=== PATIENT | male | born 1980 | race Caucasian/White ===

== ENCOUNTER → 2019-05-21 09:44 | Outpatient (BNVA) | payer SELFPAY | PROVIDERS: Family Provider Nurse Practitioner Family; PCP Nurse Practitioner Family; Visit Provider Nurse Practitioner Family | DX: I50.9 Heart failure, unspecified (principal); R06.02 Shortness of breath | CPT/HCPCS: 71046; 80053; 80061; 83036; 83721; 84439; 84443 ==

== ENCOUNTER 2019-05-29 17:40 | Inpatient (IN) | payer SELFPAY ==
[2019-05-29] VITALS (7 sets, daily range): BP systolic 102–130; BP diastolic 73–91; PULSE 93–112; RESP 15–18; TEMP 37.1; O2SAT 95–96; BMI 29.6; BMI 30.9
--- NOTE | 2019-05-29 18:06 | XRR_ITS ---
PROCEDURE INFORMATION: Exam: XR Chest, 1 View Exam date and time: 05/29/2019 6:07 PM Age: 38 years old Clinical indication: Patient HX: Sharp intermittent chest pains, smoker, hx- chf; Additional info: Dyspnea/cough TECHNIQUE: Imaging protocol: XR of the chest Views: 1 view. COMPARISON: CR XR chest 2V* [id number] 05/21/2019 9:56 AM FINDINGS: Lungs: Unremarkable. No consolidation. Pleural space: Unremarkable. No pleural effusion. No pneumothorax. Heart/Mediastinum: Unremarkable. No cardiomegaly. Bones/joints: Unremarkable. XR/XR chest 1V portable [id number] IMPRESSION: No acute findings.
--- NOTE | 2019-05-29 18:06 | ECG_ITS ---
Measurements Intervals [place] Rate: 90 P: 42 [place]: 119 QRS: 4 QRSD: 105 T: 195 QT: 375 QTc: 461 SINUS RHYTHM WITH SHORT [place] INTERVAL POSSIBLE LEFT ATRIAL ENLARGEMENT [-0.1mV P WAVE IN V1/V2] MODERATE T-WAVE ABNORMALITY, CONSIDER LATERAL ISCHEMIA [-0.1+ mV T WAVE IN I/aVL/V5/V6] Compared to ECG 01/23/2019 11:14:05 Sinus tachycardia no longer present T-wave abnormality still present Possible ischemia still present Electronically Signed On 05-30-2019 8:29:27 CDT by Kelly Georges M.D. [email or web address]
--- NOTE | 2019-05-29 18:12 | W.ED.CHESTPA ---
Documented by User: James Holliday DO 05/31/19 11:53 HPI - Chest Pain General: Chief Complaint: Chest Pain Stated Complaint: CHEST PAIN Time Seen by Provider: 05/29/19 17:41 History of Present Illness: HPI narrative: 38-year-old female admitted to the emergency room with a complaint of chest pain while at home. He states he has had some congestive heart failure in the past he said some difficulty breathing and some chest tightness and discomfort has not had any radiation of pain no vomiting or diarrhea denies fever sweats or chills Associated symptoms: Deny abdominal pain, dyspnea, fever(s), nausea or vomiting Review of Systems Const: Denies: fever, chills, body aches, change in appetite, fatigue or malaise ENMT: Denies: throat pain, ear pain, nasal discharge or nasal congestion Card: Reports: chest pain and shortness of breath on exertion; Denies: edema or shortness of breath when lying down Resp: Denies: shortness of breath, productive cough or non-productive cough GI: Denies: abdominal pain, nausea, vomiting, vomiting blood, coffee grounds in vomit, diarrhea, constipation, bloating, blood in stool or black tarry stool : Denies: flank pain, painful urination, urinary frequency or urinary urgency Skin/Breast: Denies: rash or itching PFSH ED PFSH: Medical History Cannabis dependence, uncomplicated 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% no valvular abnormality Depression Essential hypertension GERD (gastroesophageal reflux disease) Major depressive disorder, recurrent severe without psychotic features Moderate pulmonary arterial systolic hypertension Nicotine dependence, cigarettes, with other nicotine-induced disorders Post-traumatic stress disorder, chronic Type 1 diabetes mellitus with hyperglycemia Surgical History (Updated 05/29/19 @ 21:14 by Delfin Russo MD) History of hip surgery Family History Grandmother Diabetes Cancer Mother Diabetes Father Hypertension Grandmother Hypertension Father Cancer Social History Smoking and tobacco status: current every day smoker cigarettes [ Other cigarette details: 03/06 ppd ] Smoking risk assessment/counseling performed?: Yes Tobacco counseling given: counseling >3 minutes Alcohol intake: current Alcohol intake frequency: holidays/special occasions only Physical Exam Const: COMMON NORMALS: no apparent distress GENERAL APPEARANCE: cooperative and comfortable ORIENTATION/CONSCIOUSNESS: Yes awake, Yes oriented to person, Yes oriented to place and Yes oriented to time HENMT: COMMON NORMALS: normocephalic, head/scalp atraumatic, hearing grossly normal bilaterally, external ears normal, EAC's normal, TM's normal bilaterally, nasal mucous membranes and turbinates normal, moist oral mucous membranes and oropharynx normal HEAD & SCALP: normocephalic and atraumatic NOSE: nasal mucous membranes and turbinates normal EXTERNAL EAR: Yes external ears normal EXTERNAL AUDITORY CANAL: EAC's normal TYMPANIC MEMBRANE: TM's normal bilaterally Eye: COMMON NORMALS: PERRL, EOMs intact bilaterally, conjunctivae normal and no scleral icterus CONJUNCTIVA: Yes conjunctivae normal PUPIL: Yes PERRL Neck/C-Spine: COMMON NORMALS: full ROM, no lymphadenopathy, supple and no JVD Lymph: LYMPHATIC: no lymphadenopathy noted and no lymphedema noted Resp: COMMON NORMALS: normal respiratory effort, no retractions, no use of accessory muscles and clear to auscultation bilaterally AUSCULTATION: clear to auscultation bilaterally Cardio: COMMON NORMALS: no JVD, regular rate, regular rhythm and no murmurs RATE: regular rate RHYTHM: regular rhythm GI: COMMON NORMALS: soft to palpation and no hepatosplenomegaly AUSCULTATION: Yes normoactive bowel sounds PALPATION: Yes soft, No tender, No guarding and Yes no hepatosplenomegaly Extremity: COMMON NORMALS: normal to inspection, normal capillary refill, no clubbing, cyanosis or edema, no calf tenderness and no pedal edema Neuro: SENSORIUM/ORIENTATION: Yes oriented to person, Yes oriented to place and Yes oriented to time Skin: COMMON NORMALS: no rashes or lesions noted GENERAL SKIN EXAM: no rashes or lesions noted Course Vital Signs: Vital signs: Vital Signs Temperature 98.3 F 05/31/19 08:00 Pulse Rate 100 05/31/19 08:00 Respiratory Rate 20 H 05/31/19 08:00 Blood Pressure 111/83 05/31/19 08:00 Pulse Oximetry 93 05/31/19 08:00 MDM - Chest Pain MDM Narrative: Medical decision making narrative: Patient seen initially and was evaluated laboratory tests ordered. Care handed over to Dr. Zafar at change of shift Lab Data: Labs: Lab Results 05/29/19 05/29/19 05/29/19 Range/Units 18:21 18:21 18:21 WBC 10.1 H (4.0-10.0) 10^3/ uL RBC 5.03 (4.1-5.3) 10^6/u L Hgb 15.7 (11.7-16.6) g/dL Hct 47.2 (42.0-52.0) % MCV 93.8 (80-94) fL MCH 31.2 (28.0-34.0) pg MCHC 33.3 (30.0-36.0) g/dL RDW 13.6 (12.1-15.1) % Plt Count 229 (130-400) 10^3/c mm MPV 11.9 H (7.4-10.4) fL Neut % (Auto) 55.5 % Lymph % (Auto) 35.1 % [place] % (Auto) 5.3 % Eos % (Auto) 2.5 % Baso % (Auto) 0.6 % Neut # (Auto) 5.6 (1.8-7.7) 10^3/u L Lymph # (Auto) 3.6 (0.8-4.8) 10^3/u L [place] # (Auto) 0.5 (0.2-0.9) 10^3/u L Eos # (Auto) 0.3 (0.0-0.8) 10^3/u L Baso # (Auto) 0.1 (0.0-0.1) 10^3/u L Nucleated RBC % (a uto) 0 % Nucleated RBCs # 0.0 /100WBC D-Dimer 0.32 (0-0.59) ug/mIFE U Sodium 141 (136-145) mmol/L Potassium 4.1 (3.5-5.1) mmol/L Chloride 106 (98-107) mmol/L Carbon Dioxide 22 (22-29) mmol/L Anion Gap 17.1 (5-19) BUN 21 H (6-20) mg/dL Creatinine 1.1 (0.7-1.2) mg/dL GFR Calculation 74.5 L (90-130) mL/min Glucose 111 (65-115) mg/dL POC Glucose (70-110) mg/dL Calculated Osmolal ity 289 (285-295) mOsm/k g Calcium 9.6 (8.5-10.5) mg/dL Total Bilirubin 0.2 (0.15-1.2) mg/dL AST 15 (0-40) U/L ALT 18 (0-41) U/L Alkaline Phosphata se 63 (40-130) IU/L Troponin T Baselin e (0-15) ng/mL Troponin T 120 Min [place] (0-15) ng/mL Delta Troponin T (0-10) ABS# NT-Pro-B Natriuret Pep (0-125) pg/mL Total Protein 6.5 L (6.6-8.7) g/dL Albumin 4.0 (3.5-5.2) g/dL Globulin 2.5 (1.3-4.6) g/dL 05/29/19 05/29/19 05/29/19 Range/Units 18:21 20:03 22:38 WBC (4.0-10.0) 10^3/ uL RBC (4.1-5.3) 10^6/u L Hgb (11.7-16.6) g/dL Hct (42.0-52.0) % MCV (80-94) fL MCH (28.0-34.0) pg MCHC (30.0-36.0) g/dL RDW (12.1-15.1) % Plt Count (130-400) 10^3/c mm MPV (7.4-10.4) fL Neut % (Auto) % Lymph % (Auto) % [place] % (Auto) % Eos % (Auto) % Baso % (Auto) % Neut # (Auto) (1.8-7.7) 10^3/u L Lymph # (Auto) (0.8-4.8) 10^3/u L [place] # (Auto) (0.2-0.9) 10^3/u L Eos # (Auto) (0.0-0.8) 10^3/u L Baso # (Auto) (0.0-0.1) 10^3/u L Nucleated RBC % (a uto) % Nucleated RBCs # /100WBC D-Dimer (0-0.59) ug/mIFE U Sodium (136-145) mmol/L Potassium (3.5-5.1) mmol/L Chloride (98-107) mmol/L Carbon Dioxide (22-29) mmol/L Anion Gap (5-19) BUN (6-20) mg/dL Creatinine (0.7-1.2) mg/dL GFR Calculation (90-130) mL/min Glucose (65-115) mg/dL POC Glucose 183 (70-110) mg/dL Calculated Osmolal ity (285-295) mOsm/k g Calcium (8.5-10.5) mg/dL Total Bilirubin (0.15-1.2) mg/dL AST (0-40) U/L ALT (0-41) U/L Alkaline Phosphata se (40-130) IU/L Troponin T Baselin e 48 H (0-15) ng/mL Troponin T [address] [place] 49.49 H (0-15) ng/mL Delta Troponin T 1.49 (0-10) ABS# NT-Pro-B Natriuret Pep (0-125) pg/mL Total Protein (6.6-8.7) g/dL Albumin (3.5-5.2) g/dL Globulin (1.3-4.6) g/dL 05/30/19 05/30/19 05/30/19 Range/Units 04:24 04:24 04:24 WBC 8.0 (4.0-10.0) 10^3/ uL RBC 4.71 (4.1-5.3) 10^6/u L Hgb 14.8 (11.7-16.6) g/dL Hct 45.6 (42.0-52.0) % MCV 96.8 H (80-94) fL MCH 31.4 (28.0-34.0) pg MCHC 32.5 (30.0-36.0) g/dL RDW 13.8 (12.1-15.1) % Plt Count 212 (130-400) 10^3/c mm MPV 12.3 H (7.4-10.4) fL Neut % (Auto) 48.5 % Lymph % (Auto) 40.0 % [place] % (Auto) 6.0 % Eos % (Auto) 3.6 % Baso % (Auto) 0.5 % Neut # (Auto) 3.9 (1.8-7.7) 10^3/u L Lymph # (Auto) 3.2 (0.8-4.8) 10^3/u L [place] # (Auto) 0.5 (0.2-0.9) 10^3/u L Eos # (Auto) 0.3 (0.0-0.8) 10^3/u L Baso # (Auto) 0.0 (0.0-0.1) 10^3/u L Nucleated RBC % (a uto) 0 % Nucleated RBCs # 0.0 /100WBC D-Dimer (0-0.59) ug/mIFE U Sodium 141 (136-145) mmol/L Potassium 3.9 (3.5-5.1) mmol/L Chloride 105 (98-107) mmol/L Carbon Dioxide 25 (22-29) mmol/L Anion Gap 14.9 (5-19) BUN 20 (6-20) mg/dL Creatinine 1.1 (0.7-1.2) mg/dL GFR Calculation 74.5 L (90-130) mL/min Glucose 140 H (65-115) mg/dL POC Glucose (70-110) mg/dL Calculated Osmolal ity 291 (285-295) mOsm/k g Calcium 9.5 (8.5-10.5) mg/dL Total Bilirubin 0.2 (0.15-1.2) mg/dL AST 16 (0-40) U/L ALT 17 (0-41) U/L Alkaline Phosphata se 61 (40-130) IU/L Troponin T Baselin e (0-15) ng/mL Troponin T 120 Min [place] (0-15) ng/mL Delta Troponin T (0-10) ABS# NT-Pro-B Natriuret Pep 1464 H (0-125) pg/mL Total Protein 5.8 L (6.6-8.7) g/dL Albumin 3.8 (3.5-5.2) g/dL Globulin 2.0 (1.3-4.6) g/dL 05/30/19 05/30/19 05/30/19 Range/Units 05:58 11:32 15:57 WBC (4.0-10.0) 10^3/ uL RBC (4.1-5.3) 10^6/u L Hgb (11.7-16.6) g/dL Hct (42.0-52.0) % MCV (80-94) fL MCH (28.0-34.0) pg MCHC (30.0-36.0) g/dL RDW (12.1-15.1) % Plt Count (130-400) 10^3/c mm MPV (7.4-10.4) fL Neut % (Auto) % Lymph % (Auto) % [place] % (Auto) % Eos % (Auto) % Baso % (Auto) % Neut # (Auto) (1.8-7.7) 10^3/u L Lymph # (Auto) (0.8-4.8) 10^3/u L [place] # (Auto) (0.2-0.9) 10^3/u L Eos # (Auto) (0.0-0.8) 10^3/u L Baso # (Auto) (0.0-0.1) 10^3/u L Nucleated RBC % (a uto) % Nucleated RBCs # /100WBC D-Dimer (0-0.59) ug/mIFE U Sodium (136-145) mmol/L Potassium (3.5-5.1) mmol/L Chloride (98-107) mmol/L Carbon Dioxide (22-29) mmol/L Anion Gap (5-19) BUN (6-20) mg/dL Creatinine (0.7-1.2) mg/dL GFR Calculation (90-130) mL/min Glucose (65-115) mg/dL POC Glucose 142 184 110 (70-110) mg/dL Calculated Osmolal ity (285-295) mOsm/k g Calcium (8.5-10.5) mg/dL Total Bilirubin (0.15-1.2) mg/dL AST (0-40) U/L ALT (0-41) U/L Alkaline Phosphata se (40-130) IU/L Troponin T Baselin e (0-15) ng/mL Troponin T 120 Min [place] (0-15) ng/mL Delta Troponin T (0-10) ABS# NT-Pro-B Natriuret Pep (0-125) pg/mL Total Protein (6.6-8.7) g/dL Albumin (3.5-5.2) g/dL Globulin (1.3-4.6) g/dL Discharge Plan Discharge Admit Provider: Delfin Russo Condition: Stable Discharge Diet: Cardiac and Diabetic Discharge Activity: Resume usual activity Discharge Date/Time: 05/29/19 22:29 Coding Level of Care Code ED Enroute Controller for Chg Fwd Exam Comprehensive Documented by User: Sp Zafar DO 05/29/19 21:01 HPI - Chest Pain General: Chief Complaint: Chest Pain Stated Complaint: CHEST PAIN Time Seen by Provider: 05/29/19 17:41 PFSH ED PFSH: Medical History Cannabis dependence, uncomplicated 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% no valvular abnormality Depression Essential hypertension GERD (gastroesophageal reflux disease) Major depressive disorder, recurrent severe without psychotic features Moderate pulmonary arterial systolic hypertension Nicotine dependence, cigarettes, with other nicotine-induced disorders Post-traumatic stress disorder, chronic Type 1 diabetes mellitus with hyperglycemia Surgical History (Updated 05/29/19 @ 21:14 by Delfin Russo MD) History of hip surgery Family History Grandmother Diabetes Cancer Mother Diabetes Father Hypertension Grandmother Hypertension Father Cancer Social History Smoking and tobacco status: current every day smoker cigarettes [ Other cigarette details: 03/06 ppd ] Smoking risk assessment/counseling performed?: Yes Tobacco counseling given: counseling >3 minutes Alcohol intake: current Alcohol intake frequency: holidays/special occasions only Course Vital Signs: Vital signs: Vital Signs Temperature 98.3 F 05/31/19 08:00 Pulse Rate 100 05/31/19 08:00 Respiratory Rate 20 H 05/31/19 08:00 Blood Pressure 111/83 05/31/19 08:00 Pulse Oximetry 93 05/31/19 08:00 MDM - Chest Pain MDM Narrative: Medical decision making narrative: 38-year-old male diabetic. He was told at one point he had congestive heart failure. He was checked out to me by Dr. Weaver. He presents with left-sided chest pain that is sharp. He is not really coughing. No sputum production or fever. His initial EKG showed a sinus tachycardia with a rate of 100, and some T wave inversion in V6. His 2-hour EKG shows T wave inversion in V6, V5, and a biphasic T wave in V4. He also has a biphasic T wave in lead II that is new. With progressive T wave changes, as well as persistent pain, he will be observed. His troponin did not change at 2 hours but was elevated initially. His chest x-ray is clear and other labs are benign. Lab Data: Labs: Lab Results 05/29/19 05/29/19 05/29/19 Range/Units 18:21 18:21 18:21 WBC 10.1 H (4.0-10.0) 10^3/ uL RBC 5.03 (4.1-5.3) 10^6/u L Hgb 15.7 (11.7-16.6) g/dL Hct 47.2 (42.0-52.0) % MCV 93.8 (80-94) fL MCH 31.2 (28.0-34.0) pg MCHC 33.3 (30.0-36.0) g/dL RDW 13.6 (12.1-15.1) % Plt Count 229 (130-400) 10^3/c mm MPV 11.9 H (7.4-10.4) fL Neut % (Auto) 55.5 % Lymph % (Auto) 35.1 % [place] % (Auto) 5.3 % Eos % (Auto) 2.5 % Baso % (Auto) 0.6 % Neut # (Auto) 5.6 (1.8-7.7) 10^3/u L Lymph # (Auto) 3.6 (0.8-4.8) 10^3/u L [place] # (Auto) 0.5 (0.2-0.9) 10^3/u L Eos # (Auto) 0.3 (0.0-0.8) 10^3/u L Baso # (Auto) 0.1 (0.0-0.1) 10^3/u L Nucleated RBC % (a uto) 0 % Nucleated RBCs # 0.0 /100WBC D-Dimer 0.32 (0-0.59) ug/mIFE U Sodium 141 (136-145) mmol/L Potassium 4.1 (3.5-5.1) mmol/L Chloride 106 (98-107) mmol/L Carbon Dioxide 22 (22-29) mmol/L Anion Gap 17.1 (5-19) BUN 21 H (6-20) mg/dL Creatinine 1.1 (0.7-1.2) mg/dL GFR Calculation 74.5 L (90-130) mL/min Glucose 111 (65-115) mg/dL POC Glucose (70-110) mg/dL Calculated Osmolal ity 289 (285-295) mOsm/k g Calcium 9.6 (8.5-10.5) mg/dL Total Bilirubin 0.2 (0.15-1.2) mg/dL AST 15 (0-40) U/L ALT 18 (0-41) U/L Alkaline Phosphata se 63 (40-130) IU/L Troponin T Baselin e (0-15) ng/mL Troponin T 120 Min [place] (0-15) ng/mL Delta Troponin T (0-10) ABS# NT-Pro-B Natriuret Pep (0-125) pg/mL Total Protein 6.5 L (6.6-8.7) g/dL Albumin 4.0 (3.5-5.2) g/dL Globulin 2.5 (1.3-4.6) g/dL 05/29/19 05/29/19 05/29/19 Range/Units 18:21 20:03 22:38 WBC (4.0-10.0) 10^3/ uL RBC (4.1-5.3) 10^6/u L Hgb (11.7-16.6) g/dL Hct (42.0-52.0) % MCV (80-94) fL MCH (28.0-34.0) pg MCHC (30.0-36.0) g/dL RDW (12.1-15.1) % Plt Count (130-400) 10^3/c mm MPV (7.4-10.4) fL Neut % (Auto) % Lymph % (Auto) % [place] % (Auto) % Eos % (Auto) % Baso % (Auto) % Neut # (Auto) (1.8-7.7) 10^3/u L Lymph # (Auto) (0.8-4.8) 10^3/u L [place] # (Auto) (0.2-0.9) 10^3/u L Eos # (Auto) (0.0-0.8) 10^3/u L Baso # (Auto) (0.0-0.1) 10^3/u L Nucleated RBC % (a uto) % Nucleated RBCs # /100WBC D-Dimer (0-0.59) ug/mIFE U Sodium (136-145) mmol/L Potassium (3.5-5.1) mmol/L Chloride (98-107) mmol/L Carbon Dioxide (22-29) mmol/L Anion Gap (5-19) BUN (6-20) mg/dL Creatinine (0.7-1.2) mg/dL GFR Calculation (90-130) mL/min Glucose (65-115) mg/dL POC Glucose 183 (70-110) mg/dL Calculated Osmolal ity (285-295) mOsm/k g Calcium (8.5-10.5) mg/dL Total Bilirubin (0.15-1.2) mg/dL AST (0-40) U/L ALT (0-41) U/L Alkaline Phosphata se (40-130) IU/L Troponin T Baselin e 48 H (0-15) ng/mL Troponin T [address] [place] 49.49 H (0-15) ng/mL Delta Troponin T 1.49 (0-10) ABS# NT-Pro-B Natriuret Pep (0-125) pg/mL Total Protein (6.6-8.7) g/dL Albumin (3.5-5.2) g/dL Globulin (1.3-4.6) g/dL 05/30/19 05/30/19 05/30/19 Range/Units 04:24 04:24 04:24 WBC 8.0 (4.0-10.0) 10^3/ uL RBC 4.71 (4.1-5.3) 10^6/u L Hgb 14.8 (11.7-16.6) g/dL Hct 45.6 (42.0-52.0) % MCV 96.8 H (80-94) fL MCH 31.4 (28.0-34.0) pg MCHC 32.5 (30.0-36.0) g/dL RDW 13.8 (12.1-15.1) % Plt Count 212 (130-400) 10^3/c mm MPV 12.3 H (7.4-10.4) fL Neut % (Auto) 48.5 % Lymph % (Auto) 40.0 % [place] % (Auto) 6.0 % Eos % (Auto) 3.6 % Baso % (Auto) 0.5 % Neut # (Auto) 3.9 (1.8-7.7) 10^3/u L Lymph # (Auto) 3.2 (0.8-4.8) 10^3/u L [place] # (Auto) 0.5 (0.2-0.9) 10^3/u L Eos # (Auto) 0.3 (0.0-0.8) 10^3/u L Baso # (Auto) 0.0 (0.0-0.1) 10^3/u L Nucleated RBC % (a uto) 0 % Nucleated RBCs # 0.0 /100WBC D-Dimer (0-0.59) ug/mIFE U Sodium 141 (136-145) mmol/L Potassium 3.9 (3.5-5.1) mmol/L Chloride 105 (98-107) mmol/L Carbon Dioxide 25 (22-29) mmol/L Anion Gap 14.9 (5-19) BUN 20 (6-20) mg/dL Creatinine 1.1 (0.7-1.2) mg/dL GFR Calculation 74.5 L (90-130) mL/min Glucose 140 H (65-115) mg/dL POC Glucose (70-110) mg/dL Calculated Osmolal ity 291 (285-295) mOsm/k g Calcium 9.5 (8.5-10.5) mg/dL Total Bilirubin 0.2 (0.15-1.2) mg/dL AST 16 (0-40) U/L ALT 17 (0-41) U/L Alkaline Phosphata se 61 (40-130) IU/L Troponin T Baselin e (0-15) ng/mL Troponin T 120 [address] [place] (0-15) ng/mL Delta Troponin T (0-10) ABS# NT-Pro-B Natriuret Pep 1464 H (0-125) pg/mL Total Protein 5.8 L (6.6-8.7) g/dL Albumin 3.8 (3.5-5.2) g/dL Globulin 2.0 (1.3-4.6) g/dL 05/30/19 05/30/19 05/30/19 Range/Units 05:58 11:32 15:57 WBC (4.0-10.0) 10^3/ uL RBC (4.1-5.3) 10^6/u L Hgb (11.7-16.6) g/dL Hct (42.0-52.0) % MCV (80-94) fL MCH (28.0-34.0) pg MCHC (30.0-36.0) g/dL RDW (12.1-15.1) % Plt Count (130-400) 10^3/c mm MPV (7.4-10.4) fL Neut % (Auto) % Lymph % (Auto) % [place] % (Auto) % Eos % (Auto) % Baso % (Auto) % Neut # (Auto) (1.8-7.7) 10^3/u L Lymph # (Auto) (0.8-4.8) 10^3/u L [place] # (Auto) (0.2-0.9) 10^3/u L Eos # (Auto) (0.0-0.8) 10^3/u L Baso # (Auto) (0.0-0.1) 10^3/u L Nucleated RBC % (a uto) % Nucleated RBCs # /100WBC D-Dimer (0-0.59) ug/mIFE U Sodium (136-145) mmol/L Potassium (3.5-5.1) mmol/L Chloride (98-107) mmol/L Carbon Dioxide (22-29) mmol/L Anion Gap (5-19) BUN (6-20) mg/dL Creatinine (0.7-1.2) mg/dL GFR Calculation (90-130) mL/min Glucose (65-115) mg/dL POC Glucose 142 184 110 (70-110) mg/dL Calculated Osmolal ity (285-295) mOsm/k g Calcium (8.5-10.5) mg/dL Total Bilirubin (0.15-1.2) mg/dL AST (0-40) U/L ALT (0-41) U/L Alkaline Phosphata se (40-130) IU/L Troponin T Baselin e (0-15) ng/mL Troponin T 120 Min [place] (0-15) ng/mL Delta Troponin T (0-10) ABS# NT-Pro-B Natriuret Pep (0-125) pg/mL Total Protein (6.6-8.7) g/dL Albumin (3.5-5.2) g/dL Globulin (1.3-4.6) g/dL Discharge Plan Discharge Admit Provider: Delfin Russo Condition: Stable Discharge Diet: Cardiac and Diabetic Discharge Activity: Resume usual activity Discharge Date/Time: 05/29/19 22:29 Coding Level of Care Code ED Enroute Controller for Chg Fwd Exam Comprehensive
[2019-05-29 18:28] LABS: Basophils # 0.1 10^3/uL (0.0-0.1); Basophils % 0.6 %; Eosinophils # 0.3 10^3/uL (0.0-0.8); Eosinophils % 2.5 %; Hematocrit 47.2 % (42.0-52.0); Hemoglobin 15.7 g/dL (11.7-16.6); Lymphocytes # 3.6 10^3/uL (0.8-4.8); Lymphocytes % 35.1 %; Mean Corpuscular HGB Conc 33.3 g/dL (30.0-36.0); Mean Corpuscular Hemoglobin 31.2 pg (28.0-34.0); Mean Corpuscular Volume 93.8 fL (80-94); Mean Platelet Volume 11.9 fL (7.4-10.4); Monocytes # 0.5 10^3/uL (0.2-0.9); Monocytes % 5.3 %; Neutrophils # 5.6 10^3/uL (1.8-7.7); Neutrophils % 55.5 %; Nucleated Red Blood Cells % 0 %; Platelet Count 229 10^3/cmm (130-400); Red Blood Count 5.03 10^6/uL (4.1-5.3); Red Cell Distribution Width 13.6 % (12.1-15.1); White Blood Count 10.1 10^3/uL (4.0-10.0)
[2019-05-29 18:50] LABS: D Dimer 0.32 ug/mIFEU (0-0.59)
[2019-05-29 18:51] LABS: Alanine Aminotransferase 18 U/L (0-41); Alkaline Phosphatase 63 IU/L (40-130); Anion Gap 17.1 (5-19); Aspartate Amino Transferase 15 U/L (0-40); Blood Urea Nitrogen 21 mg/dL (6-20); Calcium 9.6 mg/dL (8.5-10.5); Carbon Dioxide 22 mmol/L (22-29); Chloride 106 mmol/L (98-107); Globulin 2.5 g/dL (1.3-4.6); Glomerular Filtration Rate 74.5 mL/min (90-130); Glucose 111 mg/dL (65-115); Osmolality Calculated 289 mOsm/kg (285-295); Potassium 4.1 mmol/L (3.5-5.1); Sodium 141 mmol/L (136-145); Total Bilirubin 0.2 mg/dL (0.15-1.2); Total Protein 6.5 g/dL (6.6-8.7)
[2019-05-29 18:53] LABS: Troponin(5th) Baseline 48 ng/mL (0-15)
--- NOTE | 2019-05-29 20:06 | ECG_ITS ---
Measurements Intervals Trail Rate: 103 P: 55 MN: 119 QRS: -16 QRSD: 97 T: 122 QT: 341 QTc: 448 SINUS TACHYCARDIA WITH SHORT MN INTERVAL POSSIBLE LEFT ATRIAL ENLARGEMENT [-0.1mV P WAVE IN V1/V2] MODERATE T-WAVE ABNORMALITY, CONSIDER LATERAL ISCHEMIA [-0.1+ mV T WAVE IN I/ I/aVL/V5/V6] Compared to ECG 01/23/2019 11:14:05 No significant changes Electronically Signed On 05-30-2019 8:34:58 CDT by Kelly Georges M.D. [email or web address]
[2019-05-29 20:35] LABS: Troponin 5 2HR 49.49 ng/mL (0-15); Troponin 5 2HR Delta 1.49 ABS# (0-10)
--- NOTE | 2019-05-29 21:07 | P.HP_ITS ---
Providers/Chief Complaint Primary Care Provider: Zeinab Salazar NP Chief Complaint: CHEST PAIN History of Present Illness Jerman Lamb is a 38 year old male who has a history of heart failure with reduced ejection fraction, active smoker, cannabis use, GERD, type 2 diabetes came in with chief complaint of chest pain. 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 Patient is stating that around 8 AM when he woke up he started experiencing chest discomfort substernally when he came back from restroom, initially it was 4/10 in intensity nonradiating, not associated with nausea, vomiting, cold sweats, he attributed his symptoms to GERD and kept waiting until 4 PM when he tried to go to bed, time his symptoms got worse. Patient is stating that normally he tries to drink [place] and soda which makes him nauseous and when he vomits he feels better. On further questioning he stated that yesterday he was plowing in his backyard and felt really worn out at the end. He is denying recent sick contacts, flulike symptoms, diarrhea. He is endorsing to orthopnea and PND but no recent weight gain. He is compliant with his medications, he smokes 4 to 5 cigarettes a day. Uses medicinal marijuana for PTSD. He has not undergone coronary angiogram Diagnostics in ER revealed normal blood work, troponin not significantly high after 2 hours, EKG is revealing T wave inversions in the lateral leads, patient is still complaining of pleuritic type chest pain, it is also reproducible, normal hemodynamics Considering his previous history of heart failure and failure to follow-up with washery boss, T wave inversions in lateral leads decision was made to observe him overnight Review of Systems Const: Denies: fever, chills or body aches Eyes: Denies: change in vision or blurry vision ENMT: Denies: throat pain or uvular edema Card: Reports: chest pain, shortness of breath on exertion and shortness of breath when lying down; Denies: palpitations, irregular heart rhythm or swelling of feet/ankles Resp: Reports: shortness of breath GI: Reports: heartburn/indigestion and bloating; Denies: abdominal pain, nausea or vomiting : Denies: flank pain or difficulty urinating Musc: Denies: neck pain or back pain Skin/Breast: Denies: rash Neuro: Denies: headache Psych: Reports: anxiety, depression and mood swings Endo: Denies: excessive urination [place]/Lymph: Denies: easy bruising All/Imm: Denies: hives Medications/Allergies Home Medications Medication Instructions Recorded Confirmed Last Taken Type trazodone 300 mg PO BEDTIME 05/29/19 05/29/19 05/28/19 21:00 History Allergies Allergy/AdvReac Type Severity Reaction Status Date / Time mirtazapine [From Remeron] Allergy ADR-Agitate Verified 05/29/19 17:49 d morphine Allergy Unknown Verified 05/29/19 17:49 PFSH Acute PFSH: Medical History (Updated 05/29/19 @ 23:46 by Delfin Russo MD) Cannabis dependence, uncomplicated 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% no valvular abnormality Depression Essential hypertension GERD (gastroesophageal reflux disease) Major depressive disorder, recurrent severe without psychotic features Moderate pulmonary arterial systolic hypertension Nicotine dependence, cigarettes, with other nicotine-induced disorders Post-traumatic stress disorder, chronic Type 1 diabetes mellitus with hyperglycemia Surgical History (Updated 05/29/19 @ 21:14 by Delfin Russo MD) History of hip surgery Family History Grandmother Diabetes Cancer Mother Diabetes Father Hypertension Grandmother Hypertension Father Cancer Social History Smoking and tobacco status: current every day smoker cigarettes [ Other cigarette details: 03/06 ppd ] Smoking risk assessment/counseling performed?: Yes Tobacco counseling given: counseling >3 minutes Alcohol intake: current Alcohol intake frequency: holidays/special occasions only Vitals/I&O/Wt Last Vital Signs Temp 98.7 F 05/29/19 17:41 Pulse 112 H 05/29/19 17:41 Resp 16 05/29/19 17:53 BP 123/80 05/29/19 17:41 Pulse Ox 95 05/29/19 17:41 Weight last 48 hrs Weight 88.451 kg Physical Exam Narrative: EXAM NARRATIVE: Obese young adult sitting comfortably in his bed Saturating well on room air with normal hemodynamics No active distress S1, S2 no signs of tachycardia or heart failure no JVD No lower extremity edema Lungs are clear to auscultation without adventitious sounds Abdomen soft, distended, visceral obesity, bowel sounds present nontender Neurological nonfocal exam Skin does not show any sign ischemia gangrene or ulcer Unkept appearance Appropriate mood and affect Data : 05/29/19 18:21 05/29/19 18:21 A&P Assessment and plan (1) Atypical chest pain: Status: Acute Code(s): R07.89 - Other chest pain (2) Smoker: Status: Acute Code(s): F17.200 - Nicotine dependence, unspecified, uncomplicated Additional A&P Information Atypical chest pain His chest pain is reproducible, increases on laying flat, nitroglycerin does not decrease intensity, has multiple risk factors for coronary artery disease, obes ity, smoker, THC use, diabetes, Troponin not significantly high, EKG shows T wave inversions in lateral leads Serial EKGs overnight 6-hour troponin is pending Currently chest pain is 2/10 which is sharp and stabbing Previous echo from 2019 shows EF 33% with diastolic dysfunction and moderate pulmonary hypertension considering his indication for an elective coronary angiogram I would not order stress test Heart failure with reduced ejection fraction with diastolic dysfunction No active exacerbation I would add aspirin and metoprolol succinate to his high-dose statin and Entresto regimen Because of reduced ejection fraction seems to be nonischemic, he needs coronary angiogram to have appropriate diagnosis which could be done electively, no acute indication of coronary angiogram Patient does not follow sodium restricted diet, drinks a lot of soda No need of repeat echo Type 2 diabetes His previous PCP notes are stating type 1 diabetes but patient is stating that he is type II, interestingly 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, with type 2 diabetes I am not sure if he has polyglandular syndrome versus MEN syndrome He does not have any director print Keep him on same regimen for now, will request records from [facility] where he had carcinoid tumor resection He is denying any skin rash but considering depression, resistant GERD acid reflux he will need an director print for screening for above-mentioned syndrome Active smoker and THC use Patient is stating that his marijuana helps him with his PTSD And he is trying to cut down his smoking currently smoking 4 cigarettes a day Counseled on smoking cessation Social issues: Unfortunately because of his insurance he was not able to follow-up with washery boss on timely manner, will do social consult to assist him with his insurance and appointments DVT prophylaxis: Lovenox Cardiac consistent carb diet Full code Attestations Medical Necessity Statement*: Anticipating discharge in less than 48 hours, needs closer monitoring for T wave inversions seen on EKG, recent echo shows reduced ejection fraction 33%, he has not undergone coronary angiogram Time Spent in Patient Care: 45 Coding Level of Care Code Acute 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
[2019-05-29] MEDS: fentaNYL 50 mcg/mL INJ 2mL IVP (21:11)
[2019-05-29] MEDS: pantoprazole DR 40 mg Tablet PO (23:01)
[2019-05-29] MEDS: trazodone 150 mg Tablet 300 MG PO (23:02)
[2019-05-29] MEDS: enoxaparin 40 mg/0.4 mL Syringe SUBCUT (23:02)
[2019-05-29] MEDS: atorvastatin 40 mg Tablet 20 MG PO (23:02)
[2019-05-30] VITALS: BP 101/61; PULSE 94; RESP 10; TEMP 36.6; O2SAT 98
[2019-05-30 02:55] VITALS: BP 104/64; PULSE 93; RESP 13; TEMP 37; O2SAT 92
[2019-05-30 04:58] LABS: Basophils % 0.5 %; Eosinophils # 0.3 10^3/uL (0.0-0.8); Eosinophils % 3.6 %; Hematocrit 45.6 % (42.0-52.0); Hemoglobin 14.8 g/dL (11.7-16.6); Lymphocytes # 3.2 10^3/uL (0.8-4.8); Mean Corpuscular HGB Conc 32.5 g/dL (30.0-36.0); Mean Corpuscular Hemoglobin 31.4 pg (28.0-34.0); Mean Corpuscular Volume 96.8 fL (80-94); Mean Platelet Volume 12.3 fL (7.4-10.4); Monocytes # 0.5 10^3/uL (0.2-0.9); Neutrophils # 3.9 10^3/uL (1.8-7.7); Neutrophils % 48.5 %; Nucleated Red Blood Cells % 0 %; Platelet Count 212 10^3/cmm (130-400); Red Blood Count 4.71 10^6/uL (4.1-5.3); Red Cell Distribution Width 13.8 % (12.1-15.1)
[2019-05-30 05:23] LABS: Alanine Aminotransferase 17 U/L (0-41); Albumin Level 3.8 g/dL (3.5-5.2); Alkaline Phosphatase 61 IU/L (40-130); Anion Gap 14.9 (5-19); Aspartate Amino Transferase 16 U/L (0-40); Blood Urea Nitrogen 20 mg/dL (6-20); Calcium 9.5 mg/dL (8.5-10.5); Carbon Dioxide 25 mmol/L (22-29); Chloride 105 mmol/L (98-107); Glomerular Filtration Rate 74.5 mL/min (90-130); Glucose 140 mg/dL (65-115); Osmolality Calculated 291 mOsm/kg (285-295); Potassium 3.9 mmol/L (3.5-5.1); Sodium 141 mmol/L (136-145); Total Bilirubin 0.2 mg/dL (0.15-1.2); Total Protein 5.8 g/dL (6.6-8.7)
[2019-05-30 05:58] LABS: Glucose Point of Care 183 mg/dL (70-110)
[2019-05-30 06:22] LABS: Glucose Point of Care 142 mg/dL (70-110)
--- NOTE | 2019-05-30 07:00 | ECG_ITS ---
Measurements Intervals Kenneth Rate: 100 P: 55 DE: 124 QRS: 4 QRSD: 98 T: 125 QT: 346 QTc: 448 SINUS TACHYCARDIA POSSIBLE LEFT ATRIAL ENLARGEMENT [-0.1mV P WAVE IN V1/V2] MODERATE T-WAVE ABNORMALITY, CONSIDER LATERAL ISCHEMIA [-0.1+ mV T WAVE IN I/aVL/V5/V6] Compared to ECG 01/23/2019 11:14:05 Short DE interval no longer present T-wave abnormality still present Possible ischemia still present Electronically Signed On 05-30-2019 8:32:23 CDT by Kelly Georges M.D. [email or web address]
--- NOTE | 2019-05-30 07:03 | PC.NURSE ---
Late entry: When going over patients medication reconciliation and questioning patient about if he takes his simvastatin anymore. Patient denied he did not take his statin anymore just because he lost his insurance and could no longer pay for it.
[2019-05-30 08:00] VITALS: BP 109/76; PULSE 108; RESP 17; O2SAT 92
[2019-05-30] MEDS: aspirin 81 mg EC Tablet PO (08:29)
[2019-05-30] MEDS: FUROsemide 40 mg Tablet PO ×2 (08:29→17:34)
[2019-05-30] MEDS: metoprolol succinate ER (24 HR) 25 mg Tablet 12.5 MG PO (08:29)
[2019-05-30] MEDS: sertraline 100 mg Tablet PO (08:29)
[2019-05-30] MEDS: sacubitril/valsartan 24-26 mg Tablet 1 EACH PO ×2 (08:29→17:33)
[2019-05-30 11:39] LABS: Glucose Point of Care 184 mg/dL (70-110)
--- NOTE | 2019-05-30 14:47 | P.CONIM_ITS ---
Providers/Reason For Consult Consulting Physican/Specialty*: Dr. Georges Reason for Consult*: Chest pain, SOB Attending Physician: Mary Alice Moody MD Primary Care Provider: Zeinab Salazar NP History of Present Illness History of Present Illness Jerman Lamb is a 38 year old male with PMHx of HTN, DM-2 x last 5 years on insulin for past year,GERD, h/o PTSD and cardiomyopathy diagnosed in 01/2019. He presented with complain of chest pain and shortness of breath. Patient started having left lower chest discomfort pleuritic in nature after he woke up, sharp 7/10 lasting few seconds and underlying 3/10 non-radiating constant pain, not associated with nausea, vomiting, cold sweats. He waited till late afternoon and then decided to come in when his symptoms did not resolve. He was unable to come to [facility] d/t lack of insurance after being discharged from the hospital. He complains of exertional dyspnea and orthopnea however sounds like unchanged from baseline. Review of Systems Const: Denies: fever or chills Eyes: Denies: change in vision ENMT: Denies: nasal discharge or nasal congestion Card: Reports: chest pain, shortness of breath on exertion and shortness of breath when lying down; Denies: palpitations, edema or swelling of feet/ankles Resp: Reports: shortness of breath and non-productive cough; Denies: productive cough GI: Denies: abdominal pain, nausea, vomiting, blood in stool or black tarry stool : Denies: blood in urine Musc: Denies: extremity swelling Skin/Breast: Denies: rash Neuro: Denies: slurred speech Psych: Denies: anxiety or depression Endo: Denies: tired all the time Troy/Lymph: Denies: petechiae or purpura Meds/Allergies Home Medications and Allergies Home Medications Medication Instructions Recorded Confirmed Type pantoprazole 40 mg tablet,delayed 40 mg PO QAM #30 tab 03/04/19 05/29/19 Rx release potassium chloride 20 mEq 20 meq PO BID #60 tab 03/04/19 05/29/19 Rx tablet,extended release sacubitril 24 mg-valsartan 26 mg 1 tab PO BID 03/04/19 05/29/19 History tablet furosemide 40 mg tablet 40 mg PO BID #60 tab 04/09/19 05/29/19 Rx sertraline 100 mg tablet 100 mg PO Q24H #30 tab 04/26/19 05/29/19 Rx insulin NPH-regular 70-30 U-100 See Rx Instructions SUBCUT .COMPLEX 05/21/19 05/29/19 History insulin 100 unit/mL subcutaneous pen trazodone 300 mg PO BEDTIME 05/29/19 05/29/19 History aspirin 81 mg PO DAILY 30 Days #30 tab 05/30/19 Rx atorvastatin 40 mg PO BEDTIME 30 Days #30 tab 05/30/19 Rx metoprolol succinate 12.5 mg PO DAILY 30 Days #30 tab 05/30/19 Rx Allergies Allergy/AdvReac Type Severity Reaction Status Date / Time mirtazapine [From Remeron] Allergy ADR-Agitate Verified 05/29/19 17:49 d morphine Allergy Unknown Verified 05/29/19 17:49 Current Medications Current Medications Generic Name Dose Route Start Last Admin Trade Name Freq PRN Reason Stop Dose Admin Aspirin 81 mg 05/30/19 09:00 05/30/19 08:29 Aspirin Ec PO 81 mg DAILY GINNA Administration Atorvastatin Calcium 20 mg 05/29/19 23:00 05/29/19 23:02 Lipitor PO 20 mg BEDTIME GINNA Administration Enoxaparin Sodium 40 mg 05/29/19 21:57 05/29/19 23:02 Lovenox SUBCUT 40 mg Q24H GINNA Administration Furosemide 40 mg 05/30/19 09:00 05/30/19 08:29 Lasix PO 40 mg BID GINNA Administration Insulin Aspart 50 unit 05/30/19 09:00 05/30/19 08:30 Novolog 70/30 SUBCUT Not Given DAILY GINNA Insulin Aspart 0 unit 05/30/19 08:00 05/30/19 11:46 Novolog SUBCUT 6 unit WM&BEDTIME GINNA Administration Protocol Metoprolol Succinate 12.5 mg 05/30/19 09:00 05/30/19 08:29 Toprol Xl PO 12.5 mg DAILY GINNA Administration Pantoprazole Sodium 40 mg 05/29/19 21:00 05/29/19 23:01 Protonix PO 40 mg BEDTIME GINNA Administration Sertraline HCl 100 mg 05/30/19 09:00 05/30/19 08:29 Zoloft PO 100 mg DAILY GINNA Administration Trazodone HCl 300 mg 05/29/19 21:00 05/29/19 23:02 Desyrel PO 300 mg BEDTIME GINNA Administration PFSH Acute PFSH: Medical History Cannabis dependence, uncomplicated 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% no valvular abnormality Depression Essential hypertension GERD (gastroesophageal reflux disease) Major depressive disorder, recurrent severe without psychotic features Moderate pulmonary arterial systolic hypertension Nicotine dependence, cigarettes, with other nicotine-induced disorders Post-traumatic stress disorder, chronic Type 1 diabetes mellitus with hyperglycemia Surgical History (Updated 05/29/19 @ 21:14 by Delfin Russo MD) History of hip surgery Family History Grandmother Diabetes Cancer Mother Diabetes Father Hypertension Grandmother Hypertension Father Cancer Social History Smoking and tobacco status: current every day smoker cigarettes [ Other cigarette details: 03/06 ppd ] Smoking risk assessment/counseling performed?: Yes Tobacco counseling given: counseling >3 minutes Alcohol intake: current Alcohol intake frequency: holidays/special occasions only Vitals/I&O/Wt Last Vital Signs Temp 98.6 F 05/30/19 02:55 Pulse 108 H 05/30/19 08:00 Resp 17 05/30/19 08:00 BP 109/76 05/30/19 08:00 Pulse Ox 92 05/30/19 08:00 05/29/19 05/30/19 05/30/19 22:59 06:59 14:59 Intake Total 150 / 150 600 / 600 Output Total 450 / 450 Balance 150 / 150 150 / 150 Weight last 48 hrs Weight 203 lb 3.2 oz Weight 195 lb Physical Exam Narrative: EXAM NARRATIVE: Gen: Obese, young adult sitting comfortably in his bed; No acute distress CVS: S1, S2 normal, no JVD RS: Lungs are clear to auscultation; No wheezing, rales or rhonchi Abdomen: soft, obese, bowel sounds present, nontender Neurological: AAOx 3, No FND Ext: No edema, cyanosis or clubbing. 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 No consolidation. Pleural space: Unremarkable. No pleural effusion. No pneumothorax. Heart/Mediastinum: Unremarkable. No cardiomegaly. Bones/joints: Unremarkable. IMPRESSION: No acute findings. TTE (01/23/19) CONCLUSIONS 1-Moderately increased left ventricular cavity size. Severely decreased left ventricular systolic function. Global left ventricular hypokinesis. Left ventricular ejection fraction is estimated at 33 %. Grade II/IV diastolic dysfunction, moderately elevated filling pressures. 2-Normal right ventricular size. Moderate pulmonary hypertension, RVSP 41.9 mmHg. 3-Mildly thickened mitral valve. Mild mitral annular calcification. No mitral valve stenosis. Moderate mitral valve regurgitation. 4-Mild aortic valve calcification. No aortic valve stenosis. Trace aortic valve regurgitation. 5-There is no pericardial effusion. 6-There are no prior echocardiogram studies to compare. A&P Assessment and plan (1) Atypical chest pain: Chest pain is pleuritic in nature and somewhat reproducible. -troponin x 3 not significantly elevated. No EKG changes. Not ACS. Status: Acute Code(s): R07.89 - Other chest pain (2) Combined systolic and diastolic congestive heart failure: TTE with diffuse hypokinesis and LVEF of 30-35%, moderate MR. -Likely non ischemic, however given multiple CAD risk factors and young age would benefit from CAG. -As this is not an urgent/emergent procdure, will plan for this as an outpatient. -Repeat limited echo unchanged. continue entresto, increase metoprolol and start on low dose aldactone. Status: Acute Code(s): I50.40 - Unspecified combined systolic (congestive) and diastolic (congestive) heart failure (3) GERD (gastroesophageal reflux disease): Status: Acute Code(s): K21.9 - Gastro-esophageal reflux disease without esophagitis (4) Nicotine dependence, cigarettes, with other nicotine-induced disorders: Status: Acute Code(s): F17.218 - Nicotine dependence, cigarettes, with other nicotine-induced disorders Additional A&P Information Moderate MR PTSD IDDM Marijuana abuse Thank you for allowing me to participate in patient's care. Please feel free to call with questions or concern. Consult Attestations Medical Necessity Statement: Hospital stay for med optimization for CHF. Coding Level of Care Code Acute Data Control Clerk for Nikolaig Fwd Diagnoses Atypical chest pain R07.89 Combined systolic and diastolic congestive heart failure I50.40 GERD (gastroesophageal reflux disease) K21.9 Nicotine dependence, cigarettes, with other nicotine-induced disorders F17.218
--- NOTE | 2019-05-30 14:51 | USCV_ITS ---
Jerman Lamb Age: 38 Gender: M : 1980 Exam Date: 05/30/2019 15:10 Ordering Phys: Kelly Georges MD ([email or web address]) Technologist: Jeannette Castillo Exam Location: [facility] – [place] Indication: CHF CHEST PAIN BP: 109 / 76 HR: 104 Rhythm: Sinus Technical Quality: Adequate MEASUREMENTS (Male / Female) Normal Values 2D ECHO LV Diastolic Diameter PLAX 5.7 cm 4.2 - 5.9 / 3.9 - 5.3 cm LV Systolic Diameter PLAX 5.7 cm LV Chamber Size 6.2 cm IVS Diastolic Thickness 1.2 cm 0.6 - 1.0 / 0.6 - 0.9 cm IVS Systolic Thickness 1.1 cm LVPW Diastolic Thickness 1.3 cm 0.6 - 1.0 / 0.6 - 0.9 cm LVPW Systolic Thickness 1.2 cm RV Chamber Size 3.3 cm LV Ejection Fraction 2D Teich 0.8 % LV Ejection Fraction MOD 2C 32.6 % LV Ejection Fraction 2C AL 32.5 % LA Diameter 4.5 cm LA Width 4.2 cm LA Height 5.2 cm RA Width 2.7 cm RA Height 3.6 cm Aorta at Sinotubular Diameter 3.2 cm M-MODE LV Diastolic Diameter MM 6.9 cm 4.2 - 5.9 / 3.9 - 5.3 cm LV Systolic Diameter MM 5.9 cm LV Ejection Fraction MM Teich 28.4 % IVS Diastolic Thickness MM 1.1 cm 0.6 - 1.0 / 0.6 - 0.9 cm IVS Systolic Thickness MM 1.5 cm LVPW Diastolic Thickness MM 1.2 cm 0.6 - 1.0 / 0.6 - 0.9 cm LVPW Systolic Thickness MM 1.6 cm RV Diastolic Diameter MM 1.4 cm Aortic Annulus Diameter 3.7 cm LA Ao Ratio MM 1.2 MV E Point Septal Separation 1.9 cm FINDINGS Left Ventricle Dilated left ventricular cavity size. Severely decreased left ventricular systolic function. Left ventricular ejection fraction is estimated at 30 %. Global left ventricular hypokinesis. Right Ventricle Normal right ventricular size and systolic function. Right Atrium Normal right atrial size. Left Atrium Mildly increased left atrial size. Mitral Valve Mildly thickened mitral valve. Mild mitral valve regurgitation. Aortic Valve Structurally normal trileaflet aortic valve. Tricuspid Valve Structurally normal tricuspid valve. Pulmonic Valve Pulmonic valve not well visualized. Trace pulmonary valve regurgitation. Pericardium No pericardial effusion. Aorta Normal size aortic root. CONCLUSIONS 1. Dilated left ventricular cavity size. Severely decreased left ventricular systolic function. Left ventricular ejection fraction is estimated at 30 %. Global left ventricular hypokinesis. 2. Normal right ventricular size and systolic function. 3. Mildly increased left atrial size. 4. Mild mitral valve regurgitation. 5. When compared to previous echocardiogram dated 01/23/19, there may not have been any significant change. Kelly Georges MD (Electronically Signed) Final Date: 30 May 2019 20:50 S
[2019-05-30 15:40] LABS: NT Pro B Type Natriuretic Pept 1464 pg/mL (0-125)
[2019-05-30 16:02] LABS: Glucose Point of Care 110 mg/dL (70-110)
--- NOTE | 2019-05-30 16:55 | PC.NURSE ---
pt insisted on having iv removed from left antecubital space.dr melgar aware
--- NOTE | 2019-05-30 17:27 | PM.PN ---
Subjective Subjective: Interval history: Patient known to me from previous admission in January 2019 when he was diagnosed with new onset systolic CHF, EF of 33%. Patient states that he was supposed to follow-up with cardiology but due to insurance issues was unable to do so. Has had some episodes of what he describes as sharp substernal chest discomfort, increasing dyspnea with minimal exertion, orthopnea, PND and lower extremity swelling. He is on Lasix 40 mg twice daily as well as Entresto. Through his primary care provider he is able to get his medications at at [facility] and reports being compliant with them. During his last admission he left AMA. I discussed his cardiac issues with him as well as my concern with appropriate outpatient follow-up and potential need for coronary angiogram given his poor ejection fraction. Case discussed with Dr. Georges earlier today and she will see the patient. Medications: Reviewed: Yes Medication Review Details: Active Medications Generic Name Dose Route Start Last Admin Trade Name Freq PRN Reason Stop Dose Admin Aspirin 81 mg 05/30/19 09:00 05/30/19 08:29 Aspirin Ec PO 81 mg DAILY GINNA Administration Atorvastatin Calci um 20 mg 05/29/19 23:00 05/29/19 23:02 Lipitor PO 20 mg BEDTIME GINNA Administration Dextrose 25 ml 05/29/19 23:37 D50w IVP ONCE PRN hypoglycemia prot ocol Protocol Dextrose 50 ml 05/29/19 23:37 D50w IVP PRN PRN hypoglycemia prot ocol Protocol Enoxaparin Sodium 40 mg 05/29/19 21:57 05/29/19 23:02 Lovenox SUBCUT 40 mg Q24H GINNA Administration Furosemide 40 mg 05/30/19 09:00 05/30/19 08:29 Lasix PO 40 mg BID GINNA Administration Glucagon 1 mg 05/29/19 23:37 Glucagen IM ONCE PRN Adult Acute Hypog lycemia Prot. Protocol Dextrose 500 mls @ 100 mls /hr 05/29/19 23:37 D5w IV ONCE PRN Adult Acute Hypog lycemia Prot Protocol Insulin Aspart 50 unit 05/30/19 09:00 05/30/19 08:30 Novolog 70/30 SUBCUT Not Given DAILY GINNA Insulin Aspart 0 unit 05/30/19 08:00 05/30/19 16:59 Novolog SUBCUT Not Given WM&BEDTIME GINNA Protocol Insulin Aspart 40 unit 05/30/19 21:00 Novolog 70/30 SUBCUT BEDTIME GINNA Metoprolol Succina te 12.5 mg 05/30/19 09:00 05/30/19 08:29 Toprol Xl PO 12.5 mg DAILY GINNA Administration Ondansetron HCl 4 mg 05/29/19 21:57 Zofran IVP Q6H PRN NAUSEA AND VOMITI NG Pantoprazole Sodiu m 40 mg 05/29/19 21:00 05/29/19 23:01 Protonix PO 40 mg BEDTIME GINNA Administration Sertraline HCl 100 mg 05/30/19 09:00 05/30/19 08:29 Zoloft PO 100 mg DAILY GINNA Administration Trazodone HCl 300 mg 05/29/19 21:00 05/29/19 23:02 Desyrel PO 300 mg BEDTIME GINNA Administration mirtazapine [From Remeron] Allergy (Verified 05/29/19 17:49) ADR-Agitated morphine Allergy (Verified 05/29/19 17:49) Unknown Vitals/I&O/Wt Last Vital Signs Temp 98.6 F 05/30/19 02:55 Pulse 108 H 05/30/19 08:00 Resp 17 05/30/19 08:00 BP 109/76 05/30/19 08:00 Pulse Ox 92 05/30/19 08:00 05/30/19 05/30/19 05/30/19 06:59 14:59 22:59 Intake Total 150 / 150 600 / 600 Output Total 450 / 450 450 / 900 Balance 150 / 150 150 / 150 -450 / -300 Weight last 48 hrs Weight 92.17 kg Weight 88.451 kg Physical Exam Const: COMMON NORMALS: no apparent distress and oriented x3 GENERAL APPEARANCE: cooperative and comfortable ORIENTATION/CONSCIOUSNESS: Yes awake HENMT: COMMON NORMALS: normocephalic, head/scalp atraumatic, hearing grossly normal bilaterally and moist oral mucous membranes HEAD & SCALP: normocephalic and atraumatic Eye: COMMON NORMALS: PERRL, EOMs intact bilaterally and conjunctivae normal CONJUNCTIVA: Yes conjunctivae normal PUPIL: Yes PERRL Neck/C-Spine: COMMON NORMALS: full ROM GENERAL: Yes normal visual inspection and Yes trachea midline Chest: COMMONS NORMALS: palpation of chest normal Resp: COMMON NORMALS: normal respiratory effort, no retractions, no use of accessory muscles and clear to auscultation bilaterally EFFORT & INSPECTION: Yes able to speak in complete sentences, Yes symmetric chest movement and No tachypneic AUSCULTATION: clear to auscultation bilaterally Cardio: COMMON NORMALS: regular rate, regular rhythm, S1 normal heart sound, S2 normal heart sound and no murmurs RATE: regular rate RHYTHM: regular rhythm HEART SOUNDS: S1 normal and S2 normal GI: COMMON NORMALS: normal to inspection, nondistended, normoactive bowel sounds, soft to palpation and non-tender INSPECTION: Yes central obesity PALPATION: Yes soft Extremity: COMMON NORMALS: normal to inspection, full ROM, no clubbing, cyanosis or edema and no pedal edema Neuro: COMMON NORMALS: oriented x3, moves all extremities, no focal motor deficits, no sensory deficits noted and gait normal Psych: COMMON NORMALS: mental status grossly normal, thought process normal, cooperative, affect normal and speech normal SPEECH: Yes normal speech THOUGHT PROCESS: normal thought process Skin: COMMON NORMALS: no rashes or lesions noted, no jaundice, no petechiae and no mottling GENERAL SKIN EXAM: no rashes or lesions noted Data : 05/30/19 04:24 05/30/19 04:24 A&P Assessment and plan (1) Atypical chest pain: -Patient presented with complaints of intermittent chest discomfort -Has significant risk factors for ACS including poorly controlled insulin-dependent diabetes, hypertension, hyperlipidemia, obesity -Troponins noted with no significant delta change -serial ECGs noted with no significant ischemic changes -telemetry monitoring Status: Acute Code(s): R07.89 - Other chest pain (2) Combined systolic and diastolic congestive heart failure: -Echo (01/2019): EF=33%, G2DD, moderate pulmonary HTN (42), global LV hypokinesis, moderate MR, trace AR, mild TS; repeat Echo pending report -BNP-1464 -CXR unremarkable, no overt LE edema but does report dyspnea, PND, orthopnea and intermittent LE edema -Cardio consult by Dr. Georges appreciated: plan for outpatient angio, optimize medical management -is on oral Lasix -daily weights, monitor Is & Os -VSS, continue to monitor -on Entresto, BB Status: Chronic Qualifiers: Heart failure chronicity: unspecified Qualified Code(s): I50.40 - Unspecified combined systolic (congestive) and diastolic (congestive) heart failure Code(s): I50.40 - Unspecified combined systolic (congestive) and diastolic (congestive) heart failure (3) Insulin dependent diabetes mellitus: -has IDDM type II, last A1c-8.4 -consistent carb diet, Accucheks, ISS Status: Chronic Code(s): E11.9 - Type 2 diabetes mellitus without complications; Z79.4 - manager intermediate (current) use of insulin Additional A&P Information -Obesity: BMI-31 kg/m2 -Chronic smoker -Hyperlipidemia; continue statin -PTSD, depression; uses medical marijuana -GI ppx with PPI -DVT ppx with Lovenox -cardiac consistent carb diet -Dispo: home -Code status: FULL code Attestations Medical Necessity Statement*: Patient requires hospitalization for continued optimization of medications for management of combined CHF, workup for ACS. Time Spent in Patient Care: Greater than 35 minutes (>than 50% of time spent in counselling and/or direct pt care on unit). Coding Level of Care Code Acute Fusing Line Inspector for g Fwd Exam Comprehensive Diagnoses Atypical chest pain R07.89 Combined systolic and diastolic congestive heart failure I50.40 Heart failure chronicity: unspecified Insulin dependent diabetes mellitus E11.9; Z79.4
[2019-05-30 17:31] VITALS: BP 104/72; PULSE 103; RESP 19; O2SAT 95
[2019-05-30] MEDS: spironolactone 25 mg Tablet 12.5 MG PO (19:02)
[2019-05-30 19:03] VITALS: BP 110/75; PULSE 103; RESP 14; TEMP 36.8; O2SAT 94
[2019-05-30 20:41] LABS: Glucose Point of Care 198 mg/dL (70-110)
--- NOTE | 2019-05-30 21:54 | PC.NURSE ---
patient called about 21:40 asking for something for stomach pain. needed to wait for dr to order and pharmacy to bring the po lidocaine.
[2019-05-30] MEDS: atorvastatin 40 mg Tablet 20 MG PO (21:56)
[2019-05-30] MEDS: pantoprazole DR 40 mg Tablet PO (21:57)
[2019-05-30] MEDS: trazodone 150 mg Tablet 300 MG PO (21:57)
[2019-05-30] MEDS: enoxaparin 40 mg/0.4 mL Syringe SUBCUT (21:57)
[2019-05-30] MEDS: insulin aspart 70/30 100 units/1 mL 50 UNIT SUBCUT (22:00)
--- NOTE | 2019-05-30 22:05 | PC.NURSE ---
Patient refused the sliding scale novolog saying i dont know why they keep trying to give me that i only take the 70/30 since rafael been diagnosed with type 1 diabetes 7 years ago.
[2019-05-30] MEDS: lidocaine 2% viscous 15 ML, aluminum-mag hydrox-simethicon 30 ML, sucralfate oral liq 1 GM PO (22:12)
[2019-05-30] MEDS: insulin aspart 70/30 100 units/1 mL 40 UNIT SUBCUT (22:15)
[2019-05-30 23:47] VITALS: BP 94/70; PULSE 97; RESP 24; O2SAT 92
[2019-05-31 03:13] VITALS: BP 100/72; PULSE 88; RESP 19; TEMP 36.9; O2SAT 93
[2019-05-31 06:18] LABS: Glucose Point of Care 118 mg/dL (70-110)
[2019-05-31 08:00] VITALS: BP 111/83; PULSE 100; RESP 20; TEMP 36.8; O2SAT 93
[2019-05-31] MEDS: metoprolol succinate ER (24 HR) 25 mg Tablet PO (09:38)
[2019-05-31] MEDS: FUROsemide 40 mg Tablet PO (09:38)
[2019-05-31] MEDS: spironolactone 25 mg Tablet 12.5 MG PO (09:38)
[2019-05-31] MEDS: sertraline 100 mg Tablet PO (09:39)
[2019-05-31] MEDS: aspirin 81 mg EC Tablet PO (09:39)
[2019-05-31] MEDS: sacubitril/valsartan 24-26 mg Tablet 1 EACH PO (09:39)
[2019-05-31 12:00] VITALS: BP 118/79; PULSE 59; RESP 18; TEMP 36.9; O2SAT 95
--- NOTE | 2019-05-31 12:06 | PM.PN ---
Subjective Subjective: Interval history: He is doing well. Denies having any episodes of chest pain dizziness or shortness of breath. He is ready to go home. Medications: Reviewed: Yes Medication Review Details: Current Medications Aspirin (Aspirin Ec) 81 mg PO DAILY [facility] Last Admin: 05/31/19 09:39 Dose: 81 mg Documented by: Atorvastatin Calcium (Lipitor) 20 mg PO BEDTIME [facility] Last Admin: 05/30/19 21:56 Dose: 20 mg Documented by: Dextrose (D50w) 25 ml IVP ONCE PRN; Protocol PRN Reason: hypoglycemia protocol Dextrose (D50w) 50 ml IVP PRN PRN; Protocol PRN Reason: hypoglycemia protocol Enoxaparin Sodium (Lovenox) 40 mg SUBCUT Q24H [facility] Last Admin: 05/30/19 21:57 Dose: 40 mg Documented by: Furosemide (Lasix) 40 mg PO BID [facility] Last Admin: 05/31/19 09:38 Dose: 40 mg Documented by: Glucagon (Glucagen) 1 mg IM ONCE PRN; Protocol PRN Reason: Adult Acute Hypoglycemia Prot. Dextrose (D5w) 500 mls @ 100 mls/hr IV ONCE PRN; Protocol PRN Reason: Adult Acute Hypoglycemia Prot Insulin Aspart (Novolog 70/30) 50 unit SUBCUT DAILY [facility] Last Admin: 05/30/19 22:00 Dose: 50 unit Documented by: Insulin Aspart (Novolog) 0 unit SUBCUT WM&BEDTIME GINNA; Protocol Last Admin: 05/31/19 11:16 Dose: Not Given Documented by: Insulin Aspart (Novolog 70/30) 40 unit SUBCUT BEDTIME [facility] Last Admin: 05/30/19 22:15 Dose: 40 unit Documented by: Metoprolol Succinate (Toprol Xl) 25 mg PO DAILY [facility] Last Admin: 05/31/19 09:38 Dose: 25 mg Documented by: Ondansetron HCl (Zofran) 4 mg IVP Q6H PRN PRN Reason: NAUSEA AND VOMITING Pantoprazole Sodium (Protonix) 40 mg PO BEDTIME [facility] Last Admin: 05/30/19 21:57 Dose: 40 mg Documented by: Sertraline HCl (Zoloft) 100 mg PO DAILY [facility] Last Admin: 05/31/19 09:39 Dose: 100 mg Documented by: Spironolactone (Aldactone) 12.5 mg PO DAILY [facility] Last Admin: 05/31/19 09:38 Dose: 12.5 mg Documented by: Trazodone HCl (Desyrel) 300 mg PO BEDTIME [facility]NA Last Admin: 05/30/19 21:57 Dose: 300 mg Documented by: Vitals/I&O/Wt Last Vital Signs Temp 98.3 F 05/31/19 08:00 Pulse 100 05/31/19 08:00 Resp 20 H 05/31/19 08:00 BP 111/83 05/31/19 08:00 Pulse Ox 93 05/31/19 08:00 05/30/19 05/31/19 05/31/19 22:59 06:59 14:59 Intake Total 580 / 1180 220 / 1400 360 / 360 Output Total 450 / 900 Balance 130 / 280 220 / 500 360 / 360 Weight last 48 hrs Weight 196 lb 6.4 oz Weight 203 lb 3.2 oz Weight 195 lb Physical Exam Narrative: EXAM NARRATIVE: Gen: Obese, young adult sitting comfortably in his bed; No acute distress CVS: S1, S2 normal, no JVD RS: Lungs are clear to auscultation; No wheezing, rales or rhonchi Abdomen: soft, obese, bowel sounds present, nontender Neurological: AAOx 3, No FND Ext: No edema, cyanosis or clubbing. 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 -troponin x 3 not significantly elevated. No EKG changes. Not ACS. Status: Acute Code(s): R07.89 - Other chest pain (2) Combined systolic and diastolic congestive heart failure: TTE with diffuse hypokinesis and LVEF of 30-35%, moderate MR. -Likely non ischemic, however given multiple CAD risk factors and young age would benefit from CAG. -As this is not an urgent/emergent procdure, will plan for this as an outpatient. -Repeat limited echo unchanged. continue entresto at present dose, metoprolol succinate 25 mg and spironolactone 12.5 mg daily. -He was advised to call us back if pickard of medications was an issue. -He is stable to be discharged home from cardiac standpoint. -Follow-up with me in 2 to 3 weeks for televisit. Status: Chronic Qualifiers: Heart failure chronicity: unspecified Qualified Code(s): I50.40 - Unspecified combined systolic (congestive) and diastolic (congestive) heart failure Code(s): I50.40 - Unspecified combined systolic (congestive) and diastolic (congestive) heart failure (3) GERD (gastroesophageal reflux disease): Status: Acute Code(s): K21.9 - Gastro-esophageal reflux disease without esophagitis (4) Nicotine dependence, cigarettes, with other nicotine-induced disorders: Counseled on smoking cessation. Status: Acute Code(s): F17.218 - Nicotine dependence, cigarettes, with other nicotine-induced disorders Additional A&P Information Moderate MR Obesity PTSD IDDM Marijuana abuse Thank you for allowing me to participate in patient's care. Please feel free to call with questions or concern. Attestations Medical Necessity Statement*: Patient seems stable to be discharged home from cardiac standpoint. Coding Level of Care Code Acute Associate Professor Of Biblical Studies for Alexis Kelleyd Diagnoses Atypical chest pain R07.89 Combined systolic and diastolic congestive heart failure I50.40 Heart failure chronicity: unspecified GERD (gastroesophageal reflux disease) K21.9 Nicotine dependence, cigarettes, with other nicotine-induced disorders F17.218
--- NOTE | 2019-05-31 12:18 | PM.DCS ---
Discharge Providers Date of Admission: 05/30/19 17:20 Date of Discharge: May 31, 2019 Attending Provider at Admission: Delfin Russo MD Attending Provider at Discharge: Angel Peterson MD Primary Care Provider: Zeinab Salazar NP Diagnoses at Discharge Discharge Diagnosis (1) Atypical chest pain: Status: Acute (2) Combined systolic and diastolic congestive heart failure: Status: Chronic Problem details: EF 33% no valvular abnormality Qualifiers: Heart failure chronicity: unspecified Qualified Code(s): I50.40 - Unspecified combined systolic (congestive) and diastolic (congestive) heart failure (3) GERD (gastroesophageal reflux disease): Status: Acute (4) Nicotine dependence, cigarettes, with other nicotine-induced disorders: Status: Acute Reason for Visit Reason for Visit: Reason For Visit: CHEST PAIN Hospital Course Discharge Summary: Patient presented with atypical chest pain and was seen by cardiology service and ACS was ruled out. Patient's medications were adjusted including increase in metoprolol dose and adding spironolactone given diffuse hypokinesis and EF 33%. Patient is at high risk for underlying coronary artery disease and the plan is to proceed with outpatient coronary angiogram as per my discussion with Dr. Georges. Patient is diabetic and continues to smoke. He reports that he is down to 4 cigarettes/day. I had discussion with patient regarding importance of smoking cessation. Patient voiced understanding but refused any pharmacological help. He is eager to leave and this morning denies any shortness of breath or chest pain. Denies any vomiting or diaphoresis. Denies abdominal pain or problems with bowel movement. Physical Exam Const: COMMON NORMALS: no apparent distress and oriented x3 Resp: COMMON NORMALS: normal respiratory effort and clear to auscultation bilaterally AUSCULTATION: clear to auscultation bilaterally Cardio: COMMON NORMALS: regular rate, regular rhythm and S2 normal heart sound RATE: regular rate RHYTHM: regular rhythm HEART SOUNDS: S2 normal OTHER: No lower extremity edema GI: COMMON NORMALS: normal to inspection, nondistended, normoactive bowel sounds, soft to palpation and non-tender PALPATION: Yes soft Neuro: COMMON NORMALS: oriented x3 and no focal motor deficits Discharge Data Data Completed and Pending: Completed Studies During Hospitalization Category Date Time Status XR chest 1V jane ble [id number] Stat Exams 05/29/19 18:06 Completed CV echo limited 9 3267 Routine Ultrasound 05/30/19 14:51 Completed Labs from last 24 hours 05/31/19 05/30/19 05/30/19 06:14 20:35 15:57 POC Glucose 118 198 110 NT-Pro-B Natriuret Pep 05/30/19 04:24 POC Glucose NT-Pro-B Natriuret Pep 1464 H Vitals: Last Vital Signs Temp 98.4 F 05/31/19 12:00 Pulse 59 L 05/31/19 12:00 Resp 18 05/31/19 12:00 BP 118/79 05/31/19 12:00 Pulse Ox 95 05/31/19 12:00 Discharge Plan Discharge Patient Disposition: Home, Self-Care Condition: Stable Prescriptions: New atorvastatin 40 mg Tablet 40 mg PO BEDTIME 30 Days Qty: 30 RF: 0 aspirin 81 mg Tablet,Delayed Release (Dr/Ec) 81 mg PO DAILY 30 Days Qty: 30 RF: 0 spironolactone 25 mg Tablet 12.5 mg PO DAILY Qty: 30 RF: 0 metoprolol succinate 25 mg Tablet Extended Release 24 Hr 25 mg PO DAILY Qty: 30 RF: 0 Continued Entresto 24-26 mg tablet 1 tab PO BID RF: 0 sertraline 100 mg tablet 100 mg PO Q24H Qty: 30 RF: 2 Novolin 70-30 FlexPen U-100 100 unit/mL (70-30) insulin pen See Rx Instructions SUBCUT .COMPLEX RF: 0 pantoprazole 40 mg tablet,delayed release (DR/EC) 40 mg PO QAM Qty: 30 RF: 5 potassium chloride 20 mEq tablet extended release 20 meq PO BID Qty: 60 RF: 5 furosemide 40 mg tablet 40 mg PO BID Qty: 60 RF: 4 trazodone 300 mg Tablet 300 mg PO BEDTIME RF: 0 Discharge Orders: Discharge Order (Routine); Ordered 05/31/19 Ordered By: Angel Peterson Referrals: Radha Madison MD [Physician] - 2 months (You have a cardiology followup with Dr. Madison at [facility] on August 04 at 9:30am. Any questions or appointment changes, please call them at [phone]) Zeinab Salazar NP [Primary Care Provider] - 4-7 days (You have a follow up at [facility] with MAXIMO Benjamin on June 06 at 10:20am. Any questions or appointment changes, please call them at [phone]) Discharge Diet: Cardiac and Diabetic Discharge Activity: Resume usual activity Patient Instructions: Metoprolol (By mouth), Spironolactone (By mouth), Aspirin (By mouth), Atorvastatin (By mouth), Chest Pain (DC) Activity Restrictions/Additional Instructions: Please call your doctor or present to emergency department if your condition worsens or you develop diarrhea. Please discuss with your doctor if you need any pharmacological help to quit smoking as we have discussed. Discharge Attestations Time Spent in Discharge Care*: greater than 30 min Quality Metrics Clinical Quality Measures During this hospital stay, did patient experience: None Coding Level of Care Code Acute Loss Control Engineer for Nikolaig Fwd Diagnoses Atypical chest pain R07.89 Combined systolic and diastolic congestive heart failure I50.40 Heart failure chronicity: unspecified GERD (gastroesophageal reflux disease) K21.9 Nicotine dependence, cigarettes, with other nicotine-induced disorders F17.218
[2019-05-31 12:22] VITALS: BP 118/79; PULSE 59; RESP 18; TEMP 36.9; O2SAT 95
[2019-05-31 20:55] LABS: Glucose Point of Care 168 mg/dL (70-110)
== END 2019-05-31 12:35 | disposition home or self-care (01) | DRG 313 ==
LOC: ER 18:27 → CSU 21:54
PROVIDERS: Family Medicine; Internal Medicine Cardiovascular Disease; Admitting Provider Internal Medicine; Emergency Provider Emergency Medicine; Family Provider Nurse Practitioner Family; PCP Nurse Practitioner Family; Visit Provider Internal Medicine
DX: R07.89 Other chest pain (principal); I50.40 Unspecified combined systolic (congestive) and diastolic (congestive) heart failure; K21.9 Gastro-esophageal reflux disease without esophagitis; F17.218 Nicotine dependence, cigarettes, with other nicotine-induced disorders; F17.210 Nicotine dependence, cigarettes, uncomplicated; E11.9 Type 2 diabetes mellitus without complications; F43.10 Post-traumatic stress disorder, unspecified; F12.90 Cannabis use, unspecified, uncomplicated; I34.0 Nonrheumatic mitral (valve) insufficiency; Z79.82 Long term (current) use of aspirin; Z79.4 Long term (current) use of insulin; Z79.811 Long term (current) use of aromatase inhibitors
CPT/HCPCS: 12345; 36415; 36416; 71045; 80053; 82962; 83880; 84484; 85025; 85378; 93005; 93308; 96372; 96375; 99283; G0378; J1650; J1815; J3010

== ENCOUNTER → 2019-08-23 10:19 | Outpatient (BNVA) | payer SELFPAY | PROVIDERS: Family Provider Nurse Practitioner Family; PCP Nurse Practitioner Family; Visit Provider Nurse Practitioner Family | DX: E11.9 Type 2 diabetes mellitus without complications (principal); Z79.4 Long term (current) use of insulin | CPT/HCPCS: 83036 ==

== ENCOUNTER 2019-11-05 04:03 | Emergency (ER) | payer MEDICAID, SELFPAY ==
[2019-11-05] VITALS (10 sets, daily range): BP systolic 108–145; BP diastolic 70–92; PULSE 99–112; RESP 16–26; TEMP 36.8; O2SAT 88–96; BMI 28.8
--- NOTE | 2019-11-05 04:07 | XR_ITS ---
WS: [id number] PORTABLE CHEST HISTORY: dyspnea COMPARISON: 05/29/2019 Lungs are hyperexpanded. There is moderate venous congestion and interstitial edema which has develop ed since the prior study. No focal consolidation. No pleural effusion or pneumothorax. Cardiac size: Mildly enlarged cardiac silhouette. Cardiac silhouette is increased since the prior joshua dy. Mediastinum/Aorta: Normal mediastinum. No osseous abnormality seen. XR/XR chest 1V portable [id number] IMPRESSION: 1. Interval development of moderate CHF. 2. Increasing cardiac size.
--- NOTE | 2019-11-05 04:07 | ECG_ITS ---
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 Measurements Intervals [place] Rate: 114 P: 45 CA: 100 QRS: -3 QRSD: 102 T: 126 QT: 340 QTc: 470 Interpretive Statements SINUS TACHYCARDIA WITH SHORT CA INTERVAL LEFT ATRIAL ENLARGEMENT [-0.15mV P WAVE IN V1/V2] MODERATE T-WAVE ABNORMALITY, CONSIDER LATERAL ISCHEMIA [-0.1+ mV T WAVE IN I/aVL/V5/V6] INTERPRETATION BASED ON A DEFAULT AGE OF 40 YEARS Compared to ECG 05/30/2019 07:28:17 Short CA interval now present T-wave abnormality still present Possible ischemia still present Electronically Signed On 11-05-2019 21:13:23 CDT by Delfin Lewis M.D. [id number]
--- NOTE | 2019-11-05 04:08 | W.ED.SOB ---
Documented by User: Elvis Ramos MD 11/08/19 20:56 HPI - SOB/Dyspnea General: Chief Complaint: Shortness of Breath/Dyspnea Stated Complaint: SOB Time Seen by Provider: 11/05/19 04:04 Source: patient and EMS Mode of arrival: EMS Limitations: no limitations History of Present Illness: HPI Narrative: 39-year-old male states he has a history of COPD along with CHF. Patient states he is a chronic smoker started having shortness of breath over the last 2 to 3 weeks it is worsened tonight. Patient states he had some wheezing and does not have any albuterol at home. Patient received 1 treatment in route states he does feel improved. Patient oxygenation saturation here is 94% on room air. He denies any fever. He denies any chest pain. Denies any vomiting or diarrhea. MD elicited complaint: shortness of breath Associated symptoms: Deny abdominal pain, chest pain, fever(s), nausea or vomiting Review of Systems Const: Denies: fever(s), chills, body aches or change in appetite Eyes: Denies: blurry vision or eye discomfort ENMT: Denies: throat pain or dental pain Card: Denies: chest pain Resp: Reports: dyspnea and wheezing GI: Denies: abdominal pain, nausea, vomiting or diarrhea : Denies: dysuria Musc: Denies: neck pain or back pain Skin/Breast: Denies: rash Neuro: Denies: headache(s) Psych: Denies: depression [place]/Lymph: Denies: easy bruising All/Imm: Denies: urticaria PFSH ED PFSH: Medical History Cannabis dependence, uncomplicated 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% no valvular abnormality Depression Essential hypertension GERD (gastroesophageal reflux disease) Major depressive disorder, recurrent severe without psychotic features Moderate pulmonary arterial systolic hypertension Nicotine dependence, cigarettes, with other nicotine-induced disorders Post-traumatic stress disorder, chronic Smoker Type 1 diabetes mellitus with hyperglycemia Surgical History History of hip surgery Family History Grandmother Diabetes Cancer Mother Diabetes Father Hypertension Grandmother Hypertension Father Cancer Social History Smoking and tobacco status: former smoker Quit status (tobacco): has quit using tobacco Former quit date comment: 3 days ago Smoking risk assessment/counseling performed?: Yes Tobacco counseling given: counseling >3 minutes Alcohol intake: current Alcohol intake frequency: holidays/special occasions only Physical Exam Const: COMMON NORMALS: no acute distress, patient oriented x3 and healthy appearing HENMT: COMMON NORMALS: normocephalic and atraumatic HEAD & SCALP: normocephalic and atraumatic Eye: COMMON NORMALS: Equal, round and reactive pupils present and EOMs intact bilaterally PUPIL: Yes Equal, round and reactive pupils present Neck/C-Spine: COMMON NORMALS: full ROM and supple Chest: COMMONS NORMALS: normal inspection of the chest and normal palpation of entire chest wall Resp: COMMON NORMALS: normal respiratory effort, No retractions and No use of accessory muscles AUSCULTATION: wheezes Cardio: COMMON NORMALS: regular rate, regular rhythm and No murmurs present (Cardio) RATE: regular rate RHYTHM: regular rhythm GI: COMMON NORMALS: Normal to inspection, nondistended, normoactive bowel sounds present, Soft to palpation, non-tender and no masses PALPATION: Yes Soft to palpation Extremity: COMMON NORMALS: normal to inspection and full ROM Neuro: COMMON NORMALS: patient oriented x3, moves all extremities and no focal motor deficits Psych: COMMON NORMALS: mental status grossly normal, Normal thought process present and cooperative THOUGHT PROCESS: Normal thought process present Skin: COMMON NORMALS: no rashes or lesions noted and no wounds GENERAL SKIN EXAM: no rashes or lesions noted Course Vital Signs: Vital signs: Vital Signs Temperature 98.2 F 11/05/19 04:04 Pulse Rate 108 H 11/05/19 07:48 Respiratory Rate 17 11/05/19 07:48 Blood Pressure 113/87 11/05/19 07:48 Pulse Oximetry 96 11/05/19 07:48 MDM - SOB/Dyspnea Lab Data: Labs: Lab Results 11/05/19 11/05/19 11/05/19 Range/Units 04:20 04:20 04:20 WBC 11.8 H (4.0-10.0) 10^3/ uL RBC 4.85 (4.1-5.3) 10^6/u L Hgb 15.5 (11.7-16.6) g/dL Hct 48.8 (42.0-52.0) % MCV 100.6 H (80-94) fL MCH 32.0 (28.0-34.0) pg MCHC 31.8 (30.0-36.0) g/dL RDW 13.0 (12.1-15.1) % Plt Count 232 (130-400) 10^3/c mm MPV 12.7 H (7.4-10.4) fL Neut % (Auto) 56.1 % Lymph % (Auto) 34.6 % [place] % (Auto) 5.2 % Eos % (Auto) 2.0 % Baso % (Auto) 0.5 % Neut # (Auto) 6.59 (1.8-7.7) 10^3/u L Lymph # (Auto) 4.1 (0.8-4.8) 10^3/u L [place] # (Auto) 0.6 (0.2-0.9) 10^3/u L Eos # (Auto) 0.2 (0.0-0.8) 10^3/u L Baso # (Auto) 0.1 (0.0-0.1) 10^3/u L Nucleated RBC % (a uto) 0 % Nucleated RBCs # 0.0 /100WBC Fibrinogen 393 (174-498) mg/dL D-Dimer 0.37 (0-0.59) ug/mIFE U Sodium 142 (136-145) mmol/L Potassium 4.2 (3.5-5.1) mmol/L Chloride 106 (98-107) mmol/L Carbon Dioxide 24 (22-29) mmol/L Anion Gap 16.2 (5-19) BUN 26 H (6-20) mg/dL Creatinine 1.2 (0.7-1.2) mg/dL GFR Calculation 67.1 L (90-130) mL/min Glucose 201 H (65-115) mg/dL Calculated Osmolal ity 297 H (285-295) mOsm/k g Calcium 9.2 (8.5-10.5) mg/dL Ferritin (30-400) ng/mL Total Bilirubin 0.2 (0.15-1.2) mg/dL AST 14 (0-40) U/L ALT 20 (0-41) U/L Alkaline Phosphata se 82 (40-130) IU/L NT-Pro-B Natriuret Pep 2710 H (0-125) pg/mL Total Protein 6.4 L (6.6-8.7) g/dL Albumin 3.9 (3.5-5.2) g/dL Globulin 2.5 (1.3-4.6) g/dL SARS-CoV-2 Ag (Rap id) (Negative) 11/05/19 11/05/19 Range/Units 04:20 05:46 WBC (4.0-10.0) 10^3/ uL RBC (4.1-5.3) 10^6/u L Hgb (11.7-16.6) g/dL Hct (42.0-52.0) % MCV (80-94) fL MCH (28.0-34.0) pg MCHC (30.0-36.0) g/dL RDW (12.1-15.1) % Plt Count (130-400) 10^3/c mm MPV (7.4-10.4) fL Neut % (Auto) % Lymph % (Auto) % [place] % (Auto) % Eos % (Auto) % Baso % (Auto) % Neut # (Auto) (1.8-7.7) 10^3/u L Lymph # (Auto) (0.8-4.8) 10^3/u L [place] # (Auto) (0.2-0.9) 10^3/u L Eos # (Auto) (0.0-0.8) 10^3/u L Baso # (Auto) (0.0-0.1) 10^3/u L Nucleated RBC % (a uto) % Nucleated RBCs # /100WBC Fibrinogen (174-498) mg/dL D-Dimer (0-0.59) ug/mIFE U Sodium (136-145) mmol/L Potassium (3.5-5.1) mmol/L Chloride (98-107) mmol/L Carbon Dioxide (22-29) mmol/L Anion Gap (5-19) BUN (6-20) mg/dL Creatinine (0.7-1.2) mg/dL GFR Calculation (90-130) mL/min Glucose (65-115) mg/dL Calculated Osmolal ity (285-295) mOsm/k g Calcium (8.5-10.5) mg/dL Ferritin 177 (30-400) ng/mL Total Bilirubin (0.15-1.2) mg/dL AST (0-40) U/L ALT (0-41) U/L Alkaline Phosphata se (40-130) IU/L NT-Pro-B Natriuret Pep (0-125) pg/mL Total Protein (6.6-8.7) g/dL Albumin (3.5-5.2) g/dL Globulin (1.3-4.6) g/dL SARS-CoV-2 Ag (Rap id) Negative (Negative) EKG Data^: EKG 1: Attestation: I personally reviewed and interpreted this EKG as follows: EKG Interpretation Date: 11/05/19 EKG interpretation time: 04:12 Interpretation: Sinus tachycardia heart rate 114 QRS [address] or T wave abnormalities Discharge Plan Discharge Patient Disposition: Home Clinical Impression: Combined systolic and diastolic congestive heart failure Condition: Stable Prescriptions: Changed furosemide 40 mg tablet 60 mg PO BID Qty: 60 RF: 4 No Action sertraline 100 mg tablet 100 mg PO Q24H Qty: 30 RF: 2 Novolin 70-30 FlexPen U-100 100 unit/mL (70-30) insulin pen See Rx Instructions SUBCUT .COMPLEX Qty: 15 RF: 6 pantoprazole 40 mg tablet,delayed release (DR/EC) 40 mg PO QAM Qty: 30 RF: 5 potassium chloride 20 mEq tablet extended release 20 meq PO BID Qty: 60 RF: 5 spironolactone 25 mg tablet 12.5 mg PO DAILY Qty: 30 RF: 5 trazodone 300 mg tablet 300 mg PO BEDTIME Qty: 30 RF: 2 Entresto 24-26 mg tablet 1 tab PO BID RF: 0 simvastatin 40 mg tablet 40 mg PO DAILY RF: 0 (DME) pen needle, diabetic [1st Tier Unifine Pentips] 31 gauge x 3/16 needle See Rx Instructions .ROUTE .MEDSUPPLY Qty: 50 RF: 6 Discharge Orders: Discharge Order (Routine); Ordered 11/05/19 Ordered By: James Holliday Referrals: Zeinab Salazar NP [Primary Care Provider] - Discharge Diet: Usual diet Discharge Activity: Increase activity as tolerated Activity Restrictions/Additional Instructions: Increase Lasix to 60 mg twice daily for 3 days. Follow-up with your primary care doctor in 3 to 4 days for follow-up BMP and reevaluation. 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% no valvular abnormality Depression Essential hypertension GERD (gastroesophageal reflux disease) Major depressive disorder, recurrent severe without psychotic features Moderate pulmonary arterial systolic hypertension Nicotine dependence, cigarettes, with other nicotine-induced disorders Post-traumatic stress disorder, chronic Smoker Type 1 diabetes mellitus with hyperglycemia Surgical History History of hip surgery Family History Grandmother Diabetes Cancer Mother Diabetes Father Hypertension Grandmother Hypertension Father Cancer Social History Smoking and tobacco status: former smoker Quit status (tobacco): has quit using tobacco Former quit date comment: 3 days ago Smoking risk assessment/counseling performed?: Yes Tobacco counseling given: counseling >3 minutes Alcohol intake: current Alcohol intake frequency: holidays/special occasions only Course Vital Signs: Vital signs: Vital Signs Temperature 98.2 F 11/05/19 04:04 Pulse Rate 108 H 11/05/19 07:48 Respiratory Rate 17 11/05/19 07:48 Blood Pressure 113/87 11/05/19 07:48 Pulse Oximetry 96 11/05/19 07:48 MDM - SOB/Dyspnea MDM Narrative: Medical decision making narrative: Care assumed a change of shift will discharge home on increased dose of Lasix. 60 mg twice daily he should do that for the next 3 to 4 days he needs to follow-up with his primary care doctor and have a BMP and reevaluate. If he has any worsening or changes symptoms in the interim then he needs to return to the emergency room immediately. Lab Data: Labs: Lab Results 11/05/19 11/05/19 11/05/19 Range/Units 04:20 04:20 04:20 WBC 11.8 H (4.0-10.0) 10^3/ uL RBC 4.85 (4.1-5.3) 10^6/u L Hgb 15.5 (11.7-16.6) g/dL Hct 48.8 (42.0-52.0) % MCV 100.6 H (80-94) fL MCH 32.0 (28.0-34.0) pg MCHC 31.8 (30.0-36.0) g/dL RDW 13.0 (12.1-15.1) % Plt Count 232 (130-400) 10^3/c mm MPV 12.7 H (7.4-10.4) fL Neut % (Auto) 56.1 % Lymph % (Auto) 34.6 % [place] % (Auto) 5.2 % Eos % (Auto) 2.0 % Baso % (Auto) 0.5 % Neut # (Auto) 6.59 (1.8-7.7) 10^3/u L Lymph # (Auto) 4.1 (0.8-4.8) 10^3/u L [place] # (Auto) 0.6 (0.2-0.9) 10^3/u L Eos # (Auto) 0.2 (0.0-0.8) 10^3/u L Baso # (Auto) 0.1 (0.0-0.1) 10^3/u L Nucleated RBC % (a uto) 0 % Nucleated RBCs # 0.0 /100WBC Fibrinogen 393 (174-498) mg/dL D-Dimer 0.37 (0-0.59) ug/mIFE U Sodium 142 (136-145) mmol/L Potassium 4.2 (3.5-5.1) mmol/L Chloride 106 (98-107) mmol/L Carbon Dioxide 24 (22-29) mmol/L Anion Gap 16.2 (5-19) BUN 26 H (6-20) mg/dL Creatinine 1.2 (0.7-1.2) mg/dL GFR Calculation 67.1 L (90-130) mL/min Glucose 201 H (65-115) mg/dL Calculated Osmolal ity 297 H (285-295) mOsm/k g Calcium 9.2 (8.5-10.5) mg/dL Ferritin (30-400) ng/mL Total Bilirubin 0.2 (0.15-1.2) mg/dL AST 14 (0-40) U/L ALT 20 (0-41) U/L Alkaline Phosphata se 82 (40-130) IU/L NT-Pro-B Natriuret Pep 2710 H (0-125) pg/mL Total Protein 6.4 L (6.6-8.7) g/dL Albumin 3.9 (3.5-5.2) g/dL Globulin 2.5 (1.3-4.6) g/dL SARS-CoV-2 Ag (Rap id) (Negative) 11/05/19 11/05/19 Range/Units 04:20 05:46 WBC (4.0-10.0) 10^3/ uL RBC (4.1-5.3) 10^6/u L Hgb (11.7-16.6) g/dL Hct (42.0-52.0) % MCV (80-94) fL MCH (28.0-34.0) pg MCHC (30.0-36.0) g/dL RDW (12.1-15.1) % Plt Count (130-400) 10^3/c mm MPV (7.4-10.4) fL Neut % (Auto) % Lymph % (Auto) % [place] % (Auto) % Eos % (Auto) % Baso % (Auto) % Neut # (Auto) (1.8-7.7) 10^3/u L Lymph # (Auto) (0.8-4.8) 10^3/u L [place] # (Auto) (0.2-0.9) 10^3/u L Eos # (Auto) (0.0-0.8) 10^3/u L Baso # (Auto) (0.0-0.1) 10^3/u L Nucleated RBC % (a uto) % Nucleated RBCs # /100WBC Fibrinogen (174-498) mg/dL D-Dimer (0-0.59) ug/mIFE U Sodium (136-145) mmol/L Potassium (3.5-5.1) mmol/L Chloride (98-107) mmol/L Carbon Dioxide (22-29) mmol/L Anion Gap (5-19) BUN (6-20) mg/dL Creatinine (0.7-1.2) mg/dL GFR Calculation (90-130) mL/min Glucose (65-115) mg/dL Calculated Osmolal ity (285-295) mOsm/k g Calcium (8.5-10.5) mg/dL Ferritin 177 (30-400) ng/mL Total Bilirubin (0.15-1.2) mg/dL AST (0-40) U/L ALT (0-41) U/L Alkaline Phosphata se (40-130) IU/L NT-Pro-B Natriuret Pep (0-125) pg/mL Total Protein (6.6-8.7) g/dL Albumin (3.5-5.2) g/dL Globulin (1.3-4.6) g/dL SARS-CoV-2 Ag (Rap id) Negative (Negative) Discharge Plan Discharge Patient Disposition: Home Clinical Impression: Combined systolic and diastolic congestive heart failure Condition: Stable Prescriptions: Changed furosemide 40 mg tablet 60 mg PO BID Qty: 60 RF: 4 No Action sertraline 100 mg tablet 100 mg PO Q24H Qty: 30 RF: 2 Novolin 70-30 FlexPen U-100 100 unit/mL (70-30) insulin pen See Rx Instructions SUBCUT .COMPLEX Qty: 15 RF: 6 pantoprazole 40 mg tablet,delayed release (DR/EC) 40 mg PO QAM Qty: 30 RF: 5 potassium chloride 20 mEq tablet extended release 20 meq PO BID Qty: 60 RF: 5 spironolactone 25 mg tablet 12.5 mg PO DAILY Qty: 30 RF: 5 trazodone 300 mg tablet 300 mg PO BEDTIME Qty: 30 RF: 2 Entresto 24-26 mg tablet 1 tab PO BID RF: 0 simvastatin 40 mg tablet 40 mg PO DAILY RF: 0 (DME) pen needle, diabetic [1st Tier Unifine Pentips] 31 gauge x 3/16 needle See Rx Instructions .ROUTE .MEDSUPPLY Qty: 50 RF: 6 Discharge Orders: Discharge Order (Routine); Ordered 11/05/19 Ordered By: James Holliday Referrals: Zeinab Salazar, [facility] [Primary Care Provider] - Discharge Diet: Usual diet Discharge Activity: Increase activity as tolerated Activity Restrictions/Additional Instructions: Increase Lasix to 60 mg twice daily for 3 days. Follow-up with your primary care doctor in 3 to 4 days for follow-up BMP and reevaluation. Discharge Date/Time: 11/05/19 08:54 Coding Level of Care Code ED Stand Grinder for Chg Fwd Exam Comprehensive
[2019-11-05] MEDS: ipratropium-albuterol 3 mL Neb INHALATION (04:18)
[2019-11-05] MEDS: LORazepam 2 mg/mL INJ 1 mL 1 MG IVP (04:31)
[2019-11-05 04:51] LABS: Basophils # 0.1 10^3/uL (0.0-0.1); Basophils % 0.5 %; Eosinophils # 0.2 10^3/uL (0.0-0.8); Hematocrit 48.8 % (42.0-52.0); Hemoglobin 15.5 g/dL (11.7-16.6); Lymphocytes # 4.1 10^3/uL (0.8-4.8); Lymphocytes % 34.6 %; Mean Corpuscular HGB Conc 31.8 g/dL (30.0-36.0); Mean Corpuscular Volume 100.6 fL (80-94); Mean Platelet Volume 12.7 fL (7.4-10.4); Monocytes # 0.6 10^3/uL (0.2-0.9); Monocytes % 5.2 %; Neutrophils # 6.59 10^3/uL (1.8-7.7); Neutrophils % 56.1 %; Nucleated Red Blood Cells % 0 %; Platelet Count 232 10^3/cmm (130-400); Red Blood Count 4.85 10^6/uL (4.1-5.3); White Blood Count 11.8 10^3/uL (4.0-10.0)
[2019-11-05 05:14] LABS: Alanine Aminotransferase 20 U/L (0-41); Albumin Level 3.9 g/dL (3.5-5.2); Alkaline Phosphatase 82 IU/L (40-130); Anion Gap 16.2 (5-19); Aspartate Amino Transferase 14 U/L (0-40); Blood Urea Nitrogen 26 mg/dL (6-20); Calcium 9.2 mg/dL (8.5-10.5); Carbon Dioxide 24 mmol/L (22-29); Chloride 106 mmol/L (98-107); Globulin 2.5 g/dL (1.3-4.6); Glomerular Filtration Rate 67.1 mL/min (90-130); Glucose 201 mg/dL (65-115); NT Pro B Type Natriuretic Pept 2710 pg/mL (0-125); Osmolality Calculated 297 mOsm/kg (285-295); Potassium 4.2 mmol/L (3.5-5.1); Sodium 142 mmol/L (136-145); Total Bilirubin 0.2 mg/dL (0.15-1.2); Total Protein 6.4 g/dL (6.6-8.7)
[2019-11-05] MEDS: FUROsemide 10 mg/mL SDV 4mL 40 MG IVP (05:43)
[2019-11-05 05:52] LABS: Ferritin 177 ng/mL (30-400)
[2019-11-05 06:11] LABS: Fibrinogen 393 mg/dL (174-498)
[2019-11-05 06:13] LABS: D Dimer 0.37 ug/mIFEU (0-0.59)
[2019-11-05 06:20] LABS: SARS Covid-2 Antigen Negative (Negative)
--- NOTE | 2019-11-05 06:56 | PC.NURSE ---
Report received from LEE Morales
--- NOTE | 2019-11-05 07:18 | PC.NURSE ---
RT at bedside to do home O2 eval
== END 2019-11-05 08:54 | disposition home or self-care (01) ==
PROVIDERS: Emergency Medicine; Emergency Provider Family Medicine; PCP Nurse Practitioner Family
DX: I11.0 Hypertensive heart disease with heart failure (principal); I50.40 Unspecified combined systolic (congestive) and diastolic (congestive) heart failure; Z79.4 Long term (current) use of insulin; E10.9 Type 1 diabetes mellitus without complications; Z87.891 Personal history of nicotine dependence
CPT/HCPCS: 12345; 71045; 80053; 82728; 83880; 85025; 85378; 85384; 87426; 93005; 94640; 96374; 96375; 99283; 99284; J1940; J2060; J2930; J7611

== ENCOUNTER 2019-11-23 14:04 | Emergency (ER) | payer MEDICAID, SELFPAY ==
[2019-11-23 14:05] VITALS: BP 107/83; PULSE 110; RESP 18; TEMP 36.7; O2SAT 96; BMI 31.1
--- NOTE | 2019-11-23 14:16 | XRR_ITS ---
PROCEDURE INFORMATION: Exam: XR Chest, 1 View Exam date and time: 11/23/2019 2:35 PM Age: 39 years old Clinical indication: Cough and shortness of breath; Chest pain; Other: Central; Prior surgery; Surgery type: Aortic tear; Additional info: Dyspnea/cough TECHNIQUE: Imaging protocol: XR of the chest Views: 1 view. COMPARISON: CR XR chest 1V portable [id number] 11/05/2019 5:11 AM FINDINGS: Lungs: Unremarkable. No consolidation. Pleural space: Unremarkable. No pleural effusion. No pneumothorax. Heart/Mediastinum: Unremarkable. No cardiomegaly. Bones/joints: Unremarkable. XR/XR chest 1V portable [id number] IMPRESSION: No acute findings.
--- NOTE | 2019-11-23 14:36 | W.ED.SOB ---
HPI - SOB/Dyspnea General: Chief Complaint: Shortness of Breath/Dyspnea Stated Complaint: EXACERBATION CHF Time Seen by Provider: 11/23/19 14:07 History of Present Illness: HPI Narrative: 39-year-old male comes in complaining of shortness of breath. States he has had shortness of breath about the last 5 to 6 weeks. Is been worsening significant last 3 days. He denies any cough denies any fever. He does have a history of severe systolic CHF with and EF of 30%. HE denie anna chest pain. He has noticed some weight gain and slight increase in leg swelling. He has had some mild chest heaviness but had not used any SL nitro, chest heaviness not present at this time. This is a chronic issue for him. MD elicited complaint: shortness of breath Pertinent past history: congestive heart failure Onset (ago): week(s) (5-6) Context: other (Severe systolic congestive heart failure) Timing: constant and progressively worsening Severity: moderate Exacerbating factors: lying flat and exertion Relieving factors: rest and upright position Known history of: congestive heart failure Associated symptoms: Reports chest pain (Heaviness which is chronic not present at this time); Deny abdominal pain, chest congestion, cough, diaphoresis, dizziness, extremity pain, fever(s), hemoptysis, lightheadedness, myalgias, nausea, orthopnea, palpitations, paresthesias, polydipsia, polyuria, rash or sense of impending doom Treatment prior to arrival: diuretics Review of Systems Const: Denies: fever(s) or diaphoresis ENMT: Denies: throat pain, ear or mastoid pain, nasal discharge or nasal congestion Card: Reports: chest pain (Heaviness which is chronic not present at this time); Denies: palpitations, lightheadedness or orthopnea Resp: Denies: hemoptysis or chest congestion GI: Denies: abdominal pain or nausea : Denies: flank pain, dysuria, urinary frequency or urinary urgency Musc: Denies: extremity pain Skin/Breast: Denies: rash or pruritus Neuro: Denies: dizziness Endo: Denies: polyuria or polydipsia PFS ED PFSH: Medical History (Updated 11/23/19 @ 16:11 by James Holliday DO) Cannabis dependence, uncomplicated 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% no valvular abnormality Depression Essential hypertension GERD (gastroesophageal reflux disease) Major depressive disorder, recurrent severe without psychotic features Moderate pulmonary arterial systolic hypertension Nicotine dependence, cigarettes, with other nicotine-induced disorders Post-traumatic stress disorder, chronic Smoker Type 1 diabetes mellitus with hyperglycemia Surgical History History of hip surgery Family History Grandmother Diabetes Cancer Mother Diabetes Father Hypertension Grandmother Hypertension Father Cancer Social History Smoking and tobacco status: former smoker Quit status (tobacco): has quit using tobacco Former quit date comment: 3 days ago Smoking risk assessment/counseling performed?: Yes Tobacco counseling given: counseling >3 minutes Alcohol intake: current Alcohol intake frequency: holidays/special occasions only Physical Exam Const: COMMON NORMALS: no acute distress GENERAL APPEARANCE: cooperative and comfortable ORIENTATION/CONSCIOUSNESS: Yes awake, Yes oriented to person, Yes oriented to place and Yes oriented to time HENMT: COMMON NORMALS: normocephalic, atraumatic and hearing grossly normal bilaterally HEAD & SCALP: normocephalic and atraumatic Eye: COMMON NORMALS: Equal, round and reactive pupils present, EOMs intact bilaterally, conjunctivae normal and no scleral icterus CONJUNCTIVA: Yes conjunctivae normal PUPIL: Yes Equal, round and reactive pupils present Neck/C-Spine: COMMON NORMALS: full ROM, no lymphadenopathy, supple and no JVD Lymph: LYMPHATIC: no lymphadenopathy noted and no lymphedema noted Resp: COMMON NORMALS: normal respiratory effort, No retractions, No use of accessory muscles and clear to auscultation bilaterally AUSCULTATION: clear to auscultation bilaterally Cardio: COMMON NORMALS: no JVD, regular rate, regular rhythm and No murmurs present (Cardio) RATE: regular rate RHYTHM: regular rhythm GI: COMMON NORMALS: Soft to palpation and No hepatosplenomegaly present AUSCULTATION: Yes normoactive bowel sounds PALPATION: Yes Soft to palpation, No Tenderness to palpation present (GI), No Guarding due to palpation present (GI) and Yes No hepatosplenomegaly present Extremity: COMMON NORMALS: normal to inspection, capillary refill normal, no clubbing, cyanosis or edema, no calf tenderness and no pedal edema Neuro: SENSORIUM/ORIENTATION: Yes oriented to person, Yes oriented to place and Yes oriented to time Skin: COMMON NORMALS: no rashes or lesions noted GENERAL SKIN EXAM: no rashes or lesions noted Course Vital Signs: Vital signs: Vital Signs Temperature 98.1 F 11/23/19 14:05 Pulse Rate 111 H 11/23/19 16:20 Respiratory Rate 14 11/23/19 16:20 Blood Pressure 109/89 11/23/19 16:20 Pulse Oximetry 92 11/23/19 16:20 MDM - SOB/Dyspnea MDM Narrative: Medical decision making narrative: Reviewed findings with the patient. Chest x-ray does not show significant just of heart failure the IV diuretics we gave him here have improved his symptoms some. We will go ahead and discharge him home on increased dose of Lasix for 3 days follow-up with his primary care doctor at the end of the time return if has worsening problems. Lab Data: Labs: Lab Results 11/23/19 11/23/19 11/23/19 Range/Units 14:37 14:37 14:37 WBC 11.5 H (4.0-10.0) 10^3/ uL RBC 4.68 (4.1-5.3) 10^6/u L Hgb 14.6 (11.7-16.6) g/dL Hct 46.3 (42.0-52.0) % MCV 98.9 H (80-94) fL MCH 31.2 (28.0-34.0) pg MCHC 31.5 (30.0-36.0) g/dL RDW 13.4 (12.1-15.1) % Plt Count 224 (130-400) 10^3/c mm MPV 12.5 H (7.4-10.4) fL Neut % (Auto) 67.0 % Lymph % (Auto) 24.9 % [place] % (Auto) 4.9 % Eos % (Auto) 1.4 % Baso % (Auto) 0.6 % Neut # (Auto) 7.67 (1.8-7.7) 10^3/u L Lymph # (Auto) 2.9 (0.8-4.8) 10^3/u L [place] # (Auto) 0.6 (0.2-0.9) 10^3/u L Eos # (Auto) 0.2 (0.0-0.8) 10^3/u L Baso # (Auto) 0.1 (0.0-0.1) 10^3/u L Nucleated RBC % (a uto) 0 % Nucleated RBCs # 0.0 /100WBC Specimen Type Arterial Sample Site Radial, left ABG pH 7.44 (7.35-7.45) ABG pCO2 36.7 (35-45) mmHg ABG pO2 71.9 L (80.0-100.0) mmH g ABG HCO3 24.8 (22-26) mmol/L ABG O2 Saturation 95.2 ABG Base Excess 0.9 (-2.0-2.0) mmol/ L [place] Test Pos A-a O2 Gradient 4.2 L (5-10) mmHg Hematocrit 46.5 (42-52) % Hgb O2 Saturation 93.2 L (95-100) % Carboxyhemoglobin 1.3 (0.4-20.1) %THgb Methemoglobin 0.8 (0.4-1.5) % Total Hemoglobin 15.2 (14-18) g/dL Sodium 142.0 143 (131-143) mmol/L Potassium 4.0 4.9 (3.5-5.0) mmol/L Glucose 129.0 H 136 H (70-115) mg/dL Ionized Calcium 1.2 (1.1-1.4) mmol/L O2 Delivery Device None FiO2 21.0 % Rail Track Maintainer ID Ed Chloride 107 (98-107) mmol/L Carbon Dioxide 23 (22-29) mmol/L Anion Gap 17.9 (5-19) BUN 22 H (6-20) mg/dL Creatinine 1.3 H (0.7-1.2) mg/dL GFR Calculation 61.1 L (90-130) mL/min Calculated Osmolal ity 301 H (285-295) mOsm/k g Calcium 9.3 (8.5-10.5) mg/dL Magnesium 1.7 (1.7-2.3) mg/dL Total Bilirubin 0.2 (0.15-1.2) mg/dL AST 12 (0-40) U/L ALT 16 (0-41) U/L Alkaline Phosphata se 69 (40-130) IU/L NT-Pro-B Natriuret Pep 2507 H (0-125) pg/mL Total Protein 6.1 L (6.6-8.7) g/dL Albumin 3.7 (3.5-5.2) g/dL Globulin 2.4 (1.3-4.6) g/dL Lipase 25 (13-60) U/L Discharge Plan Discharge Patient Disposition: Home Clinical Impression: Combined systolic and diastolic congestive heart failure, Type 1 diabetes mellitus with hyperglycemia Condition: Stable Prescriptions: Changed furosemide 40 mg tablet 60 mg PO BID Qty: 60 RF: 4 No Action sertraline 100 mg tablet 100 mg PO Q24H Qty: 30 RF: 2 Novolin 70-30 FlexPen U-100 100 unit/mL (70-30) insulin pen See Rx Instructions SUBCUT .COMPLEX Qty: 15 RF: 6 pantoprazole 40 mg tablet,delayed release (DR/EC) 40 mg PO QAM Qty: 30 RF: 5 potassium chloride 20 mEq tablet extended release 20 meq PO BID Qty: 60 RF: 5 spironolactone 25 mg tablet 12.5 mg PO DAILY Qty: 30 RF: 5 trazodone 300 mg tablet 300 mg PO BEDTIME Qty: 30 RF: 2 Entresto 24-26 mg tablet 1 tab PO BID RF: 0 simvastatin 40 mg tablet 40 mg PO DAILY RF: 0 (DME) pen needle, diabetic [1st Tier Unifine Pentips] 31 gauge x 3/16 needle See Rx Instructions .ROUTE .MEDSUPPLY Qty: 50 RF: 6 Aspirin Low Dose 81 mg Tablet,Delayed Release (Dr/Ec) 81 mg PO DAILY RF: 0 Discharge Orders: Discharge Order (Routine); Ordered 11/23/19 Ordered By: James Holliday Referrals: Zeinab Salazar NP [Primary Care Provider] - Discharge Diet: Usual diet Discharge Activity: Increase activity as tolerated Activity Restrictions/Additional Instructions: Increase your Lasix to 60 mg twice daily for 3 days follow-up with her primary care doctor at the end of that time for reevaluation for over significant worsening return. Discharge Date/Time: 11/23/19 16:21 Coding Level of Care Code ED Professor Of German for Nikolaig Fwd Exam Comprehensive
[2019-11-23 14:44] LABS: Basophils # 0.1 10^3/uL (0.0-0.1); Basophils % 0.6 %; Eosinophils # 0.2 10^3/uL (0.0-0.8); Eosinophils % 1.4 %; Hematocrit 46.3 % (42.0-52.0); Hemoglobin 14.6 g/dL (11.7-16.6); Lymphocytes # 2.9 10^3/uL (0.8-4.8); Lymphocytes % 24.9 %; Mean Corpuscular HGB Conc 31.5 g/dL (30.0-36.0); Mean Corpuscular Hemoglobin 31.2 pg (28.0-34.0); Mean Corpuscular Volume 98.9 fL (80-94); Mean Platelet Volume 12.5 fL (7.4-10.4); Monocytes # 0.6 10^3/uL (0.2-0.9); Monocytes % 4.9 %; Neutrophils # 7.67 10^3/uL (1.8-7.7); Nucleated Red Blood Cells % 0 %; Platelet Count 224 10^3/cmm (130-400); Red Blood Count 4.68 10^6/uL (4.1-5.3); Red Cell Distribution Width 13.4 % (12.1-15.1); White Blood Count 11.5 10^3/uL (4.0-10.0)
[2019-11-23 14:48] LABS: ABG PCO2 36.7 mmHg (35-45); ABG PH Result 7.44 (7.35-7.45); Alveolar-Arterial Oxygen Gradi 4.2 mmHg (5-10); Arterial Blood Gas Hematocrit 46.5 % (42-52); Base Excess ABG 0.9 mmol/L (-2.0-2.0); Blood Gas Allen Test Pos; Blood Gas Operator Identificat ED; Blood Gas Sample Site Radial, left; Blood Gas Sample Type Arterial; Carboxyhemoglobin 1.3 %THgb (0.4-20.1); HCO3 ABG 24.8 mmol/L (22-26); HGB O2 Sat 93.2 % (95-100); Ionized Calcium Level - ABG 1.2 mmol/L (1.1-1.4); Methemoglobin 0.8 % (0.4-1.5); Oxygen Saturation ABG 95.2; PO2 ABG 71.9 mmHg (80.0-100.0); Total Hemoglobin 15.2 g/dL (14-18)
[2019-11-23 15:13] LABS: Alanine Aminotransferase 16 U/L (0-41); Albumin Level 3.7 g/dL (3.5-5.2); Alkaline Phosphatase 69 IU/L (40-130); Anion Gap 17.9 (5-19); Aspartate Amino Transferase 12 U/L (0-40); Blood Urea Nitrogen 22 mg/dL (6-20); Calcium 9.3 mg/dL (8.5-10.5); Carbon Dioxide 23 mmol/L (22-29); Chloride 107 mmol/L (98-107); Globulin 2.4 g/dL (1.3-4.6); Glomerular Filtration Rate 61.1 mL/min (90-130); Glucose 136 mg/dL (65-115); Lipase 25 U/L (13-60); Magnesium 1.7 mg/dL (1.7-2.3); NT Pro B Type Natriuretic Pept 2507 pg/mL (0-125); Osmolality Calculated 301 mOsm/kg (285-295); Potassium 4.9 mmol/L (3.5-5.1); Sodium 143 mmol/L (136-145); Total Bilirubin 0.2 mg/dL (0.15-1.2); Total Protein 6.1 g/dL (6.6-8.7)
[2019-11-23] MEDS: FUROsemide 10 mg/mL SDV 10mL 60 MG IVP (15:14)
[2019-11-23] MEDS: ondansetron 2 mg/ML SDV 2 mL 4 MG IVP (15:14)
[2019-11-23 15:20] VITALS: BP 105/77; PULSE 106; RESP 18; O2SAT 95
[2019-11-23 16:20] VITALS: BP 109/89; PULSE 111; RESP 14; O2SAT 92
== END 2019-11-23 16:21 | disposition home or self-care (01) ==
PROVIDERS: Emergency Provider Family Medicine; PCP Nurse Practitioner Family
DX: I11.0 Hypertensive heart disease with heart failure (principal); I50.40 Unspecified combined systolic (congestive) and diastolic (congestive) heart failure; E10.65 Type 1 diabetes mellitus with hyperglycemia; Z79.4 Long term (current) use of insulin; Z87.891 Personal history of nicotine dependence
CPT/HCPCS: 12345; 36415; 36600; 71045; 80051; 80053; 82810; 83690; 83735; 83880; 83986; 85025; 96374; 96375; 99282; 99283; J1940; J2405

== ENCOUNTER → 2019-11-26 13:11 | Outpatient (BNVA) | payer MEDICAID, SELFPAY | PROVIDERS: PCP Nurse Practitioner Family; Visit Provider Nurse Practitioner Family | DX: E10.65 Type 1 diabetes mellitus with hyperglycemia (principal) | CPT/HCPCS: 83036 ==

== ENCOUNTER 2019-12-09 11:39 | Emergency (ER) | payer MEDICAID, SELFPAY ==
--- NOTE | 2019-12-09 11:47 | XR_ITS ---
WS: [id number] XR chest 1V portable [id number] REASON FOR EXAM: cp FINDINGS: Normal thoracic aorta. Mild cardiomegaly. There are interstitial changes in the lower lung sheth. Definite Kenny B lines along the inferior l ateral margin of the right lung. These findings have been seen on multiple previous chest x-rays. XR/XR chest 1V portable [id number] IMPRESSION: Early congestive heart failure.
--- NOTE | 2019-12-09 11:47 | ECG_ITS ---
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 Measurements Intervals [place] Rate: 116 P: 58 CT: 122 QRS: -3 QRSD: 93 T: 109 QT: 341 QTc: 475 Interpretive Statements SINUS TACHYCARDIA POSSIBLE LEFT ATRIAL ENLARGEMENT [-0.1mV P WAVE IN V1/V2] MODERATE T-WAVE ABNORMALITY, CONSIDER LATERAL ISCHEMIA [-0.1+ mV T WAVE IN I/aVL/V5/V6] Compared to ECG 11/05/2019 04:12:[address] interval no longer present T-wave abnormality still present Possible ischemia still present Electronically Signed On 12-09-2019 21:38:12 CDT by Radha Madison M.D. [id number]
[2019-12-09 11:54] VITALS: BP 115/79; PULSE 119; RESP 28; TEMP 36.9; O2SAT 96; BMI 29.6
[2019-12-09 12:28] LABS: Basophils # 0.1 10^3/uL (0.0-0.1); Basophils % 0.6 %; Eosinophils # 0.2 10^3/uL (0.0-0.8); Eosinophils % 1.3 %; Hematocrit 50.9 % (42.0-52.0); Hemoglobin 16.3 g/dL (11.7-16.6); Lymphocytes # 3.5 10^3/uL (0.8-4.8); Lymphocytes % 26.9 %; Mean Corpuscular Hemoglobin 31.8 pg (28.0-34.0); Mean Corpuscular Volume 99.2 fL (80-94); Mean Platelet Volume 12.4 fL (7.4-10.4); Monocytes # 0.6 10^3/uL (0.2-0.9); Monocytes % 4.7 %; Neutrophils # 8.57 10^3/uL (1.8-7.7); Neutrophils % 65.6 %; Nucleated Red Blood Cells % 0 %; Platelet Count 248 10^3/cmm (130-400); Red Blood Count 5.13 10^6/uL (4.1-5.3); Red Cell Distribution Width 13.1 % (12.1-15.1); White Blood Count 13.1 10^3/uL (4.0-10.0)
--- NOTE | 2019-12-09 12:45 | ED_ITS ---
HPI - SOB/Dyspnea General: Chief Complaint: Shortness of Breath/Dyspnea Stated Complaint: SOB/chest pain Time Seen by Provider: 12/09/19 12:13 Source: patient Mode of arrival: ambulatory Limitations: no limitations History of Present Illness: HPI Narrative: 39-year-old male who has a history of COPD has had increased work of breathing and wheezing he states of last week. He states he has felt quite short of breath. He denies any fever or cough. He states is worse with activity. He denies any vomiting. He does use albuterol and states that it does help. MD elicited complaint: shortness of breath Pertinent past history: COPD Associated symptoms: Deny abdominal pain, chest pain, fever(s), nausea or vomiting Review of Systems Const: Denies: fever(s), chills, body aches or change in appetite Eyes: Denies: blurry vision or eye discomfort ENMT: Denies: throat pain or dental pain Card: Denies: chest pain Resp: Reports: dyspnea, non-productive cough and wheezing GI: Denies: abdominal pain, nausea, vomiting or diarrhea : Denies: dysuria Musc: Denies: neck pain or back pain Skin/Breast: Denies: rash Neuro: Denies: headache(s) Psych: Denies: depression [place]/Lymph: Denies: easy bruising All/Imm: Denies: urticaria PFSH ED PFSH: Medical History Cannabis dependence, uncomplicated 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% no valvular abnormality Depression Essential hypertension GERD (gastroesophageal reflux disease) Major depressive disorder, recurrent severe without psychotic features Moderate pulmonary arterial systolic hypertension Nicotine dependence, cigarettes, with other nicotine-induced disorders Post-traumatic stress disorder, chronic Smoker Type 1 diabetes mellitus with hyperglycemia Surgical History History of hip surgery Family History Grandmother Diabetes Cancer Mother Diabetes Father Hypertension Grandmother Hypertension Father Cancer Social History Smoking and tobacco status: former smoker Quit status (tobacco): has quit using tobacco Former quit date comment: 3 days ago Smoking risk assessment/counseling performed?: Yes Tobacco counseling given: counseling >3 minutes Alcohol intake: current Alcohol intake frequency: holidays/special occasions only Physical Exam Const: COMMON NORMALS: no acute distress, patient oriented x3 and healthy appearing HENMT: COMMON NORMALS: normocephalic and atraumatic HEAD & SCALP: normocephalic and atraumatic Eye: COMMON NORMALS: Equal, round and reactive pupils present and EOMs intact bilaterally PUPIL: Yes Equal, round and reactive pupils present Neck/C-Spine: COMMON NORMALS: full ROM and supple Chest: COMMONS NORMALS: normal inspection of the chest and normal palpation of entire chest wall Resp: COMMON NORMALS: normal respiratory effort, No retractions and No use of accessory muscles AUSCULTATION: wheezes Cardio: COMMON NORMALS: regular rate, regular rhythm and No murmurs present (Cardio) RATE: regular rate RHYTHM: regular rhythm GI: COMMON NORMALS: Normal to inspection, nondistended, normoactive bowel sounds present, Soft to palpation, non-tender and no masses PALPATION: Yes Soft to palpation Extremity: COMMON NORMALS: normal to inspection and full ROM Neuro: COMMON NORMALS: patient oriented x3, moves all extremities and no focal motor deficits Psych: COMMON NORMALS: mental status grossly normal, Normal thought process present and cooperative THOUGHT PROCESS: Normal thought process present Skin: COMMON NORMALS: no rashes or lesions noted and no wounds GENERAL SKIN EXAM: no rashes or lesions noted Course Vital Signs: Vital signs: Vital Signs Temperature 98.5 F 12/09/19 11:54 Pulse Rate 111 H 12/09/19 15:17 Respiratory Rate 20 H 12/09/19 14:22 Blood Pressure 127/83 12/09/19 15:17 Pulse Oximetry 98 12/09/19 15:17 MDM - SOB/Dyspnea MDM Narrative: Medical decision making narrative: Jerman presents for shortness of breath likely from CHF and COPD exacerbation. Patient has no signs of acute pneumonia or COVID. He is not requiring any oxygen here. Patient's d- dimer is negative and no signs of pulmonary embolism. Patient given IV Lasix here and will prescribe him Keflex and prednisone for home. He is to follow-up PCP and return if worsening. Lab Data: Labs: Lab Results 10/08/20 10/08/20 10/08/20 Range/Units 12:20 12:20 12:20 WBC 13.1 H (4.0-10.0) 10^3/ uL RBC 5.13 (4.1-5.3) 10^6/u L Hgb 16.3 (11.7-16.6) g/dL Hct 50.9 (42.0-52.0) % MCV 99.2 H (80-94) fL MCH 31.8 (28.0-34.0) pg MCHC 32.0 (30.0-36.0) g/dL RDW 13.1 (12.1-15.1) % Plt Count 248 (130-400) 10^3/c mm MPV 12.4 H (7.4-10.4) fL Neut % (Auto) 65.6 % Lymph % (Auto) 26.9 % [place] % (Auto) 4.7 % Eos % (Auto) 1.3 % Baso % (Auto) 0.6 % Neut # (Auto) 8.57 H (1.8-7.7) 10^3/u L Lymph # (Auto) 3.5 (0.8-4.8) 10^3/u L [place] # (Auto) 0.6 (0.2-0.9) 10^3/u L Eos # (Auto) 0.2 (0.0-0.8) 10^3/u L Baso # (Auto) 0.1 (0.0-0.1) 10^3/u L Nucleated RBC % (a uto) 0 % Nucleated RBCs # 0.0 /100WBC D-Dimer (0-0.59) ug/mIFE U Sodium 141 (136-145) mmol/L Potassium 4.7 (3.5-5.1) mmol/L Chloride 106 (98-107) mmol/L Carbon Dioxide 20 L (22-29) mmol/L Anion Gap 19.7 H (5-19) BUN 15 (6-20) mg/dL Creatinine 1.2 (0.7-1.2) mg/dL GFR Calculation 67.1 L (90-130) mL/min Glucose 135 H (65-115) mg/dL Calculated Osmolal ity 295 (285-295) mOsm/k g Calcium 9.6 (8.5-10.5) mg/dL Total Bilirubin 0.4 (0.15-1.2) mg/dL AST 16 (0-40) U/L ALT 18 (0-41) U/L Alkaline Phosphata se 73 (40-130) IU/L Troponin T Baselin e 55 H (0-15) ng/L Troponin T 120 Min port gamble (0-15) ng/L Delta Troponin T (0-10) ABS# NT-Pro-B Natriuret Pep 2799 H (0-125) pg/mL Total Protein 6.2 L (6.6-8.7) g/dL Albumin 4.3 (3.5-5.2) g/dL Globulin 1.9 (1.3-4.6) g/dL 12/09/19 12/09/19 Range/Units 12:20 14:24 WBC (4.0-10.0) 10^3/ uL RBC (4.1-5.3) 10^6/u L Hgb (11.7-16.6) g/dL Hct (42.0-52.0) % MCV (80-94) fL MCH (28.0-34.0) pg MCHC (30.0-36.0) g/dL RDW (12.1-15.1) % Plt Count (130-400) 10^3/c mm MPV (7.4-10.4) fL Neut % (Auto) % Lymph % (Auto) % [place] % (Auto) % Eos % (Auto) % Baso % (Auto) % Neut # (Auto) (1.8-7.7) 10^3/u L Lymph # (Auto) (0.8-4.8) 10^3/u L [place] # (Auto) (0.2-0.9) 10^3/u L Eos # (Auto) (0.0-0.8) 10^3/u L Baso # (Auto) (0.0-0.1) 10^3/u L Nucleated RBC % (a uto) % Nucleated RBCs # /100WBC D-Dimer 0.33 (0-0.59) ug/mIFE U Sodium (136-145) mmol/L Potassium (3.5-5.1) mmol/L Chloride (98-107) mmol/L Carbon Dioxide (22-29) mmol/L Anion Gap (5-19) BUN (6-20) mg/dL Creatinine (0.7-1.2) mg/dL GFR Calculation (90-130) mL/min Glucose (65-115) mg/dL Calculated Osmolal ity (285-295) mOsm/k g Calcium (8.5-10.5) mg/dL Total Bilirubin (0.15-1.2) mg/dL AST (0-40) U/L ALT (0-41) U/L Alkaline Phosphata se (40-130) IU/L Troponin T Baselin e (0-15) ng/L Troponin T 120 Min port gamble 56.92 H (0-15) ng/L Delta Troponin T 1.92 (0-10) ABS# NT-Pro-B Natriuret Pep (0-125) pg/mL Total Protein (6.6-8.7) g/dL Albumin (3.5-5.2) g/dL Globulin (1.3-4.6) g/dL Imaging Data^: CXR: Attestation: I personally reviewed and interpreted this imaging study as follows: Radiologist's impression: [place] [address] XRay Report Signed Patient: Jerman Lamb Unit #: [id number] : 1980 Age/Sex: 39 / M ADM Date: 12/09/19 Loc: ER Room/Bed: Attending Dr: Ordering Provider/Ordering MD: Elvis Ramos MD Date of Service: 12/09/19 Procedure(s): XR chest 1V portable [id number] Accession Number(s): [id number] Report Number: [id number] WS: [id number] XR chest 1V portable [id number] REASON FOR EXAM: cp FINDINGS: Normal thoracic aorta. Mild cardiomegaly. There are interstitial changes in the lower lung sheth. Definite Kenny B lines along the inferior lateral margin of the right lung. These findings have been seen on multiple previous chest x-rays. XR/XR chest 1V portable [id number] IMPRESSION: Early congestive heart failure. EKG Data^: EKG 1: Attestation: I personally reviewed and interpreted this EKG as follows: EKG Interpretation Date: 12/09/19 EKG interpretation time: 12:02 Interpretation: sinus tach hr [address] or t wave abnormalities qrs 93 qtc 410 Discharge Plan Discharge Patient Disposition: Home Clinical Impression: Congestive heart failure, COPD exacerbation Condition: Stable Prescriptions: New Keflex 500 mg capsule 500 mg PO Q6H 7 Days Qty: 28 RF: 0 prednisone 50 mg tablet 50 mg PO DAILY Qty: 5 RF: 0 No Action sertraline 100 mg tablet 100 mg PO Q24H Qty: 30 RF: 2 Novolin 70-30 FlexPen U-100 100 unit/mL (70-30) insulin pen See Rx Instructions SUBCUT .COMPLEX Qty: 15 RF: 6 pantoprazole 40 mg tablet,delayed release (DR/EC) 40 mg PO QAM Qty: 30 RF: 5 potassium chloride 20 mEq tablet extended release 20 meq PO BID Qty: 60 RF: 5 spironolactone 25 mg tablet 12.5 mg PO DAILY Qty: 30 RF: 5 trazodone 300 mg tablet 300 mg PO BEDTIME Qty: 30 RF: 2 Entresto 24-26 mg tablet 1 tab PO BID RF: 0 simvastatin 40 mg tablet 40 mg PO DAILY RF: 0 (DME) pen needle, diabetic [1st Tier Unifine Pentips] 31 gauge x 3/16 needle See Rx Instructions .ROUTE .MEDSUPPLY Qty: 50 RF: 6 furosemide 40 mg tablet 40 mg PO BID Qty: 60 RF: 4 Aspirin Low Dose 81 mg Tablet,Delayed Release (Dr/Ec) 81 mg PO DAILY RF: 0 Discharge Orders: Discharge Order (Routine); Ordered 12/09/19 Ordered By: Elvis Ramos Referrals: Zeinab Salazar NP [Primary Care Provider] - Discharge Diet: Advance as tolerated Discharge Activity: Resume usual activity Patient Instructions: Chronic Obstructive Pulmonary Disease (ED) Discharge Date/Time: 12/09/19 15:17 Coding Level of Care Code ED [employer]der [employer] for [employer] Fwd Exam Comprehensive
[2019-12-09 12:50] LABS: Troponin(5th) Baseline 55 ng/L (0-15)
[2019-12-09 13:00] LABS: Alanine Aminotransferase 18 U/L (0-41); Albumin Level 4.3 g/dL (3.5-5.2); Alkaline Phosphatase 73 IU/L (40-130); Aspartate Amino Transferase 16 U/L (0-40); Blood Urea Nitrogen 15 mg/dL (6-20); Calcium 9.6 mg/dL (8.5-10.5); Carbon Dioxide 20 mmol/L (22-29); Chloride 106 mmol/L (98-107); Creatinine Clr Calc Pharmacy 88.4495; Globulin 1.9 g/dL (1.3-4.6); Glomerular Filtration Rate 67.1 mL/min (90-130); Glucose 135 mg/dL (65-115); NT Pro B Type Natriuretic Pept 2799 pg/mL (0-125); Osmolality Calculated 295 mOsm/kg (285-295); Sodium 141 mmol/L (136-145); Total Bilirubin 0.4 mg/dL (0.15-1.2); Total Protein 6.2 g/dL (6.6-8.7)
[2019-12-09 13:02] LABS: Anion Gap 19.7 (5-19); Potassium 4.7 mmol/L (3.5-5.1)
[2019-12-09 13:04] LABS: D Dimer 0.33 ug/mIFEU (0-0.59)
--- NOTE | 2019-12-09 13:47 | ECG_ITS ---
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 Measurements Intervals [place] Rate: 110 P: 52 [place]: 121 QRS: -6 QRSD: 97 T: 115 QT: 346 QTc: 469 Interpretive Statements SINUS TACHYCARDIA WITH OCCASIONAL VENTRICULAR PREMATURE COMPLEXES POSSIBLE LEFT ATRIAL ENLARGEMENT [-0.1mV P WAVE IN V1/V2] NONSPECIFIC T-WAVE ABNORMALITY Compared to ECG 12/09/2019 12:02:25 Ventricular premature complex(es) now present Possible ischemia no longer present T-wave abnormality still present Electronically Signed On 12-09-2019 21:42:59 CDT by Radha Madison M.D. [id number]
[2019-12-09 13:54] VITALS: BP 120/89; RESP 20
--- NOTE | 2019-12-09 14:05 | PC.NURSE ---
EKG done at 1405 and shown to ER doctor
[2019-12-09] MEDS: ipratropium-albuterol 3 mL Neb INHALATION (14:21)
[2019-12-09 14:22] VITALS: PULSE 112; RESP 20; O2SAT 94
[2019-12-09 14:32] VITALS: PULSE 110
[2019-12-09 14:57] LABS: Troponin 5 2HR 56.92 ng/L (0-15); Troponin 5 2HR Delta 1.92 ABS# (0-10)
[2019-12-09 15:17] VITALS: BP 127/83; PULSE 111; O2SAT 98
== END 2019-12-09 15:17 | disposition home or self-care (01) ==
PROVIDERS: Emergency Provider Emergency Medicine; PCP Nurse Practitioner Family
DX: J44.1 Chronic obstructive pulmonary disease with (acute) exacerbation (principal); I11.0 Hypertensive heart disease with heart failure; I50.9 Heart failure, unspecified; Z79.899 Other long term (current) drug therapy; Z79.82 Long term (current) use of aspirin; E10.9 Type 1 diabetes mellitus without complications; Z87.891 Personal history of nicotine dependence
CPT/HCPCS: 12345; 36415; 71045; 80053; 83880; 84484; 85025; 85378; 93005; 94640; 96374; 96375; 99283; 99284; J2930; J7611

== ENCOUNTER → 2020-01-11 11:30 | Outpatient (BNVA) | payer MEDICAID, SELFPAY | PROVIDERS: PCP Nurse Practitioner Family; Visit Provider Nurse Practitioner Family | DX: I10 Essential (primary) hypertension (principal); I50.9 Heart failure, unspecified | CPT/HCPCS: 80061; 83735; 83880; 84439; 84443 ==

== ENCOUNTER → 2020-01-20 09:27 | Outpatient (BNVA) | payer MEDICAID, SELFPAY | PROVIDERS: PCP Nurse Practitioner Family; Visit Provider Nurse Practitioner Family | DX: Z20.828 Contact with and (suspected) exposure to other viral communicable diseases (principal); Z01.818 Encounter for other preprocedural examination; I50.43 Acute on chronic combined systolic (congestive) and diastolic (congestive) heart failure | CPT/HCPCS: 80053; 87635 ==

== ENCOUNTER 2020-01-25 08:50 | Observation (INO) | payer MEDICAID, SELFPAY ==
[2020-01-25] VITALS (65 sets, daily range): BP systolic 94–159; BP diastolic 58–128; PULSE 106–132; RESP 12–36; TEMP 36.6–36.9; O2SAT 84–98; BMI 30.5
--- NOTE | 2020-01-25 06:00 | XACV_ITS ---
Ht: 173 cm Wt: 91 kg BSA: 2.12 m2 Gender: Male : 1980 Any Known Allergies: Other Exam Priority: Routine Procedure(s): Procedure Description: Diagnostic procedure Procedure Description: PCI procedure Procedure Description: Right Heart Catheterization Procedure Description: O2 saturation Procedure Description: Drug Eluting Coronary Stent Procedure Description: PTCA Procedure Description: Miscellaneous Procedure Description: ACT Procedure Description: Coronary Angiography Diagnostic Cath Status: Elective Diagnostic Findings * LM has luminal irregularities. * CX gives off a large OM branch which has mid vessel 10 to 20% stenosis.. * LAD arises from left main artery. * It gives off 2 diagonal branches. After takeoff of second diagonal branch there is a mid LAD 70 to 80% stenosis. * M * id Left Anterior Descending Coronary Artery: Severe 80% stenosis, ELIZABETH: 0 flow. * RCA arises from right coronary cusp. It has mild luminal irregularities. Ostial to proximal * p * osterior Descending Coronary Artery: Severe 85% stenosis, ELIZABETH: 3 flow. * Right heart cath findings: RA pressure: 25/24(20) mmhg RV pressure: 68/12(22) mmhg PA pressure: 68/38 (53) mmHg Wedge pressure: 44/42 (39) mmHg PA sat 64.4% Ao sat 91.1% Cardiac output by Geovanni: 4.5 L/min Cardiac index: 2.1 L/min/m2 PVR: 3.11Woods . * Coronary angiography shows right dominance. PCI Status: Elective PCI Indication: Other Interventional Findings * We engaged left main artery with XB 3.5 guide catheter. A 0.014 run-through guidewire was used to cross the mid LAD stenosis and was placed in distal LAD. We used a 2.25 x 12 mm semicompliant balloon to predilate the lesion. This was followed by placement of 3.0 x 15 mm resolute Jailyn drug-eluting stent. At this time final angiogram was performed that showed ELIZABETH-3 flow, excellent stent expansion and no residual stenosis. Guidewire and guide catheter were removed. We then turned our attention to PDA lesion. RCA was engaged using a JR4 guide catheter. Same run-through wire was used to cross the ostial PDA lesion. This was followed by placement of 2.5 x 18 mm resolute Henrietta drug-eluting stent from distal RCA into the PDA. Proximal portion of stent in RCA was postdilated using 3.0 x 6 mm NC balloon. At this time final angiogram was performed that showed excellent stent expansion, ELIZABETH-3 flow and no residual stenosis. Guidewire and guide catheter were removed. Patient left the [employer] in stable condition. * Mid Left Anterior Descending Coronary Artery: 80% stenosis treated with AB TREK 2.25X12 RX BALLOON and MDT R JAILYN 3.0X18 PEDRO. 0% residual stenosis, ELIZABETH: 3 flow. * Posterior Descending Right Coronary Artery: 85% stenosis treated with MDT R JAILYN 2.5X18 PEDRO and MDT NC EUPHORA RX 3.50H92NP BALLOON. 0% residual stenosis, ELIZABETH: 3 flow. PCI for Multi-vessel Disease: Yes Multi-vessel Procedure Type: Initial PCI Syntax Score: Low Conclusions 1. Severely elevated right and left-sided cardiac pressures. 2. There is severe coronary artery disease with two vessel disease. 3. Mid Left Anterior Descending Coronary Artery was treated with Balloon and Drug Eluting Stent. 4. Posterior Descending Right Coronary Artery was treated with Drug Eluting Stent and Balloon. Recommendations * Admit to CSU. * Aspirin and Plavix for at least 1 year. * IV Lasix for now. Will need aggressive diuresis as outpatient also given significantly elevated right and left-sided cardiac pressures. * Initiate statin therapy. * Aggressive risk factor modification with good diabetes and hypertension control. Interventional RX Recommendation: PCI w/o planned CABG Diagnostic RX Recommendation: PCI w/o planned CABG Anticoagulation: Heparin Pressures Phase:Rest AO : 116 / 86 ( 98 ) @ 1:46:00 AM 123 / 95 ( 109 ) @ 2:09:00 AM 132 / 103 ( 116 ) @ 2:19:00 AM 139 / 113 ( 125 ) @ 2:26:00 AM RV : 68 / 12 / @ 1:32:00 AM PA : 68 / 38 ( 53 ) @ 1:33:00 AM RA : a wave = v wave = mean = 20 @ 1:32:00 AM O2 Content Phase:Rest PA : O2 Content O2: 64.4 @ 1:46:00 AM Saturations Phase:Rest AO : 91 @ 2:09:00 AM PA : 64 @ 1:46:00 AM Cardiac Output Phase:Rest Geovanni : 5 @ 1:46:00 AM Geovanni Cardiac Index: 3 @ 1:46:00 AM Clinical Evaluation EBL: 5mL-10mL Procedural Details Procedure Consent Obtained. Pre-Procedure Time Out. Identified patient by full name and date of as verbalized by the patient/guarantor. Does the consent match the physician's order: Yes. Accurate & Complete Informed Consent: Yes. Inpatient/Outpatient History & Physical on Chart: Yes. If H&P is completed, is and addenduem needed: No; If yes, is the addendum complete: N/A. Visualize and Verify Site with Patient/Guarantor: N/A. Relevant Radiology Images available: N/A. Pre-op teaching completed and patient verbalized understanding. The risks, benefits, and alternatives of sedation and/or procedure were discussed by physician. The patient agrees to continue. Procedure started. [facility] Clinical Fraility Score: 3: Managing Well. [employer] Indications: Cardiomyopathy, LV dysfunction. Chest Pain Symptom Assessment: Atypical Angina. Cardiovascular Instability: No. Correct patient, site and procedure confirmed by cath team. PERRLA. Strong, equal hand superintendent greens bilaterally. Lungs clear x 5 lobes. IV Site on Arrival: 20 gauge in the right anticubital. IV Site on Arrival: 20 gauge in the left hand. IV Fluids: 0.9% NaCl at KVO. 0 mL infused prior to laborer tree tapping. Pre Procedural Pulses: bilateral dorsalis pedis was 1+. Pre Procedural Pulses: bilateral posterior tibial was 1+. Pre Procedural Pulses: bilateral radial was 3+. bilateral groins was prepped with chloroprep then draped in the usual sterile fashion. right radial was prepped with chloroprep then draped in the usual sterile fashion. right brachial was prepped with chloroprep then draped in the usual sterile fashion. Equipment: 6F - Radial. Cardiac Cath Pack. [employer] Manifold Kit Model BT 2000. Heparinized Saline (2 units/mL), 1000 mL bag. Baseline sample Acquired. HR: 105 BPM. Physician notified. Physician arrived. Physician scrubbed in. Immediate Pre-Procedure Time Out. Correct Patient: Yes; Correct Procedure: Yes; Correct Site: Yes; Correct Patient Position: Yes; Correct Supplies: Yes; Dried Flammable Prep: Yes; Blood Products Available: N/A;. Lidocaine 1% infiltrated to the right brachial. Wire inserted through IV catheter in right brachial vein. IV catheter removed over wire. [place]-Erick MON catheter inserted. [place]-Erick out. Lidocaine 1% infiltrated to the right radial. Arterial access obtained. A 6 american TIG catheter in over wire. Multiple views taken of left coronary artery. Catheter redirected to the RCA. Catheter out. Inventory is CRD 6 FR XB 3.5 GUIDE. 6 american XB 3.5 guide catheter was inserted over the wire. Runthrough guidewire was advanced through the guide catheter to lesion in the mid LAD. Inflation number : 1 A AB TREK 2.25X12 RX BALLOON was prepped and advanced across the Mid LAD , then inflated to 8 BRAULIO for 0:15 seconds. Inflation number: 2 The AB TREK 2.25X12 RX BALLOON was reinflated across the Mid LAD, to 12 BRAULIO for 0:21 seconds. Balloon out. Inflation Number : 3 A MARCK Fu JAILYN 3.0X18 PEDRO -Lot Number# [id number] exp date 09/24/2021 was prepped and advanced across the Mid LAD. The stent was deployed at 12 BRAULIO for 0:24 seconds. Stent balloon out over wire. ACT drawn. Results 369 seconds. Therapeutic limits - pre-heparin administration 90-150 seconds and monitoring heparin during a vascular procedure >250 seconds. Wire out. Guide catheter out. Inventory is CRD 6FR JR 4 GUIDE 100cm. 6 american JR 4 guide catheter was inserted over the wire. Runthrough guidewire was advanced through the guide catheter to lesion in the PDA. Inflation Number : 1 A MDT R JAILYN 2.5X18 PEDRO -Lot Number# [id number] exp date 07/09/2021 was prepped and advanced across the R PDA. The stent was deployed at 12 BRAULIO for 0:22 seconds. Stent balloon out over wire. Results checked. Inflation number : 2 A MDT NC EUPHORA RX [id number] BALLOON was prepped and advanced across the R PDA , then inflated to 14 BRAULIO for 0:25 seconds. Inflation number: 3 The MDT NC EUPHORA RX 3.08Z25LJ BALLOON was reinflated across the R PDA, to 12 BRAULIO for 0:13 seconds. Balloon out. Results checked. Wire out. Guide catheter out. 6 fr sheath from right brachial vein removed and replaced with 14 g IV catheter by Dr Claudio. TR band placed. Hemostasis obtained. A TR Band was successful obtaining hemostatsis at the Right Radial artery insertion site. Post Procedure: Pulses reassessed and unchanged. PERRLA. Strong, equal hand superintendent greens bilaterally. No VTE prophylaxis required. Total IV fluids: 80.4 mL. Medication's Wasted: Lidocaine 1% = 10 mL. Medication's Wasted: Nitro = 49.8 mg. Medication's Wasted: Heparin = 5000 units. Medication's Wasted: Other = lasix 60 mg. Medication's Wasted: Other = versed 1 mg. Medication's Wasted: Other = fentanyl 25 mg. Contrast type used: Omnipaque 300 mgI/mL, 500 mL bottle. Complications: none. Estimated blood loss: 5mL-10mL. Post-op diagnosis: 2 vessel CAD. PCI Indication: 2 vessel CAD. Procedure completed. Patient transferred by wheelchair to 1st floor. Vital chart was stopped. Access Site Site: Right Brachial Vein Sheath Size: 6 Fr Hemostasis Success: Unsuccessful Site: Right Radial artery Sheath Size: 6 Fr Hemostasis Method: TR Band Hemostasis Success: Successful Procedure Medications Start: 7:23 AM Stop: 7:23 AM Medication: Versed Amount: 2 mg Route: I.V. Start: 7:22 AM Stop: 7:22 AM Medication: Aspirin Amount: 325 mg Route: P.O. Start: 7:28 AM Stop: 7:28 AM Medication: Versed Amount: 1 mg Route: I.V. Start: 7:31 AM Stop: 7:31 AM Medication: Versed Amount: 1 mg Route: I.V. Start: 7:31 AM Stop: 7:31 AM Medication: Fentanyl Amount: 25 mcg Route: I.V. Start: 7:37 AM Stop: 7:37 AM Medication: Fentanyl Amount: 25 mcg Route: I.V. Start: 7:42 AM Stop: 7:42 AM Medication: Nitrogylcerin Amount: 200 mcg Route: I.A. Start: 7:52 AM Stop: 7:52 AM Medication: Versed Amount: 1 mg Route: I.V. Start: 7:52 AM Stop: 7:52 AM Medication: Fentanyl Amount: 25 mcg Route: I.V. Start: 7:54 AM Stop: 7:54 AM Medication: Heparin Amount: 5000 units Route: I.V. Start: 7:45 AM Stop: 7:45 AM Medication: Heparin Amount: 5000 units Route: I.V. Start: 8:23 AM Stop: 8:23 AM Medication: Versed Amount: 1 mg Route: I.V. Start: 8:23 AM Stop: 8:23 AM Medication: Fentanyl Amount: 25 mcg Route: I.V. Start: 8:32 AM Stop: 8:32 AM Medication: Heparin Amount: 1000 units Route: I.V. Start: 8:35 AM Stop: 8:35 AM Medication: Lasix (furosemide) Amount: 40 mg Route: I.V. I, the attending physician, have reviewed and verified all procedure medications. Yes, all medications given per verbal order History/Risk Factors Hypertension: Yes Dyslipidemia: No Peripheral Arterial Disease (PAD): No Myocardial Infarction (MD): No Obesity: No Renal Disease: No Tobacco Use: Current/Recent(w/in 1 year) Prior Interventions PCI: No CABG: No Valve Surgery: No Report Signatures Finalized by Ambrocio Claudio MD on 01/31/2020 10:18 AM
[2020-01-25] MEDS: diphenhydrAMINE 50 mg Capsule PO (06:23)
[2020-01-25 07:08] LABS: Basophils # 0.1 10^3/uL (0.0-0.1); Basophils % 0.7 %; Eosinophils # 0.3 10^3/uL (0.0-0.8); Eosinophils % 2.8 %; Hematocrit 46.7 % (42.0-52.0); Hemoglobin 15.2 g/dL (11.7-16.6); Lymphocytes # 3.3 10^3/uL (0.8-4.8); Lymphocytes % 30.8 %; Mean Corpuscular HGB Conc 32.5 g/dL (30.0-36.0); Mean Corpuscular Volume 98.3 fL (80-94); Mean Platelet Volume 12.4 fL (7.4-10.4); Monocytes # 0.6 10^3/uL (0.2-0.9); Monocytes % 5.2 %; Neutrophils # 6.33 10^3/uL (1.8-7.7); Neutrophils % 58.9 %; Nucleated Red Blood Cells % 0 %; Platelet Count 238 10^3/cmm (130-400); Red Blood Count 4.75 10^6/uL (4.1-5.3); Red Cell Distribution Width 12.9 % (12.1-15.1); White Blood Count 10.7 10^3/uL (4.0-10.0)
[2020-01-25] MEDS: aspirin 325 mg Tablet PO (07:19)
--- NOTE | 2020-01-25 07:24 | W.PM.OPSUD ---
Surgery/Procedure H&P Update DATE OF PROCEDURE: January 25, 2020 DATE H&P PERFORMED: 01/03/20 H&P UPDATE INFORMATION: I have reviewed H&P completed within last 30 days, I have examined patient prior to procedure and No changes to prior documentation PREOP DIAGNOSIS: Heart failure with reduced ejection fraction (HFrEF)/Cardiomyopathy PRIMARY INDICATION FOR PROCEDURE: Heart failure with reduced ejection fraction (HFrEF)/Cardiomyopathy PLANNED PROCEDURE: Operation Date: 01/25/20 07:00 Proposed Procedures p Bilateral Cardiac Catheterization 74624 I50.43(Bilateral) - Ambrocio Claudio M.D Possible percutaneous coronary intervention PATIENT REASSESSED PRIOR TO SEDATION, WITH NO CHANGE NOTED: Yes PHYSICAL EXAM: alert, oriented x 3 and clear to auscultation bilaterally AIRWAY EVAL/ANESTHESIA PLAN: ASA III
[2020-01-25] MEDS: ALPRAZolam 0.25 mg Tablet PO (09:34)
[2020-01-25] MEDS: FUROsemide 10 mg/mL SDV 10mL 60 MG IVP (09:39)
--- NOTE | 2020-01-25 09:39 | XR_ITS ---
WS: [id number] XR chest 1V portable [id number] REASON FOR EXAM: SOB FINDINGS: Compared to a presumed normal baseline chest of 05/29/2019, there are interstitial changes in the lung s . This pattern is been seen on multiple other previous chest x-rays in this patient. The heart is mildly enlarged. No pleural effusion is identified. XR/XR chest 1V portable [id number] IMPRESSION: Findings most compatible with congestive heart failure.
--- NOTE | 2020-01-25 09:55 | USCV_ITS ---
Jerman Lamb Age: 39 Gender: M : 1980 Exam Date: 01/25/2020 09:58 Ordering Phys: Kelly Georges MD Technologist: Yoselyn Nunes Exam Location: [facility] – [place] Indication: Shortness of breath, CHF BP: 149 / 128 HR: 126 Rhythm: Sinus Technical Quality: Adequate MEASUREMENTS (Male / Female) Normal Values 2D ECHO LV Diastolic Diameter PLAX 6.5 cm 4.2 - 5.9 / 3.9 - 5.3 cm LV Systolic Diameter PLAX 5.4 cm LV Chamber Size 5.3 cm IVS Diastolic Thickness 1.2 cm 0.6 - 1.0 / 0.6 - 0.9 cm IVS Systolic Thickness 1.5 cm LVPW Diastolic Thickness 1.3 cm 0.6 - 1.0 / 0.6 - 0.9 cm LVPW Systolic Thickness 2.6 cm LVOT Diameter 2.0 cm LV Ejection Fraction 2D Teich 35.0 % LV Ejection Fraction MOD 2C 12.3 % LV Ejection Fraction 2C AL 13.1 % LA Diameter 5.1 cm LA Width 3.5 cm LA Height 3.7 cm RA Width 3.3 cm RA Height 4.0 cm Aorta at Sinotubular Diameter 2.2 cm M-MODE LV Diastolic Diameter MM 5.8 cm 4.2 - 5.9 / 3.9 - 5.3 cm LV Systolic Diameter MM 4.8 cm LV Ejection Fraction MM Teich 35.7 % IVS Diastolic Thickness MM 1.1 cm 0.6 - 1.0 / 0.6 - 0.9 cm IVS Systolic Thickness MM 1.6 cm LVPW Diastolic Thickness MM 1.8 cm 0.6 - 1.0 / 0.6 - 0.9 cm LVPW Systolic Thickness MM 1.9 cm Aortic Annulus Diameter 3.0 cm LA Ao Ratio MM 1.9 MV E Point Septal Separation 2.9 cm DOPPLER AV Peak Velocity 114.0 cm/s LVOT Peak Velocity 70.0 cm/s AV Area Cont Eq vti 2.1 cm squared AV Area Cont Eq pk 2.0 cm squared MV Area PHT 5.1 cm squared Mitral E to A Ratio 4.8 MV E' Velocity 46.0 cm/s Mitral E to MV E' Ratio 15.0 Mitral E to LV E' Lateral Ratio 14.0 Mitral E to LV E' Septal Ratio 16.5 TR Peak Velocity 118.0 cm/s TR Peak Gradient 5.6 mmHg TV Peak E Velocity 80.0 cm/s Right Atrial Pressure 3.0 mmHg Pulmonary Artery Systolic Pressu 8.6 mmHg PV Peak Velocity 60.0 cm/s RV Acceleration Time 0.1 s RV Ejection Time 0.2 s RV AcT/ET 0.4 FINDINGS Left Ventricle Moderately increased left ventricular cavity size. Severely decreased left ventricular systolic function. Left ventricular ejection fraction is estimated at 25-30 %. Severe global hypokinesis with relative sparing of basal to mid inferolateral lezama. Grade 2 diastolic dysfunction with increased filling pressure. Right Ventricle Normal right ventricular size and systolic function. Right Atrium Normal right atrial size. Left Atrium Moderately increased left atrial size. Mitral Valve Moderately thickened mitral valve. No mitral valve stenosis. Mild to moderate somewhat posteriorly directed mitral valve regurgitation. Aortic Valve Aortic valve not well visualized. Probably trileaflet aortic valve. No aortic valve stenosis. No aortic valve regurgitation. Tricuspid Valve Structurally normal tricuspid valve. Pulmonic Valve Pulmonic valve not well visualized. Trace pulmonary valve regurgitation. Pericardium No pericardial effusion. Aorta Normal sized aortic root. CONCLUSIONS 1. Moderately increased left ventricular cavity size. Severely decreased left ventricular systolic function. Left ventricular ejection fraction is estimated at 25-30 %. Severe global hypokinesis with relative sparing of basal to mid inferolateral lezama. Grade 2 diastolic dysfunction with increased filling pressure. 2. Normal right ventricular size and systolic function. 3. Mild to moderate mitral valve regurgitation. 4. When compared to previous echocardiogram dated 05/30/19, there may not have been any significant change. Kelly Georges MD (Electronically Signed) Final Date: 30 January 2020 21:57 S
--- NOTE | 2020-01-25 09:57 | PC.NURSE ---
Addendum entered by Antonette Diamond RN 01/25/20 16:55: Patient then had to sit on side of bed to feel as if he could breath and O2 increased to 15L and ekg was obtained; patient was placed on bi pap and echo was preformed all per Dr bhatti's verbal instructions given at bedside; Blood gasses obtained patient wore bi pap and rested nitro drip was started for elevated Bp patient now recovered and is less SOB with 4l NC Original Note: patient increasingly SOB upon arrival to unit saturation in the 80's supplemental O2 applied patient recovered for a short time. patient contniues to decline in breathing status patient o2 increased to 6L with little to no result patient sitting up in bed in hunched postion denies any chest pain or pressure only reports that he can not catch his breath Dr olson called instructiosn to obtain EKG give 60mg lasix IVP......
[2020-01-25 10:03] LABS: ABG PCO2 50.5 mmHg (35-45); ABG PH Result 7.33 (7.35-7.45); Alveolar-Arterial Oxygen Gradi 32.7 mmHg (5-10); Arterial Blood Gas Hematocrit 50.8 % (42-52); Base Excess ABG -0.1 mmol/L (-2.0-2.0); Blood Gas Allen Test Pos; Blood Gas Sample Site Radial, left; Blood Gas Sample Type Arterial; Carboxyhemoglobin 1.3 %THgb (0.4-20.1); HCO3 ABG 26.8 mmol/L (22-26); HGB O2 Sat 95.6 % (95-100); Ionized Calcium Level - ABG 1.2 mmol/L (1.1-1.4); Methemoglobin 0.6 % (0.4-1.5); Oxygen Device BIPAP; Oxygen Saturation ABG 97.4; Potassium Level - ABG 4.2 mmol/L (3.5-5.0); Total Hemoglobin 16.6 g/dL (14-18)
[2020-01-25] MEDS: FUROsemide 10 mg/mL SDV 4mL 40 MG IVP (11:26)
[2020-01-25] MEDS: nitroglycerin drip 50 MG/250 ML PREMIX IV (11:27)
--- NOTE | 2020-01-25 12:08 | PC.RESP ---
SMOKING CESSATION AND PULMONARY REHAB INFORMATION SENT TO PATIENT.
--- NOTE | 2020-01-25 13:06 | ECG_ITS ---
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1980 Requested By: Ambrocio Claudio Order Number: [id number] Bebeto MD: VESTA GAYTAN Measurements Intervals [place] Rate: 127 P: 52 AL: 104 QRS: -13 QRSD: 94 T: 146 QT: 315 QTc: 459 Interpretive Statements SINUS TACHYCARDIA WITH SHORT AL INTERVAL NONSPECIFIC T-WAVE ABNORMALITY WARNING: DATA QUALITY MAY AFFECT INTERPRETATION INTERPRETATION BASED ON A DEFAULT AGE OF 40 YEARS Compared to ECG 12/09/2019 14:01:26 Short AL interval now present Ventricular premature complex(es) no longer present T-wave abnormality still present Electronically Signed On 01-27-2020 15:34:41 RECORDING STUDIO INTERN by VESTA GAYTAN [email or web address] [id number] f
[2020-01-25] MEDS: pantoprazole DR 40 mg Tablet PO (18:03)
[2020-01-25] MEDS: sacubitril/valsartan 24-26 mg Tablet 1 EACH PO (18:03)
[2020-01-25] MEDS: potassium chloride ER 20 mEq Tablet PO (18:04)
[2020-01-25] MEDS: atorvastatin 40 mg Tablet 20 MG PO (18:04)
[2020-01-25] MEDS: FUROsemide 10 mg/mL SDV 10mL 80 MG IVP (19:27)
[2020-01-25] MEDS: trazodone 150 mg Tablet 300 MG PO (20:10)
[2020-01-26 00:26] VITALS: BP 104/80; PULSE 103; RESP 22; TEMP 37; O2SAT 95
[2020-01-26 04:00] VITALS: BP 97/84; PULSE 113; RESP 13; TEMP 36.6; O2SAT 95
[2020-01-26] MEDS: FUROsemide 10 mg/mL SDV 10mL 80 MG IVP ×2 (06:24→11:55)
[2020-01-26 06:28] LABS: Blood Urea Nitrogen 22 mg/dL (6-20); Calcium 9.6 mg/dL (8.5-10.5); Carbon Dioxide 29 mmol/L (22-29); Chloride 97 mmol/L (98-107); Glomerular Filtration Rate 82.8 mL/min (90-130); Glucose 208 mg/dL (65-115); Osmolality Calculated 299 mOsm/kg (285-295); Sodium 140 mmol/L (136-145)
[2020-01-26 06:30] LABS: Anion Gap 18.2 (5-19); Potassium 4.2 mmol/L (3.5-5.1)
[2020-01-26 06:42] LABS: Basophils # 0.1 10^3/uL (0.0-0.1); Basophils % 0.6 %; Eosinophils # 0.2 10^3/uL (0.0-0.8); Eosinophils % 2.3 %; Hematocrit 50.2 % (42.0-52.0); Hemoglobin 16.4 g/dL (11.7-16.6); Lymphocytes # 2.8 10^3/uL (0.8-4.8); Lymphocytes % 27.1 %; Mean Corpuscular HGB Conc 32.7 g/dL (30.0-36.0); Mean Corpuscular Hemoglobin 31.6 pg (28.0-34.0); Mean Corpuscular Volume 96.7 fL (80-94); Mean Platelet Volume 12.3 fL (7.4-10.4); Monocytes # 0.5 10^3/uL (0.2-0.9); Monocytes % 4.8 %; Neutrophils # 6.69 10^3/uL (1.8-7.7); Neutrophils % 64.1 %; Nucleated Red Blood Cells % 0 %; Platelet Count 221 10^3/cmm (130-400); Red Blood Count 5.19 10^6/uL (4.1-5.3); Red Cell Distribution Width 12.7 % (12.1-15.1); White Blood Count 10.4 10^3/uL (4.0-10.0)
[2020-01-26 07:02] VITALS: PULSE 113
[2020-01-26 08:00] VITALS: BP 117/78; PULSE 112; RESP 18; O2SAT 96
[2020-01-26] MEDS: spironolactone 25 mg Tablet 50 MG PO (09:18)
[2020-01-26] MEDS: aspirin 81 mg EC Tablet PO (09:18)
[2020-01-26] MEDS: potassium chloride ER 20 mEq Tablet PO (09:18)
[2020-01-26] MEDS: metoprolol succinate ER (24 HR) 100 mg Tablet PO (09:18)
[2020-01-26] MEDS: sertraline 100 mg Tablet PO (09:19)
[2020-01-26] MEDS: sacubitril/valsartan 24-26 mg Tablet 1 EACH PO (09:19)
[2020-01-26] MEDS: clopidogrel 75 mg Tablet PO (09:19)
--- NOTE | 2020-01-26 10:31 | PM.DCS ---
Discharge Providers Date of Admission: 01/25/20 08:50 Date of Discharge: January 26, 2020 Attending Provider at Admission: Ambrocio Claudio M.D Attending Provider at Discharge: Ambrocio Claudio M.D Primary Care Provider: Zeinab Salazar NP Diagnoses at Discharge Discharge Diagnosis (1) Coronary artery disease: Status: Acute (2) S/P coronary artery stent placement: Status: Acute (3) Type 1 diabetes mellitus with hyperglycemia: Status: Acute (4) Systolic blood pressure less than 130 mm Hg: Status: Acute (5) Congestive heart failure: Status: Acute Reason for Visit Reason for Visit: bilateral heart cath Hospital Course Hospital Course 39 year old man with PMH of HFrEF, HTN, diabetes came for right and left heart cath. Patient's right heart cath showed elevated right and left sided cardiac pressures. Coronary angiography showed severe mid LAD stenosis and ostial PDA stenosis. Patient underwent successful PCI with PEDRO x 2 to both vessels. 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 On the floor, patient had pulmonary edema requiring IV lasix and Bipap. Pulmonary edema resolved. ECHO was repeated that showd severely reduced EF. Next day patient was feeling much better. He was discharged home on Lasix 80mg BID, aspirin and Plavix. Patient will need repeat echo in future and if EF stays below 35%, will need ICD. BMP to be repeated on 01/30. Physical Exam Const: COMMON NORMALS: no acute distress and patient oriented x3 Resp: COMMON NORMALS: normal respiratory effort and clear to auscultation bilaterally AUSCULTATION: clear to auscultation bilaterally Cardio: COMMON NORMALS: regular rate, regular rhythm and S2 normal heart sound present RATE: regular rate RHYTHM: regular rhythm HEART SOUNDS: S2 normal heart sound present OTHER: No lower extremity edema GI: COMMON NORMALS: Normal to inspection, nondistended, normoactive bowel sounds present, Soft to palpation and non-tender PALPATION: Yes Soft to palpation Neuro: COMMON NORMALS: patient oriented x3 and no focal motor deficits Discharge Data Data Completed and Pending: Completed Studies During Hospitalization Category Date Time Status XR chest 1V jane ble [id number] Stat Exams 01/25/20 09:39 Completed Pending at discharge Category Date Time Status 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 Routin e Exams 01/25/20 06:00 Taken US echo complete [CV echo complete* [id number]] Routine Ultrasound 01/25/20 09:55 Taken Labs from last 24 hours 01/26/20 01/26/20 01/26/20 06:23 04:36 04:36 WBC 10.4 H Cancelled Corrected WBC Cancelled RBC 5.19 Cancelled Hgb 16.4 Cancelled Hct 50.2 Cancelled MCV 96.7 H Cancelled MCH 31.6 Cancelled MCHC 32.7 Cancelled RDW 12.7 Cancelled Plt Count 221 Cancelled MPV 12.3 H Cancelled Gran % Cancelled Neut % (Auto) 64.1 Cancelled Lymph % (Auto) 27.1 Cancelled [place] % (Auto) 4.8 Cancelled Eos % (Auto) 2.3 Cancelled Baso % (Auto) 0.6 Cancelled Neut # (Auto) 6.69 Cancelled Lymph # (Auto) 2.8 Cancelled [place] # (Auto) 0.5 Cancelled Eos # (Auto) 0.2 Cancelled Baso # (Auto) 0.1 Cancelled Absolute Gran (aut o) Cancelled Nucleated RBC % (a uto) 0 Cancelled Nucleated RBCs # 0.0 Cancelled Sodium 140 Potassium 4.2 Chloride 97 L Carbon Dioxide 29 Anion Gap 18.2 BUN 22 H Creatinine 1.0 GFR Calculation 82.8 L Glucose 208 H Calculated Osmolal ity 299 H Calcium 9.6 Vitals: Last Vital Signs Temp 98 F 01/26/20 04:00 Pulse 113 H 01/26/20 07:02 Resp 13 01/26/20 04:00 BP 97/84 01/26/20 04:00 Pulse Ox 95 01/26/20 04:00 Discharge Plan Discharge Patient Disposition: Home Condition: Stable Prescriptions: New atorvastatin 40 mg Tablet 40 mg PO QPM Qty: 60 RF: 3 metoprolol succinate 100 mg Tablet Extended Release 24 Hr 100 mg PO DAILY Qty: 90 RF: 3 clopidogrel 75 mg Tablet 75 mg PO DAILY Qty: 90 RF: 3 Lasix 80 mg tablet 80 mg PO BID Qty: 60 RF: 2 Continued sertraline 100 mg tablet 100 mg PO Q24H Qty: 30 RF: 2 Novolin 70-30 FlexPen U-100 100 unit/mL (70-30) insulin pen See Rx Instructions SUBCUT .COMPLEX Qty: 15 RF: 6 Entresto 24-26 mg tablet 1 tab PO BID Qty: 60 RF: 3 potassium chloride 20 mEq tablet extended release 20 meq PO BID Qty: 60 RF: 5 spironolactone 50 mg tablet 50 mg PO DAILY Qty: 30 RF: 2 trazodone 300 mg tablet 300 mg PO BEDTIME Qty: 30 RF: 2 pantoprazole 40 mg tablet,delayed release (DR/EC) 40 mg PO QPM RF: 0 aspirin [Aspirin Low Dose] 81 mg Tablet,Delayed Release (Dr/Ec) 81 mg PO DAILY RF: 0 Discontinued furosemide 40 mg tablet See Rx Instructions PO BID Qty: 60 RF: 4 metoprolol succinate 50 mg tablet extended release 24 hr 50 mg PO DAILY Qty: 30 RF: 2 simvastatin 40 mg tablet 40 mg PO QPM RF: 0 Discharge Orders: Discharge Order (Routine); Ordered 01/26/20 Ordered By: Ambrocio Claudio Other Ambulatory Orders: Basic Metabolic Panel (Routine) Timeframe: [id number] Location: Determined by Patient Ordered By: Ambrocio Claudio Referrals: Ambrocio Claudio M.D [Physician] - (Please, follow-up with Dr. Claudio on February 22 at 12:30p.m. If you have any questions or need to reschedule. Please call ) Maureen Edouard FNP [Nurse Practitioner] - 4-7 days (Please, follow-up with Maureen Edouard on February 01 at 10:00a.m. If you have any questions or need to reschedule. Please call ) Kelly Georges MD [Physician] - 1 month Discharge Diet: Cardiac Discharge Activity: Increase activity as tolerated Patient Instructions: Metoprolol (By mouth), Furosemide (By mouth), Atorvastatin (By mouth), Clopidogrel (By mouth), Left Heart Catheterization (DC), Right Heart Catheterization (DC), Coronary Angioplasty (DC), Diabetes Mellitus Type 1 in Adults (DC), Gastroesophageal Reflux Disease (DC), Post Angiogram Home Care Instructions Activity Restrictions/Additional Instructions: Please limit your fluid intake to less than 1.5 liters Low salt diet Weigh yourself daily and if have more than 2 pounds weight gain in a single day, please take an additional dose of Furosemide Please do not lift a weight more than 5 pounds for the next 5 days Discharge Attestations Time Spent in Discharge Care*: greater than 30 min Quality Metrics Clinical Quality Measures During this hospital stay, did patient experience: None Coding Level of Care Code Acute Timekeeper Supervisor for Alexis Fwd Exam Detailed Diagnoses Coronary artery disease I25.10 S/P coronary artery stent placement Z95.5 Type 1 diabetes mellitus with hyperglycemia E10.65 Systolic blood pressure less than 130 mm Hg Congestive heart failure I50.9
[2020-01-26 11:51] VITALS: BP 110/89; PULSE 100; RESP 18; O2SAT 95
--- NOTE | 2020-01-26 12:02 | PC.NURSE ---
instructions to give IV lasix at 1200 prior to discharge Medication given through IV
--- NOTE | 2020-01-26 13:35 | PC.RESP ---
Smoking Cessation information sent to patient to help maintain smoke free status.
--- NOTE | 2020-01-26 13:56 | PC.NURSE ---
patient discharge home at this time patient provided discharge instructions patient verbalized understanding patient ambulated to POV patient alert oriented and stable condition.
== END 2020-01-26 13:59 | disposition home or self-care (01) ==
LOC: CSU 08:50
PROVIDERS: Admitting Provider Internal Medicine; PCP Nurse Practitioner Family; Visit Provider Internal Medicine
DX: I11.0 Hypertensive heart disease with heart failure (principal); I50.43 Acute on chronic combined systolic (congestive) and diastolic (congestive) heart failure; I25.10 Atherosclerotic heart disease of native coronary artery without angina pectoris; Z95.5 Presence of coronary angioplasty implant and graft; E10.65 Type 1 diabetes mellitus with hyperglycemia; Z79.4 Long term (current) use of insulin; K21.9 Gastro-esophageal reflux disease without esophagitis; F32.9 Major depressive disorder, single episode, unspecified; F17.210 Nicotine dependence, cigarettes, uncomplicated
CPT/HCPCS: 12345; 36415; 36600; 71045; 80048; 80051; 82330; 82805; 83605; 85025; 85347; 93005; 93306; 93456; 94660; 96365; 96366; 96375; C1725; C1751; C1769; C1874; C1887; C1894; C9600; C9601; G0378; J1644; J1940; J2250; J3010; J3490; J7030; Q0163; Q9967

== ENCOUNTER → 2020-01-31 09:54 | Outpatient (BNVA) | payer MEDICAID, SELFPAY | PROVIDERS: PCP Nurse Practitioner Family; Visit Provider Internal Medicine | DX: I50.9 Heart failure, unspecified (principal) | CPT/HCPCS: 80048 ==

== ENCOUNTER 2020-02-18 08:08 | Outpatient (CLI) | payer MEDICAID, SELFPAY ==
--- NOTE | 2020-02-18 08:00 | USCV_ITS ---
Jerman Lamb Age: 39 Gender: M : 1980 Exam Date: 02/18/2020 08:37 Ordering Phys: Maureen Edouard Technologist: Jeannette Castillo [place] [facility] [place]: LOW EF EVAL FOR ICD BP: 100 / 63 HR: 80 Rhythm: Sinus Technical Quality: Adequate MEASUREMENTS (Male / Female) Normal Values 2D ECHO LV Diastolic Diameter PLAX 6.7 cm 4.2 - 5.9 / 3.9 - 5.3 cm LV Systolic Diameter PLAX 6.3 cm LV Chamber Size 5.9 cm IVS Diastolic Thickness 1.2 cm 0.6 - 1.0 / 0.6 - 0.9 cm IVS Systolic Thickness 0.7 cm LVPW Diastolic Thickness 1.0 cm 0.6 - 1.0 / 0.6 - 0.9 cm LVPW Systolic Thickness 1.4 cm RV Chamber Size 3.6 cm LVOT Diameter 2.1 cm LV Ejection Fraction 2D Teich 13.1 % LV Ejection Fraction MOD 2C 37.1 % LV Ejection Fraction 2C AL 39.9 % LA Diameter 4.9 cm LA Width 5.1 cm LA Height 5.6 cm RA Width 3.2 cm RA Height 4.4 cm Aorta at Sinotubular Diameter 2.9 cm M-MODE LV Diastolic Diameter MM 6.4 cm 4.2 - 5.9 / 3.9 - 5.3 cm LV Systolic Diameter MM 5.5 cm LV Ejection Fraction MM Teich 30.5 % IVS Diastolic Thickness MM 1.1 cm 0.6 - 1.0 / 0.6 - 0.9 cm IVS Systolic Thickness MM 1.3 cm LVPW Diastolic Thickness MM 1.2 cm 0.6 - 1.0 / 0.6 - 0.9 cm LVPW Systolic Thickness MM 1.5 cm RV Diastolic Diameter MM 0.9 cm Aortic Annulus Diameter 3.4 cm LA Ao Ratio MM 1.6 MV E Point Septal Separation 2.8 cm DOPPLER AV Peak Velocity 121.0 cm/s LVOT Peak Velocity 76.0 cm/s AV Area Cont Eq vti 2.8 cm squared AV Area Cont Eq pk 2.2 cm squared MV Area PHT 6.5 cm squared Mitral E to A Ratio 2.1 MV E' Velocity 63.0 cm/s Mitral E to MV E' Ratio 14.6 Mitral E to LV E' Lateral Ratio 13.0 Mitral E to LV E' Septal Ratio 16.9 TR Peak Velocity 152.8 cm/s TR Peak Gradient 9.3 mmHg TR Mean Velocity 117.0 cm/s TR Mean Gradient 5.9 mmHg TR Velocity Time Integral 41.9 cm TV Peak E Velocity 72.0 cm/s Right Atrial Pressure 3.0 mmHg Pulmonary Artery Systolic Pressu 12.3 mmHg PV Peak Velocity 64.0 cm/s RV Acceleration Time 0.2 s RV Ejection Time 0.4 s RV AcT/ET 0.5 FINDINGS Left Ventricle Severely increased left ventricular cavity size. Severely decreased left ventricular systolic function. Left ventricular ejection fraction is estimated at 25-30 %. Severe global left ventricular hypokinesis. Grade 3 diastolic dysfunction with elevated filling pressure. Right Ventricle Normal right ventricular size and systolic function. Tricuspid valve regurgitant jet is inadequate for estimation of right ventricular systolic pressure. Right Atrium Normal right atrial size. Left Atrium Moderately increased left atrial size. Mitral Valve Structurally normal mitral valve. No mitral valve stenosis. Mild-moderate mitral valve regurgitation. Aortic Valve Structurally normal trileaflet aortic valve. No aortic valve stenosis. No aortic valve regurgitation. Tricuspid Valve Structurally normal tricuspid valve. No tricuspid valve stenosis. Mild tricuspid valve regurgitation. Pulmonic Valve Structurally normal pulmonic valve. No pulmonary valve stenosis. Trace pulmonary valve regurgitation. Pericardium No pericardial effusion. Aorta Normal sized aortic root. CONCLUSIONS 1. Severely increased left ventricular cavity size. Severely decreased left ventricular systolic function. Left ventricular ejection fraction is estimated at 25-30 %. Severe global left ventricular hypokinesis. Grade 3 diastolic dysfunction with elevated filling pressure. 2. Normal right ventricular size and systolic function. 3. Moderately increased left atrial size. 4. When compared to 01/25/20, there has been no significant change. Kelly Georges MD (Electronically Signed) Final Date: 24 February 2020 10:48 S
== END 2020-02-18 08:09 | disposition home or self-care (01) ==
LOC: US 08:13
PROVIDERS: PCP Nurse Practitioner Family; Visit Provider Nurse Practitioner Family
DX: I50.9 Heart failure, unspecified (principal); I51.7 Cardiomegaly
CPT/HCPCS: 93306

== ENCOUNTER → 2020-07-27 14:19 | Outpatient (BNVA) | payer MEDICAID, SELFPAY | PROVIDERS: PCP Nurse Practitioner Family; Visit Provider Nurse Practitioner Family | DX: I50.22 Chronic systolic (congestive) heart failure (principal); E11.9 Type 2 diabetes mellitus without complications; Z79.4 Long term (current) use of insulin | CPT/HCPCS: 36416; 80053; 80061; 82962; 83036; 83721; 84443 ==

== ENCOUNTER 2020-10-10 14:49 | Outpatient (CLI) | payer MEDICAID, SELFPAY ==
--- NOTE | 2020-10-10 15:00 | USCV_ITS ---
Jerman Lamb Age: 40 Gender: M : 1980 Exam Date: 10/10/2020 15:03 Ordering Phys: Kelly Georges MD ([email or web address]) Technologist: Khushbu Henson Exam Location: [facility] Indication: CHF BP: 120 / 80 HR: 114 Rhythm: Sinus Technical Quality: Adequate MEASUREMENTS (Male / Female) Normal Values 2D ECHO LV Diastolic Diameter PLAX 5.9 cm 4.2 - 5.9 / 3.9 - 5.3 cm LV Systolic Diameter PLAX 4.5 cm IVS Diastolic Thickness 1.5 cm 0.6 - 1.0 / 0.6 - 0.9 cm IVS Systolic Thickness 1.9 cm LVPW Diastolic Thickness 1.5 cm 0.6 - 1.0 / 0.6 - 0.9 cm LVPW Systolic Thickness 2.1 cm LVOT Diameter 2.0 cm LV Ejection Fraction 2D Teich 46.8 % LV Ejection Fraction MOD 2C 40.7 % LV Ejection Fraction 2C AL 37.9 % LA Diameter 4.4 cm LA Width 3.5 cm LA Height 5.0 cm RA Width 3.1 cm RA Height 4.1 cm Aorta at Sinotubular Diameter 2.9 cm M-MODE LV Diastolic Diameter MM 5.6 cm 4.2 - 5.9 / 3.9 - 5.3 cm LV Systolic Diameter MM 4.2 cm LV Ejection Fraction MM Teich 49.1 % IVS Diastolic Thickness MM 2.1 cm 0.6 - 1.0 / 0.6 - 0.9 cm IVS Systolic Thickness MM 2.1 cm LVPW Diastolic Thickness MM 1.5 cm 0.6 - 1.0 / 0.6 - 0.9 cm LVPW Systolic Thickness MM 2.1 cm MV E Point Septal Separation 1.7 cm DOPPLER Right Atrial Pressure 3.0 mmHg FINDINGS Left Ventricle Mildly increased left ventricular cavity size. Mildly increased left ventricular wall thickness. Moderately decreased left ventricular systolic function. Left ventricular ejection fraction is estimated at 30 %. Moderate global hypokinesis. Right Ventricle Normal right ventricular size and systolic function. Right Atrium Normal right atrial size. Left Atrium Mildly increased left atrial size. Mitral Valve Mildly thickened mitral valve. Aortic Valve Structurally normal trileaflet aortic valve. Tricuspid Valve Structurally normal tricuspid valve. Pulmonic Valve Structurally normal pulmonic valve. Pericardium No pericardial effusion. Aorta Normal size aortic root and proximal ascending aorta. Normal- sized inferior vena cava with normal respiratory variation. CONCLUSIONS 1. This is a limited echocardiogram. 2. Mildly increased left ventricular cavity size. Mildly increased left ventricular wall thickness. Moderately decreased left ventricular systolic function. Left ventricular ejection fraction is estimated at 30 %. Moderate global hypokinesis. 3. Normal right ventricular size and systolic function. 4. When compared to previous echocardiogram dated 02/28/2020, left ventricular systolic function may have improved slightly from 25-30% to 30% now. Kelly Georges MD (Electronically Signed) Final Date: 10 October 2020 16:49 S
== END 2020-10-10 14:50 | disposition home or self-care (01) ==
LOC: US 14:50
PROVIDERS: PCP Nurse Practitioner Family; Visit Provider Internal Medicine Cardiovascular Disease
DX: I50.43 Acute on chronic combined systolic (congestive) and diastolic (congestive) heart failure (principal)
CPT/HCPCS: 93308

== ENCOUNTER 2020-10-30 10:01 | Observation (INO) | payer MEDICAID, SELFPAY ==
[2020-10-25 10:50] VITALS: BMI 30.4
--- NOTE | 2020-10-25 11:01 | ECG_ITS ---
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1980 Requested By: Vignesh Robles Order Number: [id number] Bebeto MD: VESTA GAYTAN Measurements Intervals [place] Rate: 96 P: 32 OR: 122 QRS: -3 QRSD: 122 T: 200 QT: 377 QTc: 476 Interpretive Statements SINUS RHYTHM MODERATE INTRAVENTRICULAR CONDUCTION DELAY [110+ ms QRS DURATION] MODERATE T-WAVE ABNORMALITY, CONSIDER LATERAL ISCHEMIA [-0.1+ mV T-WAVE IN I/aVL/V5/V6] MODERATE T-WAVE ABNORMALITY, CONSIDER INFERIOR ISCHEMIA [-0.1+ mV T-WAVE IN II/aVF] Compared to ECG 01/25/2020 09:51:43 Intraventricular conduction delay now present Possible ischemia now present Sinus tachycardia no longer present Short OR interval no longer present T-wave abnormality still present Electronically Signed On 10-25-2020 21:10:12 CDT by VESTA GAYTAN [id number]
[2020-10-25 11:12] LABS: Basophils # 0.1 10^3/uL (0.0-0.1); Basophils % 0.5 %; Eosinophils # 0.2 10^3/uL (0.0-0.8); Eosinophils % 2.1 %; Hematocrit 44.5 % (42.0-52.0); Hemoglobin 14.7 g/dL (11.7-16.6); Lymphocytes # 2.9 10^3/uL (0.8-4.8); Lymphocytes % 26.2 %; Mean Corpuscular Hemoglobin 32.4 pg (28.0-34.0); Mean Platelet Volume 11.6 fL (7.4-10.4); Monocytes # 0.5 10^3/uL (0.2-0.9); Monocytes % 4.5 %; Nucleated Red Blood Cells % 0 %; Platelet Count 250 10^3/cmm (130-400); Red Blood Count 4.54 10^6/uL (4.1-5.3); Red Cell Distribution Width 13.4 % (12.1-15.1)
[2020-10-25 11:23] LABS: Add Urine Culture? No; Add Urine Microscopic? YES; Bilirubin Urine Neg (Negative); Blood Urine Neg (Negative); Glucose Urine UA Trace (Normal); Ketones Urine Negative (Negative); Leukocyte Esterase Urine Negative (Negative); Nitrate Urine Negative (Negative); Protein Urine Trace (Negative); Urine Appearance Clear (CLEAR); Urine Color Yellow (Yellow); Urobilinogen Urine Neg (Negative); pH Urine 5 (5-7)
[2020-10-25 11:36] LABS: Anion Gap 16.8 (5-19); Blood Urea Nitrogen 21 mg/dL (6-20); Calcium 8.8 mg/dL (8.5-10.5); Carbon Dioxide 27 mmol/L (22-29); Chloride 100 mmol/L (98-107); Glomerular Filtration Rate 82.3 mL/min (90-130); Glucose 255 mg/dL (65-115); Osmolality Calculated 302 mOsm/kg (285-295); Potassium 3.8 mmol/L (3.5-5.1); Sodium 140 mmol/L (136-145)
--- NOTE | 2020-10-25 11:52 | ANES.PREANE2 ---
Pre-Anesthetic Assessment Pre-Anesthetic Assessment: Height/Weight: Height 1.73 m Weight 90.718 kg Preop Diagnosis: Medically refractory cardiomyopathy Proposed Procedure: Operation Date: 10/30/20 08:10 Proposed Procedures p Defibrillator Placement(Not Applicable) - Barry Parnell MD Was Beta Pepe taken within 24 hours: Yes Was Clonidine taken within 24 hours: N/A Social: Social History: Tobacco and No alcohol Exam: Pre-Anes Outpt Exam: alert, oriented x 3 and regular rate & rhythm Airway: Submandibular: WNL Cervical ROM: WNL MP: 2 Dentition: Chipped Pulmonary: Pulmonary: COPD CV/HEM: CV/HEM: CAD (stent), CHF (Ef 30%) and HTN GI: GI: GERD Metabolic: Metabolic: DM Musc/skel: Musc/skel: Lower Back Pain Neuropsych: Neuropsych: Depression Anesthetic Plan: ASA status: 3 Anesthesia: MAC Risk of > 500 ml blood loss (7ml/kg in children): No PFSH Anesthesia PFSH: Medical History Cannabis dependence, uncomplicated 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% no valvular abnormality Coronary artery disease Depression Essential hypertension GERD (gastroesophageal reflux disease) Major depressive disorder, recurrent severe without psychotic features Moderate pulmonary arterial systolic hypertension Nicotine dependence, cigarettes, with other nicotine-induced disorders Post-traumatic stress disorder, chronic Smoker Type 1 diabetes mellitus with hyperglycemia Surgical History History of hip surgery S/P coronary artery stent placement Family History Grandmother Diabetes Cancer Mother Diabetes Father Hypertension Grandmother Hypertension Father Cancer Social History Smoking and tobacco status: current every day smoker Quit status (tobacco): has quit using tobacco Former quit date comment: 3 days ago Smoking risk assessment/counseling performed?: Yes Tobacco counseling given: counseling >3 minutes Alcohol intake: current Alcohol intake frequency: holidays/special occasions only Data Anesthesia CBC & Chem 7: 10/25/20 10:58 10/25/20 10:58 Other Labs: Laboratory Results - last 48 hr 10/25/20 10/25/20 10/25/20 10:58 10:58 11:08 WBC 11.0 H RBC 4.54 Hgb 14.7 Hct 44.5 MCV 98.0 H MCH 32.4 MCHC 33.0 RDW 13.4 Plt Count 250 MPV 11.6 H Neut % (Auto) 63.0 Lymph % (Auto) 26.2 [place] % (Auto) 4.5 Eos % (Auto) 2.1 Baso % (Auto) 0.5 Neut # (Auto) 6.90 Lymph # (Auto) 2.9 [place] # (Auto) 0.5 Eos # (Auto) 0.2 Baso # (Auto) 0.1 Nucleated RBC % (auto) 0 Nucleated RBCs # 0.0 Sodium 140 Potassium 3.8 Chloride 100 Carbon Dioxide 27 Anion Gap 16.8 BUN 21 H Creatinine 1.0 GFR Calculation 82.3 L Glucose 255 H Calculated Osmolality 302 H Calcium 8.8 Urine Color Yellow Urine Appearance Clear Urine pH 5 Ur Specific [place] 1.010 Urine Protein Trace Urine Glucose (UA) Trace H Urine Ketones Negative Urine Blood Neg Urine Nitrate Negative Urine Bilirubin Neg Urine Urobilinogen Neg Ur Leukocyte Esterase Negative Urine RBC None Urine WBC None Ur Squamous Epith Cells None Amorphous Sediment Not Reportable Urine Bacteria None Cardiac Studies: No Data to Display
[2020-10-26 15:32] LABS: Coronavirus Test Green County Not Detected
[2020-10-30] VITALS (13 sets, daily range): BP systolic 114–148; BP diastolic 77–97; PULSE 74–97; RESP 13–18; TEMP 36.2–37.1; O2SAT 92–98
--- NOTE | 2020-10-30 | SCC_ITS ---
Procedure Done: Chamber AICD implantation 244.7 seconds of fluoroscopic guidance, for a cumulative dose of 65.56 mGy, was provided to Dr. Parnell by the radiology department. C-arm images of the chest were saved for the patient's permanent record. MTDD
--- NOTE | 2020-10-30 06:52 | SC_ITS ---
WS: [id number] C-ARM RADIOGRAPHS CHEST; 4 IMAGES HISTORY: AICD implantation COMPARISON: 10/30/2020 Intraoperative imaging during AICD placement. SC/C-arm FL for Pacemaker IMPRESSION: Intraoperative imaging during AICD placement.
--- NOTE | 2020-10-30 06:52 | XRR_ITS ---
PROCEDURE INFORMATION: Exam: XR Chest Exam date and time: 10/30/2020 6:52 AM Age: 40 years old Clinical indication: Pre-operative exam; Cardiovascular screening and respiratory screening exam; Additional info: Cardiomyopathy/aicd implantation preop TECHNIQUE: Imaging protocol: XR of the chest. Views: 2 views. COMPARISON: CR XR chest 1V portable [id number] 01/25/2020 9:55 AM FINDINGS: Lungs: The lungs are clear bilaterally. Pulmonary vasculature within normal limits. Pleural space: No visible pneumothorax or pleural effusion. Heart/Mediastinum: Cardiomediastinal silhouette contour within normal limits. Bones/joints: No emergent findings identified. XR/XR chest 2V* [id number] IMPRESSION: 1. No radiographic findings of acute cardiopulmonary disease.
[2020-10-30] MEDS: sodium chloride 0.9% 1,000 ML 30 ML IV (07:34)
[2020-10-30 07:37] LABS: Glucose Point of Care 237 mg/dL (70-110)
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
[2020-10-30] MEDS: insulin regular-human 100 units/1 mL 10 UNIT IVP (07:52)
--- NOTE | 2020-10-30 08:12 | PM.HP ---
Providers/Chief Complaint Admitting Physician: Dr. Parnell Primary Care Provider: Zeinab Salazar NP Chief Complaint: Cardiomyopathy History of Present Illness Jerman Lamb is a 40 year old male who presents today for planned AICD implantation secondary to medically refractory cardiomyopathy. He is followed by Dr. Georges from our heart care services department. He has a past history of hypertension, diabetes mellitus type 1, and prior intervention to the LAD and PDA by Dr. Claudio in January 2020. He has a 1/2 pack/day tobacco use. He has no dyspnea with exertion though no chest pain. Most recent echocardiogram of October 10 revealed's ejection fraction at 30% with moderate global hypokinesia. Right ventricular function is preserved. The study was compared to a prior echocardiogram of February 2020 at which time his EF was calculated at 25 to 30%. Review of Systems Const: Denies: fever(s), chills, change in appetite, change in weight, fatigue or night sweats Eyes: Denies: change in vision or blurry vision ENMT: Denies: odynophagia or hoarseness Card: Reports: edema, swelling of feet/ankles, lightheadedness and dyspnea on exertion; Denies: chest pain, palpitations or irregular heart rhythm Resp: Reports: non-productive cough; Denies: dyspnea or productive cough GI: Reports: nausea and heartburn; Denies: abdominal pain, vomiting, hematemesis, dysphagia or change in bowel habits : Denies: difficulty urinating, dysuria, urinary frequency, urinary urgency or urinary hesitancy Musc: Reports: extremity pain and muscle cramps; Denies: extremity swelling Skin/Breast: Denies: rash Neuro: Reports: headache(s); Denies: numbness in extremities, weakness in extremities or sensory changes Psych: Denies: anxiety, depression or change in appetite Endo: Denies: polyuria, polydipsia or cold intolerance [place]/Lymph: Denies: easy bruising, easy bleeding, petechiae or enlarged lymph nodes Medications/Allergies Home Medications Medication Instructions Recorded Confirmed Last Taken Type aspirin [Aspirin Low Dose] 81 mg PO DAILY 11/23/19 10/30/20 10/25/20 History pantoprazole 40 mg tablet,delayed See Rx Instructions .ROUTE 07/27/20 10/30/20 10/28/20 Rx release .COMPLEX #30 tab pen needle, diabetic 31 gauge x #50 each 07/27/20 09/18/20 Unknown Rx 3/16 trazodone 300 mg tablet 300 mg PO BEDTIME #30 tab 07/27/20 10/30/20 10/29/20 Rx blood sugar diagnostic #100 ea 07/28/20 09/18/20 Unknown Rx blood-glucose meter #1 ea 07/28/20 09/18/20 Unknown Rx lancets #200 ea 07/28/20 09/18/20 Unknown Rx insulin aspar prot-insulin aspart See Rx Instructions .ROUTE 08/09/20 10/30/20 10/29/20 Rx 100 unit/mL (70-30) subcutaneous .COMPLEX #15 ml pen atorvastatin 40 mg tablet 40 mg PO QPM #90 tab 09/05/20 10/30/20 10/29/20 Rx clopidogrel 75 mg tablet 75 mg PO DAILY #90 tab 09/05/20 10/30/20 10/25/20 Rx furosemide 80 mg tablet 80 mg PO BID #180 tab 09/05/20 10/30/20 10/29/20 Rx metoprolol succinate 100 mg 100 mg PO DAILY #90 tab 09/05/20 10/30/20 10/30/20 Rx tablet,extended release 24 hr spironolactone 50 mg tablet See Rx Instructions .ROUTE 09/05/20 10/30/20 10/29/20 Rx .COMPLEX #90 tab sertraline 100 mg tablet See Rx Instructions .ROUTE 10/02/20 10/30/20 10/29/20 Rx .COMPLEX #30 tab sacubitril-valsartan [Entresto] 1 tab PO BID 10/25/20 10/30/20 10/29/20 History Allergies Allergy/AdvReac Type Severity Reaction Status Date / Time mirtazapine [From Remeron] Allergy ADR-Agitate Verified 10/30/20 06:57 d morphine Allergy Unknown Verified 10/30/20 06:57 cephalexin [From Keflex] AdvReac ADR-Nausea Verified 10/30/20 06:57 PFSH Acute PFSH: Medical History Cannabis dependence, uncomplicated 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% no valvular abnormality Coronary artery disease Depression Essential hypertension GERD (gastroesophageal reflux disease) Major depressive disorder, recurrent severe without psychotic features Moderate pulmonary arterial systolic hypertension Nicotine dependence, cigarettes, with other nicotine-induced disorders Post-traumatic stress disorder, chronic Smoker Type 1 diabetes mellitus with hyperglycemia Surgical History History of hip surgery S/P coronary artery stent placement Family History Grandmother Diabetes Cancer Mother Diabetes Father Hypertension Grandmother Hypertension Father Cancer Social History Smoking and tobacco status: current every day smoker Quit status (tobacco): has quit using tobacco Former quit date comment: 3 days ago Smoking risk assessment/counseling performed?: Yes Tobacco counseling given: counseling >3 minutes Alcohol intake: current Alcohol intake frequency: holidays/special occasions only Vitals/I&O/Wt Last Vital Signs Temp 98.1 F 10/30/20 07:19 Pulse 97 10/30/20 07:19 Resp 18 10/30/20 07:19 BP 141/91 10/30/20 07:19 Pulse Ox 95 10/30/20 07:19 Physical Exam HENMT: COMMON NORMALS: normocephalic, atraumatic, hearing grossly normal bilaterally, external ears normal and Normal external nose present HEAD & SCALP: normal to inspection and normocephalic Neck/C-Spine: COMMON NORMALS: no lymphadenopathy, supple and No carotid bruits GENERAL: Yes normal visual inspection, Yes trachea midline and No tracheal deviation Chest: COMMONS NORMALS: normal inspection of the chest Resp: COMMON NORMALS: normal respiratory effort, No retractions, No use of accessory muscles, clear to auscultation bilaterally and percussion normal EFFORT & INSPECTION: Yes able to speak in complete sentences and Yes symmetric chest movement Cardio: COMMON NORMALS: regular rate, S1 normal heart sound present, No gallops present (Cardio), No murmurs present (Cardio) and No rub (Cardio) BRUITS: no carotid bruits PERIPHERAL PULSES: radial pulses present positive bilateral 2+ GI: COMMON NORMALS: Normal to inspection, nondistended, normoactive bowel sounds present Extremity: OTHER: Trace to 1+ lower extremity edema Neuro: COMMON NORMALS: patient oriented x3, no focal motor deficits and no sensory deficits noted Data : 10/25/20 10:58 10/25/20 10:58 A&P Assessment and plan (1) Cardiomyopathy associated with type 1 diabetes mellitus: Medically refractory cardiomyopathy with documented ejection fraction of 30% or less. AICD has been recommended by cardiology. Details and risks of the procedure were carefully and frankly discussed. Risks reviewed include the possibility of , stroke, heart attack, major bleeding, infection possibly requiring explantation of generator and/or leads, pneumonia, pneumothorax requiring chest tube, dislodgment of the lead requiring revision, organ failure, failure to benefit, prolonged hospital stay, pain after the procedure, need for further procedures, inability to complete the procedure, and possible need for long-term followup. All questions were answered. Appropriate consents have been provided for review and signature. Status: Acute Attestations Medical Necessity Statement*: Medically refractory cardiomyopathy Time Spent in Patient Care: 16 - 35 minutes Coding Level of Care Code Acute Infertility Medical Assistant for g Fwd Diagnoses Cardiomyopathy associated with type 1 diabetes mellitus E10.59; I43
[2020-10-30] MEDS: vancomycin 1,500 MG/300 ML PIGGYBACK 200 MG IV ×2 (08:35→20:52)
[2020-10-30 08:37] LABS: Glucose Point of Care 176 mg/dL (70-110)
[2020-10-30] MEDS: lidocaine 1% INJ 20 mL SUBCUT (09:05)
[2020-10-30] MEDS: vancomycin 1,000 MG SDV 1000 MG IRRIGATION (09:05)
--- NOTE | 2020-10-30 10:16 | XRR_ITS ---
PROCEDURE INFORMATION: Exam: XR Chest Exam date and time: 10/30/2020 10:16 AM Age: 40 years old Clinical indication: Device placement; Cardiac defibrillator placementor adjustment; Prior surgery; Surgery date: Post-operative (0-2 days); Additional info: Post defib placement TECHNIQUE: Imaging protocol: XR of the chest. Views: 1 view. COMPARISON: CR XR chest 2V* [id number] 10/30/2020 7:07 AM FINDINGS: Tubes, catheters and devices: A permanent pacemaker appears intact. Lungs: Unremarkable. No consolidation. Pleural spaces: Unremarkable. No pleural effusion. No pneumothorax. Heart/Mediastinum: Unremarkable. No cardiomegaly. Bones/joints: Unremarkable. XR/XR chest 1V portable [id number] IMPRESSION: No significant abnormality.
--- NOTE | 2020-10-30 10:35 | SUR.PHASEI ---
PT AWAKE ALERT ON RA MONITOR SR NO ECTGOPY
--- NOTE | 2020-10-30 10:49 | P.OP_ITS ---
Operative Report Date of procedure: October 30, 2020 Pre-op Diagnosis: Medically refractory cardiomyopathy Post-op diagnosis: same Procedure Done: Chamber AICD implantation Implants: Atrial and ventricular lead; AICD generator Pathology: none sent Surgeon: Barry Parnell Anesthesia: MAC and Local Complications: None Condition: stable Disposition: observation Brief History: 40-year-old gentleman with medically refractory cardiomyopathy. AICD implantation is been recommended by our cardiology colleagues. Rationale was carefully discussed with Mr. Lamb. Details and risk of the procedure reviewed. Proper consents have been reviewed and signed. Procedure: Procedure: Mr. Lamb was taken to the OR suite and placed in the supine position over a shoulder roll. He received conscious sedation with continuous anesthesia monitoring by. His entire chest was sterilely prepped and draped. 1% lidocaine was infiltrated in the left subclavicular region. While in Trendelenburg position, utilizing modified seldinger technique, a guidewire was placed in the left subclavian vein. This was confirmed in position by fluoroscopy. Next, after infiltration with lidocaine, a subcutaneous pocket was created beginning from the exit point of the guidewire and extending laterally and inferiorly. Cautery was utilized to create the pocket just above the pectoralis musculature. Hemostasis was confirmed. An antibiotic-soaked sponge was placed in the wound. A dilator and tear-away sheath was placed over the guidewire and advanced under fluoroscopy. Guidewire and dilator were removed. Next using a combination of curved and straight stylettes, the right ventricular lead was placed in position by fluoroscopy. The distal screw was extended. Interrogation was then performed confirming appropriate parameters. The tear- away sheath was then removed and the ventricular lead was sewn to the floor of the subcutaneous pocket. Next, atrial lead was placed in a similar fashion with fluoroscopic guidance. Generator was brought into the field, and after confirmation of hemostasis in the subcutaneous pocket, the leads was connected to the generator with appropriate capture. The entire system was interrogated by fluoroscopy. Leads and generator were secured in the pocket. Sponge and needle count was correct. The wound was then closed in 2 layers of 3-0 Vicryl suture. Skin was reapproximated in a subcuticular manner with 4-0 Monocryl suture. A pressure dressing was applied. The left arm was placed in a sling. The patient had equal breath sounds bilaterally. He was then transferred to the PACU, where chest x-ray is currently pending. Following are the specifics of this system: Right ventricular lead is 62I cm and model 6935M. Serial number [id number] Right atrial lead is 52 cm in length and model 5076. Serial number:[id number] Atrial lead had a sensing of 2.1 with an impedance of 912 ohms and capture threshold of 0.6 Ventricular lead had sensing of 24.1 mV with an impedance of 836 ohms. Threshold was 0.5 V [employer] generator: Model # [id number] Serial #:[id number]
[2020-10-30 11:12] LABS: Glucose Point of Care 186 mg/dL (70-110)
[2020-10-30] MEDS: HYDROcodone-acetaminophen 5-325 mg Tablet 1 TAB PO ×3 (12:08→22:32)
--- NOTE | 2020-10-30 15:54 | ANE.PACU2 ---
Inpatient post-anesthesia follow up: Airway intact: Yes Vital signs: Temperature 97.3 F Pulse Rate 83 Respiratory Rate 15 Blood Pressure 148/95 Pulse Oximetry 93 Oxygen Delivery Me thod Room Air Oxygen Flow Rate Fraction of Inspir ed Oxygen Hydration adequate: Yes Nausea and vomiting: No Pain level: 2 Mental status: Baseline
[2020-10-30 17:01] LABS: Glucose Point of Care 246 mg/dL (70-110)
[2020-10-30] MEDS: atorvastatin 40 mg Tablet PO (17:19)
[2020-10-30] MEDS: FUROsemide 40 mg Tablet 80 MG PO (17:19)
[2020-10-30] MEDS: sacubitril/valsartan 24-26 mg Tablet 1 EACH PO (17:19)
[2020-10-30 20:28] LABS: Glucose Point of Care 246 mg/dL (70-110)
[2020-10-30] MEDS: trazodone 150 mg Tablet 300 MG PO (20:52)
[2020-10-31 03:46] VITALS: BP 113/78; PULSE 83; RESP 18; TEMP 36.4; O2SAT 91
[2020-10-31] MEDS: HYDROcodone-acetaminophen 5-325 mg Tablet 1 TAB PO ×2 (03:51→10:01)
[2020-10-31 06:39] LABS: Glucose Point of Care 209 mg/dL (70-110)
[2020-10-31 07:00] VITALS: BP 126/80; PULSE 87; RESP 18; TEMP 37; O2SAT 93
--- NOTE | 2020-10-31 07:09 | P.DS_ITS ---
Discharge Providers Date of Admission: 10/30/20 10:01 Date of Discharge: October 31, 2020 Attending Provider at Admission: Barry Parnell MD Attending Provider at Discharge: Barry Parnell MD Primary Care Provider: Zeinab Salazar NP Diagnoses at Discharge Discharge Diagnosis (1) Cardiomyopathy associated with type 1 diabetes mellitus: Status: Acute Reason for Visit Reason for Visit: Cardiomyopathy Hospital Course Hospital Course Adonis is a 40-year-old gentleman with medically refractory cardiomyopathy who was referred for AICD implantation. He was electively admitted on October 30 and underwent dual-chamber AICD implantation. Postoperatively, he has done well. He did receive postoperative antibiotics. Outer pressure dressing was removed this morning. No substantial swelling or ecchymosis. No arrhythmias reported. Postoperative discomfort is been under good control. Vital signs have been stable. He remains afebrile. He will be discharged home today in stable condition. He will be scheduled for follow-up in the pacemaker clinic in 1 week. Discharge activity instructions have been discussed with him. Physical Exam Chest: COMMONS NORMALS: normal inspection of the chest OTHER: Surgical dressings are clean and dry. No swelling or ecchymosis. No drainage. Resp: COMMON NORMALS: normal respiratory effort and clear to auscultation bilaterally AUSCULTATION: clear to auscultation bilaterally Cardio: COMMON NORMALS: regular rate, regular rhythm, No murmurs present (Cardio) and No rub (Cardio) RATE: regular rate RHYTHM: regular rhythm Discharge Data Data Completed and Pending: Completed Studies During Hospitalization Category Date Time Status CXRP [XR chest 1V portable [id number]] R outine Exams 10/30/20 10:16 Completed XR chest 2V* [id number] Routine Exams 10/30/20 06:52 Completed Labs from last 24 hours 10/31/20 10/30/20 10/30/20 06:24 20:13 16:51 POC Glucose 209 H 246 H 246 H 10/30/20 10/30/20 10/30/20 11:06 08:34 07:30 POC Glucose 186 H 176 H 237 H Vitals: Last Vital Signs Temp 97.5 F L 10/31/20 03:46 Pulse 83 10/31/20 03:46 Resp 18 10/31/20 03:46 BP 113/78 10/31/20 03:46 Pulse Ox 91 10/31/20 03:46 Discharge Plan Discharge Patient Disposition: Home Condition: Stable Prescriptions: New hydrocodone-acetaminophen 5-325 mg Tablet 1 tab PO Q6H PRN (Reason: Moderate To Severe Pain) Qty: 12 RF: 0 Continued trazodone 300 mg tablet 300 mg PO BEDTIME Qty: 30 RF: 2 pantoprazole 40 mg tablet,delayed release (DR/EC) See Rx Instructions .ROUTE .COMPLEX Qty: 30 RF: 3 (DME) pen needle, diabetic [1st Tier Unifine Pentips] 31 gauge x 3/16 needle See Rx Instructions .ROUTE .MEDSUPPLY Qty: 50 RF: 6 atorvastatin 40 mg tablet 40 mg PO QPM Qty: 90 RF: 3 clopidogrel 75 mg tablet 75 mg PO DAILY Qty: 90 RF: 3 Lasix 80 mg tablet 80 mg PO BID Qty: 180 RF: 2 metoprolol succinate 100 mg tablet extended release 24 hr 100 mg PO DAILY Qty: 90 RF: 3 spironolactone 50 mg tablet See Rx Instructions .ROUTE .COMPLEX Qty: 90 RF: 3 (DME) OneTouch Ultra Blue Test Strip Strip See Rx Instructions .Route Qty: 100 RF: 3 (DME) lancets [OneTouch UltraSoft Lancets] Misc See Rx Instructions .Route Qty: 200 RF: 4 (DME) blood-glucose meter [OneTouch Ultra2 Meter] Kit See Rx Instructions .Route Qty: 1 RF: 0 insulin asp prt-insulin aspart [Novolog Mix 70-30FlexPen U-100] 100 unit/mL (70-30) insulin pen See Rx Instructions .ROUTE .COMPLEX Qty: 15 RF: 3 sertraline 100 mg tablet See Rx Instructions .ROUTE .COMPLEX Qty: 30 RF: 5 aspirin [Aspirin Low Dose] 81 mg Tablet,Delayed Release (Dr/Ec) 81 mg PO DAILY RF: 0 Entresto 24-26 mg Tablet 1 tab PO BID RF: 0 Discharge Orders: Discharge Order (Routine); Ordered 10/31/20 Ordered By: Barry Parnell Referrals: [facility] [Provider Group] - 1 week (Pacemaker Clinic) Barry Parnell MD [Physician] - Discharge Diet: Usual diet Discharge Activity: Limit activity as instructed Patient Instructions: Implantable Cardioverter Defibrillator (GEN), Opioid Safety Activity Restrictions/Additional Instructions: May remove bandage in 2 days May begin daily showers in 2 days No swimming or tub baths x 2 weeks No ointments on incision Report drainage, redness, heat, increased pain, or swelling to clinic No heavy lifting with left arm x2 weeks Do not raise left hand above eye level for 1 week Discharge Attestations Time Spent in Discharge Care*: less than 30 min Specific Discharge Activities: educating patient, discussing with case loader operator/social workers/dc planners, documenting/other paperwork and evaluating patient/reviewing data Time Spent in Smoking Cessation: 3 to 10 minutes Status at Discharge: Cognitive status at discharge: cognitively intact , Functional status at discharge: independent ambulation Overall status at discharge: patient is back to baseline Quality Metrics Clinical Quality Measures During this hospital stay, did patient experience: None Coding Level of Care Code Acute Chg FW DC note Diagnoses Cardiomyopathy associated with type 1 diabetes mellitus E10.59; I43
--- NOTE | 2020-10-31 08:49 | PC.CHAP ---
Pastoral Care Encounter/Spiritual Assessment Type of Contact [] Declined mounted police officer visit [] Patient/Family/Request visit [] Outpatient visit [] Follow-up visit [] Physician referral [] Code/Alert [x] Routine visit [] Staff referral [] Actively dying [] Patient sleeping [] Family support [] [] Out of room [] Palliative care [] [] Receiving care in room [] Pre-surgical visit [] Trauma [] Long length of stay [] ICU visit [] Other: Relational/Emotional Strength [x] Patient feels connected with others/family/visitors/staff [] Distress [] Loneliness/isolation [] Abandonment Spirituality of Patient [x] Person of Yaima [x] Attends Yazidi of their Yaima [] Believes in Prayer [] Reads Bible or Judaism materials [] There are Spiritual issues to be addressed Certified Social Workers In Health Care Interventions [x] Prayer [x] Active listening [x] Non-anxious presence [] Spiritual/emotional support [] Crisis/trauma care [] Spiritual counseling [] Bereavement support [] Provided bereavement packet [] Provided Bible/devotional materials [] Provided toy/stuffed animal, coloring book to patient or family member [] Provided Communion [] Anointing/[place] [] Salvation [x] Completed spiritual assessment [] Other: Impact on Illness or Injury [] Angry [] Fearful [] Anxious [] Often cries [] Exhaustion [] Unable to work [] Unable to attend mormon [] Unable to walk/stand [] Unable to read [] Unable to drive [] Unable to eat/drink [] Unable to sleep [] Unable to be with family [] Patient intubated [] Other: Summary Time spent with patient 10 min
[2020-10-31] MEDS: aspirin 81 mg EC Tablet PO (09:09)
[2020-10-31] MEDS: spironolactone 25 mg Tablet 50 MG PO (09:09)
[2020-10-31] MEDS: pantoprazole DR 40 mg Tablet PO (09:09)
[2020-10-31] MEDS: sacubitril/valsartan 24-26 mg Tablet 1 EACH PO (09:09)
[2020-10-31] MEDS: FUROsemide 40 mg Tablet 80 MG PO (09:09)
[2020-10-31] MEDS: metoprolol succinate ER (24 HR) 100 mg Tablet PO (09:09)
[2020-10-31] MEDS: sertraline 100 mg Tablet PO (10:01)
--- NOTE | 2020-10-31 10:16 | PC.NURSE ---
patient verbalized understanding of discharge instructions, home medications, and follow up appointments.
[2020-10-31 10:19] VITALS: BP 126/80; PULSE 87; RESP 18; TEMP 37; O2SAT 93
--- NOTE | 2020-11-02 11:47 | PC.SOCIAL ---
discharge follow up call made. patient has appointment made with rufino tejeda, is aware of date and time. went over dressing change instructions. patient has no questions or concerns and is feeling good.
== END 2020-10-31 10:15 | disposition home or self-care (01) ==
LOC: MEDSURG 10:01
PROVIDERS: Admitting Provider Thoracic Surgery (Cardiothoracic Vascular Surgery); PCP Nurse Practitioner Family; Visit Provider Thoracic Surgery (Cardiothoracic Vascular Surgery)
PROC: 0JH608Z Insertion of Defibrillator Generator into Chest Subcutaneous Tissue and Fascia, Open Approach (ICD-10-PCS; CPT 33249; principal; 2020-10-30 08:10)
DX: E10.59 Type 1 diabetes mellitus with other circulatory complications (principal); I43 Cardiomyopathy in diseases classified elsewhere; Z79.82 Long term (current) use of aspirin; I11.0 Hypertensive heart disease with heart failure; I50.40 Unspecified combined systolic (congestive) and diastolic (congestive) heart failure; I25.10 Atherosclerotic heart disease of native coronary artery without angina pectoris; F32.9 Major depressive disorder, single episode, unspecified; K21.9 Gastro-esophageal reflux disease without esophagitis; F17.218 Nicotine dependence, cigarettes, with other nicotine-induced disorders; Z95.5 Presence of coronary angioplasty implant and graft
CPT/HCPCS: 33249; 36415; 36416; 71045; 71046; 76000; 80048; 81001; 82962; 85025; 87635; 93005; 96372; 96374; C1721; C1777; C1779; G0378; J1815; J2704; J3010; J3370; J7030

== ENCOUNTER → 2020-11-15 09:08 | Outpatient (BNVA) | payer MEDICAID, SELFPAY | PROVIDERS: PCP Nurse Practitioner Family; Visit Provider Internal Medicine Cardiovascular Disease | DX: I42.9 Cardiomyopathy, unspecified (principal); Z20.822 Contact with and (suspected) exposure to COVID-19 | CPT/HCPCS: 87635 ==

== ENCOUNTER 2020-11-21 13:37 | Outpatient (CLI) | payer MEDICAID, SELFPAY ==
--- NOTE | 2020-11-21 14:13 | PFTS_ITS ---
Date of Study:11/21/20 Date of Dictation: MECHANICS: Forced vital capacity (FVC) is reduced. Forced expiratory volume in one second (FEV1) is reduced. FEV1/FVC is normal. FLOW VOLUME LOOP: Mild scooping. LUNG VOLUMES: Total lung capacity (TLC) is normal. Residual volume (RV) is increased. DIFFUSING CAPACITY FOR CARBON MONOXIDE: Normal. INTERPRETATION: The pulmonary function tests are consistent with nonspecific ventilatory limitation. The prebronchodilator spirometry is consistent with moderate restriction. However, the total lung capacity is normal. Lung volumes are consistent with air trapping. Gas exchange (DLCO) is normal. MTDD
== END 2020-11-21 13:38 | disposition home or self-care (01) ==
LOC: RT 13:41
PROVIDERS: PCP Nurse Practitioner Family; Visit Provider Internal Medicine Cardiovascular Disease
DX: R06.00 Dyspnea, unspecified (principal)
CPT/HCPCS: 94010; 94726; 94729

== ENCOUNTER → 2021-02-09 11:21 | Outpatient (BNVA) | payer MEDICAID, SELFPAY | PROVIDERS: PCP Nurse Practitioner Family; Visit Provider Nurse Practitioner Family | DX: I50.22 Chronic systolic (congestive) heart failure (principal); R06.02 Shortness of breath | CPT/HCPCS: 80053; 80061; 83036; 83735; 83880; 84443 ==

== ENCOUNTER → 2021-08-14 09:00 | Outpatient (BNVA) | payer MEDICAID, SELFPAY | PROVIDERS: PCP Nurse Practitioner Family; Visit Provider Nurse Practitioner Family | DX: E10.65 Type 1 diabetes mellitus with hyperglycemia (principal); I50.22 Chronic systolic (congestive) heart failure; T25.222A Burn of second degree of left foot, initial encounter; Z68.29 Body mass index [BMI] 29.0-29.9, adult; X58.XXXA Exposure to other specified factors, initial encounter | CPT/HCPCS: 80053; 80061; 82043; 83036; 84443 ==

== ENCOUNTER → 2021-10-16 13:50 | Outpatient (BNVA) | payer MEDICAID, SELFPAY | PROVIDERS: PCP Nurse Practitioner Family; Visit Provider Internal Medicine Cardiovascular Disease | DX: I11.0 Hypertensive heart disease with heart failure (principal); I50.22 Chronic systolic (congestive) heart failure; I25.10 Atherosclerotic heart disease of native coronary artery without angina pectoris; F17.218 Nicotine dependence, cigarettes, with other nicotine-induced disorders; Z95.810 Presence of automatic (implantable) cardiac defibrillator | CPT/HCPCS: 99214 ==

== ENCOUNTER → 2021-11-14 09:59 | Outpatient (BNVA) | payer MEDICAID, SELFPAY | PROVIDERS: PCP Nurse Practitioner Family; Visit Provider Nurse Practitioner Family | DX: E10.65 Type 1 diabetes mellitus with hyperglycemia (principal) | CPT/HCPCS: 82043; 83036 ==

== ENCOUNTER 2022-01-02 16:19 | Outpatient (CLI) | payer MEDICAID, SELFPAY ==
--- NOTE | 2022-01-02 16:30 | CT_ITS ---
WS: [id number] CT HEAD TECHNIQUE: Noncontrast CT of the head obtained from the skullbase to the vertex. CLINICAL INFORMATION: History of recent intracranial bleed COMPARISON: None. DLP: 1102.[address] scans at [facility] use at least one of these dose optimization techniques: automated e xposure control; mA and/or kV adjustment per patient size (includes targeted exams where dose is matc hed to clinical indication); or iterative reconstruction. FINDINGS: No evidence of intracranial hemorrhage or mass effect. Ventricular system and basal cisterns are shah nt. Prior LEFT frontal craniotomy. No evidence of subdural hematoma. No extra-axial fluid collections . No evidence of mass or mass effect. Normal sellers-white differentiation. Benign basal ganglia calcifi cations. Paranasal sinuses and mastoid air cells are well aerated. .Normal visualized soft tissues. CT/CT head wo con* [id number] IMPRESSION: 1. No evidence of intracranial hemorrhage or mass effect. 2. Prior LEFT frontal craniotomy. 3. No acute intracranial findings.
== END 2022-01-02 16:20 | disposition home or self-care (01) ==
LOC: RAD 16:21
PROVIDERS: PCP Nurse Practitioner Family; Visit Provider Internal Medicine Cardiovascular Disease
DX: Z86.79 Personal history of other diseases of the circulatory system (principal)
CPT/HCPCS: 70450

== ENCOUNTER → 2022-03-28 10:59 | Outpatient (BNVA) | payer MEDICAID, SELFPAY | PROVIDERS: PCP Nurse Practitioner Family; Visit Provider Nurse Practitioner Family | DX: R50.9 Fever, unspecified (principal) | CPT/HCPCS: 87400; 87426 ==

== ENCOUNTER → 2022-04-17 15:26 | Outpatient (BNVA) | payer MEDICAID, SELFPAY | PROVIDERS: PCP Nurse Practitioner Family; Visit Provider Nurse Practitioner Family | DX: E10.65 Type 1 diabetes mellitus with hyperglycemia (principal); E78.5 Hyperlipidemia, unspecified; F41.8 Other specified anxiety disorders | CPT/HCPCS: 80053; 80061; 83036; 83721 ==

== ENCOUNTER 2022-05-23 13:08 | Emergency (ER) | payer MEDICAID, SELFPAY ==
[2022-05-23] VITALS (7 sets, daily range): BP systolic 147; BP diastolic 79–99; PULSE 60–89; RESP 12–20; TEMP 36.7; O2SAT 96–98; BMI 28.1
--- NOTE | 2022-05-23 13:27 | ED_ITS ---
HPI - Abdominal Pain General: Chief Complaint: Abdominal Pain Stated Complaint: N/V X2 DAYS Time Seen by Provider: 05/23/22 13:11 History of Present Illness: Patient comes in with nausea, vomiting, and diarrhea for the past 2 days. Denies any significant abdominal pain. States he has a history of type 1 diabetes. States he started running a fever this morning. Denies dysuria, cough, congestion. Associated Symptoms: Reports diarrhea, fever(s), nausea and vomiting; Denies dysuria Review of Systems Const: Reports: fever(s); Denies: body aches Eyes: Denies: change in vision or blurry vision ENMT: Denies: throat pain or odynophagia Card: Denies: chest pain or palpitations Resp: Denies: dyspnea or productive cough GI: Reports: nausea, vomiting and diarrhea; Denies: abdominal pain : Denies: flank pain or dysuria Musc: Denies: neck pain or back pain Skin/Breast: Denies: rash or pruritus Neuro: Denies: headache(s) or numbness in extremities Psych: Denies: anxiety or change in appetite Endo: Denies: polyuria or excessive sweating PFSH ED PFSH: Medical History Cannabis dependence, uncomplicated 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% no valvular abnormality Coronary artery disease Depression Essential hypertension GERD (gastroesophageal reflux disease) Major depressive disorder, recurrent severe without psychotic features Moderate pulmonary arterial systolic hypertension Nicotine dependence, cigarettes, with other nicotine-induced disorders Post-traumatic stress disorder, chronic Smoker Type 1 diabetes mellitus with hyperglycemia Surgical History AICD (automatic cardioverter/defibrillator) present History of hip surgery S/P coronary artery stent placement Family History Grandmother Diabetes Cancer Mother Diabetes Father Hypertension Grandmother Hypertension Father Cancer Social History (Updated 04/17/22 @ 13:09 by Ange Peraza LPN) Smoking and tobacco status: current every day smoker cigarettes Packs smoked per day: 1 Smoking risk assessment/counseling performed?: Yes Tobacco counseling given: counseling >3 minutes Alcohol intake: current Alcohol intake frequency: holidays/special occasions only Physical Exam Const: COMMON NORMALS: no acute distress, patient oriented x3, healthy appearing and alert HENMT: COMMON NORMALS: normocephalic and atraumatic HEAD & SCALP: normocephalic and atraumatic OTHER: Dry mucous membranes Eye: COMMON NORMALS: Equal, round and reactive pupils present and EOMs intact bilaterally PUPIL: Yes Equal, round and reactive pupils present Neck/C-Spine: COMMON NORMALS: full ROM and supple Resp: COMMON NORMALS: normal respiratory effort, No retractions and No use of accessory muscles Cardio: COMMON NORMALS: regular rate and regular rhythm RATE: regular rate RHYTHM: regular rhythm GI: COMMON NORMALS: Normal to inspection, nondistended, normoactive bowel sounds present, Soft to palpation and non-tender PALPATION: Yes Soft to palpation Back/Pelvis: COMMON NORMALS: thoracic and lumbar spine normal to inspection and no thoracic nor lumbar tenderness Extremity: COMMON NORMALS: normal to inspection and full ROM Neuro: COMMON NORMALS: patient oriented x3 SENSORIUM/ORIENTATION: Yes alert Psych: COMMON NORMALS: mental status grossly normal and cooperative Skin: COMMON NORMALS: no rashes or lesions noted and no wounds GENERAL SKIN EXAM: no rashes or lesions noted Course Vital Signs: Vital signs: Vital Signs Temperature 98.0 F 05/23/22 13:15 Pulse Rate 68 05/23/22 17:00 Respiratory Rate 18 05/23/22 17:00 Blood Pressure 147/99 05/23/22 13:15 Pulse Oximetry 98 05/23/22 17:00 Oxygen Delivery Me thod 05/23/22 15:00 MDM - Abdominal Pain Medical Decision Making Patient comes in with nausea, vomiting, and diarrhea for the past 2 days. Denies any significant abdominal pain. States he has a history of type 1 diabetes. States he started running a fever this morning. Denies dysuria, cough, congestion. On physical exam he has dry mucous membranes. His abdomen is soft, nontender, nondistended. Will check labs, give IV fluids, treat nausea with IV Zofran, and reassess. On reassessment I talked to the patient about the test results. His white blood cell count is mildly elevated. His potassium was 3.4. His pH was within normal limits. He is tolerating p.o. here. We will continue nausea medication at home, and discharged with precautions to return for worsening or changing symptoms. Lab Data 05/23/22 13:43 05/23/22 13:43 Labs/Radiology: Laboratory Results WBC 11.2 10^3/uL (4.0-10.0) H 05/23/22 13:43 RBC 5.41 10^6/uL (4.1-5.3) H 05/23/22 13:43 Hgb 17.3 g/dL (11.7-16.6) H 05/23/22 13:43 Hct 51.7 % (42.0-52.0) 05/23/22 13:43 MCV 95.6 fl (80-94) H 05/23/22 13:43 MCH 32.0 pg (28.0-34.0) 05/23/22 13:43 MCHC 33.5 g/dL (30.0-36.0) 05/23/22 13:43 RDW 13.0 % (12.1-15.1) 05/23/22 13:43 Plt Count 231 10^3/cmm (130-400) 05/23/22 13:43 MPV 11.4 fL (7.4-10.4) H 05/23/22 13:43 Neut % (Auto) 69.2 % 05/23/22 13:43 Lymph % (Auto) 20.9 % 05/23/22 13:43 [place] % (Auto) 7.0 % 05/23/22 13:43 Eos % (Auto) 0.9 % 05/23/22 13:43 Baso % (Auto) 0.5 % 05/23/22 13:43 Neut # (Auto) 7.77 10^3/uL (1.8-7.7) H 05/23/22 13:43 Lymph # (Auto) 2.3 10^3/uL (0.8-4.8) 05/23/22 13:43 [place] # (Auto) 0.8 10^3/uL (0.2-0.9) 05/23/22 13:43 Eos # (Auto) 0.1 10^3/uL (0.0-0.8) 05/23/22 13:43 Baso # (Auto) 0.1 10^3/uL (0.0-0.1) 05/23/22 13:43 Nucleated RBC % (auto) 0 % 05/23/22 13:43 Nucleated RBCs # 0.0 /100WBC 05/23/22 13:43 Specimen Type Venous 05/23/22 13:43 Sample Site Not specified 05/23/22 13:43 [place] Test N/a 05/23/22 13:43 VBG pH 7.36 (7.32-7.42) 05/23/22 13:43 VBG pCO2 32.9 mmHg (41-51) L 05/23/22 13:43 VBG pO2 37.4 mmHg (25-40) 05/23/22 13:43 VBG HCO3 18.6 mmol/L (24-28) L 05/23/22 13:43 VBG Base Excess -5.6 mmol/L (-3.0-3.0) L 05/23/22 13:43 VBG Hematocrit 55.9 % (42-52) H 05/23/22 13:43 O2 Delivery Device None 05/23/22 13:43 Storage Engineer ID Amh 05/23/22 13:43 Sodium 138 mmol/L (136-145) 05/23/22 13:43 Potassium 3.4 mmol/L (3.5-5.1) L 05/23/22 13:43 Chloride 103 mmol/L (98-107) 05/23/22 13:43 Carbon Dioxide 17 mmol/L (22-29) L 05/23/22 13:43 Anion Gap 21.4 (5-19) H 05/23/22 13:43 BUN 24 mg/dL (6-20) H 05/23/22 13:43 Creatinine 1.2 mg/dL (0.7-1.2) 05/23/22 13:43 GFR Calculation 66.4 mL/min (90-130) L 05/23/22 13:43 Glucose 126 mg/dL (65-115) H 05/23/22 13:43 Calculated Osmolality 292 mOsm/kg (285-295) 05/23/22 13:43 Lactate 1.7 mmol/L (0.5-2.2) 05/23/22 13:43 Calcium 9.5 mg/dL (8.5-10.5) 05/23/22 13:43 Magnesium 2.1 mg/dL (1.7-2.3) 05/23/22 13:43 Total Bilirubin 0.5 mg/dL (0.15-1.2) 05/23/22 13:43 AST 14 U/L (0-40) 05/23/22 13:43 ALT 12 U/L (0-41) 05/23/22 13:43 Alkaline Phosphatase 80 U/L (40-130) 05/23/22 13:43 Total Protein 7.4 g/dL (6.6-8.7) 05/23/22 13:43 Albumin 4.4 g/dL (3.5-5.2) 05/23/22 13:43 Globulin 3.0 g/dL (1.3-4.6) 05/23/22 13:43 Serum Ketones Negative (Negative) 05/23/22 13:43 Discharge Plan Discharge Patient Disposition: Home Clinical Impression: Nausea, vomiting, and diarrhea Condition: Stable Prescriptions: New ondansetron 4 mg tablet,disintegrating 4 mg PO Q8H PRN (Reason: nausea and vomiting) 4 Days Qty: 20 0RF No Action sertraline 200 mg capsule 200 mg PO DAILY Qty: 90 0RF ondansetron 8 mg tablet,disintegrating See Rx Instructions .ROUTE .COMPLEX Qty: 30 0RF Dose Instruction: TAKE ONE TABLET BY MOUTH EVERY 8 HOURS NEEDED FOR NAUSEA AND VOMITING Rx Instructions: TAKE ONE TABLET BY MOUTH EVERY 8 HOURS NEEDED FOR NAUSEA AND VOMITING (DME) OneTouch Ultra Test Strip See Rx Instructions .ROUTE .COMPLEX Qty: 100 3RF Dose Instruction: DIRECTED Rx Instructions: DIRECTED (DME) blood-glucose meter [OneTouch Ultra2 Meter] [facility] [place] Rx Instructions .ROUTE .COMPLEX Qty: 1 0RF Dose Instruction: DIRECTED Rx Instructions: DIRECTED (DME) pen needle, diabetic [Pentips] 31 gauge x 3/16 needle See Rx Instructions .ROUTE .COMPLEX Qty: 50 6RF Dose Instruction: USE TWICE A DAY Rx Instructions: USE TWICE A DAY Anoro Ellipta 62.5-25 mcg/actuation blister with device 1 inh inhalation Q24H Qty: 60 11RF metoprolol succinate 100 mg tablet extended release 24 hr 100 mg PO DAILY Qty: 90 1RF Entresto 49-51 mg tablet 1 tab PO BID Qty: 180 1RF spironolactone 50 mg tablet 50 mg PO DAILY Qty: 90 1RF Lasix 80 mg tablet 80 mg PO DAILY Qty: 90 1RF Rx Instructions: Take 1 daily and use additional 80 mg as needed (DME) lancets [OneTouch Delica Plus Lancet] 30 gauge misc See Rx Instructions .ROUTE .COMPLEX Qty: 200 4RF Dose Instruction: DIRECTED Rx Instructions: DIRECTED insulin asp prt-insulin aspart [Novolog Mix 70-30FlexPen U-100] 100 unit/mL (70-30) insulin pen See Rx Instructions .ROUTE .COMPLEX Qty: 36 0RF Dose Instruction: INJECT 60 UNITS SUBCUTANEOUSLY IN THE MORNING AND 60 UNITS IN THE EVENING Rx Instructions: INJECT 60 UNITS SUBCUTANEOUSLY IN THE MORNING AND 60 UNITS IN THE EVENING atorvastatin 20 mg tablet 20 mg PO QPM meloxicam 7.5 mg tablet 7.5 mg PO DAILY pantoprazole 40 mg tablet,delayed release (DR/EC) 40 mg PO DAILY trazodone 150 mg tablet 300 mg PO BEDTIME Ventolin HFA 90 mcg/actuation HFA aerosol inhaler 2 puff inhalation Q4H PRN (Reason: Shortness Of Breath Or Wheezing) Lotrimin AF (clotrimazole) 1 % cream 1 applic topical BID PRN (Reason: Rash) Discharge Orders: Discharge ED (Routine); Ordered 05/23/22 Ordered By: Josafat Puga Referrals: Zeinab Salazar NP [Primary Care Provider] - Patient Instructions: Opioid Safety, Pain Management Coding Level of Care Code ED Supervisor Special Education for Alexis Gutierrez
[2022-05-23] MEDS: sodium chloride 0.9% 1,000 ML 999 ML IV ×2 (13:36→15:03)
[2022-05-23] MEDS: ondansetron 2 mg/ML SDV 2 mL 4 MG IVP (13:36)
[2022-05-23 13:59] LABS: Base Excess VBG -5.6 mmol/L (-3.0-3.0); Blood Gas Operator Identificat AMH; Blood Gas Sample Site Not specified; Blood Gas Sample Type Venous; HCO3 VBG 18.6 mmol/L (24-28); PCO2 VBG 32.9 mmHg (41-51); PO2 VBG 37.4 mmHg (25-40); Venous Blood Gas Hematocrit 55.9 % (42-52); pH VBG 7.36 (7.32-7.42)
[2022-05-23 14:09] LABS: Basophils # 0.1 10^3/uL (0.0-0.1); Basophils % 0.5 %; Eosinophils # 0.1 10^3/uL (0.0-0.8); Eosinophils % 0.9 %; Hematocrit 51.7 % (42.0-52.0); Hemoglobin 17.3 g/dL (11.7-16.6); Lymphocytes # 2.3 10^3/uL (0.8-4.8); Lymphocytes % 20.9 %; Mean Corpuscular HGB Conc 33.5 g/dL (30.0-36.0); Mean Corpuscular Volume 95.6 fl (80-94); Mean Platelet Volume 11.4 fL (7.4-10.4); Monocytes # 0.8 10^3/uL (0.2-0.9); Neutrophils # 7.77 10^3/uL (1.8-7.7); Neutrophils % 69.2 %; Nucleated Red Blood Cells % 0 %; Platelet Count 231 10^3/cmm (130-400); Red Blood Count 5.41 10^6/uL (4.1-5.3); White Blood Count 11.2 10^3/uL (4.0-10.0)
[2022-05-23 14:21] LABS: Ketone (Acetest) Serum Negative (Negative)
[2022-05-23 14:26] LABS: Lactate (Lactic Acid level) 1.7 mmol/L (0.5-2.2)
[2022-05-23 14:28] LABS: Alanine Aminotransferase 12 U/L (0-41); Albumin Level 4.4 g/dL (3.5-5.2); Alkaline Phosphatase 80 U/L (40-130); Anion Gap 21.4 (5-19); Aspartate Amino Transferase 14 U/L (0-40); Blood Urea Nitrogen 24 mg/dL (6-20); Calcium 9.5 mg/dL (8.5-10.5); Carbon Dioxide 17 mmol/L (22-29); Chloride 103 mmol/L (98-107); Creatinine Clr Calc Pharmacy 84.6225; Glomerular Filtration Rate 66.4 mL/min (90-130); Glucose 126 mg/dL (65-115); Magnesium 2.1 mg/dL (1.7-2.3); Osmolality Calculated 292 mOsm/kg (285-295); Potassium 3.4 mmol/L (3.5-5.1); Sodium 138 mmol/L (136-145); Total Bilirubin 0.5 mg/dL (0.15-1.2); Total Protein 7.4 g/dL (6.6-8.7)
[2022-05-23] MEDS: metoclopramide 5 mg/mL SDV 2 mL 10 MG IVP (17:28)
== END 2022-05-23 17:56 | disposition home or self-care (01) ==
PROVIDERS: Emergency Provider Emergency Medicine; PCP Nurse Practitioner Family
DX: E10.9 Type 1 diabetes mellitus without complications (principal); R50.9 Fever, unspecified; I10 Essential (primary) hypertension; I25.10 Atherosclerotic heart disease of native coronary artery without angina pectoris; F17.210 Nicotine dependence, cigarettes, uncomplicated; Z95.5 Presence of coronary angioplasty implant and graft; Z95.810 Presence of automatic (implantable) cardiac defibrillator
CPT/HCPCS: 36415; 80053; 82009; 82803; 83605; 83735; 85025; 96361; 96374; 96375; 99284; J2405; J2765; J7030

== ENCOUNTER 2022-06-19 19:10 | Emergency (ER) | payer MEDICAID, SELFPAY ==
[2022-06-19] VITALS (12 sets, daily range): BP systolic 101–135; BP diastolic 58–99; PULSE 75–94; RESP 14–20; TEMP 36.8; O2SAT 90–95; BMI 27.3
[2022-06-19] MEDS: metoclopramide 5 mg/mL SDV 2 mL 10 MG IVP (20:04)
[2022-06-19] MEDS: sodium chloride 0.9% 1,000 ML 999 ML IV ×2 (20:05→20:46)
[2022-06-19] MEDS: diphenhydrAMINE 50 mg/mL SDV 1mL IVP (20:05)
[2022-06-19 20:10] LABS: Basophils # 0.1 10^3/uL (0.0-0.1); Basophils % 0.4 %; Eosinophils # 0.1 10^3/uL (0.0-0.8); Eosinophils % 0.9 %; Hematocrit 50.7 % (42.0-52.0); Hemoglobin 16.9 g/dL (11.7-16.6); Lymphocytes # 2.5 10^3/uL (0.8-4.8); Lymphocytes % 18.4 %; Mean Corpuscular HGB Conc 33.3 g/dL (30.0-36.0); Mean Corpuscular Hemoglobin 32.6 pg (28.0-34.0); Mean Corpuscular Volume 97.9 fl (80-94); Mean Platelet Volume 11.6 fL (7.4-10.4); Monocytes # 0.6 10^3/uL (0.2-0.9); Monocytes % 4.3 %; Neutrophils # 10.35 10^3/uL (1.8-7.7); Neutrophils % 75.3 %; Nucleated Red Blood Cells % 0 %; Platelet Count 216 10^3/cmm (130-400); Red Blood Count 5.18 10^6/uL (4.1-5.3); Red Cell Distribution Width 13.2 % (12.1-15.1); White Blood Count 13.8 10^3/uL (4.0-10.0)
--- NOTE | 2022-06-19 20:12 | W.ED.NAVMDI ---
HPI - Nausea/Vomiting/Diarrhea General: Chief complaint: Nausea/Vomiting/Diarrhea Stated complaint: ABD PAIN Time Seen by Provider: 06/19/22 19:26 Source: patient and EMS Mode of arrival: EMS Limitations: no limitations History of Present Illness: 41-year-old male he states he has been having vomiting along with diarrhea with abdominal cramps since this morning. He states he had multiple episodes of vomiting. States his pain is cramping he rates it a 3-4 out of 10. He states he had similar episodes in the past. He denies any fever he has had diarrhea as well denies any constipation he denies any worsening proving factors. 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% no valvular abnormality Coronary artery disease Depression Essential hypertension GERD (gastroesophageal reflux disease) Major depressive disorder, recurrent severe without psychotic features Moderate pulmonary arterial systolic hypertension Nicotine dependence, cigarettes, with other nicotine-induced disorders Post-traumatic stress disorder, chronic Smoker Type 1 diabetes mellitus with hyperglycemia Surgical History AICD (automatic cardioverter/defibrillator) present History of hip surgery S/P coronary artery stent placement Family History Grandmother Diabetes Cancer Mother Diabetes Father Hypertension Grandmother Hypertension Father Cancer Social History Smoking and tobacco status: current every day smoker cigarettes Packs smoked per day: 1 Smoking risk assessment/counseling performed?: Yes Tobacco counseling given: counseling >3 minutes Alcohol intake: current Alcohol intake frequency: holidays/special occasions only Physical Exam Const: COMMON NORMALS: no acute distress, patient oriented x3 and healthy appearing HENMT: COMMON NORMALS: normocephalic and atraumatic HEAD & SCALP: normocephalic and atraumatic Eye: COMMON NORMALS: conjunctivae normal CONJUNCTIVA: Yes conjunctivae normal Neck/C-Spine: COMMON NORMALS: full ROM and supple Chest: COMMONS NORMALS: normal inspection of the chest and normal palpation of entire chest wall Resp: COMMON NORMALS: normal respiratory effort, No retractions, No use of accessory muscles and clear to auscultation bilaterally AUSCULTATION: clear to auscultation bilaterally Cardio: COMMON NORMALS: regular rate, regular rhythm and No murmurs present (Cardio) RATE: regular rate RHYTHM: regular rhythm GI: COMMON NORMALS: Normal to inspection, nondistended, normoactive bowel sounds present, Soft to palpation, non-tender and no masses PALPATION: Yes Soft to palpation Extremity: COMMON NORMALS: normal to inspection and full ROM Neuro: COMMON NORMALS: patient oriented x3, moves all extremities and no focal motor deficits Psych: COMMON NORMALS: mental status grossly normal, Normal thought process present and cooperative THOUGHT PROCESS: Normal thought process present Skin: COMMON NORMALS: no rashes or lesions noted and no wounds GENERAL SKIN EXAM: no rashes or lesions noted Course Vital Signs: Vital signs: Vital Signs Temperature 98.2 F 06/19/22 19:11 Pulse Rate 82 06/19/22 22:13 Respiratory Rate 18 06/19/22 22:13 Blood Pressure 111/69 06/19/22 22:13 Pulse Oximetry 95 06/19/22 22:13 Oxygen Delivery Me thod Room Air 06/19/22 19:11 MDM - Nausea/Vomiting/Diarrhea Medical Decision Making Patient presents with nausea and vomiting he feels much improved here with Reglan and Benadryl his blood work here is all normal his abdominal exam at discharge benign no signs of bowel obstruction or acute surgical abdomen we will prescribe him Zofran for home he is to follow-up with PCP and return if worsening. Medical Records I reviewed the patient's medical records. Lab Data I reviewed the patient's lab results. 06/19/22 20:05 06/19/22 20:05 Laboratory Results WBC 13.8 10^3/uL (4.0-10.0) H 06/19/22 20:05 RBC 5.18 10^6/uL (4.1-5.3) 06/19/22 20:05 Hgb 16.9 g/dL (11.7-16.6) H 06/19/22 20:05 Hct 50.7 % (42.0-52.0) 06/19/22 20:05 MCV 97.9 fl (80-94) H 06/19/22 20:05 MCH 32.6 pg (28.0-34.0) 06/19/22 20:05 MCHC 33.3 g/dL (30.0-36.0) 06/19/22 20:05 RDW 13.2 % (12.1-15.1) 06/19/22 20:05 Plt Count 216 10^3/cmm (130-400) 06/19/22 20:05 MPV 11.6 fL (7.4-10.4) H 06/19/22 20:05 Neut % (Auto) 75.3 % 06/19/22 20:05 Lymph % (Auto) 18.4 % 06/19/22 20:05 [place] % (Auto) 4.3 % 06/19/22 20:05 Eos % (Auto) 0.9 % 06/19/22 20:05 Baso % (Auto) 0.4 % 06/19/22 20:05 Neut # (Auto) 10.35 10^3/uL (1.8-7.7) H 06/19/22 20:05 Lymph # (Auto) 2.5 10^3/uL (0.8-4.8) 06/19/22 20:05 [place] # (Auto) 0.6 10^3/uL (0.2-0.9) 06/19/22 20:05 Eos # (Auto) 0.1 10^3/uL (0.0-0.8) 06/19/22 20:05 Baso # (Auto) 0.1 10^3/uL (0.0-0.1) 06/19/22 20:05 Nucleated RBC % (auto) 0 % 06/19/22 20:05 Nucleated RBCs # 0.0 /100WBC 06/19/22 20:05 Sodium 136 mmol/L (136-145) 06/19/22 20:05 Potassium 3.9 mmol/L (3.5-5.1) 06/19/22 20:05 Chloride 105 mmol/L (98-107) 06/19/22 20:05 Carbon Dioxide 16 mmol/L (22-29) L 06/19/22 20:05 Anion Gap 18.9 (5-19) 06/19/22 20:05 BUN 17 mg/dL (6-20) 06/19/22 20:05 Creatinine 1.0 mg/dL (0.7-1.2) 06/19/22 20:05 GFR Calculation 81.9 mL/min (90-130) L 06/19/22 20:05 Glucose 166 mg/dL (65-115) H 06/19/22 20:05 Calculated Osmolality 287 mOsm/kg (285-295) 06/19/22 20:05 Calcium 9.3 mg/dL (8.5-10.5) 06/19/22 20:05 Total Bilirubin 0.3 mg/dL (0.15-1.2) 06/19/22 20:05 AST 17 U/L (0-40) 06/19/22 20:05 ALT 15 U/L (0-41) 06/19/22 20:05 Alkaline Phosphatase 90 U/L (40-130) 06/19/22 20:05 Total Protein 7.2 g/dL (6.6-8.7) 06/19/22 20:05 Albumin 4.2 g/dL (3.5-5.2) 06/19/22 20:05 Globulin 3.0 g/dL (1.3-4.6) 06/19/22 20:05 Lipase 121 U/L (13-60) H 06/19/22 20:05 EKG Data EKG 1: I personally reviewed and interpreted this EKG as follows: EKG interpretation date: 06/19/22 EKG interpretation time: 19:17 Interpretation: nsr hr [address] or t wave abnormalities qrs 98 qtc 411 Discharge Plan Discharge Patient Disposition: Home Clinical Impression: Vomiting Condition: Stable Prescriptions: New ondansetron 4 mg tablet,disintegrating 4 mg PO Q6H PRN (Reason: nausea and vomiting) Qty: 14 0RF No Action sertraline 200 mg capsule 200 mg PO DAILY Qty: 90 0RF ondansetron 8 mg tablet,disintegrating See Rx Instructions .ROUTE .COMPLEX Qty: 30 0RF Dose Instruction: TAKE ONE TABLET BY MOUTH EVERY 8 HOURS NEEDED FOR NAUSEA AND VOMITING Rx Instructions: TAKE ONE TABLET BY MOUTH EVERY 8 HOURS NEEDED FOR NAUSEA AND VOMITING (DME) OneTouch Ultra Test Strip See Rx Instructions .ROUTE .COMPLEX Qty: 100 3RF Dose Instruction: DIRECTED Rx Instructions: DIRECTED (DME) blood-glucose meter [OneTouch Ultra2 Meter] [facility] [place] See Rx Instructions .ROUTE .COMPLEX Qty: 1 0RF Dose Instruction: DIRECTED Rx Instructions: DIRECTED (DME) pen needle, diabetic [Pentips] 31 gauge x 3/16 needle See Rx Instructions .ROUTE .COMPLEX Qty: 50 6RF Dose Instruction: USE TWICE A DAY Rx Instructions: USE TWICE A DAY Anoro Ellipta 62.5-25 mcg/actuation blister with device 1 inh inhalation Q24H Qty: 60 11RF metoprolol succinate 100 mg tablet extended release 24 hr 100 mg PO DAILY Qty: 90 1RF Entresto 49-51 mg tablet 1 tab PO BID Qty: 180 1RF spironolactone 50 mg tablet 50 mg PO DAILY Qty: 90 1RF Lasix 80 mg tablet 80 mg PO DAILY Qty: 90 1RF Rx Instructions: Take 1 daily and use additional 80 mg as needed (DME) lancets [OneTouch Delica Plus Lancet] 30 gauge [facility] [place] See Rx Instructions .ROUTE .COMPLEX Qty: 200 4RF Dose Instruction: DIRECTED Rx Instructions: DIRECTED insulin asp prt-insulin aspart [Novolog Mix 70-30FlexPen U-100] 100 unit/mL (70-30) insulin pen See Rx Instructions .ROUTE .COMPLEX Qty: 36 0RF Dose Instruction: INJECT 60 UNITS SUBCUTANEOUSLY IN THE MORNING AND 60 UNITS IN THE EVENING Rx Instructions: INJECT 60 UNITS SUBCUTANEOUSLY IN THE MORNING AND 60 UNITS IN THE EVENING atorvastatin 20 mg tablet 20 mg PO QPM meloxicam 7.5 mg tablet 7.5 mg PO DAILY pantoprazole 40 mg tablet,delayed release (DR/EC) 40 mg PO DAILY trazodone 150 mg tablet 300 mg PO BEDTIME Ventolin HFA 90 mcg/actuation HFA aerosol inhaler 2 puff inhalation Q4H PRN (Reason: Shortness Of Breath Or Wheezing) Lotrimin AF (clotrimazole) 1 % cream 1 applic topical BID PRN (Reason: Rash) Discharge Orders: Discharge ED (Routine); Ordered 06/19/22 Ordered By: Elvis Ramos Referrals: Zeinab Salazar, DEMOGRAPHIC ANALYST [Primary Care Provider] - 1-3 days Discharge Diet: Advance as tolerated Discharge Activity: Resume usual activity Patient Instructions: Acute Nausea and Vomiting (ED) Coding Level of Care Code ED Supervisor Paper Machine for Alexis Gutierrez
[2022-06-19 20:30] LABS: Alanine Aminotransferase 15 U/L (0-41); Albumin Level 4.2 g/dL (3.5-5.2); Alkaline Phosphatase 90 U/L (40-130); Aspartate Amino Transferase 17 U/L (0-40); Blood Urea Nitrogen 17 mg/dL (6-20); Calcium 9.3 mg/dL (8.5-10.5); Carbon Dioxide 16 mmol/L (22-29); Chloride 105 mmol/L (98-107); Glomerular Filtration Rate 81.9 mL/min (90-130); Glucose 166 mg/dL (65-115); Lipase 121 U/L (13-60); Osmolality Calculated 287 mOsm/kg (285-295); Sodium 136 mmol/L (136-145); Total Bilirubin 0.3 mg/dL (0.15-1.2); Total Protein 7.2 g/dL (6.6-8.7)
[2022-06-19 20:35] LABS: Anion Gap 18.9 (5-19); Potassium 3.9 mmol/L (3.5-5.1)
--- NOTE | 2022-06-19 21:28 | PC.NURSE ---
Pt being sent home with 4mg zofran tablet per Dr. Ramos orders.
[2022-06-19] MEDS: ondansetron 4 MG Tablet PO (21:30)
== END 2022-06-19 22:18 | disposition home or self-care (01) ==
PROVIDERS: Emergency Provider Emergency Medicine; PCP Nurse Practitioner Family
DX: R11.11 Vomiting without nausea (principal); Z79.4 Long term (current) use of insulin
CPT/HCPCS: 80053; 83690; 85025; 96361; 96374; 96375; 99284; J1200; J2765; J7030; Q0162

== ENCOUNTER 2022-12-26 22:26 | Inpatient (IN) | payer MEDICAID, SELFPAY ==
[2022-12-26 22:32] VITALS: BP 130/91; PULSE 106; RESP 16; TEMP 36.4; O2SAT 96; BMI 27.3
[2022-12-26 23:26] LABS: Basophils # 0.1 10^3/uL (0.0-0.1); Basophils % 0.5 %; Eosinophils # 0.2 10^3/uL (0.0-0.8); Eosinophils % 0.9 %; Hematocrit 51.6 % (37-53); Lymphocytes # 2.4 10^3/uL (0.8-4.8); Lymphocytes % 13.6 %; Mean Corpuscular HGB Conc 33.7 g/dL (30-55); Mean Corpuscular Hemoglobin 32.6 pg (27-33); Mean Corpuscular Volume 96.8 fl (82-101); Mean Platelet Volume 11.7 fL (7.4-10.4); Monocytes # 0.6 10^3/uL (0.2-0.9); Monocytes % 3.7 %; Neutrophils # 13.87 10^3/uL (1.8-7.7); Neutrophils % 80.4 %; Nucleated Red Blood Cells % 0 %; Platelet Count 216 10^3/cmm (157-399); Red Blood Count 5.33 10^6/uL (3.85-5.65); Red Cell Distribution Width 13.4 % (12.1-15.1); White Blood Count 17.24 10^3/uL (3.29-11.43)
[2022-12-26 23:40] LABS: Alanine Aminotransferase 13 U/L (0-41); Albumin Level 4.9 g/dL (3.5-5.2); Alkaline Phosphatase 94 U/L (40-130); Anion Gap 21.8 (5-19); Aspartate Amino Transferase 13 U/L (0-40); Blood Urea Nitrogen 39 mg/dL (6-20); Carbon Dioxide 18 mmol/L (22-29); Chloride 99 mmol/L (98-107); Globulin 2.7 g/dL (1.3-4.6); Glomerular Filtration Rate 31.2 mL/min (90-130); Glucose 246 mg/dL (65-115); Lipase 45 U/L (13-60); Magnesium 1.8 mg/dL (1.7-2.3); Osmolality Calculated 298 mOsm/kg (285-295); Potassium 3.8 mmol/L (3.5-5.1); Sodium 135 mmol/L (136-145); Total Bilirubin 0.5 mg/dL (0.15-1.2); Total Protein 7.6 g/dL (6.6-8.7)
--- NOTE | 2022-12-26 23:50 | ED_ITS ---
HPI - Nausea/Vomiting/Diarrhea General: Chief complaint: Nausea/Vomiting/Diarrhea Stated complaint: ABD Pain From Food Time Seen by Provider: 12/26/22 23:22 History of Present Illness: Patient presents to the ER with complaints of nausea vomiting abdominal pain since this morning. Patient noted he did eat mushrooms yesterday out of his yard. And now he thinks he may have ate a poisonous mushroom. He is the only one that ate these mushrooms. Patient rates the pain at a 10 diffusely in his stomach. Patient has not had diarrhea. Patient is through multiple times and cannot keep any thing down. Patient cannot identify the mushroom nor can he tell us any identifying features of it. 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% no valvular abnormality Coronary artery disease Depression Essential hypertension GERD (gastroesophageal reflux disease) Major depressive disorder, recurrent severe without psychotic features Moderate pulmonary arterial systolic hypertension Nicotine dependence, cigarettes, with other nicotine-induced disorders Post-traumatic stress disorder, chronic Smoker Type 1 diabetes mellitus with hyperglycemia Surgical History AICD (automatic cardioverter/defibrillator) present History of hip surgery S/P coronary artery stent placement Family History Grandmother Diabetes Cancer Mother Diabetes Father Hypertension Grandmother Hypertension Father Cancer Social History Smoking and tobacco/nicotine status: current every day tobacco/nicotine user cigarettes Packs smoked per day: 1 Alcohol intake: current Alcohol intake frequency: holidays/special occasions only Substance/Drug Use: former Physical Exam Const: COMMON NORMALS: no acute distress, average body habitus, patient oriented x3, no limitations, healthy appearing, alert and well nourished HENMT: COMMON NORMALS: normocephalic, atraumatic, hearing grossly normal bilaterally, external ears normal, Normal external nose present, moist oral mucous membranes and oropharynx normal HEAD & SCALP: normocephalic and atraumatic NOSE: Normal external nose present EXTERNAL EAR: Yes external ears normal Neck/C-Spine: COMMON NORMALS: no JVD Chest: COMMONS NORMALS: normal inspection of the chest and normal palpation of entire chest wall Resp: COMMON NORMALS: normal respiratory effort, No retractions, No use of accessory muscles and clear to auscultation bilaterally AUSCULTATION: clear to auscultation bilaterally Cardio: COMMON NORMALS: no JVD, regular rhythm, S1 normal heart sound present, S2 normal heart sound present, No gallops present (Cardio), No clicks present (Cardio), No murmurs present (Cardio) and No rub (Cardio); negative for regular rate (Mild tachycardia) RATE: abnormal rate (Mild tachycardia) RHYTHM: regular rhythm HEART SOUNDS: S1 normal heart sound p resent and S2 normal heart sound present GI: COMMON NORMALS: Normal to inspection, nondistended, normoactive bowel sounds present, Soft to palpation, No hepatosplenomegaly present and no masses; negative for non-tender (Tenderness throughout worse in the lower abdominal region) PALPATION: Yes Soft to palpation and Yes No hepatosplenomegaly present Neuro: COMMON NORMALS: patient oriented x3 SENSORIUM/ORIENTATION: Yes alert Course Vital Signs: Vital signs: Vital Signs Temperature 97.6 F 12/26/22 22:32 Pulse Rate 106 H 12/26/22 22:32 Respiratory Rate 16 12/26/22 22:32 Blood Pressure 130/91 12/26/22 22:32 Pulse Oximetry 96 12/26/22 22:32 MDM - Nausea/Vomiting/Diarrhea Medical Decision Making CT noted patient sticking his finger down his throat to make himself vomit. Patient has lab work done which revealed a white count of 17.24 and elevated BUN/creatinine of 39 and 2.3, PTT/INR, fibrinogen all within normal limit. Abdomen CT showed small bowel obstruction with mid good transition point. Dr. De Los Santos was consulted he suggested NG tube, normal saline at 150 mils per hour admit to the hospitalist. Dr. Douglas was consulted who agreed to accept the patient to [facility] for further evaluation and treatment. Patient will be n.p.o. Differential Diagnosis Likely food poisoning and dehydration; Unlikely traveler's diarrhea, gastroenteritis, clostridium difficile infection or drug-induced nausea and vomiting Medical Records I reviewed the patient's medical records. Lab Data I reviewed the patient's lab results. 12/26/22 23:10 12/26/22 23:10 Radiology Impressions Abdomen/Pelvis CT 12/26/22 23:52 IMPRESSION: 1. Small bowel obstruction with midgut transition point, likely due to adhesions. 2. Stable bilateral adrenal masses since 2019, considered benign. Lesion on the right is likely an adenoma. Lesion on the left is compelling for myelolipoma. ADDENDUM: 12/27/22 0053 THIS REPORT CONTAINS FINDINGS THAT MAY BE CRITICAL TO PATIENT CARE. The findings were verbally communicated via telephone conference with Denny Motta at 12:51 AM CDT on 12/27/2022. The findings were acknowledged and understood. Laboratory Results WBC 17.24 10^3/uL (3.29-11.43) H 12/26/22 23:10 RBC 5.33 10^6/uL (3.85-5.65) 12/26/22 23:10 Hgb 17.40 g/dL (11.27-16.99) H 12/26/22 23:10 Hct 51.6 % (37-53) 12/26/22 23:10 MCV 96.8 fl (82-101) 12/26/22 23:10 MCH 32.6 pg (27-33) 12/26/22 23:10 MCHC 33.7 g/dL (30-55) 12/26/22 23:10 RDW 13.4 % (12.1-15.1) 12/26/22 23:10 Plt Count 216 10^3/cmm (157-399) 12/26/22 23:10 MPV 11.7 fL (7.4-10.4) H 12/26/22 23:10 Neut % (Auto) 80.4 % 12/26/22 23:10 Lymph % (Auto) 13.6 % 12/26/22 23:10 Daniels % (Auto) 3.7 % 12/26/22 23:10 Eos % (Auto) 0.9 % 12/26/22 23:10 Baso % (Auto) 0.5 % 12/26/22 23:10 Neut # (Auto) 13.87 10^3/uL (1.8-7.7) H 12/26/22 23:10 Lymph # (Auto) 2.4 10^3/uL (0.8-4.8) 12/26/22 23:10 Daniels # (Auto) 0.6 10^3/uL (0.2-0.9) 12/26/22 23:10 Eos # (Auto) 0.2 10^3/uL (0.0-0.8) 12/26/22 23:10 Baso # (Auto) 0.1 10^3/uL (0.0-0.1) 12/26/22 23:10 Nucleated RBC % (auto) 0 % 12/26/22 23:10 Nucleated RBCs # 0.0 /100WBC 12/26/22 23:10 PT 13.10 SECONDS (12.1-14.9) 12/26/22 23:10 INR 0.96 (0.8-1.2) 12/26/22 23:10 APTT 31.6 SECONDS (23.9-36.7) 12/26/22 23:10 Fibrinogen 458 mg/dL (174-498) 12/26/22 23:10 Sodium 135 mmol/L (136-145) L 12/26/22 23:10 Potassium 3.8 mmol/L (3.5-5.1) 12/26/22 23:10 Chloride 99 mmol/L (98-107) 12/26/22 23:10 Carbon Dioxide 18 mmol/L (22-29) L 12/26/22 23:10 Anion Gap 21.8 (5-19) H 12/26/22 23:10 BUN 39 mg/dL (6-20) H 12/26/22 23:10 Creatinine 2.3 mg/dL (0.7-1.2) H 12/26/22 23:10 GFR Calculation 31.2 mL/min (90-130) L 12/26/22 23:10 Glucose 246 mg/dL (65-115) H 12/26/22 23:10 Calculated Osmolality 298 mOsm/kg (285-295) H 12/26/22 23:10 Calcium 10.0 mg/dL (8.5-10.5) 12/26/22 23:10 Magnesium 1.8 mg/dL (1.7-2.3) 12/26/22 23:10 Total Bilirubin 0.5 mg/dL (0.15-1.2) 10/26/23 23:10 AST 13 U/L (0-40) 12/26/22 23:10 ALT 13 U/L (0-41) 12/26/22 23:10 Alkaline Phosphatase 94 U/L (40-130) 12/26/22 23:10 Total Protein 7.6 g/dL (6.6-8.7) 12/26/22 23:10 Albumin 4.9 g/dL (3.5-5.2) 12/26/22 23:10 Globulin 2.7 g/dL (1.3-4.6) 12/26/22 23:10 Lipase 45 U/L (13-60) 12/26/22 23:10 All radiology interpretation(s) finalized by discharge EKG Data EKG 1: I personally reviewed and interpreted this EKG as follows: EKG interpretation date: 12/27/22 EKG interpretation time: 00:30 Prior EKG tracings: not available for review Interpretation: EKG showed ventricular rate 85 bpm, WI interval 130, QRS duration 97, QTc of 419, sinus rhythm, Discharge Plan Discharge Patient Disposition: Admitted As Inpatient Clinical Impression: Small bowel obstruction, Dehydration, Nausea & vomiting Condition: Stable Prescriptions: No Action (DME) OneTouch Ultra Test Strip See Rx Instructions .ROUTE .COMPLEX Qty: 100 3RF Dose Instruction: DIRECTED Rx Instructions: DIRECTED (DME) blood-glucose meter [OneTouch Ultra2 Meter] [facility] See Rx Instructions .ROUTE .COMPLEX Qty: 1 0RF Dose Instruction: DIRECTED Rx Instructions: DIRECTED (DME) pen needle, diabetic [Pentips] 31 gauge x 3/16 needle See Rx Instructions .ROUTE .COMPLEX Qty: 50 6RF Dose Instruction: USE TWICE A DAY Rx Instructions: USE TWICE A DAY Anoro Ellipta 62.5-25 mcg/actuation blister with device 1 inh inhalation Q24H Qty: 60 11RF (DME) lancets [OneTouch Delica Plus Lancet] 30 gauge [facility] See Rx Instructions .ROUTE .COMPLEX Qty: 200 4RF Dose Instruction: DIRECTED Rx Instructions: DIRECTED insulin asp prt-insulin aspart [Novolog Mix 70-30FlexPen U-100] 100 unit/mL (70-30) insulin pen See Rx Instructions .ROUTE .COMPLEX Qty: 36 0RF Dose Instruction: INJECT 60 UNITS SUBCUTANEOUSLY IN THE MORNING AND 60 UNITS IN THE EVENING Rx Instructions: INJECT 60 UNITS SUBCUTANEOUSLY IN THE MORNING AND 60 UNITS IN THE EVENING ondansetron 4 mg tablet,disintegrating 4 mg PO Q6H PRN (Reason: nausea and vomiting) Qty: 14 0RF metoprolol succinate 100 mg tablet extended release 24 hr 100 mg PO DAILY Qty: 90 1RF Entresto 49-51 mg tablet 1 tab PO BID Qty: 180 1RF spironolactone 50 mg tablet 50 mg PO DAILY Qty: 90 1RF Lasix 80 mg tablet 80 mg PO DAILY Qty: 90 0RF Rx Instructions: Take 1 daily and use additional 80 mg as needed;;MUST have follow-up for further refills meloxicam 15 mg tablet See Rx Instructions .ROUTE .COMPLEX Qty: 30 1RF Dose Instruction: TAKE ONE TABLET BY MOUTH ONCE DAILY Rx Instructions: TAKE ONE TABLET BY MOUTH ONCE DAILY ondansetron 8 mg tablet,disintegrating See Rx Instructions .ROUTE .COMPLEX Qty: 30 0RF Dose Instruction: DISSOLVE ONE TABLET ON TOP OF THE TONGUE WHERE IT WILL DISSOLVE THEN SWALLOW EVERY 8 HOURS NEEDED FOR NAUSEA AND VOMITING Rx Instructions: DISSOLVE ONE TABLET ON TOP OF THE TONGUE WHERE IT WILL DISSOLVE THEN SWALLOW EVERY 8 HOURS NEEDED FOR NAUSEA AND VOMITING pantoprazole 40 mg tablet,delayed release (DR/EC) See Rx Instructions .ROUTE .COMPLEX Qty: 30 0RF Dose Instruction: TAKE ONE TABLET BY MOUTH ONCE DAILY IN THE MORNING Rx Instructions: TAKE ONE TABLET BY MOUTH ONCE DAILY IN THE MORNING sertraline 100 mg tablet See Rx Instructions .ROUTE .COMPLEX Qty: 180 0RF Dose Instruction: TAKE TWO CAPSULES BY MOUTH ONCE DAILY Rx Instructions: TAKE TWO CAPSULES BY MOUTH ONCE DAILY trazodone 150 mg tablet See Rx Instructions .ROUTE .COMPLEX Qty: 60 0RF Dose Instruction: TAKE TWO TABLETS BY MOUTH ONCE DAILY AT BEDTIME Rx Instructions: TAKE TWO TABLETS BY MOUTH ONCE DAILY AT BEDTIME atorvastatin 20 mg tablet 20 mg PO QPM Ventolin HFA 90 mcg/actuation HFA aerosol inhaler 2 puff inhalation Q4H PRN (Reason: Shortness Of Breath Or Wheezing) Lotrimin AF (clotrimazole) 1 % cream 1 applic topical BID PRN (Reason: Rash) Referrals: Zeinab Salazar NP [Primary Care Provider] - Coding Level of Care Code ED Taper Operator for Chg Matt
--- NOTE | 2022-12-26 23:52 | CTR_ITS ---
PROCEDURE INFORMATION: Exam: CT Abdomen And Pelvis Without Contrast Exam date and time: 12/27/2022 12:01 AM Age: 42 years old Clinical indication: Nausea and vomiting; Abdominal pain; Generalized; Prior surgery; Surgery date: 6+ months; Surgery type: Pacer. Coronary stent; Patient HX: Abd pain with n/v. ; Additional info: Diffuse abd pain, n/v, elevated CR, ate poisonous mushroom? TECHNIQUE: Imaging protocol: Computed tomography of the abdomen and pelvis without contrast. Radiation optimization: All CT scans at this facility use at least one of these dose optimization techniques: automated exposure control; mA and/or kV adjustment per patient size (includes targeted exams where dose is matched to clinical indication); or iterative reconstruction. REPORTING DATA: Count of CT and Cardiac NM exams in prior 12 months: This patient has received [address] and 0 known cardiac nuclear medicine studies in the 12 months prior to the current study. COMPARISON: CT abdomen pelvis w con* [id number] 10/15/2018 5:59 PM RADIATION DOSE METRICS: Total DLP (mGy-cm): 613.81 FINDINGS: Tubes, catheters and devices: Pacemaker leads are partly visualized. Lungs: Clear basilar lung parenchyma. Pleural spaces: No pleural fluid. Heart: Normal heart size. Liver: Normal configuration. Homogeneous parenchyma. Gallbladder and bile ducts: Postprandial gallbladder is contracted. Pancreas: Normal. No ductal dilation. Spleen: Normal. No splenomegaly. Adrenal glands: Left adrenal measures 3.6 x 3.9 x 5.0 cm and demonstrates fatty and solid tissue components as well as several small calcifications. Right adrenal lesion measures 1.6 x 1.7 cm, unchanged from prior. Noncontrast attenuation coefficient is -7 Hounsfield units. Kidneys and ureters: Kidneys are symmetric without evidence of obstruction or inflammation. Stomach and bowel: Fluid-filled stomach. Dilated proximal small bowel. Mid gut transition point (series 6, image 38 and series 3, image 43) may represent stricture or adhesion. Distal small bowel is completely decompressed. Scattered diverticula noted throughout the otherwise normal colon. Appendix: Normal appendix is confirmed. Intraperitoneal space: No free air. No significant fluid collection. Vasculature: Mild aortoiliac calcific atherosclerosis without aneurysm. Lymph nodes: No enlarged lymph nodes. Urinary bladder: Unremarkable as visualized. Reproductive: Physiologic appearance for age. Bones/joints: Moderate bilateral hip osteoarthritis. No fracture or destructive bony lesion. Soft tissues: Fat containing umbilical hernia with hernia neck measuring 2.1 cm in diameter. No perineal/perianal abscess or inflammation. CT/CT abdomen pelvis wo con [id number] IMPRESSION: 1. Small bowel obstruction with midgut transition point, likely due to adhesions. 2. Stable bilateral adrenal masses since 2019, considered benign. Lesion on the right is likely an adenoma. Lesion on the left is compelling for myelolipoma.
[2022-12-26 23:57] LABS: INR 0.96 (0.8-1.2)
[2022-12-26 23:58] LABS: Fibrinogen 458 mg/dL (174-498); Partial Thromboplastin Time 31.6 SECONDS (23.9-36.7)
[2022-12-27] VITALS (14 sets, daily range): BP systolic 104–151; BP diastolic 75–96; PULSE 69–95; RESP 16–18; TEMP 36.7–37.1; O2SAT 90–98
[2022-12-27] MEDS: sodium chloride 0.9% 1,000 ML 999 ML IV ×2 (00:12→01:54)
[2022-12-27] MEDS: ondansetron 2 mg/ML SDV 2 mL 8 MG IVP (00:32)
[2022-12-27] MEDS: ketorolac 30 mg/mL INJ IVP (00:39)
[2022-12-27 01:31] LABS: Ketone (Acetest) Serum Negative (Negative)
--- NOTE | 2022-12-27 01:39 | PM.HP ---
Providers/Chief Complaint Admitting Physician: Morgan Douglas Primary Care Provider: Zeinab Salazar NP Chief Complaint: ABD Pain From Food History of Present Illness Pleasant 42-year-old gentleman with history of DM1, HTN, cardiomyopathy, low EF 30%, smoker, prior abdominal surgery, past history of bowel obstruction presented due to nausea, vomiting starting the morning of 09/25, he has had no bowel movement. He has not been able to keep down oral intake. States that there are Maitake mushrooms growing in his yard which he knows targetable and has had them before which she had picked several days ago, but states there are several other mushrooms which she does not think ratable, but was not sure whether he may have picked him by accident. In ER he is noted with leukocytosis 17.24, sinus tachycardia 106. Afebrile. Platelets WNL. Liver parameters unremarkable as well as normal INR, PTT, fibrinogen. Noted GEOVANNA BUN 39, creatinine 2.3. Anion gap 21.8, bicarb 18. Denies past history of DKA. Last insulin dose was yesterday morning. CT abdomen pelvis in ER with small bowel obstruction with midgut transition point likely due to adhesions. Incidentally noted stable lateral adrenal masses since 2019 considered benign. Lesion on the right likely adenoma. On the left compelling for myelolipoma. Surgery contacted in ER requesting admission to hospitalist, NGT, IVF, and will consult. Review of Systems Const: Denies: fever(s), chills, body aches or malaise ENMT: Denies: throat pain Card: Denies: chest pain, edema, pre-syncope or dyspnea on exertion Resp: Denies: dyspnea, productive cough, change in phlegm color or hemoptysis GI: Reports: abdominal pain, nausea and vomiting; Denies: diarrhea, hematochezia or melena : Denies: flank pain, difficulty urinating, urinary frequency or hematuria Musc: Denies: back pain, joint swelling or joint redness Skin/Breast: Denies: rash or new lesions Neuro: Denies: confusion Medications/Allergies Home Medications Medication Instructions Recorded Confirmed Last Taken Type blood sugar diagnostic (OneTouch #100 grams 08/20/21 05/23/22 Unknown Rx Ultra Test strips) blood-glucose meter (OneTouch #1 ea 08/20/21 05/23/22 Unknown Rx Ultra2 Meter) pen needle, diabetic 31 gauge x ##50 09/11/21 05/23/22 Unknown Rx 3/16 (Pentips) umeclidinium 62.5 mcg-vilanterol 1 inh inhalation Q24H #60 ea 12/13/21 05/23/22 Unknown Rx 25 mcg/actuation powdr for inhalation (Anoro Ellipta) lancets 30 gauge (EcoLogicLivingTouch Delica ##200 05/20/22 05/23/22 Unknown Rx Plus Lancet) albuterol sulfate 90 mcg/actuation 2 puff inhalation Q4H PRN 05/23/22 05/23/22 Unknown History aerosol inhaler (Ventolin HFA) Shortness Of Breath Or Wheezing atorvastatin 20 mg tablet 20 mg PO QPM 05/23/22 05/23/22 Unknown History clotrimazole 1 % topical cream 1 applic topical BID PRN Rash 05/23/22 05/23/22 Unknown History (Lotrimin AF (clotrimazole)) insulin aspar prot-insulin aspart See Rx Instructions .Route 09/05/22 Unknown Rx 100 unit/mL (70-30) subcutaneous .COMPLEX #36 mL pen (Novolog Mix 70-30FlexPen U-100) ondansetron 4 mg disintegrating 4 mg PO Q6H PRN nausea and 09/05/22 Unknown Rx tablet vomiting #14 tabs metoprolol succinate 100 mg 100 mg PO DAILY #90 tabs 09/16/22 Unknown Rx tablet,extended release 24 hr sacubitril 49 mg-valsartan 51 mg 1 tab PO BID #180 tabs 09/16/22 Unknown Rx tablet (Entresto) spironolactone 50 mg tablet 50 mg PO DAILY #90 tabs 09/16/22 Unknown Rx furosemide 80 mg tablet (Lasix) 80 mg PO DAILY #90 tabs 10/30/22 Unknown Rx meloxicam 15 mg tablet See Rx Instructions .Route 12/18/22 Unknown Rx .COMPLEX #30 tabs ondansetron 8 mg disintegrating See Rx Instructions .Route 12/18/22 Unknown Rx tablet .COMPLEX #30 tabs pantoprazole 40 mg tablet,delayed See Rx Instructions .Route 12/18/22 Unknown Rx release .COMPLEX #30 tabs sertraline 100 mg tablet See Rx Instructions .Route 12/18/22 Unknown Rx .COMPLEX #180 tabs trazodone 150 mg tablet See Rx Instructions .Route 12/18/22 Unknown Rx .COMPLEX #60 tabs Allergies Allergy/AdvReac Type Severity Reaction Status Date / Time mirtazapine [From Remeron] Allergy ADR-Agitate Verified 06/19/22 19:17 d morphine Allergy Unknown Verified 06/19/22 19:17 cephalexin [From Keflex] AdvReac ADR-Nausea Verified 06/19/22 19:17 PFSH Acute PFSH: Medical History Cannabis dependence, uncomplicated 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% no valvular abnormality Coronary artery disease Depression Essential hypertension GERD (gastroesophageal reflux disease) Major depressive disorder, recurrent severe without psychotic features Moderate pulmonary arterial systolic hypertension Nicotine dependence, cigarettes, with other nicotine-induced disorders Post-traumatic stress disorder, chronic Smoker Type 1 diabetes mellitus with hyperglycemia Surgical History AICD (automatic cardioverter/defibrillator) present History of hip surgery S/P coronary artery stent placement Family History Grandmother Diabetes Cancer Mother Diabetes Father Hypertension Grandmother Hypertension Father Cancer Social History Smoking and tobacco/nicotine status: current every day tobacco/nicotine user cigarettes Packs smoked per day: 1 Alcohol intake: current Alcohol intake frequency: holidays/special occasions only Substance/Drug Use: former Vitals/I&O/Wt Last Vital Signs Temp 97.6 F 12/26/22 22:32 Pulse 106 H 12/26/22 22:32 Resp 16 12/26/22 22:32 BP 130/91 12/26/22 22:32 Pulse Ox 96 12/26/22 22:32 Weight last 48 hrs Weight 81.647 kg Physical Exam Const: COMMON NORMALS: patient oriented x3 and alert GENERAL APPEARANCE: cooperative ORIENTATION/CONSCIOUSNESS: Yes awake HENMT: COMMON NORMALS: oropharynx normal Neck/C-Spine: COMMON NORMALS: no JVD Resp: COMMON NORMALS: normal respiratory effort and clear to auscultation bilaterally AUSCULTATION: clear to auscultation bilaterally Cardio: COMMON NORMALS: no JVD, regular rhythm, S1 normal heart sound present, S2 normal heart sound present and No murmurs present (Cardio) RHYTHM: regular rhythm HEART SOUNDS: S1 normal heart sound present and S2 normal heart sound present GI: COMMON NORMALS: Normal to inspection, nondistended, normoactive bowel sounds present, Soft to palpation and non-tender PALPATION: Yes Soft to palpation Extremity: COMMON NORMALS: no joint enlargement and no pedal edema Neuro: COMMON NORMALS: patient oriented x3 and moves all extremities SENSORIUM/ORIENTATION: Yes alert Skin: COMMON NORMALS: no rashes or lesions noted GENERAL SKIN EXAM: no rashes or lesions noted Data 12/26/22 23:10 12/26/22 23:10 A&P Assessment and plan (1) Small bowel obstruction: Reviewed CT, CBC, chemistry, discussed with ER physician, ER documentation reviewed. Surgery has been requested to consult, NGT is requested in ER as per recommendation. Bowel rest. IV hydration. Encouraged ambulation when possible once upstairs. He understands may require surgical intervention in case not improved with conservative measures. Monitor for decompensation of CHF with known cardiomyopathy, EF low at 30%. With resultant GEOVANNA At risk of electrolyte normality, dehydration with NGT decompression. Follow-up chemistry requested. Monitor volume status. Renal function. (2) Dehydration: Received fluid boluses in ER. Continue IV fluid infusion. Bowel rest for now with small bowel obstruction. Reviewed CBC, CMP. (3) GEOVANNA (acute kidney injury): Received fluid challenge in ER. Gentle IV hydration continued. Monitor for fluid overload with underlying cardiomyopathy. Stop meloxicam, discontinue at discharge. (4) Nausea & vomiting: Stop meloxicam. Discontinue at discharge. Several days ago had some mushrooms from his yard. States that normally Maitake mushrooms grow there and he has had them before, initially thought maybe he had taken some mushrooms which are not edible. Reviewed liver function including liver parameters, INR. Reassess. Qualifiers: Vomiting type: unspecified Qualified Code(s): R11.2 - Nausea with vomiting, unspecified (5) Type 1 diabetes mellitus with hyperglycemia: States he has not been taking 60 units of of 70/30 twice daily as it was brought in the out his sugars, he had to cut it way down to 30 units twice daily. For now we will transition to Lantus 15 units while n.p.o., SSI. Accu-Cheks. at risk of hypoglycemia while NPO. Hypoglycemia protocol requested. (6) High anion gap metabolic acidosis: Admission acid-base disorder with anion gap acidosis anion gap 21.8, bicarb 18. Possible mild DKA. Requested serum ketones, urine ketones pending with UA. Requested VBG. Does not have history of DKA, diastatic DM1. Last time he took insulin was yesterday morning. Assess for possible DKA. Insulin as above for now Lantus, SSI pending further studies. IV hydration. Check lactic acid. Suspect acidosis likely secondary to acute kidney injury. Plan Cardiomyopathy, low EF, status post AICD: Currently does not appear in decompensated CHF. Monitor with fluid infusion, may be at risk of decompensation. Hold Lasix, Entresto, spironolactone for now. Smoking addiction: Encourage cessation. Nicotine replacement as needed. History of carcinoid tumor of the rectum Depression HTN: Monitor blood pressures GERD Pulmonary hypertension PTSD Other medical problems Requesting for medications to be confirmed, please review and reconcile once available. Attestations Medical Necessity Statement*: Admission of over 2 midnights anticipated for assessment management of SBO, GEOVANNA in a gentleman with underlying cardiomyopathy, low EF 30%, DM1, with comorbidities. Diagnoses Small bowel obstruction K56.609 Dehydration E86.0 GEOVANNA (acute kidney injury) N17.9 Nausea & vomiting R11.2 Vomiting type: unspecified Type 1 diabetes mellitus with hyperglycemia E10.65 High anion gap metabolic acidosis E87.29
--- NOTE | 2022-12-27 01:48 | PC.NURSE ---
NG tube placed. Pt demanded NG tube be removed and stated that he is refusing NG tube. MD notified.
[2022-12-27 02:03] LABS: Base Excess VBG -5.3 mmol/L (-3.0-3.0); Blood Gas Sample Site Not specified; Blood Gas Sample Type Venous; HCO3 VBG 21.5 mmol/L (24-28); PCO2 VBG 44.8 mmHg (41-51); PO2 VBG 40.5 mmHg (25-40); Venous Blood Gas Hematocrit 53.6 % (42-52); pH VBG 7.29 (7.32-7.42)
--- NOTE | 2022-12-27 02:17 | PC.NURSE ---
Pt arrived to [facility] floor room 250-2. Orders [address] NG tube transferred to [facility]; pt had NG tube placed in ER but refused it after ER staff placed tube. ER staff educated pt on the necessity of NG tube, pt continued to refuse. Dr Douglas notified, no new orders at this time.
[2022-12-27 02:22] LABS: Glucose Point of Care 171 mg/dL (70-110)
[2022-12-27] MEDS: heparin 5,000 unit/mL INJ 1 mL 5000 UNIT SUBCUT ×3 (02:35→22:52)
[2022-12-27] MEDS: insulin glargine 100 units/1 mL 15 UNIT SUBCUT (02:36)
[2022-12-27] MEDS: insulin lispro 100 unit/1 mL SUBCUT ×3 (02:36→20:31)
[2022-12-27] MEDS: lactated ringers 1,000 ML 75 ML IV (03:12)
--- NOTE | 2022-12-27 04:05 | PC.NURSE ---
Pt's Brigida Lamb called for update on pt. Provided pt update to Brigida who states she will call the pt in the morning to see how he is doing.
[2022-12-27 05:28] LABS: Basophils % 0.2 %; Eosinophils % 0.2 %; Hematocrit 48.7 % (37-53); Lymphocytes # 2.4 10^3/uL (0.8-4.8); Lymphocytes % 18.9 %; Mean Corpuscular HGB Conc 33.5 g/dL (30-55); Mean Corpuscular Hemoglobin 32.7 pg (27-33); Mean Corpuscular Volume 97.8 fl (82-101); Mean Platelet Volume 11.8 fL (7.4-10.4); Monocytes # 0.5 10^3/uL (0.2-0.9); Monocytes % 3.6 %; Neutrophils # 9.61 10^3/uL (1.8-7.7); Neutrophils % 76.2 %; Nucleated Red Blood Cells % 0 %; Platelet Count 193 10^3/cmm (157-399); Red Blood Count 4.98 10^6/uL (3.85-5.65); Red Cell Distribution Width 13.2 % (12.1-15.1); White Blood Count 12.62 10^3/uL (3.29-11.43)
[2022-12-27 05:44] LABS: INR 1.01 (0.8-1.2)
[2022-12-27 05:54] LABS: Alanine Aminotransferase 11 U/L (0-41); Albumin Level 4.2 g/dL (3.5-5.2); Alkaline Phosphatase 82 U/L (40-130); Anion Gap 17.4 (5-19); Aspartate Amino Transferase 14 U/L (0-40); Blood Urea Nitrogen 39 mg/dL (6-20); Calcium 8.9 mg/dL (8.5-10.5); Carbon Dioxide 20 mmol/L (22-29); Chloride 104 mmol/L (98-107); Globulin 2.2 g/dL (1.3-4.6); Glomerular Filtration Rate 34.6 mL/min (90-130); Glucose 119 mg/dL (65-115); Osmolality Calculated 297 mOsm/kg (285-295); Potassium 3.4 mmol/L (3.5-5.1); Sodium 138 mmol/L (136-145); Total Bilirubin 0.4 mg/dL (0.15-1.2); Total Protein 6.4 g/dL (6.6-8.7)
[2022-12-27 06:46] LABS: Glucose Point of Care 108 mg/dL (70-110)
[2022-12-27] MEDS: ondansetron 2 mg/ML SDV 2 mL 4 MG IVP ×2 (08:03→19:30)
--- NOTE | 2022-12-27 08:03 | PC.NURSE ---
While RN was at bedside administering pain and nausea medication, RN witnessed patient sticking his hand in his mouth to make himself vomit. RN asked the patient why he was doing that, and he stated I wont actually vomit, unless I make myself . RN explained that we can to continue to give nausea medications, but without an NG tube the patient will probably continue to have nausea and vomiting. patient verbalized understanding.
[2022-12-27] MEDS: HYDROmorphone 1 mg/mL INJ 1 mL 0.4 MG IVP ×4 (08:05→23:52)
[2022-12-27] MEDS: dextrose 5%-sod chloride 0.9% 1,000 ML 75 ML IV ×2 (09:56→22:52)
[2022-12-27] MEDS: lidocaine 1% 5 ML in potassium chloride premix 100 ML 52.5 ML IV (09:57)
--- NOTE | 2022-12-27 11:11 | P.PN_ITS ---
Subjective Subjective: Patient was seen this morning, he reports continued nausea, abdominal pain, is not passing gas from below, has not had a bowel movement, he removed his NG tube, I discussed the morbidity and mortality associated with large volume aspiration, he voiced understanding, all questions answered, declined replacing NG tube, Vitals/I&O/Wt Last Vital Signs Temp 98.3 F 12/27/22 04:15 Pulse 79 12/27/22 04:15 Resp 16 12/27/22 08:05 BP 127/92 12/27/22 07:54 Pulse Ox 94 12/27/22 04:15 O2 Del Method Room Air 12/27/22 04:15 12/26/22 12/27/22 12/27/22 22:59 06:59 14:59 Intake Total 1999 511 / 511 Output Total 0 / 0 1300 / 1300 Balance 1999 -789 / -789 Weight last 48 hrs Weight 81.647 kg Physical Exam Const: COMMON NORMALS: no acute distress and patient oriented x3 Resp: COMMON NORMALS: normal respiratory effort, No retractions, No use of accessory muscles and clear to auscultation bilaterally AUSCULTATION: clear to auscultation bilaterally Cardio: COMMON NORMALS: regular rate, regular rhythm, S1 normal heart sound present and S2 normal heart sound present RATE: regular rate RHYTHM: regular rhythm HEART SOUNDS: S1 normal heart sound present and S2 normal heart sound present GI: OTHER: Abdomen is soft, slightly distended, no guarding, no rebound, no rigidity, does have diffuse tenderness, diminished bowel sounds in all 4 quadrants Extremity: COMMON NORMALS: no pedal edema Neuro: COMMON NORMALS: patient oriented x3 Psych: COMMON NORMALS: mental status grossly normal Data 12/27/22 04:23 12/27/22 04:23 A&P Assessment and plan (1) Small bowel obstruction: CT/CT abdomen pelvis wo con 19693 IMPRESSION: 1. ? Small bowel obstruction with midgut transition point, likely due to adhesions. 2. ? Stable bilateral adrenal masses since 2019, considered benign. Lesion on the right is likely an adenoma. Lesion on the left is compelling for myelolipoma. Plan -Admit to [facility] -Patient declines NG tube placement, understands morbidity and mortality, which is understanding, all questions answered, declines for now -Nausea control Zofran, Reglan, promethazine -D5 normal saline at 75 cc an hour -Dilaudid for pain control -Abdominal exams -General surgery consulted -Full code -Lovenox for DVT prophylaxis (2) Dehydration: On IV fluids (3) GEOVANNA (acute kidney injury): On IV fluids (4) Nausea & vomiting: Stop meloxicam. Discontinue at discharge. Several days ago had some mushrooms from his yard. States that normally Maitake mushrooms grow there and he has had them before, initially thought maybe he had taken some mushrooms which are not edible. Reviewed liver function including liver parameters, INR. Reassess. Qualifiers: Vomiting type: unspecified Qualified Code(s): R11.2 - Nausea with vomiting, unspecified (5) Type 1 diabetes mellitus with hyperglycemia: Low-dose sliding scale (6) High anion gap metabolic acidosis: Will monitor Plan Cardiomyopathy, low EF, status post AICD: Currently does not appear in decompensated CHF. Monitor with fluid infusion, may be at risk of decompensation. Hold Lasix, Entresto, spironolactone for now. -Monitor for fluid overload, as EF is 30% Smoking addiction: Encourage cessation. Nicotine replacement as needed. History of carcinoid tumor of the rectum Depression HTN: Monitor blood pressures GERD Pulmonary hypertension PTSD Other medical problems Requesting for medications to be confirmed, please review and reconcile once available. Spoke to patient, spoke to nursing staff, Attestations Medical Necessity Statement*: Patient requires hospitalization for small bowel obstruction, inpatient, greater than 2 midnights Diagnoses Small bowel obstruction K56.609 Dehydration E86.0 GEOVANNA (acute kidney injury) N17.9 Nausea & vomiting R11.2 Vomiting type: unspecified Type 1 diabetes mellitus with hyperglycemia E10.65 High anion gap metabolic acidosis E87.29
[2022-12-27 13:28] LABS: Glucose Point of Care 186 mg/dL (70-110)
[2022-12-27] MEDS: promethazine 25 mg/mL SDV 1 mL 12.5 MG IM (13:40)
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
[2022-12-27 20:17] LABS: Add Urine Microscopic? YES; Bilirubin Urine 1+ (Negative); Blood Urine Neg (Negative); Glucose Urine UA Norm (Normal); Ketones Urine 1+ (Negative); Leukocyte Esterase Urine Negative (Negative); Nitrate Urine Negative (Negative); Protein Urine 2+ (Negative); Squamous Epithelial Cell Urine RARE /hpf (0-5); Urine Appearance Clear (CLEAR); Urine Color Yellow (Yellow); Urobilinogen Urine Neg (Negative); pH Urine 5 (5-7)
[2022-12-27 20:18] LABS: Add Urine Culture? No; Amorphous Sediment Urine 1+ /hpf; Hyaline Casts Urine RARE /lpf; Mucus Urine 1+ /hpf
[2022-12-27 20:26] LABS: Glucose Point of Care 218 mg/dL (70-110)
[2022-12-27] MEDS: metoclopramide 5 mg/mL SDV 2 mL IVP (23:52)
[2022-12-28 00:24] VITALS: BP 128/88; PULSE 98; RESP 16; TEMP 36.8; O2SAT 94
--- NOTE | 2022-12-28 00:59 | PC.NURSE ---
Patient have multiple episodes of vomiting with green emesis. Patient refusing NG tube. Doctor aware.
[2022-12-28 02:00] LABS: Glucose Point of Care 193 mg/dL (70-110)
[2022-12-28] MEDS: insulin lispro 100 unit/1 mL SUBCUT ×2 (02:01→08:17)
--- NOTE | 2022-12-28 02:21 | PC.NURSE ---
Patient is asking for something for heartburn. He can't take pills as he has a SBO, is refusing NG tube, and is puking often. Dr. Douglas notified.
[2022-12-28 03:25] VITALS: BP 143/96; PULSE 58; RESP 16; TEMP 37.5; O2SAT 95
[2022-12-28 03:50] VITALS: RESP 16
[2022-12-28] MEDS: promethazine 25 mg/mL SDV 1 mL 12.5 MG IM (03:50)
[2022-12-28] MEDS: HYDROmorphone 1 mg/mL INJ 1 mL 0.4 MG IVP (03:50)
[2022-12-28 05:17] LABS: Basophils # 0.1 10^3/uL (0.0-0.1); Basophils % 0.7 %; Eosinophils # 0.1 10^3/uL (0.0-0.8); Eosinophils % 0.6 %; Hematocrit 56.2 % (37-53); Lymphocytes # 1.7 10^3/uL (0.8-4.8); Mean Corpuscular Hemoglobin 32.4 pg (27-33); Mean Corpuscular Volume 95.3 fl (82-101); Mean Platelet Volume 12.2 fL (7.4-10.4); Monocytes # 1.2 10^3/uL (0.2-0.9); Monocytes % 12.9 %; Neutrophils # 5.99 10^3/uL (1.8-7.7); Neutrophils % 66.5 %; Nucleated Red Blood Cells % 0 %; Platelet Count 240 10^3/cmm (157-399); Red Cell Distribution Width 13.3 % (12.1-15.1)
[2022-12-28 05:57] LABS: Alanine Aminotransferase 13 U/L (0-41); Albumin Level 4.9 g/dL (3.5-5.2); Alkaline Phosphatase 99 U/L (40-130); Anion Gap 20.9 (5-19); Aspartate Amino Transferase 17 U/L (0-40); Blood Urea Nitrogen 36 mg/dL (6-20); Calcium 10.6 mg/dL (8.5-10.5); Carbon Dioxide 25 mmol/L (22-29); Chloride 95 mmol/L (98-107); Globulin 3.2 g/dL (1.3-4.6); Glomerular Filtration Rate 36.6 mL/min (90-130); Glucose 169 mg/dL (65-115); Magnesium 1.8 mg/dL (1.7-2.3); Osmolality Calculated 298 mOsm/kg (285-295); Phosphorus 3.7 mg/dL (2.5-4.5); Sodium 138 mmol/L (136-145); Total Bilirubin 0.6 mg/dL (0.15-1.2); Total Protein 8.1 g/dL (6.6-8.7)
[2022-12-28 06:06] LABS: Potassium 2.9 mmol/L (3.5-5.1)
[2022-12-28] MEDS: lidocaine 1% 5 ML in potassium chloride premix 100 ML 25 ML IV (06:33)
--- NOTE | 2022-12-28 07:57 | PM.PN ---
Subjective Subjective: There has Been an interval improvement in symptoms, patient states less abdominal distention and pain. But he continues to have episodes of vomiting. Last vomit was this morning was bilious in nature. He continues to refuse NG tube placement. Vitals/I&O/Wt Last Vital Signs Temp 99.5 F 12/28/22 03:25 Pulse 58 L 12/28/22 03:25 Resp 16 12/28/22 03:50 BP 143/96 12/28/22 03:25 Pulse Ox 95 12/28/22 03:25 O2 Del Method Room Air 12/28/22 03:25 12/27/22 12/28/22 12/28/22 22:59 06:59 14:59 Intake Total 970 / 1586 Output Total 300 / 1900 1550 / 3450 Balance 670 / -314 -1550 / -1864 Weight last 48 hrs Weight 180 lb Physical Exam GI: OTHER: Abdomen is soft minimally distended, minimally tender to deep palpation. Data 12/28/22 04:16 12/28/22 04:16 A&P Assessment and plan (1) Small bowel obstruction: Plan Improvement in symptomatology, laboratory work-up this morning also appears to be improved when compared to yesterday. I have counseled patient regarding the need for NG tube. Patient has decided not to proceed with NG tube this time. There is no indication for surgical intervention at this moment, but I will closely monitor for the need of surgery. Patient should continue to be n.p.o. once vomit subsides patient can have a Gastrografin small bowel follow-through. Attestations Medical Necessity Statement*: Patient will require 24 to 48 hours more of hospital stay for small bowel obstruction Coding Level of Care Code Acute Code for [facility] Fwd Diagnoses Small bowel obstruction K56.609
[2022-12-28 08:00] VITALS: BP 108/73; PULSE 115; RESP 15; TEMP 36.5; O2SAT 94
[2022-12-28 08:13] LABS: Glucose Point of Care 223 mg/dL (70-110)
[2022-12-28] MEDS: pantoprazole 40 mg SDV IVP (08:17)
--- NOTE | 2022-12-28 09:00 | PC.NURSE ---
In room to answer patient's call light. Patient states, I want to leave. I feel about the same and if I am going to feel this way I might as well be at home. Explained to patient that if he would let us place the NG tube he would feel much better. Patient states, I am not going to do that and I want to leave. Dr. Hatch and Dr. Matthews notified. IV removed intact. Patient tolerated well.
[2022-12-28 09:13] VITALS: BP 108/73; PULSE 95; RESP 15; TEMP 36.5; O2SAT 94
--- NOTE | 2022-12-28 09:13 | PC.NURSE ---
Dr. Hatch at bedside to speak with patient. Patient is A&Ox3. Dr. Hatch explained to patient the risks including is high with a small bowel obstruction and with all the nausea and vomiting he could go into shock from it. Dr. Hatch offered to send patient home with some medications for nausea. Patient states, I have Zofran at home and if I get worse I will come back. Patient ambulated from the room with a steady gait.
--- NOTE | 2022-12-28 10:18 | PM.DCS ---
Discharge Providers Date of Admission: 12/27/22 01:32 Date of Discharge: December 28, 2022 Attending Provider at Admission: Morgan Douglas Attending Provider at Discharge: Darshan Hatch MD Primary Care Provider: Zeinab Salazar NP Diagnoses at Discharge Discharge Diagnosis (1) Small bowel obstruction: Status: Acute Reason for Visit Reason for Visit: ABD Pain From Food Hospital Course Hospital Course This is a 42-year-old male with type 1 diabetes mellitus, right percent, smoker, who presents to [facility] who presents to [facility] for nausea, vomiting, diagnosed with a small bowel obstruction Patient was admitted to [facility] for small bowel obstruction, conservatively managed, NG tube in place, received IV fluids, serial abdominal exams, general surgery was consulted. However patient removed his NG tube and refused replacement of NG tube. Patient would often self induce vomiting, he was monitored, placed on nausea medications, pain control, general surgery and I could not get patient to agree to place NG tube due to persistent nausea and vomiting. Discussed morbidity and mortality associated, he voiced understanding, all questions answered, declined. The morning of 12/28/2022, patient was seen in the hallway, leaving AGAINST MEDICAL ADVICE, I discussed the morbidity and mortality associated with leaving against leaving AGAINST MEDICAL ADVICE, he had to have a bowel movement, was not passing gas, still complaining of abdominal pain, feeling nauseous, he tells me that he has nausea medications at home, he is rather suffer at home. Discussed morbidity and mortality associate with bowel obstruction, including but not limited to associated with large-volume aspiration, bowel necrosis, shock, dehydration, GEOVANNA, he does have some degree of metabolic acidosis, also with concerns for high anion gap metabolic acidosis, DKA. He voiced understanding, all questions answered, declined to stay in the hospital, accepted morbidity and mortality, voiced understanding, all questions answered, nursing staff was present, left AGAINST MEDICAL ADVICE. Patient was advised if he has any nausea, vomiting, abdominal pain, fevers, chills, lack of stooling, lactic acid to come back to emergency room. I advised him to keep n.p.o. for now, to watch his blood sugars closely, and to reconsider his decision Physical Exam Const: COMMON NORMALS: no acute distress and patient oriented x3 OTHER: Patient refused examination Neuro: COMMON NORMALS: patient oriented x3 Discharge Data Studies Completed and Pending Completed Studies During Hospitalization Category Date Time Status CT abdomen pelvis wo con [id number] Stat Cat Scan 12/26/22 23:52 Completed Pending at discharge Category Date Time Status XR KUB portable [id number] Stat Exams 12/28/22 08:21 Ordered Complete Blood Count w/Auto AM LABS Lab 12/29/22 04:00 Ordered Complete Blood Count w/Auto AM LABS Lab 12/30/22 04:00 Ordered Comprehensive Metabolic Panel AM LABS Lab 12/29/22 04:00 Ordered Comprehensive Metabolic Panel AM LABS Lab 12/30/22 04:00 Ordered Magnesium AM LABS Lab 12/29/22 04:00 Ordered Magnesium AM LABS Lab 12/30/22 04:00 Ordered Phosphorus AM LABS Lab 12/29/22 04:00 Ordered Phosphorus AM LABS Lab 12/30/22 04:00 Ordered Radiology Impressions Abdomen/Pelvis CT 12/26/22 23:52 IMPRESSION: 1. Small bowel obstruction with midgut transition point, likely due to adhesions. 2. Stable bilateral adrenal masses since 2019, considered benign. Lesion on the right is likely an adenoma. Lesion on the left is compelling for myelolipoma. ADDENDUM: 12/27/22 0053 THIS REPORT CONTAINS FINDINGS THAT MAY BE CRITICAL TO PATIENT CARE. The findings were verbally communicated via telephone conference with Denny Motta at 12:51 AM CDT on 12/27/2022. The findings were acknowledged and understood. Laboratory Results WBC 9.00 10^3/uL (3.29-11.43) 12/28/22 04:16 RBC 5.90 10^6/uL (3.85-5.65) H 12/28/22 04:16 Hgb 19.10 g/dL (11.27-16.99) H 12/28/22 04:16 Hct 56.2 % (37-53) H 12/28/22 04:16 MCV 95.3 fl (82-101) 12/28/22 04:16 MCH 32.4 pg (27-33) 12/28/22 04:16 MCHC 34.0 g/dL (30-55) 12/28/22 04:16 RDW 13.3 % (12.1-15.1) 12/28/22 04:16 Plt Count 240 10^3/cmm (157-399) 12/28/22 04:16 MPV 12.2 fL (7.4-10.4) H 12/28/22 04:16 Neut % (Auto) 66.5 % 12/28/22 04:16 Lymph % (Auto) 19.0 % 12/28/22 04:16 Starke % (Auto) 12.9 % 12/28/22 04:16 Eos % (Auto) 0.6 % 12/28/22 04:16 Baso % (Auto) 0.7 % 12/28/22 04:16 Neut # (Auto) 5.99 10^3/uL (1.8-7.7) 12/28/22 04:16 Lymph # (Auto) 1.7 10^3/uL (0.8-4.8) 12/28/22 04:16 Starke # (Auto) 1.2 10^3/uL (0.2-0.9) H 12/28/22 04:16 Eos # (Auto) 0.1 10^3/uL (0.0-0.8) 12/28/22 04:16 Baso # (Auto) 0.1 10^3/uL (0.0-0.1) 12/28/22 04:16 Nucleated RBC % (auto) 0 % 12/28/22 04:16 Nucleated RBCs # 0.0 /100WBC 12/28/22 04:16 PT 13.60 SECONDS (12.1-14.9) 12/27/22 04:23 INR 1.01 (0.8-1.2) 12/27/22 04:23 APTT 31.6 SECONDS (23.9-36.7) 12/26/22 23:10 Fibrinogen 458 mg/dL (174-498) 12/26/22 23:10 Specimen Type Venous 12/27/22 01:55 Sample Site Not specified 12/27/22 01:55 Germain Test N/a 12/27/22 01:55 VBG pH 7.29 (7.32-7.42) L 12/27/22 01:55 VBG pCO2 44.8 mmHg (41-51) 12/27/22 01:55 VBG pO2 40.5 mmHg (25-40) H 12/27/22 01:55 VBG HCO3 21.5 mmol/L (24-28) L 12/27/22 01:55 VBG Base Excess -5.3 mmol/L (-3.0-3.0) L 12/27/22 01:55 VBG Hematocrit 53.6 % (42-52) H 12/27/22 01:55 O2 Delivery Device None 12/27/22 01:55 FiO2 21.0 % 12/27/22 01:55 Process Development Manager ID [id number] 12/27/22 01:55 Sodium 138 mmol/L (136-145) 12/28/22 04:16 Potassium 2.9 mmol/L (3.5-5.1) L 12/28/22 04:16 Chloride 95 mmol/L (98-107) L 12/28/22 04:16 Carbon Dioxide 25 mmol/L (22-29) 12/28/22 04:16 Anion Gap 20.9 (5-19) H 12/28/22 04:16 BUN 36 mg/dL (6-20) H 12/28/22 04:16 Creatinine 2.0 mg/dL (0.7-1.2) H 12/28/22 04:16 GFR Calculation 36.6 mL/min (90-130) L 12/28/22 04:16 Glucose 169 mg/dL (65-115) H 12/28/22 04:16 POC Glucose 223 mg/dL (70-110) H 12/28/22 08:10 Calculated Osmolality 298 mOsm/kg (285-295) H 12/28/22 04:16 Lactate 2.0 mmol/L (0.5-2.2) 12/26/22 23:10 Calcium 10.6 mg/dL (8.5-10.5) H 12/28/22 04:16 Phosphorus 3.7 mg/dL (2.5-4.5) 12/28/22 04:16 Magnesium 1.8 mg/dL (1.7-2.3) 12/28/22 04:16 Total Bilirubin 0.6 mg/dL (0.15-1.2) 12/28/22 04:16 AST 17 U/L (0-40) 12/28/22 04:16 ALT 13 U/L (0-41) 12/28/22 04:16 Alkaline Phosphatase 99 U/L (40-130) 12/28/22 04:16 Total Protein 8.1 g/dL (6.6-8.7) D 12/28/22 04:16 Albumin 4.9 g/dL (3.5-5.2) 12/28/22 04:16 Globulin 3.2 g/dL (1.3-4.6) 12/28/22 04:16 Lipase 45 U/L (13-60) 12/26/22 23:10 Urine Color Yellow (Yellow) 12/27/22 19:16 Urine Appearance Clear (CLEAR) 12/27/22 19:16 Urine pH 5 (5-7) 12/27/22 19:16 Ur Specific [place] 1.020 (1.005-1.030) 12/27/22 19:16 Urine Protein 2+ (Negative) H 12/27/22 19:16 Urine Glucose (UA) Norm (Normal) 12/27/22 19:16 Urine Ketones 1+ (Negative) H 12/27/22 19:16 Urine Blood Neg (Negative) 12/27/22 19:16 Urine Nitrate Negative (Negative) 12/27/22 19:16 Urine Bilirubin 1+ (Negative) H 12/27/22 19:16 Urine Urobilinogen Neg mg/dL (Negative) 12/27/22 19:16 Ur Leukocyte Esterase Negative (Negative) 12/27/22 19:16 Urine RBC None /hpf (0-2) 12/27/22 19:16 Urine WBC None /hpf (0-5) 12/27/22 19:16 Ur Squamous Epith Cells Rare /hpf (0-5) 12/27/22 19:16 Amorphous Sediment 1+ /hpf 12/27/22 19:16 Urine Bacteria None /hpf (NONE) 12/27/22 19:16 Hyaline Casts Rare /lpf 12/27/22 19:16 Urine Mucus 1+ /hpf 12/27/22 19:16 Serum Ketones Negative (Negative) 12/26/22 23:10 Vitals Last Vital Signs Temp 97.7 F 12/28/22 08:00 Pulse 115 H 12/28/22 08:00 Resp 15 12/28/22 08:00 BP 108/73 12/28/22 08:00 Pulse Ox 94 12/28/22 08:00 O2 Del Method Room Air 12/28/22 03:25 Discharge Plan Discharge Condition: Stable Prescriptions: No Action (DME) OneTouch Ultra Test Strip See Rx Instructions .ROUTE .COMPLEX Qty: 100 3RF Dose Instruction: DIRECTED Rx Instructions: DIRECTED (DME) blood-glucose meter [OneTouch Ultra2 Meter] Mis See Rx Instructions .ROUTE .COMPLEX Qty: 1 0RF Dose Instruction: DIRECTED Rx Instructions: DIRECTED (DME) pen needle, diabetic [Pentips] 31 gauge x 3/16 needle See Rx Instructions .ROUTE .COMPLEX Qty: 50 6RF Dose Instruction: USE TWICE A DAY Rx Instructions: USE TWICE A DAY Anoro Ellipta 62.5-25 mcg/actuation blister with device 1 inh inhalation Q24H Qty: 60 11RF (DME) lancets [OneTouch Delica Plus Lancet] 30 gauge misc See Rx Instructions .ROUTE .COMPLEX Qty: 200 4RF Dose Instruction: DIRECTED Rx Instructions: DIRECTED insulin asp prt-insulin aspart [Novolog Mix 70-30FlexPen U-100] 100 unit/mL (70-30) insulin pen See Rx Instructions .ROUTE .COMPLEX Qty: 36 0RF Dose Instruction: INJECT 60 UNITS SUBCUTANEOUSLY IN THE MORNING AND 60 UNITS IN THE EVENING Rx Instructions: INJECT 30 UNITS SUBCUTANEOUSLY IN THE MORNING AND 30 UNITS IN THE EVENING Entresto 49-51 mg tablet 1 tab PO BID Qty: 180 1RF ondansetron 8 mg tablet,disintegrating See Rx Instructions .ROUTE .COMPLEX Qty: 30 0RF Dose Instruction: DISSOLVE ONE TABLET ON TOP OF THE TONGUE WHERE IT WILL DISSOLVE THEN SWALLOW EVERY 8 HOURS NEEDED FOR NAUSEA AND VOMITING Rx Instructions: DISSOLVE ONE TABLET ON TOP OF THE TONGUE WHERE IT WILL DISSOLVE THEN SWALLOW EVERY 8 HOURS NEEDED FOR NAUSEA AND VOMITING atorvastatin 20 mg tablet 20 mg PO QPM albuterol sulfate [Ventolin HFA] 90 mcg/actuation HFA aerosol inhaler 2 puff inhalation Q4H PRN (Reason: Shortness Of Breath Or Wheezing) clotrimazole [Lotrimin AF (clotrimazole)] 1 % cream 1 applic topical BID PRN (Reason: Rash) meloxicam 15 mg tablet 15 mg PO QAM metoprolol succinate 100 mg tablet extended release 24 hr 100 mg PO QAM sertraline 100 mg tablet 100 mg PO QAM Lasix 80 mg tablet See Rx Instructions .ROUTE .COMPLEX Rx Instructions: Take 1 daily and use additional 80 mg as needed pantoprazole 40 mg tablet,delayed release (DR/EC) 40 mg PO QAM trazodone 150 mg tablet 300 mg PO BEDTIME spironolactone 50 mg tablet 50 mg PO QPM Referrals: Zeinab Salazar, CUSTOMER AGENT [Primary Care Provider] - Discharge Activity: Resume usual activity Patient Instructions: Opioid Safety Discharge Attestations Time Spent in Discharge Care*: greater than 30 min Status at Discharge: Cognitive status at discharge: cognitively intact, Quality Metrics Clinical Quality Measures [ No reported AMI, CVA or VTE this stay] Coding Level of Care Code 43958 Total time (in minutes) for Discharge: 45 Diagnoses Small bowel obstruction K56.609
== END 2022-12-28 09:13 | disposition left against medical advice (07) | DRG 389 ==
LOC: ER 12-27 01:18 → MEDSURG 12-27 01:32
PROVIDERS: Admitting Provider Internal Medicine; Emergency Provider Emergency Medicine; PCP Nurse Practitioner Family; Visit Provider Family Medicine
DX: K56.50 Intestinal adhesions [bands], unspecified as to partial versus complete obstruction (principal); I42.9 Cardiomyopathy, unspecified; I50.40 Unspecified combined systolic (congestive) and diastolic (congestive) heart failure; E10.65 Type 1 diabetes mellitus with hyperglycemia; E27.9 Disorder of adrenal gland, unspecified; Z79.4 Long term (current) use of insulin; I10 Essential (primary) hypertension; K21.9 Gastro-esophageal reflux disease without esophagitis; F43.12 Post-traumatic stress disorder, chronic; Z95.5 Presence of coronary angioplasty implant and graft; Z95.810 Presence of automatic (implantable) cardiac defibrillator; E86.0 Dehydration; F17.200 Nicotine dependence, unspecified, uncomplicated; Z85.048 Personal history of other malignant neoplasm of rectum, rectosigmoid junction, and anus
CPT/HCPCS: 36415; 36416; 74176; 80053; 81001; 82009; 82803; 82962; 83605; 83690; 83735; 84100; 85025; 85384; 85610; 85730; 96361; 96372; 96374; 96375; 99285; C9113; J1170; J1644; J1815; J1885; J2405; J2550; J2765; J3480; J7030; J7042; J7120

== ENCOUNTER → 2023-04-01 09:29 | Outpatient (BNVA) | payer MEDICAID, SELFPAY | PROVIDERS: PCP Nurse Practitioner Family; Visit Provider Nurse Practitioner Family | DX: E10.65 Type 1 diabetes mellitus with hyperglycemia (principal); E78.5 Hyperlipidemia, unspecified | CPT/HCPCS: 80053; 80061; 83036; 83721; 84443; 85025 ==

== ENCOUNTER → 2023-07-01 09:44 | Outpatient (BNVA) | payer MEDICAID, SELFPAY | PROVIDERS: PCP Nurse Practitioner Family; Visit Provider Nurse Practitioner Family | DX: E10.65 Type 1 diabetes mellitus with hyperglycemia (principal) | CPT/HCPCS: 83036 ==

== ENCOUNTER → 2023-09-30 08:00 | Outpatient (BNVA) | payer MEDICAID, SELFPAY | PROVIDERS: PCP Nurse Practitioner Family; Visit Provider Nurse Practitioner Family | DX: E10.65 Type 1 diabetes mellitus with hyperglycemia (principal); E78.5 Hyperlipidemia, unspecified | CPT/HCPCS: 80053; 80061; 83036 ==

== ENCOUNTER 2023-10-20 20:00 | Outpatient (CLI) | payer MEDICAID, SELFPAY | END 2023-10-20 20:01 | disposition home or self-care (01) | LOC: SLEEP 23:49 | PROVIDERS: PCP Nurse Practitioner Family; Visit Provider Nurse Practitioner Family | DX: G47.33 Obstructive sleep apnea (adult) (pediatric) (principal) | CPT/HCPCS: 95810 ==

== ENCOUNTER 2023-11-01 18:21 | Emergency (ER) | payer MEDICAID, SELFPAY ==
[2023-11-01 19:10] VITALS: BP 139/86; PULSE 93; RESP 18; TEMP 36.6; O2SAT 100; BMI 25.0
--- NOTE | 2023-11-01 19:39 | CTR_ITS ---
PROCEDURE INFORMATION: Exam: CT Abdomen And Pelvis With Contrast Exam date and time: 11/01/2023 8:08 PM Age: 43 years old Clinical indication: Abdominal pain; Generalized; Prior surgery; Surgery date: 6+ months; Surgery type: Defibrillator. Coronary stent. Abd exploratory. Patient HX: C/O diffuse abd pain with nausea. TECHNIQUE: Imaging protocol: Computed tomography of the abdomen and pelvis with contrast. Radiation optimization: All CT scans at this facility use at least one of these dose optimization techniques: automated exposure control; mA and/or kV adjustment per patient size (includes targeted exams where dose is matched to clinical indication); or iterative reconstruction. Contrast material: OMNI 350; Contrast volume: 100 ml; Contrast route: INTRAVENOUS (IV); COMPARISON: CT abdomen pelvis wo con [id number] 12/27/2022 12:01 AM. Comparison is made to a CT scan abdomen/pelvis dated 10/15/2018. RADIATION DOSE METRICS: Total DLP (mGy-cm): 573.73 FINDINGS: Tubes, catheters and devices: Pacemaker leads partially visualized. Liver: Normal. No mass. Gallbladder and biliary ducts: Normal. No calcified stones. No ductal dilation. Pancreas: Normal. No ductal dilation. Spleen: Normal. No splenomegaly. Adrenal glands: Fat containing lesion in the left adrenal gland measures 3.8 x 3.9 cm in the AP/transverse dimensions similar to the prior study. This is consistent with a benign myelolipoma. Nonspecific right adrenal gland lesion is unchanged and measures 18 mm x 17 mm in the AP/transverse dimension. Kidneys and ureters: Multiple subcentimeter bilateral renal cysts have benign features. Stomach and bowel: Unremarkable. No obstruction. No mucosal thickening. Appendix: A normal appendix is identified. Intraperitoneal space: Unremarkable. No free air. No significant fluid collection. Vasculature: Unremarkable. No abdominal aortic aneurysm. Lymph nodes: Unremarkable. No enlarged lymph nodes. Urinary bladder: Unremarkable as visualized. Reproductive: Unremarkable as visualized. Bones/joints: There are degenerative changes across the hip joint. Soft tissues: Small fat containing umbilical hernia. CT/CT abdomen pelvis w con* [id number] IMPRESSION: No acute findings. Stable bilateral adrenal gland lesions as described above. COMMENTS: Consistent with the [employer]'s Incidental Findings Committee white paper (J Am Shana Radiol 2018): Any incidental renal lesion less than 1 cm or classified as too small to characterize, or any incidental cystic renal lesion characterized as simple-appearing, is likely benign. No follow-up imaging is recommended for these lesions per consensus recommendations based on imaging criteria.
--- NOTE | 2023-11-01 19:40 | ED_ITS ---
HPI - Abdominal Pain 2 General: Chief Complaint: Abdominal Pain Stated Complaint: ABD pain Time Seen by Provider: 11/01/23 19:12 History of Present Illness: 43-year-old male who comes in in police custody complaining of diffuse abdominal pain associated with nausea. The patient states he had a history of gastritis. He also has a history of congestive heart failure but has been off his cardiac medications for at least a month. He takes Protonix daily. He was arrested today and shortly thereafter states he started to feel nauseated, became very sweaty and developed diffuse crampy abdominal pain. He was given Zofran by EMS and states he is feeling better. He denies chest pain or shortness of breath. Associated Symptoms: Reports nausea; Denies coffee ground emesis, constipation, hematemesis and vomiting Related Data Home Medications Medication Instructions Recorded Confirmed metoprolol succinate 100 mg 100 mg PO QAM 12/27/22 10/23/23 tablet,extended release 24 hr spironolactone 50 mg tablet 50 mg PO QPM 12/27/22 10/23/23 Previous Rx's Medication Instructions Recorded sacubitril 49 mg-valsartan 51 mg 1 tab PO BID #180 tabs 09/16/22 tablet (Entresto) albuterol sulfate 90 mcg/actuation 2 puff inhalation Q4H PRN 02/21/23 aerosol inhaler (Ventolin HFA) Shortness Of Breath Or Wheezing #8.5 grams furosemide 80 mg tablet (Lasix) See Rx Instructions .Route 02/21/23 .COMPLEX #90 tabs umeclidinium 62.5 mcg-vilanterol 1 inh inhalation Q24H #60 ea 02/21/23 25 mcg/actuation powdr for inhalation (Anoro Ellipta) pantoprazole 40 mg tablet,delayed See Rx Instructions .Route 06/23/23 release .COMPLEX #30 tabs insulin aspar prot-insulin aspart See Rx Instructions .Route 07/01/23 100 unit/mL (70-30) subcutaneous .COMPLEX #36 mL pen (Novolog Mix 70-30FlexPen U-100) lancets 30 gauge (OneTouch Delica #200 ea 07/01/23 Plus Lancet) pen needle, diabetic 31 gauge x #100 ea 07/01/2305/16 (Pentips) trazodone 150 mg tablet See Rx Instructions .Route 07/23/23 .COMPLEX #60 tabs meloxicam 15 mg tablet See Rx Instructions .Route 08/27/23 .COMPLEX #30 tabs atorvastatin 20 mg tablet See Rx Instructions .Route 09/15/23 .COMPLEX #90 tabs sertraline 100 mg tablet See Rx Instructions .Route 09/15/23 .COMPLEX #180 tabs blood-glucose meter,continuous #1 ea 10/01/23 (Dexcom G7 Hog Tender) blood sugar diagnostic (OneTouch #100 grams 10/03/23 Ultra Test strips) blood-glucose meter (OneTouch #1 ea 10/03/23 Ultra2 Meter) blood-glucose sensor (Dexcom G7 #9 ea 10/13/23 Sensor device) ondansetron 8 mg disintegrating See Rx Instructions .Route 10/13/23 tablet .COMPLEX #30 ea Allergies Allergy/AdvReac Type Severity Reaction Status Date / Time mirtazapine [From Remeron] Allergy ADR-Agitate Verified 07/01/23 09:39 d morphine Allergy Unknown Verified 07/01/23 09:39 cephalexin [From Keflex] AdvReac ADR-Nausea Verified 07/01/23 09:39 Review of Systems 2 Const: Reports: diaphoresis Card: Denies: chest pain, palpitations, dyspnea on exertion or orthopnea Resp: Denies: dyspnea or productive cough GI: Reports: abdominal pain and nausea; Denies: vomiting, hematemesis, coffee ground emesis or constipation : Denies: difficulty urinating PFSH ED 2 PFSH: Medical History Coronary artery disease Carcinoid tumor Rectal carcinoid tumor surgery Smoker Moderate pulmonary arterial systolic hypertension 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% no valvular abnormality Nicotine dependence, cigarettes, with other nicotine-induced disorders Cannabis dependence, uncomplicated Major depressive disorder, recurrent severe without psychotic features Post-traumatic stress disorder, chronic Depression Essential hypertension GERD (gastroesophageal reflux disease) Type 1 diabetes mellitus with hyperglycemia Surgical History AICD (automatic cardioverter/defibrillator) present S/P coronary artery stent placement History of hip surgery Family History Grandmother Diabetes Cancer Mother Diabetes Father Hypertension Grandmother Hypertension Father Cancer Social History Smoking and tobacco/nicotine status: current every day tobacco/nicotine user cigarettes Packs smoked per day: 1 Alcohol intake: current Alcohol intake frequency: holidays/special occasions only Substance/Drug Use: former Physical Exam 2 Const: COMMON NORMALS: no acute distress and healthy appearing HENMT: COMMON NORMALS: moist oral mucous membranes Neck/C-Spine: OTHER: Trachea midline, no lymphadenopathy Resp: COMMON NORMALS: normal respiratory effort and clear to auscultation bilaterally AUSCULTATION: clear to auscultation bilaterally Cardio: COMMON NORMALS: regular rate and regular rhythm RATE: regular rate RHYTHM: regular rhythm GI: COMMON NORMALS: Normal to inspection, nondistended, normoactive bowel sounds present and Soft to palpation PALPATION: Yes Soft to palpation O THER: Patient has tenderness in the right lower quadrant, no rebound or guarding. Abdomen is soft, no CVA tenderness Extremity: NARRATIVE EXTREMITY EXAM: No edema Course 2 ED course: Patient's had an IV placed and labs obtained. He was given a GI cocktail. He had a CT scan of his abdomen and pelvis. He decided that he wanted to leave once he was released from police custody, prior to the CT results being back. His labs are unremarkable, CT scan was unremarkable. Likely his symptoms are related to gastritis. Patient did sign out AGAINST MEDICAL ADVICE, as the results of the CT scan were not back at that time. Vital Signs: Vital signs: Vital Signs Temperature 98 F 11/01/23 19:10 Pulse Rate 100 11/01/23 21:03 Respiratory Rate 18 11/01/23 19:10 Blood Pressure 160/104 11/01/23 21:03 Pulse Oximetry 94 11/01/23 21:03 MDM - Abdominal Pain Medical Decision Making 43-year-old male who presents with generalized abdominal pain with associated nausea. He has tenderness in the right lower quadrant. Will obtain an IV, and labs. Will obtain a CT scan of his abdomen and pelvis. Will give him a GI cocktail to see if that helps with his current residual epigastric discomfort. Lab Data 11/01/23 19:57 11/01/23 19:57 Labs/Radiology: Radiology Impressions Abdomen/Pelvis CT 11/01/23 19:39 IMPRESSION: No acute findings. Stable bilateral adrenal gland lesions as described above. COMMENTS: Consistent with the [employer]'s Incidental Findings Committee white paper (J Am Shana Radiol 2018): Any incidental renal lesion less than 1 cm or classified as too small to characterize, or any incidental cystic renal lesion characterized as simple-appearing, is likely benign. No follow-up imaging is recommended for these lesions per consensus recommendations based on imaging criteria. Laboratory Results WBC 11.02 10^3/uL (3.29-11.43) 11/01/23 19:57 RBC 4.99 10^6/uL (3.85-5.65) 11/01/23 19:57 Hgb 16.00 g/dL (11.27-16.99) 11/01/23 19:57 Hct 47.9 % (37-53) 11/01/23 19:57 MCV 96.0 fl (82-101) 11/01/23 19:57 MCH 32.1 pg (27-33) 11/01/23 19:57 MCHC 33.4 g/dL (30-55) 11/01/23 19:57 RDW 13.6 % (12.1-15.1) 11/01/23 19:57 Plt Count 192 10^3/cmm (157-399) 11/01/23 19:57 MPV 11.3 fL (7.4-10.4) H 11/01/23 19:57 Neut % (Auto) 60.0 % 11/01/23 19:57 Lymph % (Auto) 30.8 % 11/01/23 19:57 [place] % (Auto) 5.6 % 11/01/23 19:57 Eos % (Auto) 2.1 % 11/01/23 19:57 Baso % (Auto) 0.5 % 11/01/23 19:57 Neut # (Auto) 6.61 10^3/uL (1.8-7.7) 11/01/23 19:57 Lymph # (Auto) 3.4 10^3/uL (0.8-4.8) 11/01/23 19:57 [place] # (Auto) 0.6 10^3/uL (0.2-0.9) 11/01/23 19:57 Eos # (Auto) 0.2 10^3/uL (0.0-0.8) 11/01/23 19:57 Baso # (Auto) 0.1 10^3/uL (0.0-0.1) 11/01/23 19:57 Nucleated RBC % (auto) 0 % 11/01/23 19:57 Nucleated RBCs # 0.0 /100WBC 11/01/23 19:57 Sodium 142 mmol/L (136-145) 11/01/23 19:57 Potassium 3.9 mmol/L (3.5-5.1) 11/01/23 19:57 Chloride 107 mmol/L (98-107) 11/01/23 19:57 Carbon Dioxide 21 mmol/L (22-29) L 11/01/23 19:57 Anion Gap 17.9 (5-19) 11/01/23 19:57 BUN 46 mg/dL (6-20) H 11/01/23 19:57 Creatinine 1.6 mg/dL (0.7-1.2) H 11/01/23 19:57 GFR Calculation 47.2 mL/min (90-130) L 11/01/23 19:57 Glucose 190 mg/dL (65-115) H 11/01/23 19:57 Calculated Osmolality 311 mOsm/kg (285-295) H 11/01/23 19:57 Calcium 9.4 mg/dL (8.5-10.5) 11/01/23 19:57 Total Bilirubin 0.2 mg/dL (0.15-1.2) 11/01/23 19:57 AST 12 U/L (0-40) 11/01/23 19:57 ALT 13 U/L (0-41) 11/01/23 19:57 Alkaline Phosphatase 103 U/L (40-130) 11/01/23 19:57 Total Protein 6.6 g/dL (6.6-8.7) 11/01/23 19:57 Albumin 4.1 g/dL (3.5-5.2) 11/01/23 19:57 Globulin 2.5 g/dL (1.3-4.6) 11/01/23 19:57 Lipase 60 U/L (13-60) 11/01/23 19:57 Urine Color Yellow (Yellow) 11/01/23 20:00 Urine Appearance Clear (CLEAR) 11/01/23 20:00 Urine pH 5.5 (5-7) 11/01/23 20:00 Ur Specific [place] 1.016 (1.005-1.030) 11/01/23 20:00 Urine Protein 2+ (Negative) A 11/01/23 20:00 Urine Glucose (UA) Trace (Normal) H 11/01/23 20:00 Urine Ketones Negative (Negative) 11/01/23 20:00 Urine Blood Negative (Negative) 11/01/23 20:00 Urine Nitrate Negative (Negative) 11/01/23 20:00 Urine Bilirubin Negative (Negative) 11/01/23 20:00 Urine Urobilinogen 0.2 mg/dL (Negative) 11/01/23 20:00 Ur Leukocyte Esterase Negative (Negative) 11/01/23 20:00 Urine RBC 0-2 /hpf (0-2) 11/01/23 20:00 Urine WBC 0-5 /hpf (0-5) 11/01/23 20:00 Ur Squamous Epith Cells 0-5 /hpf (0-5) 11/01/23 20:00 Amorphous Sediment Not Reportable 11/01/23 20:00 Urine Bacteria None seen /hpf (NONE) 11/01/23 20:00 Hyaline Casts 0.81 /lpf 11/01/23 20:00 All radiology interpretation(s) finalized by discharge ED provider radiology interpretation(s): CT scan of the abdomen and pelvis negative per radiology. Discharge Plan Discharge Patient Disposition: Left Against Medical Advice Clinical Impression: Abdominal pain Condition: Stable Prescriptions: No Action insulin asp prt-insulin aspart [Novolog Mix 70-30FlexPen U-100] 100 unit/mL (70-30) insulin pen See Rx Instructions .ROUTE .COMPLEX Qty: 36 3RF Dose Instruction: INJECT 60 UNITS SUBCUTANEOUSLY IN THE MORNING AND 60 UNITS IN THE EVENING Rx Instructions: INJECT 10 UNITS SUBCUTANEOUSLY IN THE MORNING AND 10 UNITS IN THE EVENING (DME) pen needle, diabetic [Pentips] 31 gauge x 3/16 needle See Rx Instructions .ROUTE .COMPLEX Qty: 100 6RF Dose Instruction: USE TWICE A DAY Rx Instructions: USE TWICE A DAY (DME) lancets [OneTouch Delica Plus Lancet] 30 gauge misc See Rx Instructions .ROUTE .COMPLEX Qty: 200 4RF Dose Instruction: DIRECTED Rx Instructions: three times a day (DME) Dexcom G7 Hog Tender Misc See Rx Instructions .Route Qty: 1 0RF Rx Instructions: As directed ([facility]) Dexcom G7 Sensor Device See Rx Instructions .Route Qty: 9 3RF Rx Instructions: As directed ondansetron 8 mg tablet,disintegrating See Rx Instructions .ROUTE .COMPLEX Qty: 30 1RF Dose Instruction: DISSOLVE ONE TABLET ON TOP OF THE TONGUE WHERE IT WILL DISSOLVE THEN SWALLOW EVERY 8 HOURS NEEDED FOR NAUSEA AND VOMITING Rx Instructions: DISSOLVE ONE TABLET ON TOP OF THE TONGUE WHERE IT WILL DISSOLVE THEN SWALLOW EVERY 8 HOURS NEEDED FOR NAUSEA AND VOMITING Entresto 49-51 mg tablet 1 tab PO BID Qty: 180 1RF Lasix 80 mg tablet See Rx Instructions .ROUTE .COMPLEX Qty: 90 3RF Rx Instructions: Take 1 daily and use additional 80 mg as needed albuterol sulfate [Ventolin HFA] 90 mcg/actuation HFA aerosol inhaler 2 puff inhalation Q4H PRN (Reason: Shortness Of Breath Or Wheezing) Qty: 8.5 5RF Anoro Ellipta 62.5-25 mcg/actuation blister with device 1 inh inhalation Q24H Qty: 60 11RF pantoprazole 40 mg tablet,delayed release (DR/EC) See Rx Instructions .ROUTE .COMPLEX Qty: 30 3RF Dose Instruction: TAKE ONE TABLET BY MOUTH ONCE DAILY IN THE MORNING Rx Instructions: TAKE ONE TABLET BY MOUTH ONCE DAILY IN THE MORNING trazodone 150 mg tablet See Rx Instructions .ROUTE .COMPLEX Qty: 60 2RF Dose Instruction: TAKE TWO TABLETS BY MOUTH ONCE DAILY AT BEDTIME Rx Instructions: TAKE TWO TABLETS BY MOUTH ONCE DAILY AT BEDTIME meloxicam 15 mg tablet See Rx Instructions .ROUTE .COMPLEX Qty: 30 1RF Dose Instruction: TAKE ONE TABLET BY MOUTH QF IN THE MORNING NEEDED FOR PAIN Rx Instructions: TAKE ONE TABLET BY MOUTH QF IN THE MORNING NEEDED FOR PAIN atorvastatin 20 mg tablet See Rx Instructions .ROUTE .COMPLEX Qty: 90 0RF Dose Instruction: TAKE ONE TABLET BY MOUTH ONCE DAILY Rx Instructions: TAKE ONE TABLET BY MOUTH ONCE DAILY sertraline 100 mg tablet See Rx Instructions .ROUTE .COMPLEX Qty: 180 0RF Dose Instruction: TAKE TWO TABLETS BY MOUTH ONCE DAILY Rx Instructions: TAKE TWO TABLETS BY MOUTH ONCE DAILY (DME) blood-glucose meter [OneTouch Ultra2 Meter] [facility] See Rx Instructions .ROUTE .COMPLEX Qty: 1 0RF Dose Instruction: DIRECTED Rx Instructions: DIRECTED (DME) OneTouch Ultra Test Strip See Rx Instructions .ROUTE .COMPLEX Qty: 100 3RF Dose Instruction: DIRECTED Rx Instructions: three times a day metoprolol succinate 100 mg tablet extended release 24 hr 100 mg PO QAM spironolactone 50 mg tablet 50 mg PO QPM Referrals: Zeinab Salazar, SURGICAL APPLIANCE FITTER [Primary Care Provider] - Patient Instructions: Abdominal Pain (ED) Coding Level of Care Code ED Envelope Folding Machine Operator for Alexis Gutierrez
[2023-11-01 20:02] LABS: Basophils # 0.1 10^3/uL (0.0-0.1); Basophils % 0.5 %; Eosinophils # 0.2 10^3/uL (0.0-0.8); Eosinophils % 2.1 %; Hematocrit 47.9 % (37-53); Lymphocytes # 3.4 10^3/uL (0.8-4.8); Lymphocytes % 30.8 %; Mean Corpuscular HGB Conc 33.4 g/dL (30-55); Mean Corpuscular Hemoglobin 32.1 pg (27-33); Mean Platelet Volume 11.3 fL (7.4-10.4); Monocytes # 0.6 10^3/uL (0.2-0.9); Monocytes % 5.6 %; Neutrophils # 6.61 10^3/uL (1.8-7.7); Nucleated Red Blood Cells % 0 %; Platelet Count 192 10^3/cmm (157-399); Red Blood Count 4.99 10^6/uL (3.85-5.65); Red Cell Distribution Width 13.6 % (12.1-15.1); White Blood Count 11.02 10^3/uL (3.29-11.43)
[2023-11-01 20:03] VITALS: BP 139/89; O2SAT 97
[2023-11-01] MEDS: iohexol 350 mg/mL 500 mL Btl (per mL) IV (20:12)
[2023-11-01 20:16] LABS: Charge for UA Resulting for Rev
[2023-11-01 20:18] LABS: Alanine Aminotransferase 13 U/L (0-41); Albumin Level 4.1 g/dL (3.5-5.2); Alkaline Phosphatase 103 U/L (40-130); Anion Gap 17.9 (5-19); Aspartate Amino Transferase 12 U/L (0-40); Blood Urea Nitrogen 46 mg/dL (6-20); Calcium 9.4 mg/dL (8.5-10.5); Carbon Dioxide 21 mmol/L (22-29); Chloride 107 mmol/L (98-107); Creatinine Clr Calc Pharmacy 57.2417; Globulin 2.5 g/dL (1.3-4.6); Glomerular Filtration Rate 47.2 mL/min (90-130); Glucose 190 mg/dL (65-115); Lipase 60 U/L (13-60); Osmolality Calculated 311 mOsm/kg (285-295); Potassium 3.9 mmol/L (3.5-5.1); Sodium 142 mmol/L (136-145); Total Bilirubin 0.2 mg/dL (0.15-1.2); Total Protein 6.6 g/dL (6.6-8.7)
[2023-11-01 20:19] LABS: Bilirubin Urine Negative (Negative); Blood Urine Negative (Negative); Glucose Urine UA Trace (Normal); Ketones Urine Negative (Negative); Leukocyte Esterase Urine Negative (Negative); Nitrate Urine Negative (Negative); Protein Urine 2+ (Negative); Specific Gravity, Urine 1.016 (1.005-1.030); Urine Appearance Clear (CLEAR); Urine Color Yellow (Yellow); Urobilinogen Urine 0.2 mg/dL (Negative); pH Urine 5.5 (5-7)
[2023-11-01 20:24] LABS: Bacteria Urine None Seen /hpf; Hyaline Casts Urine 0.81 /lpf; RBC Urine 0-2 /hpf (0-2); Squamous Epithelial Cell Urine 0-5 /hpf (0-5); WBC Urine 0-5 /hpf (0-5)
[2023-11-01 21:03] VITALS: BP 160/104; PULSE 100; O2SAT 94
== END 2023-11-01 21:05 | disposition left against medical advice (07) ==
PROVIDERS: Emergency Provider Emergency Medicine; PCP Nurse Practitioner Family
DX: R10.31 Right lower quadrant pain (principal); Z53.29 Procedure and treatment not carried out because of patient's decision for other reasons; Z79.4 Long term (current) use of insulin
CPT/HCPCS: 36415; 74177; 80053; 81003; 81015; 83690; 85025; 99285

== ENCOUNTER → 2023-11-07 11:00 | Outpatient (BNVA) | payer MEDICAID, SELFPAY | PROVIDERS: PCP Nurse Practitioner Family; Visit Provider Nurse Practitioner Family | DX: K52.29 Other allergic and dietetic gastroenteritis and colitis (principal); K92.1 Melena | CPT/HCPCS: 80053; 85025; 86003; 86008 ==

== ENCOUNTER → 2023-12-29 08:47 | Outpatient (BNVA) | payer MEDICAID, SELFPAY | PROVIDERS: PCP Nurse Practitioner Family; Visit Provider Nurse Practitioner Family | DX: E10.65 Type 1 diabetes mellitus with hyperglycemia (principal) | CPT/HCPCS: 83036 ==

== ENCOUNTER 2024-02-05 09:51 | Inpatient (IN) | payer MEDICAID, SELFPAY ==
[2024-02-05] VITALS (15 sets, daily range): BP systolic 99–126; BP diastolic 62–79; PULSE 75–113; RESP 12–18; TEMP 36.8–37.2; O2SAT 90–97; BMI 23.5
--- NOTE | 2024-02-05 10:00 | ECG_ITS ---
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 Measurements Intervals [place] Rate: 103 P: 62 MS: 130 QRS: -28 QRSD: 95 T: 127 QT: 368 QTc: 482 Interpretive Statements SINUS TACHYCARDIA BORDERLINE LEFT AXIS DEVIATION [QRS AXIS < -20] MODERATE T-WAVE ABNORMALITY, CONSIDER LATERAL ISCHEMIA [-0.1+ mV T-WAVE IN I/aVL/V5/V6] Compared to ECG 10/25/2020 11:24:29 Sinus rhythm no longer present Intraventricular conduction delay no longer present T-wave abnormality still present Possible ischemia still present Electronically Signed On 02-05-2024 14:40:25 EXPANDED DUTY DENTAL ASSISTANT by Ambrocio Claudio M.D. [email or web address]
--- NOTE | 2024-02-05 10:04 | XRR_ITS ---
PROCEDURE INFORMATION: Exam: XR Chest Exam date and time: 02/05/2024 11:03 AM Age: 43 years old Clinical indication: Pain; Angina pectoris; Additional info: Cp TECHNIQUE: Imaging protocol: Radiologic exam of the chest. Views: 1 view. COMPARISON: CR XR chest 1V portable [id number] 10/30/2020 10:20 AM FINDINGS: Tubes, catheters and devices: Dual lead electronic cardiac device projects over the left chest. Lungs: No large focal consolidation. Pleural spaces: No large pleural effusion. No distinct pneumothorax. Heart/Mediastinum: Cardiomediastinal silhouette is midline and normal in size. Bones/joints: No acute osseous findings. XR/XR chest 1V portable [id number] IMPRESSION: No acute cardiopulmonary findings.
--- NOTE | 2024-02-05 11:19 | ED_ITS ---
HPI - Arrhythmia/Palpitations 2 General: Chief Complaint: Arrhythmia/Palpitations Stated Complaint: heart problems Time Seen by Provider: 02/05/24 11:05 Source: patient Mode of arrival: ambulatory Limitations: no limitations History of Present Illness: 43-year-old male who has a history of co ronary disease he states been having off-and-on chest pain over the last 4 to 5 days. States been intermittent in nature a dull aching pain in the center of his chest he states he was at [facility] and they did want to do a heart cath he is unsure what any of his labs were there but he left AMA yesterday. He states his cane pusher is here is Dr. An he denies any pain currently denies any cough or fever Associated symptoms: Deny nausea or vomiting Related Data Home Medications Medication Instructions Recorded Confirmed metoprolol succinate 100 mg 100 mg PO QAM 12/27/22 01/19/24 tablet,extended release 24 hr spironolactone 50 mg tablet 50 mg PO QPM 12/27/22 01/19/24 Previous Rx's Medication Instructions Recorded sacubitril 49 mg-valsartan 51 mg 1 tab PO BID #180 tabs 09/16/22 tablet (Entresto) furosemide 80 mg tablet (Lasix) See Rx Instructions .Route 02/21/23 .COMPLEX #90 tabs umeclidinium 62.5 mcg-vilanterol 1 inh inhalation Q24H #60 ea 02/21/23 25 mcg/actuation powdr for inhalation (Anoro Ellipta) lancets 30 gauge (OneTouch Delica #200 ea 07/01/23 Plus Lancet) blood-glucose meter,continuous #1 ea 10/01/23 (Dexcom G7 Building Services Coordinator) blood sugar diagnostic (OneTouch #100 grams 10/03/23 Ultra Test strips) blood-glucose meter (OneTouch #1 ea 10/03/23 Ultra2 Meter) blood-glucose sensor (Dexcom G7 #9 ea 10/13/23 Sensor device) cpap #1 ea 11/07/23 pantoprazole 40 mg tablet,delayed See Rx Instructions .Route 11/12/23 release .COMPLEX #30 tabs trazodone 150 mg tablet See Rx Instructions .Route 11/12/23 .COMPLEX #60 tabs insulin glargine 100 unit/mL (3 10 unit (0.1 mL) SUBCUT QAM #15 mL 11/17/23 mL) subcutaneous pen (Lantus Solostar U-100 Insulin) insulin lispro 100 unit/mL See Rx Instructions .Route TID #15 11/17/23 subcutaneous pen (Humalog KwikPen mL (U-100) Insulin) pen needle, diabetic 31 gauge x #100 ea 11/18/23 3/16 (Pentips Pen Needle) atorvastatin 20 mg tablet See Rx Instructions .Route 01/13/24 .COMPLEX #90 tabs meloxicam 15 mg tablet See Rx Instructions .Route 01/13/24 .COMPLEX #30 tabs sertraline 100 mg tablet See Rx Instructions .Route 01/13/24 .COMPLEX #180 tabs buspirone 5 mg tablet 5 mg PO BID #90 tabs 01/19/24 ondansetron 8 mg disintegrating See Rx Instructions .Route 01/19/24 tablet .COMPLEX #30 tabs albuterol sulfate 90 mcg/actuation 2 puff inhalation Q4H PRN 01/26/24 aerosol inhaler (Ventolin HFA) shortness of breath or wheezing 90 days #18 grams Allergies Allergy/AdvReac Type Severity Reaction Status Date / Time mirtazapine [From Remeron] Allergy ADR-Agitate Verified 02/05/24 10:07 d morphine Allergy Unknown Verified 02/05/24 10:07 cephalexin [From Keflex] AdvReac ADR-Nausea Verified 02/05/24 10:07 Review of Systems 2 Const: Denies: fever(s), chills, body aches or change in appetite ENMT: Denies: throat pain or dental pain Card: Reports: chest pain Resp: Reports: dyspnea GI: Denies: abdominal pain, nausea, vomiting or diarrhea Musc: Denies: neck pain or back pain Skin/Breast: Denies: rash Neuro: Denies: headache(s) PFSH ED 2 PFSH: Medical History Coronary artery disease Carcinoid tumor Rectal carcinoid tumor surgery Smoker Moderate pulmonary arterial systolic hypertension 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% no valvular abnormality Nicotine dependence, cigarettes, with other nicotine-induced disorders Cannabis dependence, uncomplicated Major depressive disorder, recurrent severe without psychotic features Post-traumatic stress disorder, chronic Depression Essential hypertension GERD (gastroesophageal reflux disease) Type 1 diabetes mellitus with hyperglycemia Surgical History AICD (automatic cardioverter/defibrillator) present S/P coronary artery stent placement History of hip surgery Family History Grandmother Diabetes Cancer Mother Diabetes Father Hypertension Grandmother Hypertension Father Cancer Social History Smoking and tobacco/nicotine status: current every day tobacco/nicotine user cigarettes Packs smoked per day: 1 Alcohol intake: current Alcohol intake frequency: holidays/special occasions only Substance/Drug Use: former Physical Exam 2 Const: COMMON NORMALS: patient oriented x3 HENMT: COMMON NORMALS: normocephalic and atraumatic HEAD & SCALP: n ormocephalic and atraumatic Eye: COMMON NORMALS: Equal, round and reactive pupils present and EOMs intact bilaterally PUPIL: Yes Equal, round and reactive pupils present Neck/C-Spine: COMMON NORMALS: full ROM and supple Chest: COMMONS NORMALS: normal inspection of the chest and normal palpation of entire chest wall Resp: COMMON NORMALS: normal respiratory effort, No retractions, No use of accessory muscles and clear to auscultation bilaterally AUSCULTATION: clear to auscultation bilaterally Cardio: COMMON NORMALS: regular rate, regular rhythm and No murmurs present (Cardio) RATE: regular rate RHYTHM: regular rhythm GI: COMMON NORMALS: Normal to inspection, nondistended, normoactive bowel sounds present, Soft to palpation, non-tender and no masses PALPATION: Yes Soft to palpation Extremity: COMMON NORMALS: normal to inspection and full ROM Neuro: COMMON NORMALS: patient oriented x3, moves all extremities and no focal motor deficits Psych: COMMON NORMALS: mental status grossly normal, Normal thought process present and cooperative THOUGHT PROCESS: Normal thought process present Skin: COMMON NORMALS: no rashes or lesions noted and no wounds GENERAL SKIN EXAM: no rashes or lesions noted Course 2 Vital Signs: Vital signs: Vital Signs Temperature 98.4 F 02/05/24 10:04 Pulse Rate 91 02/05/24 11:37 Blood Pressure 126/75 02/05/24 11:37 Pulse Oximetry 90 02/05/24 11:37 Oxygen Delivery Me thod Room Air 02/05/24 11:37 MDM - Arrhythmia/Palpitations Medical Decision Making Patient presents for chest pain over the last 2 days he does have an elevated troponin consistent with NSTEMI EKG shows no ST elevation did give Lovenox I spoke to the hospitalist along with cane pusher and will admit. Medical Records I reviewed the patient's medical records. Lab Data I reviewed the patient's lab results. 02/05/24 11:15 02/05/24 11:15 Radiology Impressions Chest X-Ray 02/05/24 10:04 IMPRESSION: No acute cardiopulmonary findings. Laboratory Results WBC 10.94 10^3/uL (3.29-11.43) 02/05/24 11:15 RBC 5.32 10^6/uL (3.85-5.65) 02/05/24 11:15 Hgb 16.90 g/dL (11.27-16.99) 02/05/24 11:15 Hct 51.7 % (37-53) 02/05/24 11:15 MCV 97.2 fl (82-101) 02/05/24 11:15 MCH 31.8 pg (27-33) 02/05/24 11:15 MCHC 32.7 g/dL (30-55) 02/05/24 11:15 RDW 12.7 % (12.1-15.1) 02/05/24 11:15 Plt Count 228 10^3/cmm (157-399) 02/05/24 11:15 MPV 12.5 fL (7.4-10.4) H 02/05/24 11:15 Neut % (Auto) 68.0 % 02/05/24 11:15 Lymph % (Auto) 24.0 % 02/05/24 11:15 [place] % (Auto) 5.5 % 02/05/24 11:15 Eos % (Auto) 1.3 % 02/05/24 11:15 Baso % (Auto) 0.5 % 02/05/24 11:15 Neut # (Auto) 7.44 10^3/uL (1.8-7.7) 02/05/24 11:15 Lymph # (Auto) 2.6 10^3/uL (0.8-4.8) 02/05/24 11:15 [place] # (Auto) 0.6 10^3/uL (0.2-0.9) 02/05/24 11:15 Eos # (Auto) 0.1 10^3/uL (0.0-0.8) 02/05/24 11:15 Baso # (Auto) 0.1 10^3/uL (0.0-0.1) 02/05/24 11:15 Nucleated RBC % (auto) 0 % 02/05/24 11:15 Nucleated RBCs # 0.0 /100WBC 02/05/24 11:15 PT 11.60 SECONDS (12.1-14.9) L 02/05/24 11:15 INR 0.83 (0.8-1.2) 02/05/24 11:15 Sodium 138 mmol/L (136-145) 02/05/24 11:15 Chloride 102 mmol/L (98-107) 02/05/24 11:15 Creatinine 1.2 mg/dL (0.7-1.2) 02/05/24 11:15 Calculated Osmolality 295 mOsm/kg (285-295) 02/05/24 11:15 Calcium 9.6 mg/dL (8.5-10.5) 02/05/24 11:15 Total Bilirubin 0.3 mg/dL (0.15-1.2) 02/05/24 11:15 Alkaline Phosphatase 100 U/L (40-130) 02/05/24 11:15 Troponin T Baseline 886 ng/L (0-15) H* 02/05/24 11:15 Total Protein 7.3 g/dL (6.6-8.7) 02/05/24 11:15 Albumin 4.4 g/dL (3.5-5.2) 02/05/24 11:15 Globulin 2.9 g/dL (1.3-4.6) 02/05/24 11:15 Lipase 32 U/L (13-60) 02/05/24 11:15 All radiology interpretation(s) finalized by discharge EKG Data EKG 1: I personally reviewed and interpreted this EKG as follows: EKG interpretation date: 02/05/24 EKG interpretation time: 10:00 Interpretation: sinus tach hr [address] elevation qrs 95 qtc 427 Other EKG comments: Chest X-Ray 02/05/24 10:04 IMPRESSION: No acute cardiopulmonary findings. EKG 2: I personally reviewed and interpreted this EKG as follows: EKG interpretation date: 02/05/24 EKG interpretation time: 11:24 Interpretation: nsr hr [address] elevation qrs 98 qtc 431 Other EKG comments: Chest X-Ray 02/05/24 10:04 IMPRESSION: No acute cardiopulmonary findings. Discharge Plan Discharge Patient Disposition: Admitted As Inpatient Clinical Impression: Non-ST elevation LA (NSTEMI) Condition: Stable Prescriptions: No Action (DME) lancets [OneTouch Delica Plus Lancet] 30 gauge misc See Rx Instructions .ROUTE .COMPLEX Qty: 200 4RF Dose Instruction: DIRECTED Rx Instructions: three times a day (DME) Dexcom G7 Building Services Coordinator Misc See Rx Instructions .Route Qty: 1 0RF Rx Instructions: As directed (DME) Dexcom G7 Sensor Device See Rx Instructions .Route Qty: 9 3RF Rx Instructions: As directed buspirone 5 mg tablet 5 mg PO BID Qty: 90 0RF Rx Instructions: may increase to three times a day if needed after two weeks. (DME) cpap See Rx Instructions .Route .MEDSUPPLY Qty: 1 0RF Rx Instructions: please issue auto titrating cpap 6-16cm and all supplies. insulin glargine [Lantus Solostar U-100 Insulin] 100 unit/mL (3 mL) insulin pen 10 unit SUBCUT QAM Qty: 15 0RF insulin lispro [Humalog KwikPen Insulin] 100 unit/mL insulin pen See Rx Instructions .ROUTE TID Qty: 15 0RF Rx Instructions: 0-150=0units,151-200=2units,201-250=4units,251-300=6units,301-350=8units,077=552 =10units, >[address] max dose 30units three times daily; Entresto 49-51 mg tablet 1 tab PO BID Qty: 180 1RF Lasix 80 mg tablet See Rx Instructions .ROUTE .COMPLEX Qty: 90 3RF Rx Instructions: Take 1 daily and use additional 80 mg as needed Anoro Ellipta 62.5-25 mcg/actuation blister with device 1 inh inhalation Q24H Qty: 60 11RF (DME) blood-glucose meter [OneTouch Ultra2 Meter] [facility] [place] Rx Instructions .ROUTE .COMPLEX Qty: 1 0RF Dose Instruction: DIRECTED Rx Instructions: DIRECTED ([facility] [place]) OneTouch Ultra Test Strip See Rx Instructions .ROUTE .COMPLEX Qty: 100 3RF Dose Instruction: DIRECTED Rx Instructions: three times a day trazodone 150 mg tablet See Rx Instructions .ROUTE .COMPLEX Qty: 60 2RF Dose Instruction: TAKE TWO TABLETS BY MOUTH ONCE DAILY AT BEDTIME Rx Instructions: TAKE TWO TABLETS BY MOUTH ONCE DAILY AT BEDTIME pantoprazole 40 mg tablet,delayed release (DR/EC) See Rx Instructions .ROUTE .COMPLEX Qty: 30 3RF Dose Instruction: TAKE ONE TABLET BY MOUTH ONCE DAILY IN THE MORNING Rx Instructions: TAKE ONE TABLET BY MOUTH ONCE DAILY IN THE MORNING (DME) pen needle, diabetic [Pentips Pen Needle] 31 gauge x 3/16 needle See Rx Instructions .ROUTE .COMPLEX Qty: 100 6RF Dose Instruction: USE TWICE A DAY Rx Instructions: USE TWICE A DAY atorvastatin 20 mg tablet See Rx Instructions .ROUTE .COMPLEX Qty: 90 0RF Dose Instruction: TAKE ONE TABLET BY MOUTH ONCE DAILY Rx Instructions: TAKE ONE TABLET BY MOUTH ONCE DAILY sertraline 100 mg tablet See Rx Instructions .ROUTE .COMPLEX Qty: 180 0RF Dose Instruction: TAKE TWO TABLETS BY MOUTH ONCE DAILY Rx Instructions: TAKE TWO TABLETS BY MOUTH ONCE DAILY meloxicam 15 mg tablet See Rx Instructions .ROUTE .COMPLEX Qty: 30 0RF Dose Instruction: TAKE ONE TABLET BY MOUTH ONCE DAILY IN THE MORNING NEEDED FOR PAIN Rx Instructions: TAKE ONE TABLET BY MOUTH ONCE DAILY IN THE MORNING NEEDED FOR PAIN ondansetron 8 mg tablet,disintegrating See Rx Instructions .ROUTE .COMPLEX Qty: 30 1RF Dose Instruction: DISSOLVE ONE TABLET ON TOP OF THE TONGUE WHERE IT WILL DISSOLVE THEN SWALLOW EVERY 8 HOURS NEEDED FOR NAUSEA AND VOMITING Rx Instructions: DISSOLVE ONE TABLET ON TOP OF THE TONGUE WHERE IT WILL DISSOLVE THEN SWALLOW EVERY 8 HOURS NEEDED FOR NAUSEA AND VOMITING albuterol sulfate [Ventolin HFA] 90 mcg/actuation HFA aerosol inhaler 2 puff inhalation Q4H PRN (Reason: shortness of breath or wheezing) 90 Days Qty: 18 3RF metoprolol succinate 100 mg tablet extended release 24 hr 100 mg PO QAM spironolactone 50 mg tablet 50 mg PO QPM Referrals: Vigna,Zeinab, ALCOHOL AND DRUG COUNSELOR [Primary Care Provider] - Coding Level of Care Code ED Real Estate Valuer for Nikolaig Matt
--- NOTE | 2024-02-05 11:24 | ECG_ITS ---
[facility] Date: 2024-02-05 Pat Name: Jerman Lamb Department: Room: Gender: Male Online Communications Manager: : 1980 Requested By: Elvis Ramos Order Number: [id number] Bebeto MD: Ambrocio Claudio M.D. Measurements Intervals [place] Rate: 87 P: 55 NH: 123 QRS: -31 QRSD: 98 T: 172 QT: 386 QTc: 467 Interpretive Statements SINUS RHYTHM WITH SINUS ARRHYTHMIA POSSIBLE LEFT ATRIAL ENLARGEMENT [-0.1mV P-WAVE IN V1/V2] LEFT AXIS DEVIATION [QRS AXIS < -30] PATTERN CONSISTENT WITH PULMONARY DISEASE ST DEVIATION AND MODERATE T-WAVE ABNORMALITY, CONSIDER LATERAL ISCHEMIA [-0.1+ mV T-WAVE IN I/aVL/V5/V6] Compared to ECG 02/05/2024 10:00:53 Sinus tachycardia no longer present T-wave abnormality still present Possible ischemia still present Electronically Signed On 02-05-2024 14:39:56 NARCOTICS INVESTIGATOR by Ambrocio Claudio M.D. [id number]
[2024-02-05 11:29] LABS: Basophils # 0.1 10^3/uL (0.0-0.1); Basophils % 0.5 %; Eosinophils # 0.1 10^3/uL (0.0-0.8); Eosinophils % 1.3 %; Hematocrit 51.7 % (37-53); Lymphocytes # 2.6 10^3/uL (0.8-4.8); Mean Corpuscular HGB Conc 32.7 g/dL (30-55); Mean Corpuscular Hemoglobin 31.8 pg (27-33); Mean Corpuscular Volume 97.2 fl (82-101); Mean Platelet Volume 12.5 fL (7.4-10.4); Monocytes # 0.6 10^3/uL (0.2-0.9); Monocytes % 5.5 %; Neutrophils # 7.44 10^3/uL (1.8-7.7); Nucleated Red Blood Cells % 0 %; Platelet Count 228 10^3/cmm (157-399); Red Blood Count 5.32 10^6/uL (3.85-5.65); Red Cell Distribution Width 12.7 % (12.1-15.1); White Blood Count 10.94 10^3/uL (3.29-11.43)
[2024-02-05] MEDS: aspirin 81 mg Chew Tablet 324 MG PO (11:30)
[2024-02-05 11:52] LABS: INR 0.83 (0.8-1.2)
[2024-02-05 12:01] LABS: Troponin(5th) Baseline 886 ng/L (0-15)
--- NOTE | 2024-02-05 12:04 | ECG_ITS ---
[employer] Test Date: 2024-02-05 Pat Name: Jerman Lamb Department: Room: 104 Gender: Male School Teacher: : 1980 Requested By: Elvis Ramos Order Number: [id number] Bebeto MD: Ambrocio Claudio M.D. Measurements Intervals [place] Rate: 79 P: 55 MI: 124 QRS: -42 QRSD: 102 T: 244 QT: 407 QTc: 468 Interpretive Statements SINUS RHYTHM WITH SINUS ARRHYTHMIA POSSIBLE LEFT ATRIAL ENLARGEMENT [-0.1mV P-WAVE IN V1/V2] LEFT AXIS DEVIATION [QRS AXIS < -30] PATTERN CONSISTENT WITH PULMONARY DISEASE MODERATE T-WAVE ABNORMALITY, CONSIDER ANTEROLATERAL ISCHEMIA [-0.1+ mV T-WAVE IN V3-V6] MODERATE T-WAVE ABNORMALITY, CONSIDER INFERIOR ISCHEMIA [-0.1+ mV T-WAVE IN II/aVF] Compared to ECG 02/05/2024 11:24:39 No significant changes Electronically Signed On 02-05-2024 14:44:35 MANAGER OF [employer] SALES by Ambrocio Claudio M.D. [email or web address]
--- NOTE | 2024-02-05 12:05 | USCV_ITS ---
Jerman Lamb Age: 43 Gender: M : 1980 Exam Date: 02/05/2024 12:19 Ordering Phys: Elvis Ramos MD Technologist: CT Exam Location: [facility] [place]_ Indication: cp BP: 126 / 75 HR: 79 Rhythm: Sinus Technical Quality: Adequate MEASUREMENTS (Male / Female) Normal Values 2D ECHO LVOT Diameter 2.2 cm LV Ejection Fraction MOD 4C 40.4 % LV Ejection Fraction MOD 2C 36.6 % LV Ejection Fraction 2C AL 38.2 % LA Diameter 4.5 cm RA Systolic Volume 4C AL 38.3 ml RA Systolic Volume 4C MOD 37.9 ml LA Sys Volume AL 53.7 cm cubed LA Sys Volume Index AL 29.9 cm cubed/m squared Aorta at Sinotubular Diameter 2.8 cm IVC Diameter 1.8 cm M-MODE LA Ao Ratio MM 1.8 AV Cusp Separation MM 1.8 cm DOPPLER AV Peak Velocity 135.0 cm/s LVOT Peak Velocity 90.0 cm/s AV Area Cont Eq vti 3.5 cm squared AV Area Cont Eq pk 2.6 cm squared MV Peak Velocity 82.0 cm/s MV Area PHT 5.1 cm squared Mitral E to A Ratio 1.0 TR Peak Velocity 129.0 cm/s TR Peak Gradient 6.7 mmHg TV Peak E Velocity 56.0 cm/s PV Peak Velocity 104.0 cm/s FINDINGS Left Ventricle Diffuse hypokinesia of the left ventricular with an ejection fraction of around 25-30 % (visual). Mildly dilated LV cavity Right Ventricle Normal RV size and ejection fraction. Right Atrium Pacemaker/defibrillator wire in the right atrium/right ventricle Left Atrium Possibly of normal size Mitral Valve Trace mitral valve regurgitation. Aortic Valve Thickened aortic valve. Tricuspid Valve Trace tricuspid valve regurgitation. Pulmonic Valve Pulmonic valve not well visualized. Pericardium No pericardial effusion. Aorta Normal aortic annulus size. IVC Normal inferior vena cava. CONCLUSIONS Diffuse hypokinesia of the left ventricle with an ejection fraction of around 25-30 %. (visual). Mildly dilated LV cavity. Normal RV size and ejection fraction. Pacemaker/defibrillator wire in the right atrium/right ventricle. Thickened aortic valve. Trace mitral valve regurgitation. Trace tricuspid valve regurgitation. Estimated pulmonary artery peak systolic pressure possibly within normal limits There is no pericardial effusion. There are no intracardiac masses. Compared to the study from 10/10/2020, there may not be a significant change Dr Radha Madison MD [facility] (Electronically Signed) Final Date: 05 February 2024 17:45 S
[2024-02-05] MEDS: enoxaparin 80 mg/0.8 mL Syringe 70 MG SUBCUT (12:36)
--- NOTE | 2024-02-05 12:55 | P.HP_ITS ---
Providers/Chief Complaint 2 Primary Care Provider: Zeinab Salazar NP Chief Complaint: heart problems History of Present Illness Jerman Lamb is a 43 year old male With past medical history of coronary artery disease, carcinoid tumor, smoker, pulmonary arterial hypertension, combined systolic diastolic heart failure, nicotine dependence, depression, hypertension, GERD, diabetes mellitus who presented to the hospital today with complaints of chest pain. He was apparently at [place] with an NSTEMI. Plan was for coronary angiogram however he left AGAINST MEDICAL ADVICE since he wanted to come to [facility]. Today he came in to the ER with complaint of chest pain which was radiating to the neck. He denies shortness of breath nausea diaphoresis at the onset of pain. He received nitroglycerin and aspirin. In the ER he denied any chest pain. He does have a history of a pacemaker and coronary stenting in 2019. He is a long-term smoker and smokes 1 pack/day for last 20 years. On review of cath record patient had PCI to mid LAD and PDA by Dr. Loredo on . Seen lying in bed comfortable at this time denies any chest pain. Cardiology has been consulted in the ER. Medications/Allergies Home Medications Medication Instructions Recorded Confirmed Last Taken Type furosemide 80 mg tablet (Lasix) See Rx Instructions .Route 02/21/23 02/05/24 02/05/24 Rx .COMPLEX #90 tabs umeclidinium 62.5 mcg-vilanterol 1 inh inhalation Q24H #60 ea 02/21/23 02/05/24 02/05/24 Rx 25 mcg/actuation powdr for inhalation (Anoro Ellipta) lancets 30 gauge (OneTouch Delica #200 ea 07/01/23 02/05/24 Unknown Rx Plus Lancet) blood-glucose meter,continuous #1 ea 10/01/23 02/05/24 Unknown Rx (Dexcom G7 Pump Room Operator) blood sugar diagnostic (OneTouch #100 grams 10/03/23 02/05/24 Unknown Rx Ultra Test strips) blood-glucose meter (OneTouch #1 ea 10/03/23 02/05/24 Unknown Rx Ultra2 Meter) blood-glucose sensor (Dexcom G7 #9 ea 10/13/23 02/05/24 Unknown Rx Sensor device) cpap #1 ea 11/07/23 02/05/24 Unknown Rx insulin glargine 100 unit/mL (3 10 unit (0.1 mL) SUBCUT QAM #15 mL 11/17/23 02/05/24 02/05/24 Rx mL) subcutaneous pen (Lantus Solostar U-100 Insulin) pen needle, diabetic 31 gauge x #100 ea 11/18/23 02/05/24 Unknown Rx 3/16 (Pentips Pen Needle) buspirone 5 mg tablet 5 mg PO BID #90 tabs 01/19/24 02/05/24 02/05/24 Rx ondansetron 8 mg disintegrating See Rx Instructions .Route 01/19/24 02/05/24 Unknown Rx tablet .COMPLEX #30 tabs albuterol sulfate 90 mcg/actuation 2 puff inhalation Q4H PRN 01/26/24 02/05/24 Unknown Rx aerosol inhaler (Ventolin HFA) shortness of breath or wheezing 90 days #18 grams atorvastatin 20 mg tablet 20 mg PO DAILY 02/05/24 02/05/24 02/05/24 History insulin lispro 100 unit/mL See Rx Instructions .Route .COMPLEX 02/05/24 02/05/24 02/05/24 History subcutaneous pen (Humalog KwikPen (U-100) Insulin) meloxicam 15 mg tablet 15 mg PO QAM PRN Pain 02/05/24 02/05/24 02/05/24 History pantoprazole 40 mg tablet,delayed 40 mg PO QAM 02/05/24 02/05/24 02/05/24 History release sertraline 100 mg tablet 200 mg PO DAILY 02/05/24 02/05/24 02/05/24 History trazodone 150 mg tablet 300 mg PO BEDTIME 02/05/24 02/05/24 02/04/24 History Allergies Allergy/AdvReac Type Severity Reaction Status Date / Time mirtazapine [From Remeron] Allergy ADR-Agitate Verified 02/05/24 10:07 d morphine Allergy Unknown Verified 02/05/24 10:07 cephalexin [From Keflex] AdvReac ADR-Nausea Verified 02/05/24 10:07 PFSH Acute 2 PFSH: Medical History Coronary artery disease Carcinoid tumor Rectal carcinoid tumor surgery Smoker Moderate pulmonary arterial systolic hypertension 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% no valvular abnormality Nicotine dependence, cigarettes, with other nicotine-induced disorders Cannabis dependence, uncomplicated Major depressive disorder, recurrent severe without psychotic features Post-traumatic stress disorder, chronic Depression Essential hypertension GERD (gastroesophageal reflux disease) Type 1 diabetes mellitus with hyperglycemia Surgical History AICD (automatic cardioverter/defibrillator) present S/P coronary artery stent placement History of hip surgery Family History Grandmother Diabetes Cancer Mother Diabetes Father Hypertension Grandmother Hypertension Father Cancer Social History Smoking and tobacco/nicotine status: current every day tobacco/nicotine user cigarettes Packs smoked per day: 1 Alcohol intake: current Alcohol intake frequency: holidays/special occasions only Substance/Drug Use: former Vitals/I&O/Wt Last Vital Signs Temp 98.4 F 02/05/24 10:04 Pulse 91 02/05/24 11:37 BP 126/75 02/05/24 11:37 Pulse Ox 90 02/05/24 11:37 O2 Del Method Room Air 02/05/24 11:37 Weight last 48 hrs Weight 68.039 kg Physical Exam 2 Narrative: General: Alert oriented x3, patient seen sitting up in bed appearing comfortable. HEENT: Normocephalic, atraumatic, EOMI, breathing room air. Cardio: Regular rate rhythm, normal S1-S2, no murmurs Respiratory: Clear to auscultation bilaterally no wheezes no rhonchi. GI: Abdomen soft, nontender, nondistended, bowel sounds + Behavior: Appropriate and cooperative Extremities: No edema bilateral lower extremities. Data 02/06/24 05:02 02/06/24 05:02 A&P Assessment and plan (1) Major depressive disorder, recurrent severe without psychotic features: (2) Congestive heart failure: Qualifiers: Heart failure chronicity: chronic Heart failure type: systolic Qualified Code(s): I50.22 - Chronic systolic (congestive) heart failure (3) Non-ST elevation ME (NSTEMI): (4) AICD (automatic cardioverter/defibrillator) present: (5) Hyperlipidemia: (6) GERD (gastroesophageal reflux disease): Qualifiers: Esophagitis presence: esophagitis presence not specified Qualified Code(s): K21.9 - Gastro-esophageal reflux disease without esophagitis Plan #NSTEMI #Coronary disease status post PCI #Diabetes mellitus on insulin #GERD #Chronic congestive heart failure #Status post AICD ? Patient presented with chest pain was diagnosed with NSTEMI yesterday and plan for coronary enterogram however left AMA. ? N.p.o. till seen by cardiology ? Placed on Lovenox twice daily ? Aspirin, Plavix, continue atorvastatin. ? Patient chest pain-free at this time. First troponin 800, 2-hour 6-hour troponin pending at this time. ? EKG without any acute ischemic changes. ? Cardiology consulted. Await recommendations ? Patient will most likely need angiogram. ? Continue sliding scale insulin moderate dose intensity ? Continue sertraline, trazodone daily ? Continue Lasix home dose. Full code Due to prophylaxis: On therapeutic Lovenox Attestations 2 Medical Necessity Statement*: NSTEMI, requires greater than 2 midnight stay. Diagnoses Major depressive disorder, recurrent severe without psychotic features F33.2 Chronic systolic congestive heart failure I50.22 Heart failure chronicity: chronic Heart failure type: systolic Non-ST elevation ME (NSTEMI) I21.4 AICD (automatic cardioverter/defibrillator) present Z95.810 Hyperlipidemia E78.5 Gastroesophageal reflux disease, unspecified whether esophagitis present K21.9 Esophagitis presence: esophagitis presence not specified
--- NOTE | 2024-02-05 13:07 | P.CONIM_ITS ---
Providers/Reason For Consult 2 Consulting Physician/Specialty*: RONDA Madison MD/cardiology Reason for Consult*: Patient with unstable angina, history of ASHD, multiple PCI's. Primary Care Provider: Zeinab Salazar NP History of Present Illness History of Present Illness Jerman Lamb is a 43 year old male The patient is a 43-year-old male presenting with chest pain. Symptoms commenced several weeks ago, manifesting as intermittent chest discomfort. On the preceding day, the pain intensified, rating a 10 on a pain scale of 1 to 10 on two distinct occasions. The initial episode began in the late morning and persisted for 12 to 13 hours before subsiding after administration of Dilaudid. A subsequent episode occurred after 5 to 6 hours, lasting 2 to 3 hours and again reaching a pain level of 10. On both occasions, the pain originated in the chest and radiated to the neck. The patient denied any associated symptoms such as shortness of breath, nausea, or diaphoresis at the time of pain onset. He has been admitted to the hospital, where he received nitroglycerin and aspirin, although the nitroglycerin caused severe headaches. Nitroglycerin and Dilaudid were administered, the latter of which provided pain relief. Today, the patient reports no pain and visits to pursue further cardiac evaluation. The patient has a significant cardiovascular history, including the placement of a pacemaker in 2020 and coronary artery stenting in 2019. He is aware of elevated blood pressure, for which he takes medication, and also has type 1 diabetes and hyperlipidemia. He is a long-term smoker, consuming one pack of cigarettes daily for the past 20 to 30 years. The patient has a family history of cardiac problems on his mother's side. Patient also has a history of PTSD. He has an ICD, placed prophylactically in 2020. No discharges so far. Patient is on disability from his LV dysfunction Review of Systems 2 Narrative: CONSTITUTIONAL: No fever or chills. EYES: No blurring of vision or other visual disturbances lately. ENT: No hoarseness of voice, auditory disturbances or sore throat. CARDIOVASCULAR: As mentioned above. RESPIRATORY: No significant cough. GASTROINTESTINAL: No hematemesis or melena. GENITOURINARY: No dysuria or hematuria. INTEGUMENTARY: No skin rashes or history of skin cancer. NEURO: No transient ischemic attacks or amaurosis. PSYCHIATRIC: No history of psychosis or major depression. HEMATOLOGIC: No bleeding disorders or significant anemia. ENDOCRINE: No history of polyuria or polydipsia. MUSCULOSKELETAL: No recent joint pain or swelling. ALLERGY/IMMUNOLOGY: As mentioned above. Medications/Allergies Home Medications Medication Instructions Recorded Confirmed Last Taken Type furosemide 80 mg tablet (Lasix) See Rx Instructions .Route 02/21/23 02/05/24 02/05/24 Rx .COMPLEX #90 tabs umeclidinium 62.5 mcg-vilanterol 1 inh inhalation Q24H #60 ea 02/21/23 02/05/24 02/05/24 Rx 25 mcg/actuation powdr for inhalation (Anoro Ellipta) lancets 30 gauge (OneTouch Delica #200 ea 07/01/23 02/05/24 Unknown Rx Plus Lancet) blood-glucose meter,continuous #1 ea 10/01/23 02/05/24 Unknown Rx (Dexcom G7 Wound Nurse) blood sugar diagnostic (OneTouch #100 grams 10/03/23 02/05/24 Unknown Rx Ultra Test strips) blood-glucose meter (OneTouch #1 ea 10/03/23 02/05/24 Unknown Rx Ultra2 Meter) blood-glucose sensor (Dexcom G7 #9 ea 10/13/23 02/05/24 Unknown Rx Sensor device) cpap #1 ea 11/07/23 02/05/24 Unknown Rx insulin glargine 100 unit/mL (3 10 unit (0.1 mL) SUBCUT QAM #15 mL 11/17/23 02/05/24 02/05/24 Rx mL) subcutaneous pen (Lantus Solostar U-100 Insulin) pen needle, diabetic 31 gauge x #100 ea 11/18/23 02/05/24 Unknown Rx 3/16 (Pentips Pen Needle) buspirone 5 mg tablet 5 mg PO BID #90 tabs 01/19/24 02/05/24 02/05/24 Rx ondansetron 8 mg disintegrating See Rx Instructions .Route 01/19/24 02/05/24 Unknown Rx tablet .COMPLEX #30 tabs albuterol sulfate 90 mcg/actuation 2 puff inhalation Q4H PRN 01/26/24 02/05/24 Unknown Rx aerosol inhaler (Ventolin HFA) shortness of breath or wheezing 90 days #18 grams atorvastatin 20 mg tablet 20 mg PO DAILY 02/05/24 02/05/24 02/05/24 History insulin lispro 100 unit/mL See Rx Instructions .Route .COMPLEX 02/05/24 02/05/24 02/05/24 History subcutaneous pen (Humalog KwikPen (U-100) Insulin) meloxicam 15 mg tablet 15 mg PO QAM PRN Pain 02/05/24 02/05/24 02/05/24 History pantoprazole 40 mg tablet,delayed 40 mg PO QAM 02/05/24 02/05/24 02/05/24 History release sertraline 100 mg tablet 200 mg PO DAILY 02/05/24 02/05/24 02/05/24 History trazodone 150 mg tablet 300 mg PO BEDTIME 02/05/24 02/05/24 02/04/24 History Allergies Allergy/AdvReac Type Severity Reaction Status Date / Time mirtazapine [From Remeron] Allergy ADR-Agitate Verified 02/05/24 10:07 d morphine Allergy Unknown Verified 02/05/24 10:07 cephalexin [From Keflex] AdvReac ADR-Nausea Verified 02/05/24 10:07 PFSH Acute 2 PFSH: Medical History Coronary artery disease Carcinoid tumor Rectal carcinoid tumor surgery Smoker Moderate pulmonary arterial systolic hypertension 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% no valvular abnormality Nicotine dependence, cigarettes, with other nicotine-induced disorders Cannabis dependence, uncomplicated Major depressive disorder, recurrent severe without psychotic features Post-traumatic stress disorder, chronic Depression Essential hypertension GERD (gastroesophageal reflux disease) Type 1 diabetes mellitus with hyperglycemia Surgical History AICD (automatic cardioverter/defibrillator) present S/P coronary artery stent placement History of hip surgery Family History Grandmother Diabetes Cancer Mother Diabetes Father Hypertension Grandmother Hypertension Father Cancer Social History Smoking and tobacco/nicotine status: current every day tobacco/nicotine user cigarettes Packs smoked per day: 1 Alcohol intake: current Alcohol intake frequency: holidays/special occasions only Substance/Drug Use: former Vitals/I&O/Wt Last Vital Signs Temp 98.4 F 02/05/24 10:04 Pulse 91 02/05/24 11:37 BP 126/75 02/05/24 11:37 Pulse Ox 90 02/05/24 11:37 O2 Del Method Room Air 02/05/24 11:37 Weight last 48 hrs Weight 150 lb Physical Exam 2 Narrative: GENERAL: The patient is alert and oriented times three. Not in any acute distress. Lean, thin frame HEENT: No significant pallor, icterus or lymphadenopathy.Oral cavity: There are no mucous membrane lesions. NECK: Trachea appears to be central. No masses noted. No JVD or thyromegaly appreciated. RESPIRATORY: Chest is symmetrical. No intercostals muscle retraction or any accessory muscle activation. There is no chest wall tenderness. Breath sounds are heard bilaterally. No rales or rhonchi heard. No evidence of any consolidation. BREASTS: Deferred. HEART: The heart sounds are normal. No S3 or S4. No significant murmurs. No pericardial rub ABDOMEN: No vessel pulsations or distention. No tenderness. No organomegaly appreciated. Bowel sounds are normally heard. : Deferred. RECTAL: Deferred. LYMPHATIC: No lymphadenopathy noted in the neck. EXTREMITIES: No edema or cyanosis. No clubbing. MUSCULOSKELETAL: No acute joint deformities or swelling SKIN: There are no significant rashes or ecchymosis NEUROPSYCHIATRIC: The patient is alert and oriented x3. Appears to be in a good mood. No tremors or rigidity noted. Data 02/05/24 11:15 02/05/24 12:43 Other Labs: Laboratory Last Values WBC 10.94 10^3/uL (3.29-11.43) 02/05/24 11:15 RBC 5.32 10^6/uL (3.85-5.65) 02/05/24 11:15 Hgb 16.90 g/dL (11.27-16.99) 02/05/24 11:15 Hct 51.7 % (37-53) 02/05/24 11:15 MCV 97.2 fl (82-101) 02/05/24 11:15 MCH 31.8 pg (27-33) 02/05/24 11:15 MCHC 32.7 g/dL (30-55) 02/05/24 11:15 RDW 12.7 % (12.1-15.1) 02/05/24 11:15 Plt Count 228 10^3/cmm (157-399) 02/05/24 11:15 MPV 12.5 fL (7.4-10.4) H 02/05/24 11:15 Neut % (Auto) 68.0 % 02/05/24 11:15 Lymph % (Auto) 24.0 % 02/05/24 11:15 Cocke % (Auto) 5.5 % 02/05/24 11:15 Eos % (Auto) 1.3 % 02/05/24 11:15 Baso % (Auto) 0.5 % 02/05/24 11:15 Neut # (Auto) 7.44 10^3/uL (1.8-7.7) 02/05/24 11:15 Lymph # (Auto) 2.6 10^3/uL (0.8-4.8) 02/05/24 11:15 [place]ke # (Auto) 0.6 10^3/uL (0.2-0.9) 02/05/24 11:15 Eos # (Auto) 0.1 10^3/uL (0.0-0.8) 02/05/24 11:15 Baso # (Auto) 0.1 10^3/uL (0.0-0.1) 02/05/24 11:15 Nucleated RBC % (auto) 0 % 02/05/24 11:15 Nucleated RBCs # 0.0 /100WBC 02/05/24 11:15 PT 11.60 SECONDS (12.1-14.9) L 02/05/24 11:15 INR 0.83 (0.8-1.2) 02/05/24 11:15 Sodium 141 mmol/L (136-145) 02/05/24 12:43 Potassium 3.7 mmol/L (3.5-5.1) 02/05/24 12:43 Chloride 104 mmol/L (98-107) 02/05/24 12:43 Carbon Dioxide 25 mmol/L (22-29) 02/05/24 12:43 Anion Gap 15.7 (5-19) 02/05/24 12:43 BUN 30 mg/dL (6-20) H 02/05/24 12:43 Creatinine 1.2 mg/dL (0.7-1.2) 02/05/24 12:43 GFR Calculation 65.8 mL/min (90-130) L 02/05/24 12:43 Glucose 125 mg/dL (65-115) H 02/05/24 12:43 POC Glucose 211 mg/dL (70-110) H 02/05/24 16:48 Estimat Average Glucose 160 02/05/24 11:15 Hemoglobin A1c 7.2 % (4.0-6.0) H 02/05/24 11:15 Calculated Osmolality 300 mOsm/kg (285-295) H 02/05/24 12:43 Calcium 9.4 mg/dL (8.5-10.5) 02/05/24 12:43 Total Bilirubin 0.2 mg/dL (0.15-1.2) 02/05/24 12:43 AST 48 U/L (0-40) H 02/05/24 12:43 ALT 21 U/L (0-41) 02/05/24 12:43 Alkaline Phosphatase 99 U/L (40-130) 02/05/24 12:43 Troponin T Baseline 886 ng/L (0-15) H* 02/05/24 11:15 Troponin T 120 Minute 1003 ng/L (0-15) H 02/05/24 12:43 Delta Troponin T 117 ABS# (0-10) H* 02/05/24 12:43 Total Protein 6.8 g/dL (6.6-8.7) 02/05/24 12:43 Albumin 4.2 g/dL (3.5-5.2) 02/05/24 12:43 Globulin 2.6 g/dL (1.3-4.6) 02/05/24 12:43 Lipase 34 U/L (13-60) 02/05/24 12:43 Other data: The EKG from 02/15/2024 shows sinus rhythm with sinus arrhythmia. Diffuse nonspecific ST-T changes. Possible left atrial enlargement. Left axis deviation. The echocardiogram from today Diffuse hypokinesia of the left ventricle with an ejection fraction of around 25-30 %. (visual). Mildly dilated LV cavity. Normal RV size and ejection fraction. Pacemaker/defibrillator wire in the right atrium/right ventricle. Thickened aortic valve. Trace mitral valve regurgitation. Trace tricuspid valve regurgitation. Estimated pulmonary artery peak systolic pressure possibly within normal limits There is no pericardial effusion. There are no intracardiac masses. Compared to the study from 10/10/2020, there may not be a significant change A&P Assessment and plan (1) Atherosclerotic heart disease of [place] coronary artery with unstable angina pectoris: The patient's clinical features are consistent with unstable angina complicated with non-ST elevation myocardial infarction. Qualifiers: [place] vs. transplanted heart: [place] heart Qualified Code(s): I25.110 - Atherosclerotic heart disease of [place] coronary artery with unstable angina pectoris (2) Acute non-ST elevation myocardial infarction (NSTEMI): Patient may be treated with subcu Lovenox, Plavix, aspirin, beta-isai, nitrates and other symptomatic measures. (3) AICD (automatic cardioverter/defibrillator) present: The ICD function appears to be appropriate. May continue on the current management. (4) Ischemic cardiomyopathy: Patient may be carefully monitored for development of any heart failure. Hemodynamically seems to be stable. He has no significant shortness of breath at this time. Echocardiogram was done today. The LV ejection fraction was found to be around 25 to 30%. This is essentially unchanged from the previous echocardiogram in 2020. (5) Hyperlipidemia: May continue on the current medications Qualifiers: Hyperlipidemia type: mixed hyperlipidemia Qualified Code(s): E78.2 - Mixed hyperlipidemia (6) Type 1 diabetes mellitus with hyperglycemia: Management of the diabetes as per the primary. Plan Because of the patient's ongoing recurrent episodes of chest pain, he may benefit from an early cardiac catheterization. Currently the patient is pain- free. We may go ahead and schedule this patient for a cardiac catheterization tomorrow. Dr. Lewis is his primary day care center director. I will be discussing with Dr. Lewis about this patient's status. Patient and the patient's clinical progress, further recommendations will be made. Thank you for the opportunity to evaluate this patient and make these recommendations Consult Attestations 2 Medical Necessity Statement: Patient requires continued hospital stay for close monitoring and further management Coding Level of Care Code 24314 Diagnoses Atherosclerosis of [place] coronary artery of [place] heart with unstable angina pectoris I25.110 [place] vs. transplanted heart: [place] heart Acute non-ST elevation myocardial infarction (NSTEMI) I21.4 AICD (automatic cardioverter/defibrillator) present Z95.810 Ischemic cardiomyopathy I25.5 Mixed hyperlipidemia E78.2 Hyperlipidemia type: mixed hyperlipidemia Type 1 diabetes mellitus with hyperglycemia E10.65
[2024-02-05 13:21] LABS: Troponin 5 2HR 1003 ng/L (0-15); Troponin 5 2HR Delta 117 ABS# (0-10)
--- NOTE | 2024-02-05 13:21 | PC.PHAR ---
The following have been discontinued and removed from med list: Entresto 49-51, Metooprolol Succinate er 100mg, and spironolactone 50mg.
[2024-02-05 13:29] LABS: Alanine Aminotransferase 21 U/L (0-41); Albumin Level 4.2 g/dL (3.5-5.2); Alkaline Phosphatase 99 U/L (40-130); Aspartate Amino Transferase 48 U/L (0-40); Blood Urea Nitrogen 30 mg/dL (6-20); Calcium 9.4 mg/dL (8.5-10.5); Carbon Dioxide 25 mmol/L (22-29); Chloride 104 mmol/L (98-107); Creatinine Clr Calc Pharmacy 74.3062; Globulin 2.6 g/dL (1.3-4.6); Glomerular Filtration Rate 65.8 mL/min (90-130); Glucose 125 mg/dL (65-115); Lipase 34 U/L (13-60); Osmolality Calculated 300 mOsm/kg (285-295); Sodium 141 mmol/L (136-145); Total Bilirubin 0.2 mg/dL (0.15-1.2); Total Protein 6.8 g/dL (6.6-8.7)
[2024-02-05 13:31] LABS: Anion Gap 15.7 (5-19); Potassium 3.7 mmol/L (3.5-5.1)
[2024-02-05] MEDS: clopidogrel 300 mg Tablet PO (14:24)
[2024-02-05 14:57] LABS: Estmated Average Glucose 160; Hemoglobin A1C 7.2 % (4.0-6.0)
--- NOTE | 2024-02-05 16:04 | ECG_ITS ---
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 Measurements Intervals [place] Rate: 81 P: 52 CO: 123 QRS: -40 QRSD: 106 T: 178 QT: 426 QTc: 496 Interpretive Statements SINUS RHYTHM WITH SINUS ARRHYTHMIA LEFT AXIS DEVIATION [QRS AXIS < -30] PATTERN CONSISTENT WITH PULMONARY DISEASE ST DEVIATION AND MODERATE T-WAVE ABNORMALITY, CONSIDER LATERAL ISCHEMIA [-0.1+ mV T-WAVE IN I/aVL/V5/V6] Compared to ECG 02/05/2024 13:06:24 No significant changes Electronically Signed On 02-05-2024 17:58:21 SALT WASHER by Ambrocio Claudio M.D. [id number]
[2024-02-05 17:02] LABS: Glucose Point of Care 211 mg/dL (70-110)
[2024-02-05] MEDS: nitroglycerin 1 gm/inch oint Pkt 0.5 INCH TOPICAL (17:16)
[2024-02-05] MEDS: insulin lispro 100 unit/1 mL SUBCUT (17:21)
[2024-02-05] MEDS: nicotine 14 mg Patch 1 PATCH TRANSDERMA (17:30)
--- NOTE | 2024-02-05 17:52 | ECG_ITS ---
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 Measurements Intervals [place] Rate: 87 P: 42 MT: 127 QRS: -42 QRSD: 93 T: 139 QT: 370 QTc: 448 Interpretive Statements SINUS RHYTHM POSSIBLE LEFT ATRIAL ENLARGEMENT [-0.1mV P-WAVE IN V1/V2] LEFT AXIS DEVIATION [QRS AXIS < -30] ST DEVIATION AND MODERATE T-WAVE ABNORMALITY, CONSIDER LATERAL ISCHEMIA [-0.1+ mV T-WAVE IN I/aVL/V5/V6] Compared to ECG 02/05/2024 15:35:58 Sinus arrhythmia no longer present T-wave abnormality still present Possible ischemia still present Electronically Signed On 02-05-2024 17:56:48 ASSISTANT OPERATOR by Ambrocio Claudio M.D. [id number]
[2024-02-05] MEDS: HYDROmorphone 1 mg/mL INJ 1 mL 0.5 MG IVP (18:15)
[2024-02-05 18:35] LABS: Troponin 5 6HR 1232 ng/L (0-15); Troponin 5 6HR Delta 346 ng/L (0-12)
[2024-02-05] MEDS: atorvastatin 40 mg Tablet 80 MG PO (20:13)
[2024-02-06] VITALS (9 sets, daily range): BP systolic 117–139; BP diastolic 74–97; PULSE 67–85; RESP 14–18; TEMP 36.6–36.9; O2SAT 94–96
[2024-02-06] MEDS: enoxaparin 80 mg/0.8 mL Syringe 70 MG SUBCUT (00:03)
[2024-02-06 05:50] LABS: Basophils # 0.1 10^3/uL (0.0-0.1); Basophils % 0.6 %; Eosinophils # 0.2 10^3/uL (0.0-0.8); Eosinophils % 2.6 %; Hematocrit 44.8 % (37-53); Lymphocytes # 3.1 10^3/uL (0.8-4.8); Lymphocytes % 40.1 %; Mean Corpuscular HGB Conc 32.4 g/dL (30-55); Mean Corpuscular Hemoglobin 31.3 pg (27-33); Mean Corpuscular Volume 96.8 fl (82-101); Mean Platelet Volume 11.4 fL (7.4-10.4); Monocytes # 0.5 10^3/uL (0.2-0.9); Monocytes % 6.3 %; Neutrophils # 3.85 10^3/uL (1.8-7.7); Neutrophils % 49.4 %; Nucleated Red Blood Cells % 0 %; Platelet Count 181 10^3/cmm (157-399); Red Blood Count 4.63 10^6/uL (3.85-5.65); Red Cell Distribution Width 12.9 % (12.1-15.1); White Blood Count 7.79 10^3/uL (3.29-11.43)
[2024-02-06 06:14] LABS: Anion Gap 13.9 (5-19); Blood Urea Nitrogen 27 mg/dL (6-20); Calcium 9.3 mg/dL (8.5-10.5); Carbon Dioxide 25 mmol/L (22-29); Chloride 110 mmol/L (98-107); Creatinine Clr Calc Pharmacy 82.9086; Glomerular Filtration Rate 72.7 mL/min (90-130); Glucose 121 mg/dL (65-115); Magnesium 2.1 mg/dL (1.7-2.3); Osmolality Calculated 306 mOsm/kg (285-295); Potassium 3.9 mmol/L (3.5-5.1); Sodium 145 mmol/L (136-145)
[2024-02-06 06:51] LABS: Glucose Point of Care 125 mg/dL (70-110)
[2024-02-06] MEDS: clopidogrel 75 mg Tablet PO (08:43)
[2024-02-06] MEDS: aspirin 81 mg EC Tablet PO (08:43)
[2024-02-06] MEDS: diphenhydrAMINE 50 mg Capsule PO (08:43)
[2024-02-06] MEDS: sodium chloride 0.9% 1,000 ML 50 ML IV (08:45)
[2024-02-06] MEDS: HYDROmorphone 1 mg/mL INJ 1 mL 0.5 MG IVP (09:14)
--- NOTE | 2024-02-06 10:41 | W.PM.OPSUD ---
Surgery/Procedure H&P Update DATE OF PROCEDURE: February 06, 2024 DATE H&P PERFORMED: 02/05/24 H&P UPDATE INFORMATION: I have reviewed H&P completed within last 30 days, I have examined patient prior to procedure and No changes to prior documentation PREOP DIAGNOSIS: NSTEMI PRIMARY INDICATION FOR PROCEDURE: NSTEMI PLANNED PROCEDURE: Left heart cath with possible percutaneous coronary intervention PATIENT REASSESSED PRIOR TO SEDATION, WITH NO CHANGE NOTED: Yes PHYSICAL EXAM: alert, oriented x 3, clear to auscultation bilaterally and regular rate & rhythm AIRWAY EVAL/ANESTHESIA PLAN: normal airway, ASA III, Local Anesthesia, Risks, benefits & alternatives of sedation and/or procedure discussed and Patient agrees to continue as planned ADDITIONAL INFORMATION: Moderate sedation
--- NOTE | 2024-02-06 11:15 | PC.NURSE ---
patient refused nitro for chest pain. Patient stated that if one more person brought him nitro he was going to throw it at them . Dr Lee notified and 0.5 of dilaudid ordered IVP. Patient given medication and reported less pain 30 min later. See MAR.
--- NOTE | 2024-02-06 11:48 | PC.NURSE ---
patient returned to floor from labor economics professor at 113[address] in [address] and 15ml of air instilled. No hematoma noted upon arrival on floor.
--- NOTE | 2024-02-06 11:50 | PM.MISC ---
Miscellaneous Note Purpose of Documentation: Brief procedure note/ cath report Note: Patent prior stents in mid LAD and distal RCA into PDA. RPL branch has total thrombotic occlusion s/p PCI with 1 stent. Plan: Dual antiplatelet therapy with aspirin and plavix Transfer back to CSU No complications
[2024-02-06 11:56] LABS: Glucose Point of Care 109 mg/dL (70-110)
[2024-02-06] MEDS: nicotine 14 mg Patch 1 PATCH TRANSDERMA (12:55)
--- NOTE | 2024-02-06 12:55 | P.PN_ITS ---
Subjective 2 Subjective: seen today complains of chest pain going for cath at 10 am Vitals/I&O/Wt Last Vital Signs Temp 98.1 F 02/06/24 11:59 Pulse 67 02/06/24 11:59 Resp 14 02/06/24 11:59 BP 139/97 02/06/24 11:59 Pulse Ox 96 02/06/24 09:14 O2 Del Method Room Air 02/06/24 09:00 02/05/24 02/06/24 02/06/24 22:59 06:59 14:59 Intake Total 240 / 240 Balance 240 / 240 Weight last 48 hrs Weight 71.849 kg Weight 71.849 kg Weight 71.849 kg Weight 68.039 kg Physical Exam 2 Narrative: General: Alert oriented x3, patient seen sitting up in bed appearing comfortable. HEENT: Normocephalic, atraumatic, EOMI, breathing room air. Cardio: Regular rate rhythm, normal S1-S2, no murmurs Respiratory: Clear to auscultation bilaterally no wheezes no rhonchi. GI: Abdomen soft, nontender, nondistended, bowel sounds + Behavior: Appropriate and cooperative Extremities: No edema bilateral lower extremities. Data 02/06/24 05:02 02/06/24 05:02 A&P Assessment and plan (1) Major depressive disorder, recurrent severe without psychotic features: (2) Congestive heart failure: Qualifiers: Heart failure type: systolic Heart failure chronicity: chronic Qualified Code(s): I50.22 - Chronic systolic (congestive) heart failure (3) Non-ST elevation [place] (NSTEMI): (4) AICD (automatic cardioverter/defibrillator) present: (5) Hyperlipidemia: Qualifiers: Hyperlipidemia type: mixed hyperlipidemia Qualified Code(s): E78.2 - Mixed hyperlipidemia (6) GERD (gastroesophageal reflux disease): Qualifiers: Esophagitis presence: esophagitis presence not specified Qualified Code(s): K21.9 - Gastro-esophageal reflux disease without esophagitis Plan #NSTEMI #Coronary disease status post PCI #Diabetes mellitus on insulin #GERD #Chronic congestive heart failure #Status post AICD ? Patient presented with chest pain was diagnosed with NSTEMI yesterday and plan for coronary enterogram however left AMA. ? N.p.o. till seen by cardiology ? Placed on Lovenox twice daily ? Aspirin, Plavix, continue atorvastatin. ? Patient chest pain-free at this time. First troponin 800, 2-hour 6-hour troponin pending at this time. ? EKG without any acute ischemic changes. ? Cardiology consulted. Await recommendations ? Patient will most likely need angiogram. ? Continue sliding scale insulin moderate dose intensity ? Continue sertraline, trazodone daily ? Continue Lasix home dose. Full code Due to prophylaxis: On therapeutic Lovenox 02/06/2024 - continue asa,plavix,atorvastatin - going for cath today - cardiology following. - continue ssi mod dose intensity - continue lasix home dose. Attestations 2 Medical Necessity Statement*: NSTEMI, requires greater than 2 midnight stay. Diagnoses Major depressive disorder, recurrent severe without psychotic features F33.2 Chronic systolic congestive heart failure I50.22 Heart failure type: systolic Heart failure chronicity: chronic Non-ST elevation [place] (NSTEMI) I21.4 AICD (automatic cardioverter/defibrillator) present Z95.810 Mixed hyperlipidemia E78.2 Hyperlipidemia type: mixed hyperlipidemia Gastroesophageal reflux disease, unspecified whether esophagitis present K21.9 Esophagitis presence: esophagitis presence not specified
--- NOTE | 2024-02-06 13:42 | PC.NURSE ---
TR band removed at 1335 with no hematoma noted.
--- NOTE | 2024-02-06 15:00 | PM.PN ---
Documented by User: [place] NP 02/06/24 15:03 Subjective Subjective: Patient is status post stent to the PLV. He is threatening to leave AGAINST MEDICAL ADVICE. At this time I have advised that he stay but he does not want to do that. I discussed this with Dr. Claudio. He is willing to stay at least till 5 to make sure that the TR band is appropriately removed and there is no evidence of bleeding Medications: Reviewed: Yes Vitals/I&O/Wt Last Vital Signs Temp 98.1 F 02/06/24 11:59 Pulse 85 02/06/24 14:38 Resp 14 02/06/24 11:59 BP 139/97 02/06/24 11:59 Pulse Ox 96 02/06/24 09:14 O2 Del Method Room Air 02/06/24 09:00 Weight last 48 hrs Weight 158 lb 6.4 oz Weight 158 lb 6.4 oz Weight 158 lb 6.4 oz Weight 150 lb Physical Exam Narrative: General: No apparent distress, healthy appearing, well nourished HENMT: normoceophalic Eye: PERRL Neck: No carotid bruit bilaterally Muskuloskeletal: Full ROM Lymphatic: no lymphedema noted Respiratory: Normal respiratory effort, clear to auscultation bilaterally throughout all lung sheth, no use of accessory muscles Cardio: No JVD, regular rate, regular rhythm, S1 S2 normal, no murmurs, peripheral pulses 2+ throughout GI: Normal to inspection, nondistended Extremities: Full ROM, normal, normal capillary refill, no cyanosis or edema Neuro: Alert and oriented x4, no focal motor deficits Psych: Affect normal, denies suicidal ideation, mental status grossly normal Skin: No rashes or lesions noted, no wounds Data 02/06/24 05:02 02/06/24 05:02 A&P Assessment and plan (1) Non-ST elevation [place] (NSTEMI): Status post stent to the PLV branch. Patient states he is going to leave AGAINST MEDICAL ADVICE. We have recommended he stay at least till 5 to ensure that his radial cath puncture site has no evidence of bleeding or hematoma and seals appropriately. He stated he will do this. He does understand and is very important to take his aspirin and Plavix and be compliant with this. We have requested meds to beds Plan As stated above Attestations Medical Necessity Statement*: NSTEMI, requires greater than 2 midnight stay. Coding Level of Care Code Acute Code for g Fwd Diagnoses Non-ST elevation RI (NSTEMI) I21.4 Documented by User: Ambrocio Claudio M.D 02/09/24 11:08 Subjective Subjective: Patient had total occlusion of PLV branch underwent successful revascularization with 1 stent. Post PCI he wanted to leave. Finally agreed to stay till 5 PM for safe removal of TR band and bringing dual antiplatelet agents to bedside. Physical Exam Narrative: GENERAL: Patient is alert, awake and oriented x3. [] NECK: No jugular vein distension. [] HEENT: No cyanosis. No icterus. No pallor. [] HEART: Regular S1 and S2. No murmur, rub or gallop. [] LUNGS: Clear to auscultate bilaterally. [] CENTRAL NERVOUS SYSTEM: Grossly nonfocal. [] EXTREMITIES: Lower extremities with 1+ edema bilaterally. Data 02/06/24 05:02 02/06/24 05:02 A&P Assessment and plan (1) Non-ST elevation RI (NSTEMI): Plan Patient had total thrombotic occlusion of PLV branch status post successful revascularization with 1 stent. Continue dual antiplatelet therapy and statin therapy. Compliance with medications emphasized. Outpatient cardiology follow up. Please call with questions. Attestations Medical Necessity Statement*: Care expected to cross 2 midnights. Coding Level of Care Code Acute Code for [facility] Fwd Diagnoses Non-ST elevation RI (NSTEMI) I21.4
--- NOTE | 2024-02-06 15:53 | P.DS_ITS ---
Discharge Providers Date of Admission: 02/05/24 13:09 Date of Discharge: February 06, 2024 Attending Provider at Admission: Kanchan Lee MD Attending Provider at Discharge: Kanchan Lee MD Primary Care Provider: Zeinab Salazar NP Diagnoses at Discharge Discharge Diagnosis (1) Non-ST elevation VA (NSTEMI): Status: Acute Reason for Visit Reason for Visit: heart problems Hospital Course Hospital Course Presented to the hospital with chest pain diagnosed with NSTEMI, coronary angiogram was planned however left AMA from [facility]. Presented to [facility] with similar complaint. Went for coronary angiogram next morning with PCI performed. Patient wanted to sign out AMA again however that was requested to stay till 5 PM. He agreed to that. He was stable at time of discharge sent home with medications aspirin Plavix atorvastatin. He was stressed the importance of taking dual antiplatelet and being compliant to medications. He is to follow-up with cardiology as an outpatient. Physical Exam Narrative: General: Alert oriented x3, patient seen sitting up in bed appearing comfortable. HEENT: Normocephalic, atraumatic, EOMI, breathing room air. Cardio: Regular rate rhythm, normal S1-S2, no murmurs Respiratory: Clear to auscultation bilaterally no wheezes no rhonchi. GI: Abdomen soft, nontender, nondistended, bowel sounds + Behavior: Appropriate and cooperative Extremities: No edema bilateral lower extremities. Discharge Data Studies Completed and Pending Completed Studies During Hospitalization Category Date Time Status XR chest 1V portable [id number] Stat Exams 02/05/24 10:04 Completed CV. echo complete* [id number] Stat Ultrasound 02/05/24 12:05 Completed Pending at discharge Category Date Time Status DENTURE MODEL MAKER request for service Routine Exams 02/06/24 08:39 Taken Basic Metabolic Panel AM LABS Lab 02/07/24 04:00 Ordered Complete Blood Count w/Auto AM LABS Lab 02/07/24 04:00 Ordered Magnesium AM LABS Lab 02/07/24 04:00 Ordered Radiology Impressions Chest X-Ray 02/05/24 10:04 IMPRESSION: No acute cardiopulmonary findings. Laboratory Results WBC 7.79 10^3/uL (3.29-11.43) 02/06/24 05:02 RBC 4.63 10^6/uL (3.85-5.65) 02/06/24 05:02 Hgb 14.50 g/dL (11.27-16.99) 02/06/24 05:02 Hct 44.8 % (37-53) 02/06/24 05:02 MCV 96.8 fl (82-101) 02/06/24 05:02 MCH 31.3 pg (27-33) 02/06/24 05:02 MCHC 32.4 g/dL (30-55) 02/06/24 05:02 RDW 12.9 % (12.1-15.1) 02/06/24 05:02 Plt Count 181 10^3/cmm (157-399) 02/06/24 05:02 MPV 11.4 fL (7.4-10.4) H 02/06/24 05:02 Neut % (Auto) 49.4 % 02/06/24 05:02 Lymph % (Auto) 40.1 % 02/06/24 05:02 Mcculloch % (Auto) 6.3 % 02/06/24 05:02 Eos % (Auto) 2.6 % 02/06/24 05:02 Baso % (Auto) 0.6 % 02/06/24 05:02 Neut # (Auto) 3.85 10^3/uL (1.8-7.7) 02/06/24 05:02 Lymph # (Auto) 3.1 10^3/uL (0.8-4.8) 02/06/24 05:02 Mcculloch # (Auto) 0.5 10^3/uL (0.2-0.9) 02/06/24 05:02 Eos # (Auto) 0.2 10^3/uL (0.0-0.8) 02/06/24 05:02 Baso # (Auto) 0.1 10^3/uL (0.0-0.1) 02/06/24 05:02 Nucleated RBC % (auto) 0 % 02/06/24 05:02 Nucleated RBCs # 0.0 /100WBC 02/06/24 05:02 PT 11.60 SECONDS (12.1-14.9) L 02/05/24 11:15 INR 0.83 (0.8-1.2) 02/05/24 11:15 Sodium 145 mmol/L (136-145) 02/06/24 05:02 Potassium 3.9 mmol/L (3.5-5.1) 02/06/24 05:02 Chloride 110 mmol/L (98-107) H 02/06/24 05:02 Carbon Dioxide 25 mmol/L (22-29) 02/06/24 05:02 Anion Gap 13.9 (5-19) 02/06/24 05:02 BUN 27 mg/dL (6-20) H 02/06/24 05:02 Creatinine 1.1 mg/dL (0.7-1.2) 02/06/24 05:02 GFR Calculation 72.7 mL/min (90-130) L 02/06/24 05:02 Glucose 121 mg/dL (65-115) H 02/06/24 05:02 POC Glucose 109 mg/dL (70-110) 02/06/24 11:36 Estimat Average Glucose 160 02/05/24 11:15 Hemoglobin A1c 7.2 % (4.0-6.0) H 02/05/24 11:15 Calculated Osmolality 306 mOsm/kg (285-295) H 02/06/24 05:02 Calcium 9.3 mg/dL (8.5-10.5) 02/06/24 05:02 Magnesium 2.1 mg/dL (1.7-2.3) 02/06/24 05:02 Total Bilirubin 0.2 mg/dL (0.15-1.2) 02/05/24 12:43 AST 48 U/L (0-40) H 02/05/24 12:43 ALT 21 U/L (0-41) 02/05/24 12:43 Alkaline Phosphatase 99 U/L (40-130) 02/05/24 12:43 Troponin T Baseline 886 ng/L (0-15) H* 02/05/24 11:15 Troponin T 120 Minute 1003 ng/L (0-15) H 02/05/24 12:43 Delta Troponin T 117 ABS# (0-10) H* 02/05/24 12:43 Troponin T Hi Sens 6Hr 1232 ng/L (0-15) H 02/05/24 17:49 Troponin T Hi Sens 6Hr Delta 346 ng/L (0-12) H* 02/05/24 17:49 Total Protein 6.8 g/dL (6.6-8.7) 02/05/24 12:43 Albumin 4.2 g/dL (3.5-5.2) 02/05/24 12:43 Globulin 2.6 g/dL (1.3-4.6) 02/05/24 12:43 Lipase 34 U/L (13-60) 02/05/24 12:43 Vitals Last Vital Signs Temp 98.1 F 02/06/24 11:59 Pulse 85 02/06/24 14:38 Resp 14 02/06/24 11:59 BP 139/97 02/06/24 11:59 Pulse Ox 96 02/06/24 09:14 O2 Del Method Room Air 02/06/24 09:00 Discharge Plan Discharge Patient Disposition: Home Condition: Stable Prescriptions: New atorvastatin 40 mg Tablet 80 mg PO BEDTIME Qty: 60 0RF clopidogrel 75 mg Tablet 75 mg PO DAILY Qty: 30 0RF aspirin 81 mg Tablet,Delayed Release (Dr/Ec) 81 mg PO DAILY Qty: 30 0RF Continued (DME) lancets [OneTouch Delica Plus Lancet] 30 gauge misc See Rx Instructions .ROUTE .COMPLEX Qty: 200 4RF Dose Instruction: DIRECTED Rx Instructions: three times a day (DME) Dexcom G7 Environmental Health Manager Misc See Rx Instructions .Route Qty: 1 0RF Rx Instructions: As directed (DME) Dexcom G7 Sensor Device See Rx Instructions .Route Qty: 9 3RF Rx Instructions: As directed buspirone 5 mg tablet 5 mg PO BID Qty: 90 0RF Rx Instructions: may increase to three times a day if needed after two weeks. (DME) cpap See Rx Instructions .Route .MEDSUPPLY Qty: 1 0RF Rx Instructions: please issue auto titrating cpap 6-16cm and all supplies. insulin glargine [Lantus Solostar U-100 Insulin] 100 unit/mL (3 mL) insulin pen 10 unit SUBCUT QAM Qty: 15 0RF Lasix 80 mg tablet See Rx Instructions .ROUTE .COMPLEX Qty: 90 3RF Rx Instructions: Take 1 tablet by mouth daily and use additional 80 mg as needed. Anoro Ellipta 62.5-25 mcg/actuation blister with device 1 inh inhalation Q24H Qty: 60 11RF (DME) blood-glucose meter [OneTouch Ultra2 Meter] Misc See Rx Instructions .ROUTE .COMPLEX Qty: 1 0RF Dose Instruction: DIRECTED Rx Instructions: DIRECTED ([facility]) OneTouch Ultra Test Strip See Rx Instructions .ROUTE .COMPLEX Qty: 100 3RF Dose Instruction: DIRECTED Rx Instructions: three times a day (DME) pen needle, diabetic [Pentips Pen Needle] 31 gauge x 3/16 needle See Rx Instructions .ROUTE .COMPLEX Qty: 100 6RF Dose Instruction: USE TWICE A DAY Rx Instructions: USE TWICE A DAY ondansetron 8 mg tablet,disintegrating See Rx Instructions .ROUTE .COMPLEX Qty: 30 1RF Dose Instruction: DISSOLVE ONE TABLET ON TOP OF THE TONGUE WHERE IT WILL DISSOLVE THEN SWALLOW EVERY 8 HOURS NEEDED FOR NAUSEA AND VOMITING Rx Instructions: DISSOLVE ONE TABLET ON TOP OF THE TONGUE WHERE IT WILL DISSOLVE THEN SWALLOW, EVERY 8 HOURS NEEDED FOR NAUSEA AND VOMITING albuterol sulfate [Ventolin HFA] 90 mcg/actuation HFA aerosol inhaler 2 puff inhalation Q4H PRN (Reason: shortness of breath or wheezing) 90 Days Qty: 18 3RF sertraline 100 mg tablet 200 mg PO DAILY pantoprazole 40 mg tablet,delayed release (DR/EC) 40 mg PO QAM insulin lispro [Humalog KwikPen Insulin] 100 unit/mL insulin pen See Rx Instructions .ROUTE .COMPLEX Rx Instructions: Take per sliding scale: 0-150=0 units,151-200=2 units,201-250=4 units,251- 300=6 units,301-350=8 units,879=529=80 units, >[address] max dose 30units three times daily; Discontinued atorvastatin 20 mg tablet 20 mg PO DAILY No Action trazodone 150 mg tablet See Rx Instructions .ROUTE .COMPLEX Qty: 60 2RF Dose Instruction: TAKE TWO TABLETS BY MOUTH ONCE DAILY AT BEDTIME Rx Instructions: TAKE TWO TABLETS BY MOUTH ONCE DAILY AT BEDTIME meloxicam 15 mg tablet See Rx Instructions .ROUTE .COMPLEX Qty: 30 0RF Dose Instruction: TAKE ONE TABLET BY MOUTH ONCE DAILY IN THE MORNING NEEDED FOR PAIN Rx Instructions: TAKE ONE TABLET BY MOUTH ONCE DAILY IN THE MORNING NEEDED FOR PAIN Discharge Orders: Discharge Order (Routine); Ordered 02/06/24 Ordered By: Kanchan Lee Referrals: Delfin Lewis MD [Physician] - 03/16/24 3:00 pm Maureen Edouard FNP [Nurse Practitioner] - 02/16/24 1:30 pm Zeinab Salazar NP [Primary Care Provider] - 02/10/24 1:30 pm Discharge Diet: Cardiac and Diabetic Discharge Activity: Limit activity as instructed Patient Instructions: Coronary Angioplasty (DC), Opioid Safety Discharge Attestations Time Spent in Discharge Care*: greater than 30 min Status at Discharge: Cognitive status at discharge: cognitively intact , Quality Metrics Clinical Quality Measures [ No reported AMI, CVA or VTE this stay] Coding Level of Care Code Acute Code for Chg Fwd Diagnoses Non-ST elevation VA (NSTEMI) I21.4
== END 2024-02-06 17:05 | disposition home or self-care (01) | DRG 322 ==
LOC: ER 12:35 → CSU 13:09
PROVIDERS: Internal Medicine; Admitting Provider Internal Medicine; Emergency Provider Emergency Medicine; PCP Nurse Practitioner Family; Visit Provider Internal Medicine
PROC: 027034Z Dilation of Coronary Artery, One Artery with Drug-eluting Intraluminal Device, Percutaneous Approach (ICD-10-PCS; principal; 2024-02-06 10:30)
PROC: 027034Z Dilation of Coronary Artery, One Artery with Drug-eluting Intraluminal Device, Percutaneous Approach (ICD-10-PCS; 2024-02-06 10:30)
DX: I21.4 Non-ST elevation (NSTEMI) myocardial infarction (principal); F33.2 Major depressive disorder, recurrent severe without psychotic features; I50.22 Chronic systolic (congestive) heart failure; I25.10 Atherosclerotic heart disease of native coronary artery without angina pectoris; F17.210 Nicotine dependence, cigarettes, uncomplicated; K21.9 Gastro-esophageal reflux disease without esophagitis; E10.9 Type 1 diabetes mellitus without complications; E78.5 Hyperlipidemia, unspecified; Z95.810 Presence of automatic (implantable) cardiac defibrillator; Z95.5 Presence of coronary angioplasty implant and graft
CPT/HCPCS: 36415; 36416; 71045; 80048; 80053; 82962; 83036; 83690; 83735; 84484; 85025; 85347; 85610; 93005; 93306; 93454; 96372; 96374; 96376; 99152; 99153; 99285; C1725; C1769; C1874; C1887; C1894; C9600; J1171; J1644; J1650; J1815; J2250; J3010; J3490; J7030; Q0163; Q9967

== ENCOUNTER → 2024-02-16 13:17 | Outpatient (BNVA) | payer MEDICAID, SELFPAY | PROVIDERS: PCP Nurse Practitioner Family; Visit Provider Nurse Practitioner Family | DX: I25.10 Atherosclerotic heart disease of native coronary artery without angina pectoris (principal); I11.0 Hypertensive heart disease with heart failure; I50.43 Acute on chronic combined systolic (congestive) and diastolic (congestive) heart failure; F17.210 Nicotine dependence, cigarettes, uncomplicated | CPT/HCPCS: 99214 ==

== ENCOUNTER → 2024-03-16 14:47 | Outpatient (BNVA) | payer MEDICAID, SELFPAY | PROVIDERS: PCP Nurse Practitioner Family; Visit Provider Internal Medicine Cardiovascular Disease | DX: I25.5 Ischemic cardiomyopathy (principal); Z95.5 Presence of coronary angioplasty implant and graft; I25.10 Atherosclerotic heart disease of native coronary artery without angina pectoris; I11.0 Hypertensive heart disease with heart failure; I50.43 Acute on chronic combined systolic (congestive) and diastolic (congestive) heart failure | CPT/HCPCS: 99214 ==

== ENCOUNTER → 2024-06-01 15:10 | Outpatient (BNVA) | payer OTHER, SELFPAY | PROVIDERS: PCP Nurse Practitioner Family; Visit Provider Psychiatry & Neurology Psychiatry | DX: Z79.899 Other long term (current) drug therapy (principal) | CPT/HCPCS: 80061; 83036 ==

== ENCOUNTER 2024-09-13 17:20 | Emergency (ER) | payer MEDICAID, SELFPAY ==
--- OUTSIDE RECORDS SUMMARY | 2017-01-15 09:30 | XMS_ITS | Continuity of Care Document ---
Author Organization [facility] Address [address] [id number] [address] Phone Care Team Providers Care Endoscopy Rn Name Role Phone Samuel Rajan DDS, MD Unavailable Unavailab le Medications Medication Instructions Dosage Effective Dates (start - stop) Status Comments hydrocodone 7.5 mg-acetaminophen 325 mg tablet take 1 tablet by oral route every 4 hours as needed for pain 1 tablet - Active ibuprofen 600 mg tablet take 1 tablet by oral route every 6 hours with food as needed for pain - Active ZYRTEC (unknown strength) Not Available - Active TRINTELLIX (unknown strength) Not Available - Active SYMBICORT (unknown strength) Not Available - Active PROTONIX (unknown strength) Not Available - Active LISINOPRIL (unknown strength) Not Available - Active HYDROXYZINE PAMOATE (unknown strength) Not Available - Active HYDROCHLOROTHIAZIDE (unknown strength) Not Available - Active GLIPIZIDE (unknown strength) Not Available - Active DIVALPROEX SODIUM (unknown strength) Not Available - Active BUSPIRONE HCL (unknown strength) Not Available - Active ATORVASTATIN CALCIUM (unknown strength) Not Available - Active Procedures Procedure Date Limited Oral Evaluation Problem Focused EDR Approval Note Advance Directives Directive Yes / No Effective Date File Name No Information Encounters Encounter Description Practice Location Reason(s) For Visit Diagnoses Date Provider Providers Copied on Encounter [facility], [id number] [id number], [place] tel:[phone] [facility] Encounter for dental exam and cleaning w/o abnormal findings Mohini Baker. [address], [place], [address], [place]. tel:[phone] Referring Provider: Samuel Robles, e[place]igh[place], [address]. tel:[phone] Family History Family Member Type Diagnosis Age At Onset No Information Payers Payer name Insurance type Covered alliance party ID Chris sutton(s) D [employer] CI [id number] Social History Type Description Quantity Date Captured Comments Alcohol Use Details No Caffeine Use Details Unknown Tobacco Use Status Heavy cigarette smok er (20-39 cigs/day) Smoking Status Heavy tobacco smoker Smoking Tobacco Use Details Cigarette: No Details Available Cigarette: 1 Packs per day Sex Male Sexual Orientation Heterosexual Gender Identity Male Chief Complaint And Reason For Visit No Information Reason For Referral Reason For Referral No Information Plan Of Treatment Date Type Action Status Goal Tobacco cessation counseling completed History Of Present Illness Encounter Date Complaint History Of Prese nt Illness No Information Functional Status Date Functional Assessmen t No Information Instructions Date Instruction Additional Infor mation Lifestyle education Related to D ental Examination Assessments Type Assessment Date No Information Patient Care Teams Name Effective Dates (start - stop) Status Members No Information
[2024-06-03 11:37] VITALS: BP 121/83; BMI 23.6
[2024-09-13 17:22] VITALS: TEMP 37.4; BMI 24.3
--- OUTSIDE RECORDS SUMMARY | 2024-09-13 17:23 | XMS_ITS | Encounter Summary ---
Author Organization [facility] Address [address] [place] [address] Care Team Providers Care Leaf Stamper Name Role Phone Madina Carlton Primary Care Provider [phone] Encounter Details Date Type Department Care Team (Late st Contact Info) Description 12/19/2000 Outpatient Historical [facility] [place] [address] [place] [phone] Social History Tobacco Use Types Packs/Day Years Used Date Smoking Tobacco: Never Assessed Sex and Gender Information Value Date Recorded Sex Assigned at Not on file 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
--- OUTSIDE RECORDS SUMMARY | 2024-09-13 17:23 | XMS_ITS | Clinical Summary ---
Author Organization [facility] Address [address] [place] [address] Phone Care Team Providers Care Snow Removing Supervisor Name Role Phone Brandt, Madina BLAINE Primary Care Provider [phone] Allergies No known active allergies Medications hydroCHLOROthia zide 25 mg tablet Take 25 mg by mouth daily. Active lisinopril (PRINIVIL) 10 mg tablet Take 10 mg by mouth daily. Active pantoprazole (PROTONIX) 40 mg Tablet, Delayed Release (E.C.) Take 40 mg by mouth daily. Active cetirizine (ZyrTEC) 10 mg tablet Take 10 mg by mouth daily. Active atorvastatin (LIPITOR) 20 mg tablet Take 20 mg by mouth daily. Active vortioxetine (TRINTELLIX,RICCO NTELLIX) 20 mg tablet Take 20 mg by mouth daily. Active hydrOXYzine pamoate (VISTARIL) 50 mg capsule Take 50 mg by mouth 4 times daily as needed for Itching. Active raNITIdine (ZANTAC) 300 mg tablet Take 300 mg by mouth daily at bedtime. Active divalproex (DEPAKOTE) 250 mg Delayed Release tablet Take by mouth One in AM and Two in PM . Active glipiZIDE (GLUCOTROL) 5 mg tablet Take 5 mg by mouth 2 times daily with meals. Active budesonide-form oterol (SYMBICORT) 160-4.5 mcg/actuation HFA Aerosol Inhaler Take 2 Puffs by inhalation 2 times daily. 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 Gender Identity Not on file Sexual Orientation Not on file Last Filed Vital Signs Vital Sign Reading Time Taken Comments Blood Pressure - - Pulse - - Temperature - - Respiratory Rate - - Oxygen Saturation - - Inhaled Oxygen Concentration - - Weight 93 kg (205 lb) 02/03/2017 2:25 PM FOILING MACHINE ADJUSTER Height 172.7 cm (5' 8 ) 02/03/2017 2:25 PM FOILING MACHINE ADJUSTER Body Mass Index 31.17 02/03/2017 2:25 PM FOILING MACHINE ADJUSTER Plan of Treatment Health Maintenance Due Date Last Done Comments DTAP/TDAP/TD VACCINES (1 - Tdap) 07/16/1998 HEPATITIS B VACCINES (1 of 3 - 19+ 3-dose series) 07/16/1998 Preventative Visit-Managed Medicaid 07/16/1998 COLORECTAL SCREENING 07/16/2024 Colorectal Cancer Screening 07/16/2024 FIT-DNA Q 3 years 07/16/2024 FIT/FOBT Q 1 year 07/16/2024 Flex Sig/CT Colonography Q 5 years 07/16/2024 INFLUENZA VACCINE (#1) 2024 HPV VACCINES Aged Out No longer eligi ble based on patient's age to complete this topic Insurance [facility] Care Teams Snow Removing Supervisor Relationship Specialty Start Date End Date Madina Carlton FNP PCP - General NURSE PRACTITIONER 02/03/17
--- OUTSIDE RECORDS SUMMARY | 2024-09-13 17:23 | XMS_ITS | Encounter Summary ---
Author Organization [facility] Address [address] [place] [address] Care Team Providers Care Director Day Care Center Name Role Phone Madina Carlton Primary Care Provider [phone] Encounter Details Date Type Department Care Team (Latest Contact Info) Description 12/24/2000 Outpatient Historical [facility] [place] [address] [phone] Анна Osborne, DO [address] [place] [address] Backache, unspecified (Primary Dx) Social History Tobacco Use Types Packs/Day Years Used Date Smoking Tobacco: Never Assessed Sex and Gender Information Value Date Recorded Sex Assigned at Not on file 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
--- OUTSIDE RECORDS SUMMARY | 2024-09-13 17:23 | XMS_ITS | Encounter Summary ---
Author Organization [facility] Address [address] [place] [address] Care Team Providers Care Environmental Sustainability Manager Name Role Phone Madina Carlton Primary Care Provider [phone] Encounter Details Date Type Department Care Team (Latest Contact Info) Description 01/08/2001 Outpatient Historical [facility] Family Medicine [place] [address] [phone] Анна Osborne, DO [address] [place] [address] LUMBAGO (Primary Dx) Social History Tobacco Use Types Packs/Day Years Used Date Smoking Tobacco: Never Assessed Sex and Gender Information Value Date Recorded Sex Assigned at Not on file Legal Sex Male 4: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
--- OUTSIDE RECORDS SUMMARY | 2024-09-13 17:23 | XMS_ITS | Encounter Summary ---
Author Organization [facility] Address [address] [place] [address] Care Team Providers Care Dynamotor Repairer Name Role Phone Madina Carlton Primary Care Provider [phone] Encounter Details Date Type Department Care Team (Latest Contact Info) Description 12/17/2000 Outpatient Historical [facility] Family Medicine [place] [address] [phone] Анна Osborne, DO [address] [place] [address] Lumbago (Primary Dx) Social History Tobacco Use Types Packs/Day Years Used Date Smoking Tobacco: Never Assessed Sex and Gender Information Value Date Recorded Sex Assigned at Not on file 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
--- OUTSIDE RECORDS SUMMARY | 2024-09-13 17:23 | XMS_ITS | Clinical Summary ---
Author Organization [facility] Address [address] [place]al: Epic Prelude ADT [place] [address] Care Team Providers Care Door Worker Name Role Phone Brandt, Madina VALLADARES Primary Care Provider [phone] Allergies No known active allergies Medications raNITIdine (ZANTAC) 300 mg tablet Take 300 mg by mouth daily at bedtime. 7 Active hydrOXYzine pamoate (VISTARIL) 50 mg capsule Take 50 mg by mouth 4 times daily as needed for Itching. 7 Active budesonide-form oteroL (SYMBICORT) 160-4.5 mcg/actuation HFA Aerosol Inhaler Take 2 Puffs by inhalation 2 times daily. 7 Active lisinopriL (PRINIVIL) 10 mg tablet Take 10 mg by mouth daily. 7 Active pantoprazole (PROTONIX) 40 mg Tablet, Delayed Release (E.C.) Take 40 mg by mouth daily. 7 Active glipiZIDE (GLUCOTROL) 5 mg tablet Take 5 mg by mouth 2 times daily with meals. 7 Active divalproex (DEPAKOTE) 250 mg Delayed Release tablet Take by mouth One in AM and Two in PM . 7 Active atorvastatin (LIPITOR) 20 mg tablet Take 20 mg by mouth daily. 7 Active vortioxetine (TRINTELLIX) 20 mg tablet Take 20 mg by mouth daily. 7 Active cetirizine (ZyrTEC) 10 mg tablet Take 10 mg by mouth daily. 7 Active hydroCHLOROthia zide 25 mg tablet Take 25 mg by mouth daily. 7 Active Encounters Date Type Department Care Team Description 08/10/2024 Transcribe Orders [facility] Pre-Registration [place] CALL TO MAKE APPOINTMENT ONLY [address] [place] [place] [address] Rubi Diamondgh, MORNING NEWS PRODUCER Sensorineural hearing loss, bilateral (Primary Dx) from Last 3 Months Social History Tobacco Use Types Packs/Day Years Used Date Smoking Tobacco: Every Day Cigarettes Smokeless Tobacco: Never Alcohol Use Standard Drinks/Week Comments No 0 (1 standard drink = 0.6 oz pur e alcohol) Sex and Gender Information Value Date Recorded Sex Assigned at Not on file Legal Sex Male 3:34 AM LAMP WIRER Gender Identity Not on file Sexual Orientation Not on file Last Filed Vital Signs Vital Sign Reading Time Taken Comments Blood Pressure - - Pulse - - Temperature - - Respiratory Rate - - Oxygen Saturation - - Inhaled Oxygen Concentration - - Weight 93 kg (205 lb) 02/03/2017 2:25 PM LAMP WIRER Height 172.7 cm (5' 8 ) 02/03/2017 2:25 PM LAMP WIRER Body Mass Index 31.17 02/03/2017 2:25 PM LAMP WIRER Plan of Treatment Health Maintenance Due Date Last Done Comments DTAP/TDAP/TD VACCINES (1 - Tdap) 07/16/1998 HEPATITIS B VACCINES (1 of 3 - 19+ 3-dose series) 07/16/1998 COLORECTAL SCREENING 07/16/2024 Colorectal Cancer Screening 07/16/2024 FIT-DNA Q 3 years 07/16/2024 FIT/FOBT Q 1 year 07/16/2024 Flex Sig/CT Colonography Q 5 years 07/16/2024 INFLUENZA VACCINE (#1) 2024 HPV VACCINES Aged Out No longer eligi ble based on patient's age to complete this topic Medical Devices Implanted Type Area Immersion Metal Cleaner Device Identifier Shelf Expiration Date Model / Serial / Lot Defibrillator Med[employer]onic [place] Defibrillator [employer] Lead Lead Stent-07/09/2021 Resolute Jailyn Implanted:2021 (Quantity not on file) Stent RESOLUTE JAILYN / / [id number] Stent-09/24/2021 Resolute Jailyn Implanted:2021 (Quantity not on file) Stent RESOLUTE JAILYN / / [id number] Stent-05/03/2024 Resolute [place] Implanted:2024 (Quantity not on file) Stent RESOLUTE JAILYN / / [id number] Care Teams Door Worker Relationship Specialty Start Date End Date Madina Carlton FNP PCP - General NURSE PRACTITIONER 02/03/17
[2024-09-13 17:25] VITALS: BP 121/92; PULSE 81; RESP 16; O2SAT 95
--- NOTE | 2024-09-13 17:26 | XRR_ITS ---
PROCEDURE INFORMATION: Exam: XR Chest Exam date and time: 09/13/2024 5:27 PM Age: 44 years old Clinical indication: Cough and dyspnea; Prior surgery; Surgery date: 6+ months; Surgery type: Defib; Additional info: Dyspnea/cough TECHNIQUE: Imaging protocol: Radiologic exam of the chest. Views: 1 view. COMPARISON: CR XR chest 1V portable [id number] 02/05/2024 11:03 AM FINDINGS: Tubes, catheters and devices: Left-sided ICD again noted. Lungs: No pulmonary edema. No consolidation. Pleural spaces: Unremarkable. No pleural effusion. No pneumothorax. Heart/Mediastinum: Unremarkable. No cardiomegaly. Bones/joints: Unremarkable. XR/XR chest 1V portable [id number] IMPRESSION: No acute findings.
--- NOTE | 2024-09-13 17:35 | ED_ITS ---
Documented by User: James Holliday DO 09/14/24 06:24 HPI - Nausea/Vomiting/Diarrhea 2 General: Chief complaint: Nausea/Vomiting/Diarrhea Stated complaint: n/v Time Seen by Provider: 09/13/24 17:25 History of Present Illness: 44-year-old male presents emergency room via EMS with complaints of abdominal pain nausea vomiting has been going on for the last 4 days. He states it began after he cannot overheated while sitting in a car parking lot outside the hospital waiting on his . He was given IV fluids and Zofran around. He is normally an insulin-dependent diabetic but he has not been taking his blood sugars last few days. He denies any medic easy melena hematemesis cough, emesis no history of chest pain. Associated symtoms: Denies chest pain or dysuria Related Data Previous Rx's ?Medication ?Instructions ?Recorded lancets 30 gauge (OneTouch Delica #200 ea 07/01/23 Plus Lancet) cpap #1 ea 11/07/23 pen needle, diabetic 31 gauge x #100 ea 11/18/2305/16 (Pentips Pen Needle) albuterol sulfate 90 mcg/actuation 2 puff inhalation Q 4H PRN 01/26/24 aerosol inhaler (Ventolin HFA) shortness of breath or wheezing 90 days #18 grams clopidogrel 75 mg tablet 75 mg PO DAILY #90 tabs 01/31 08/24 insulin lispro 100 unit/mL See Rx Instructions .Route 03/10/24 subcutaneous pen .COMPLEX #15 mL atorvastatin 80 mg tablet 80 mg PO DAILY #90 tabs 03/03 06/25 metoprolol tartrate 25 mg tablet 12.5 mg (1/2 x 25 mg) PO DAILY #45 03/16/24 tabs sertraline 100 mg tablet See Rx Instructions .Route 0 04/07/24 .COMPLEX #180 tabs umeclidinium 62.5 mcg-vilanterol See Rx Instructions . Route 04/07/24 25 mcg/actuation powdr for .COMPLEX #60 blisters inhalation (Anoro Ellipta) insulin glargine 100 unit/mL (3 10 unit (0.1 mL) SUBCU T QAM #15 mL 06/15/24 mL) subcutaneous pen (Lantus Solostar U-100 Insulin) furosemide 80 mg tablet See Rx Instructions .Route 0 07/14/24 .COMPLEX #60 tabs blood-glucose sensor (Dexcom G6 #3 ea 07/20/24 Sensor device) blood-glucose transmitter (Dexcom #1 ea 07/20/24 G6 Transmitter device) blood-glucose,tank truck milk receiver,cont #1 ea 07/20/24 (Dexcom G6 Tier Lift Truck Operator) pantoprazole 40 mg tablet,delayed See Rx Instructions .Route 07/20/24 release .COMPLEX #30 tabs trazodone 150 mg tablet See Rx Instructions .Route 0 08/09/24 .COMPLEX #60 tabs buspirone 5 mg tablet See Rx Instructions .Route 0 08/27/24 .COMPLEX #90 tabs meloxicam 15 mg tablet See Rx Instructions .Route 0 08/27/24 .COMPLEX #30 tabs ondansetron 8 mg disintegrating See Rx Instructions .R oute 09/01/24 tablet .COMPLEX #30 tabs aspirin 81 mg tablet,delayed See Rx Instructions .Rout e 09/06/24 release .COMPLEX #90 tabs ondansetron 4 mg disintegrating 4 mg PO Q8H PRN nausea and 09/13/24 tablet vomiting #10 tabs Allergies Allergy/AdvReac Type Severity Reaction Status Date / Time mirtazapine (From Remeron) Allergy ADR-Agitate Verified 06/01/24 11:47 d morphine Allergy Unknown Verified 06/01/24 11:47 cephalexin (From Keflex) AdvReac ADR-Nausea Verified 06/01/24 11:47 Review of Systems 2 Const: Denies: fever(s) or chills Card: Denies: chest pain Resp: Denies: dyspnea GI: Denies: abdominal pain : Denies: dysuria, urinary frequency or urinary urgency Musc: Denies: neck pain or back pain Skin/Breast: Denies: rash PFSH ED 2 PFSH: Medical History Coronary artery disease Carcinoid tumor Rectal carcinoid tumor surgery Smoker Moderate pulmonary arterial systolic hypertension 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% no valvular abnormality Nicotine dependence, cigarettes, with other nicotine-induced disorders Cannabis dependence, uncomplicated Major depressive disorder, recurrent severe without psychotic features Post-traumatic stress disorder, chronic Depression Essential hypertension GERD (gastroesophageal reflux disease) Type 1 diabetes mellitus with hyperglycemia Surgical History AICD (automatic cardioverter/defibrillator) present S/P coronary artery stent placement History of hip surgery Family History Grandmother Diabetes Cancer Mother Diabetes Father Hypertension Grandmother Hypertension Father Cancer Social History Smoking and tobacco/nicotine status: current every day tobacco/nicotine user cigarettes Packs smoked per day: 1 Alcohol intake: current Alcohol intake frequency: holidays/special occasions only Substance/Drug Use: former Physical Exam 2 Const: GENERAL APPEARANCE: cooperative ORIENTATION/CONSCIOUSNESS: Yes awake, Yes oriented to person, Yes oriented to place and Yes oriented to time HENMT: COMMON NORMALS: normocephalic, atraumatic and hearing grossly normal bilaterally HEAD & SCALP: normocephalic and atraumatic Resp: COMMON NORMALS: normal respiratory effort, No retractions, No use of accessory muscles and clear to auscultation bilaterally AUSCULTATION: clear to auscultation bilaterally Cardio: COMMON NORMALS: regular rate, regular rhythm and No murmurs present (Cardio) RATE: regular rate RHYTHM: regular rhythm GI: COMMON NORMALS: No hepatosplenomegaly present AUSCULTATION: Yes normoactive bowel sounds PALPATION: Yes Tenderness to palpation present (GI) (Mild diffuse), No Guarding due to palpation present (GI) and Yes No hepatosplenomegaly present Extremity: COMMON NORMALS: normal to inspection, capillary refill normal, no clubbing, cyanosis or edema, no calf tenderness and no pedal edema Neuro: SENSORIUM/ORIENTATION: Yes oriented to person, Yes oriented to place and Yes oriented to time Skin: COMMON NORMALS: no rashes or lesions noted GENERAL SKIN EXAM: no rashes or lesions noted Course 2 Vital Signs: Vital signs: Vital Signs Temperature 99.3 F 09/13/24 17:22 Pulse Rate 79 09/13/24 18:25 Respiratory Rate 16 09/13/24 18:25 Blood Pressure 120/81 09/13/24 18:25 Pulse Oximetry 95 09/13/24 18:25 Oxygen Delivery Me thod Room Air 09/13/24 18:25 MDM - Nausea/Vomiting/Diarrhea Medical Decision Making Labs pending. Care signed out to Dr. Ocasio at change of shift. See final notes for diagnosis and disposition. Patient care was transitioned me at shift change. I was called to the room as the patient had decided he wants to go home. He has received fluids. Lab work thus far is fairly unremarkable. He has not given a urine yet. I discussed that that might be an important thing to check prior to discharge and he disagrees and says he wants to go home. He is aware of the risk. Medical Records I reviewed the patient's medical records. Lab Data I reviewed the patient's lab results. 09/13/24 18:09 09/13/24 18:09 Radiology Impressions Chest X-Ray 09/13/24 17:26 IMPRESSION: No acute findings. Laboratory Results WBC 10.91 10^3/uL (3.29-11.43) 09/13/24 18:09 RBC 5.10 10^6/uL (3.85-5.65) 09/13/24 18:09 Hgb 16.70 g/dL (11.27-16.99) 09/13/24 18:09 Hct 48.5 % (37-53) 09/13/24 18:09 MCV 95.1 fl (82-101) 09/13/24 18:09 MCH 32.7 pg (27-33) 09/13/24 18:09 MCHC 34.4 g/dL (30-55) 09/13/24 18:09 RDW 12.9 % (12.1-15.1) 09/13/24 18:09 Plt Count 191 10^3/cmm (157-399) 09/13/24 18:09 MPV 11.4 fL (7.4-10.4) H 09/13/24 18:09 Neut % (Auto) 65.7 % 09/13/24 18:09 Lymph % (Auto) 24.0 % 09/13/24 18:09 [place] % (Auto) 7.1 % 09/13/24 18:09 Eos % (Auto) 1.8 % 09/13/24 18:09 Baso % (Auto) 0.5 % 09/13/24 18:09 Neut # (Auto) 7.16 10^3/uL (1.8-7.7) 09/13/24 18:09 Lymph # (Auto) 2.6 10^3/uL (0.8-4.8) 09/13/24 18:09 [place] # (Auto) 0.8 10^3/uL (0.2-0.9) 09/13/24 18:09 Eos # (Auto) 0.2 10^3/uL (0.0-0.8) 09/13/24 18:09 Baso # (Auto) 0.1 10^3/uL (0.0-0.1) 09/13/24 18:09 Nucleated RBC % (auto) 0 % 09/13/24 18:09 Nucleated RBCs # 0.0 /100WBC 09/13/24 18:09 Sodium 137 mmol/L (136-145) 09/13/24 18:09 Potassium 3.1 mmol/L (3.5-5.1) L 09/13/24 18:09 Chloride 101 mmol/L (98-107) 09/13/24 18:09 Carbon Dioxide 21 mmol/L (22-29) L 09/13/24 18:09 Anion Gap 18.1 (5-19) 09/13/24 18:09 BUN 24 mg/dL (6-20) H 09/13/24 18:09 Creatinine 1.1 mg/dL (0.7-1.2) 09/13/24 18:09 GFR Calculation 72.4 mL/min (90-130) L 09/13/24 18:09 Glucose 192 mg/dL (65-115) H 09/13/24 18:09 Calculated Osmolality 293 mOsm/kg (285-295) 09/13/24 18:09 Calcium 9.0 mg/dL (8.5-10.5) 09/13/24 18:09 Total Bilirubin 0.4 mg/dL (0.15-1.2) 09/13/24 18:09 AST 14 U/L (0-40) 09/13/24 18:09 ALT 9 U/L (0-41) 09/13/24 18:09 Alkaline Phosphatase 87 U/L (40-130) 09/13/24 18:09 Total Protein 6.6 g/dL (6.6-8.7) 09/13/24 18:09 Albumin 4.0 g/dL (3.5-5.2) 09/13/24 18:09 Globulin 2.6 g/dL (1.3-4.6) 09/13/24 18:09 Lipase 39 U/L (13-60) 09/13/24 18:09 Serum Ketones Negative (Negative) 09/13/24 18:09 Discharge Plan Discharge Patient Disposition: Home Clinical Impression: Dehydration, Enteritis Condition: Stable Prescriptions: New ondansetron 4 mg tablet,disintegrating 4 mg PO Q8H PRN (Reason: nausea and vomiting) Qty: 10 0RF No Action (DME) lancets [OneTouch Delica Plus Lancet] 30 gauge misc See Rx Instructions .ROUTE .COMPLEX Qty: 200 4RF Dose Instruction: DIRECTED Rx Instructions: three times a day clopidogrel 75 mg tablet 75 mg PO DAILY Qty: 90 1RF atorvastatin 80 mg tablet 80 mg PO DAILY Qty: 90 3RF metoprolol tartrate 25 mg tablet 12.5 mg PO DAILY Qty: 45 3RF insulin glargine [Lantus Solostar U-100 Insulin] 100 unit/mL (3 mL) insulin pen 10 unit SUBCUT QAM Qty: 15 0RF (DME) cpap See Rx Instructions .Route .MEDSUPPLY Qty: 1 0RF Rx Instructions: please issue auto titrating cpap 6-16cm and all supplies. (DME) pen needle, diabetic [Pentips Pen Needle] 31 gauge x 3/16 needle See Rx Instructions .ROUTE .COMPLEX Qty: 100 6RF Dose Instruction: USE TWICE A DAY Rx Instructions: USE TWICE A DAY albuterol sulfate [Ventolin HFA] 90 mcg/actuation HFA aerosol inhaler 2 puff inhalation Q4H PRN (Reason: shortness of breath or wheezing) 90 Days Qty: 18 3RF insulin lispro 100 unit/mL insulin pen See Rx Instructions .ROUTE .COMPLEX Qty: 15 0RF Rx Instructions: Take per sliding scale: 0-150=0 units,151-200=2 units,201-250=4 units,251- 300=6 units,301-350=8 units,859=253=54 units, >[address] max dose 30units three times daily; Anoro Ellipta 62.5-25 mcg/actuation blister with device See Rx Instructions .ROUTE .COMPLEX Qty: 60 11RF Dose Instruction: INHALE 1 PUFF BY MOUTH EVERY 24 HOURS Rx Instructions: INHALE 1 PUFF BY MOUTH EVERY 24 HOURS sertraline 100 mg tablet See Rx Instructions .ROUTE .COMPLEX Qty: 180 11RF Dose Instruction: TAKE TWO TABLETS BY MOUTH ONCE DAILY Rx Instructions: TAKE TWO TABLETS BY MOUTH ONCE DAILY furosemide 80 mg tablet See Rx Instructions .ROUTE .COMPLEX Qty: 60 3RF Dose Instruction: TAKE ONE TABLET BY MOUTH ONCE DAILY USE ADDITIONAL TABLET NEEDED Rx Instructions: TAKE ONE TABLET BY MOUTH ONCE DAILY USE ADDITIONAL TABLET NEEDED pantoprazole 40 mg tablet,delayed release (DR/EC) See Rx Instructions .ROUTE .COMPLEX Qty: 30 3RF Dose Instruction: TAKE ONE TABLET BY MOUTH ONCE DAILY IN THE MORNING Rx Instructions: TAKE ONE TABLET BY MOUTH ONCE DAILY IN THE MORNING ([facility] [place] Dexcom G6 Sensor Device See Rx Instructions .Route Qty: 3 6RF Rx Instructions: As directed ([facility] [place] Dexcom G6 Tier Lift Truck Operator Misc See Rx Instructions .Route Qty: 1 0RF Rx Instructions: As directed ([facility] [place] Dexcom G6 Transmitter Device See Rx Instructions .Route Qty: 1 0RF Rx Instructions: As directed trazodone 150 mg tablet See Rx Instructions .ROUTE .COMPLEX Qty: 60 2RF Dose Instruction: TAKE TWO TABLETS BY MOUTH ONCE DAILY AT BEDTIME Rx Instructions: TAKE TWO TABLETS BY MOUTH ONCE DAILY AT BEDTIME buspirone 5 mg tablet See Rx Instructions .ROUTE .COMPLEX Qty: 90 0RF Dose Instruction: TAKE ONE TABLET BY MOUTH TWICE DAILY. MAY increase TO THREE times daily if needed AFTER TWO WEEKS Rx Instructions: TAKE ONE TABLET BY MOUTH TWICE DAILY. MAY increase TO THREE times daily if needed AFTER TWO WEEKS meloxicam 15 mg tablet See Rx Instructions .ROUTE .COMPLEX Qty: 30 0RF Dose Instruction: TAKE ONE TABLET BY MOUTH ONCE DAILY IN THE MORNING NEEDED FOR PAIN Rx Instructions: TAKE ONE TABLET BY MOUTH ONCE DAILY IN THE MORNING NEEDED FOR PAIN ondansetron 8 mg tablet,disintegrating See Rx Instructions .ROUTE .COMPLEX Qty: 30 1RF Dose Instruction: dissolve ONE tablet ON top of TONGUE THEN swallow every EIGHT hours NEEDED FOR nausea AND vomiting Rx Instructions: dissolve ONE tablet ON top of TONGUE THEN swallow every EIGHT hours NEEDED FOR nausea AND vomiting aspirin 81 mg tablet,delayed release (DR/EC) See Rx Instructions .ROUTE .COMPLEX Qty: 90 0RF Dose Instruction: TAKE ONE TABLET BY MOUTH ONCE DAILY Rx Instructions: TAKE ONE TABLET BY MOUTH ONCE DAILY Discharge Orders: Discharge ED (Routine); Ordered 09/13/24 Ordered By: Sonal Ocasio Referrals: Zeinab Salazar NP [Primary Care Provider, Family Practice] Discharge Diet: Advance as tolerated Discharge Activity: Increase activity as tolerated Patient Instructions: Opioid Safety, Pain Management, Patient Portal & Charley Instructions Activity Restrictions/Additional Instructions: Thank you for choosing [facility] for your healthcare needs today. You have been screened and evaluated and felt safe for discharge. Health conditions do change or evolve sometimes and as such it is important that you follow up with your Primary Doctor to be re checked, 3-5 days is a general good time frame for follow up. 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 Fwd Documented by User: Sonal Ocasio MD 09/13/24 19:14 HPI - Nausea/Vomiting/Diarrhea 2 General: Chief complaint: Nausea/Vomiting/Diarrhea Stated complaint: n/v Time Seen by Provider: 09/13/24 17:25 Related Data Previous Rx's ?Medication ?Instructions ?Recorded lancets 30 gauge (OneTouch Delica #200 ea 07/01/23 Plus Lancet) cpap #1 ea 11/07/23 pen needle, diabetic 31 gauge x #100 ea 11/18/2305/16 (Pentips Pen Needle) albuterol sulfate 90 mcg/actuation 2 puff inhalation Q 4H PRN 01/26/24 aerosol inhaler (Ventolin HFA) shortness of breath or wheezing 90 days #18 grams clopidogrel 75 mg tablet 75 mg PO DAILY #90 tabs 01/31 08/24 insulin lispro 100 unit/mL See Rx Instructions .Route 03/10/24 subcutaneous pen .COMPLEX #15 mL atorvastatin 80 mg tablet 80 mg PO DAILY #90 tabs 03/03 06/25 metoprolol tartrate 25 mg tablet 12.5 mg (1/2 x 25 mg) PO DAILY #45 03/16/24 tabs sertraline 100 mg tablet See Rx Instructions .Route 0 04/07/24 .COMPLEX #180 tabs umeclidinium 62.5 mcg-vilanterol See Rx Instructions . Route 04/07/24 25 mcg/actuation powdr for .COMPLEX #60 blisters inhalation (Anoro Ellipta) insulin glargine 100 unit/mL (3 10 unit (0.1 mL) SUBCU T QAM #15 mL 06/15/24 mL) subcutaneous pen (Lantus Solostar U-100 Insulin) furosemide 80 mg tablet See Rx Instructions .Route 0 07/14/24 .COMPLEX #60 tabs blood-glucose sensor (Dexcom G6 #3 ea 07/20/24 Sensor device) blood-glucose transmitter (Dexcom #1 ea 07/20/24 G6 Transmitter device) blood-glucose,tank truck milk receiver,cont #1 ea 07/20/24 (Dexcom G6 Tier Lift Truck Operator) pantoprazole 40 mg tablet,delayed See Rx Instructions .Route 07/20/24 release .COMPLEX #30 tabs trazodone 150 mg tablet See Rx Instructions .Route 0 08/09/24 .COMPLEX #60 tabs buspirone 5 mg tablet See Rx Instructions .Route 0 08/27/24 .COMPLEX #90 tabs meloxicam 15 mg tablet See Rx Instructions .Route 0 08/27/24 .COMPLEX #30 tabs ondansetron 8 mg disintegrating See Rx Instructions .R oute 09/01/24 tablet .COMPLEX #30 tabs aspirin 81 mg tablet,delayed See Rx Instructions .Rout e 09/06/24 release .COMPLEX #90 tabs ondansetron 4 mg disintegrating 4 mg PO Q8H PRN nausea and 09/13/24 tablet vomiting #10 tabs Allergies Allergy/AdvReac Type Severity Reaction Status Date / Time mirtazapine (From Remeron) Allergy ADR-Agitate Verified 06/01/24 11:47 d morphine Allergy Unknown Verified 06/01/24 11:47 cephalexin (From Keflex) AdvReac ADR-Nausea Verified 06/01/24 11:47 PFS ED 2 PFSH: Medical History Coronary artery disease Carcinoid tumor Rectal carcinoid tumor surgery Smoker Moderate pulmonary arterial systolic hypertension 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% no valvular abnormality Nicotine dependence, cigarettes, with other nicotine-induced disorders Cannabis dependence, uncomplicated Major depressive disorder, recurrent severe without psychotic features Post-traumatic stress disorder, chronic Depression Essential hypertension GERD (gastroesophageal reflux disease) Type 1 diabetes mellitus with hyperglycemia Surgical History AICD (automatic cardioverter/defibrillator) present S/P coronary artery stent placement History of hip surgery Family History Grandmother Diabetes Cancer Mother Diabetes Father Hypertension Grandmother Hypertension Father Cancer Social History Smoking and tobacco/nicotine status: current every day tobacco/nicotine user cigarettes Packs smoked per day: 1 Alcohol intake: current Alcohol intake frequency: holidays/special occasions only Substance/Drug Use: former Course 2 Vital Signs: Vital signs: Vital Signs Temperature 99.3 F 09/13/24 17:22 Pulse Rate 79 09/13/24 18:25 Respiratory Rate 16 09/13/24 18:25 Blood Pressure 120/81 09/13/24 18:25 Pulse Oximetry 95 09/13/24 18:25 Oxygen Delivery Me thod Room Air 09/13/24 18:25 MDM - Nausea/Vomiting/Diarrhea Medical Decision Making Care signed out to Dr. Ocasio at change of shift. See final notes for diagnosis and disposition. Patient care was transitioned me at shift change. I was called to the room as the patient had decided he wants to go home. He has received fluids. Lab work thus far is fairly unremarkable. He has not given a urine yet. I discussed that that might be an important thing to check prior to discharge and he disagrees and says he wants to go home. He is aware of the risk. Lab Data 09/13/24 18:09 09/13/24 18:09 Radiology Impressions Chest X-Ray 09/13/24 17:26 IMPRESSION: No acute findings. Laboratory Results WBC 10.91 10^3/uL (3.29-11.43) 09/13/24 18:09 RBC 5.10 10^6/uL (3.85-5.65) 09/13/24 18:09 Hgb 16.70 g/dL (11.27-16.99) 09/13/24 18:09 Hct 48.5 % (37-53) 09/13/24 18:09 MCV 95.1 fl (82-101) 09/13/24 18:09 MCH 32.7 pg (27-33) 09/13/24 18:09 MCHC 34.4 g/dL (30-55) 09/13/24 18:09 RDW 12.9 % (12.1-15.1) 09/13/24 18:09 Plt Count 191 10^3/cmm (157-399) 09/13/24 18:09 MPV 11.4 fL (7.4-10.4) H 09/13/24 18:09 Neut % (Auto) 65.7 % 09/13/24 18:09 Lymph % (Auto) 24.0 % 09/13/24 18:09 [place] % (Auto) 7.1 % 09/13/24 18:09 Eos % (Auto) 1.8 % 09/13/24 18:09 Baso % (Auto) 0.5 % 09/13/24 18:09 Neut # (Auto) 7.16 10^3/uL (1.8-7.7) 09/13/24 18:09 Lymph # (Auto) 2.6 10^3/uL (0.8-4.8) 09/13/24 18:09 [place] # (Auto) 0.8 10^3/uL (0.2-0.9) 09/13/24 18:09 Eos # (Auto) 0.2 10^3/uL (0.0-0.8) 09/13/24 18:09 Baso # (Auto) 0.1 10^3/uL (0.0-0.1) 09/13/24 18:09 Nucleated RBC % (auto) 0 % 09/13/24 18:09 Nucleated RBCs # 0.0 /100WBC 09/13/24 18:09 Sodium 137 mmol/L (136-145) 09/13/24 18:09 Potassium 3.1 mmol/L (3.5-5.1) L 09/13/24 18:09 Chloride 101 mmol/L (98-107) 09/13/24 18:09 Carbon Dioxide 21 mmol/L (22-29) L 09/13/24 18:09 Anion Gap 18.1 (5-19) 09/13/24 18:09 BUN 24 mg/dL (6-20) H 09/13/24 18:09 Creatinine 1.1 mg/dL (0.7-1.2) 09/13/24 18:09 GFR Calculation 72.4 mL/min (90-130) L 09/13/24 18:09 Glucose 192 mg/dL (65-115) H 09/13/24 18:09 Calculated Osmolality 293 mOsm/kg (285-295) 09/13/24 18:09 Calcium 9.0 mg/dL (8.5-10.5) 09/13/24 18:09 Total Bilirubin 0.4 mg/dL (0.15-1.2) 09/13/24 18:09 AST 14 U/L (0-40) 09/13/24 18:09 ALT 9 U/L (0-41) 09/13/24 18:09 Alkaline Phosphatase 87 U/L (40-130) 09/13/24 18:09 Total Protein 6.6 g/dL (6.6-8.7) 09/13/24 18:09 Albumin 4.0 g/dL (3.5-5.2) 09/13/24 18:09 Globulin 2.6 g/dL (1.3-4.6) 09/13/24 18:09 Lipase 39 U/L (13-60) 09/13/24 18:09 Serum Ketones Negative (Negative) 09/13/24 18:09 All radiology interpretation(s) finalized by discharge Discharge Plan Discharge Patient Disposition: Home Clinical Impression: Dehydration, Enteritis Condition: Stable Prescriptions: New ondansetron 4 mg tablet,disintegrating 4 mg PO Q8H PRN (Reason: nausea and vomiting) Qty: 10 0RF No Action (DME) lancets [OneTouch Delica Plus Lancet] 30 gauge misc See Rx Instructions .ROUTE .COMPLEX Qty: 200 4RF Dose Instruction: DIRECTED Rx Instructions: three times a day clopidogrel 75 mg tablet 75 mg PO DAILY Qty: 90 1RF atorvastatin 80 mg tablet 80 mg PO DAILY Qty: 90 3RF metoprolol tartrate 25 mg tablet 12.5 mg PO DAILY Qty: 45 3RF insulin glargine [Lantus Solostar U-100 Insulin] 100 unit/mL (3 mL) insulin pen 10 unit SUBCUT QAM Qty: 15 0RF (DME) cpap See Rx Instructions .Route .MEDSUPPLY Qty: 1 0RF Rx Instructions: please issue auto titrating cpap 6-16cm and all supplies. (DME) pen needle, diabetic [Pentips Pen Needle] 31 gauge x 3/16 needle See Rx Instructions .ROUTE .COMPLEX Qty: 100 6RF Dose Instruction: USE TWICE A DAY Rx Instructions: USE TWICE A DAY albuterol sulfate [Ventolin HFA] 90 mcg/actuation HFA aerosol inhaler 2 puff inhalation Q4H PRN (Reason: shortness of breath or wheezing) 90 Days Qty: 18 3RF insulin lispro 100 unit/mL insulin pen See Rx Instructions .ROUTE .COMPLEX Qty: 15 0RF Rx Instructions: Take per sliding scale: 0-150=0 units,151-200=2 units,201-250=4 units,251- 300=6 units,301-350=8 units,430=116=33 units, >[address] max dose 30units three times daily; Anoro Ellipta 62.5-25 mcg/actuation blister with device See Rx Instructions .ROUTE .COMPLEX Qty: 60 11RF Dose Instruction: INHALE 1 PUFF BY MOUTH EVERY 24 HOURS Rx Instructions: INHALE 1 PUFF BY MOUTH EVERY 24 HOURS sertraline 100 mg tablet See Rx Instructions .ROUTE .COMPLEX Qty: 180 11RF Dose Instruction: TAKE TWO TABLETS BY MOUTH ONCE DAILY Rx Instructions: TAKE TWO TABLETS BY MOUTH ONCE DAILY furosemide 80 mg tablet See Rx Instructions .ROUTE .COMPLEX Qty: 60 3RF Dose Instruction: TAKE ONE TABLET BY MOUTH ONCE DAILY USE ADDITIONAL TABLET NEEDED Rx Instructions: TAKE ONE TABLET BY MOUTH ONCE DAILY USE ADDITIONAL TABLET NEEDED pantoprazole 40 mg tablet,delayed release (DR/EC) See Rx Instructions .ROUTE .COMPLEX Qty: 30 3RF Dose Instruction: TAKE ONE TABLET BY MOUTH ONCE DAILY IN THE MORNING Rx Instructions: TAKE ONE TABLET BY MOUTH ONCE DAILY IN THE MORNING (DME) Dexcom G6 Sensor Device See Rx Instructions .Route Qty: 3 6RF Rx Instructions: As directed ([facility] [place] Dexcom G6 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 MAY increase TO THREE times daily if needed AFTER TWO WEEKS Rx Instructions: TAKE ONE TABLET BY MOUTH TWICE DAILY. MAY increase TO THREE times daily if needed AFTER TWO WEEKS meloxicam 15 mg tablet See Rx Instructions .ROUTE .COMPLEX Qty: 30 0RF Dose Instruction: TAKE ONE TABLET BY MOUTH ONCE DAILY IN THE MORNING NEEDED FOR PAIN Rx Instructions: TAKE ONE TABLET BY MOUTH ONCE DAILY IN THE MORNING NEEDED FOR PAIN ondansetron 8 mg tablet,disintegrating See Rx Instructions .ROUTE .COMPLEX Qty: 30 1RF Dose Instruction: dissolve ONE tablet ON top of TONGUE THEN swallow every EIGHT hours NEEDED FOR nausea AND vomiting Rx Instructions: dissolve ONE tablet ON top of TONGUE THEN swallow every EIGHT hours NEEDED FOR nausea AND vomiting aspirin 81 mg tablet,delayed release (DR/EC) See Rx Instructions .ROUTE .COMPLEX Qty: 90 0RF Dose Instruction: TAKE ONE TABLET BY MOUTH ONCE DAILY Rx Instructions: TAKE ONE TABLET BY MOUTH ONCE DAILY Discharge Orders: Discharge ED (Routine); Ordered 09/13/24 Ordered By: Sonal Ocasio Referrals: Zeinab Salazar NP [Primary Care Provider, Family Practice] Discharge Diet: Advance as tolerated Discharge Activity: Increase activity as tolerated Patient Instructions: Opioid Safety, Pain Management, Patient Portal & Charley Instructions Activity Restrictions/Additional Instructions: Thank you for choosing [facility] for your healthcare needs today. You have been screened and evaluated and felt safe for discharge. Health conditions do change or evolve sometimes and as such it is important that you follow up with your Primary Doctor to be re checked, 3-5 days is a general good time frame for follow up. You are always welcome to return to the ED for re assessment if your symptoms are worsening or you have new concerns Print Language: Upper Sorbian Coding Level of Care Code ED Broadcast Maintenance Technician for Alexis Gutierrez
--- NOTE | 2024-09-13 17:58 | ECG_ITS ---
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 Measurements Intervals [place] Rate: 77 P: 58 [place]: 122 QRS: -63 QRSD: 121 T: 149 QT: 391 QTc: 444 Interpretive Statements SINUS RHYTHM WITH OCCASIONAL VENTRICULAR PREMATURE COMPLEXES RIGHT BUNDLE BRANCH BLOCK [120+ ms QRS DURATION, UPRIGHT V1, 40+ ms S IN I/aVL/V4/V5/V6] LEFT ANTERIOR FASCICULAR BLOCK [QRS AXIS <= -45, QR IN I, RS IN II] POSSIBLE SEPTAL MYOCARDIAL INFARCTION , OF INDETERMINATE AGE [30 ms Q WAVE IN V1/V2].MODERATE T-WAVE ABNORMALITY, CONSIDER LATERAL ISCHEMIA [-0.1+ mV T-WAVE IN I/aVL/V5/V6] Compared to ECG 02/05/2024 17:52:51 Ventricular premature complex(es) now present.Right bundle-branch block now present. Left anterior fascicular block now present. Myocardial infarct finding now present. Left-axis deviation no longer present .T-wave abnormality still present.Possible ischemia still present Electronically Signed On 09-14-2024 09:49:00 CDT by Radha Madison M.[email or web address]
[2024-09-13 18:25] VITALS: BP 120/81; PULSE 79; RESP 16; O2SAT 95
[2024-09-13 18:32] LABS: Hematocrit 48.5 % (37-53); Hemoglobin 16.70 g/dL (11.27-16.99); Mean Corpuscular HGB Conc 34.4 g/dL (30-55); Mean Corpuscular Hemoglobin 32.7 pg (27-33); Mean Corpuscular Volume 95.1 fl (82-101); Nucleated Red Blood Cells % 0 %; Platelet Count 191 10^3/cmm (157-399); Red Blood Count 5.10 10^6/uL (3.85-5.65); White Blood Count 10.91 10^3/uL (3.29-11.43)
[2024-09-13 18:48] LABS: Ketone (Acetest) Serum Negative (Negative)
[2024-09-13 18:50] LABS: Alanine Aminotransferase 9 U/L (0-41); Albumin Level 4.0 g/dL (3.5-5.2); Alkaline Phosphatase 87 U/L (40-130); Aspartate Amino Transferase 14 U/L (0-40); Blood Urea Nitrogen 24 mg/dL (6-20); Calcium 9.0 mg/dL (8.5-10.5); Carbon Dioxide 21 mmol/L (22-29); Chloride 101 mmol/L (98-107); Creatinine Clr Calc Pharmacy 84.0486; Globulin 2.6 g/dL (1.3-4.6); Glucose 192 mg/dL (65-115); Lipase 39 U/L (13-60); Osmolality Calculated 293 mOsm/kg (285-295); Sodium 137 mmol/L (136-145); Total Protein 6.6 g/dL (6.6-8.7)
[2024-09-13 19:03] LABS: Anion Gap 18.1 (5-19); Potassium 3.1 mmol/L (3.5-5.1)
== END 2024-09-13 19:15 | disposition home or self-care (01) ==
PROVIDERS: Family Medicine; Emergency Provider Emergency Medicine; PCP Nurse Practitioner Family
DX: E86.0 Dehydration (principal); K52.9 Noninfective gastroenteritis and colitis, unspecified; Z79.02 Long term (current) use of antithrombotics/antiplatelets; Z79.82 Long term (current) use of aspirin; Z79.4 Long term (current) use of insulin; I25.10 Atherosclerotic heart disease of native coronary artery without angina pectoris; E10.9 Type 1 diabetes mellitus without complications; I11.0 Hypertensive heart disease with heart failure; I50.40 Unspecified combined systolic (congestive) and diastolic (congestive) heart failure
CPT/HCPCS: 36415; 71045; 80053; 82009; 83690; 85025; 93005; 96374; 99285; J0780; J7030

== ENCOUNTER → 2024-11-17 09:57 | Outpatient (BNVA) | payer MEDICAID, SELFPAY ==
[2024-06-03 11:37] VITALS: BP 121/83; BMI 23.6
== END ==
PROVIDERS: PCP Nurse Practitioner Family; Visit Provider Internal Medicine Cardiovascular Disease
DX: Z45.02 Encounter for adjustment and management of automatic implantable cardiac defibrillator (principal)
CPT/HCPCS: 93296

== ENCOUNTER → 2025-02-16 09:59 | Outpatient (BNVA) | payer MEDICAID, SELFPAY ==
[2024-06-03 11:37] VITALS: BP 121/83; BMI 23.6
== END ==
PROVIDERS: PCP Nurse Practitioner Family; Visit Provider Internal Medicine Cardiovascular Disease
DX: Z45.02 Encounter for adjustment and management of automatic implantable cardiac defibrillator (principal)
CPT/HCPCS: 93296